=== PATIENT | male | born 1935 | race Caucasian/White ===

== ENCOUNTER 2016-09-22 13:46 | Inpatient (IN) ==
[2016-09-22] MEDS ORDERED: SODIUM CHLORIDE 0.9% 500 ML IV STA (14:10)
[2016-09-22] MEDS ORDERED: ONDANSETRON 4 MG/2 ML VIAL IV STA (14:10)
[2016-09-22] MEDS ORDERED: PANTOPRAZOLE 40 MG VIAL IV STA (14:10)
--- NOTE | 2016-09-22 14:16 | Emergency Department Note ---
Arrival - Arrival Chief Complaint: GI Bleed/Rectal Stated Complaint: GI bleed ED Nursing Triage Note: Vomiting bright red blood x 2 this am - black stools onset last night - pt is awake alert at time of arrival Mode of Arrival: Stretcher Limitations: No Limitations Source: Patient Time Seen by Provider: 09/22/16 14:09 - History of Present Illness HPI Narrative: This 89-year-old white male presents with a history of black tarry bowel movements on 2 occasions last night and what the describes as spitting bright red blood twice this morning. In that regard the patient has had as the states significant problems with sinus trouble recently. The patient himself denies any abdominal pain, change in bowel habits, heartburn, belching, water brash, although he does have a history of gastroesophageal reflux disease with a stricture in the past. At no time has he had any complaints of chest pain or shortness of breath associated with this episode. Currently he is in no acute medical distress. Onset (ago): hour(s) (Patient presents 12 hours post onset of symptoms) Allergies/Adverse Reactions: Allergies Allergy/AdvReac Type Severity Reaction Status Date / Time No Known Allergies Allergy Unverified 09/22/16 13:47 Home Medications: Home Medications Medication Instructions Recorded Confirmed Type Albuterol/Ipratropium Neb [Duoneb] 3 ml RESP TX QID 07/27/14 08/12/15 History amLODIPine [Norvasc] 5 mg PO BID 07/27/14 08/12/15 History Aspirin [Ecotrin] 81 mg PO DAILY 08/12/15 08/12/15 History ALPRAZolam [Xanax] 0.5 mg PO TID PRN #60 tablet 08/16/15 Rx Docusate Sodium Cap [Colace Cap] 100 mg PO BID capsule 08/16/15 Rx Losartan [Cozaar] 50 mg PO DAILY #30 tablet 08/16/15 Rx Pantoprazole Tab [Protonix Tab] 40 mg PO DAILY tablet 08/16/15 Rx Sotalol [Betapace] 80 mg PO BID #60 tablet 08/16/15 Rx Review of System - Review of System 12 point system: reviewed and no additional remarkable complaints except as stated - Review of System Constitutional: Present: as per HPI Head/Ears/Nose/Throat: Present: see HPI Gastrointestinal: Present: as per HPI Medical,Surgical,& Family Hx - Medical History Cardio: History of: Hypertension Psychological: History of: Anxiety Disorders Neurology: History of: Cerebrovascular Accident No history of: Seizures HEENT: History of: Ear Problem, Eye Problem (GLASSES COS) Respiratory: History of: COPD, Respiratory Problems (EMPHYSEMA) Genitourinary: History of: Kidney Stones Gastrointestinal: History of: Bowel Obstruction, GI Problems (DIFFICULT SWALLOWING HX DILATATION) Musculoskeletal: History of: Degenerative Disk Disease - Surgical History HEENT Surgeries: Surgical HX of: Eye Surgery (COS) Abdominal Surgeries: Surgical HX of: Abdominal Surgery (COLON SURGERY DUE TO BLOCKAGE), Cholecystectomy, Colonoscopy, EGD - Family History Family History: Reports;: Family Cancer, Family Heart Disease - Social History Smoking Status: Never smoker Frequency of Alcohol Use: None Type of Drug Use: None Exam Physical Examination: GENERAL: Elderly frail white male in no acute distress. HEENT: Normocephalic. No trauma. Moist mucous membranes. EOMI. PERRLA. ENT: Nose reveals nasal mucosa erythema and edema, throat clear, ears clear NECK: Supple. No adenopathy. CARDIAC: Regular. No murmurs. Heart rate 100 CHEST: Clear to auscultation. No respiratory distress. O2 sat 90 ABDOMEN: Soft. Nontender. Active bowel sounds. EXTREMITIES: No trauma. Normal ROM. No pedal edema. SKIN: No diaphoresis. No rash. NEURO: Alert. Oriented 3. Motor, sensory, vibratory intact. No focal deficits. Vital Signs: Vital Signs Temperature 97.2 F L 09/22/16 13:52 Pulse Rate 108 H 09/22/16 13:52 Respiratory Rate 20 09/22/16 13:52 Blood Pressure 137/77 09/22/16 13:52 O2 Sat by Pulse Oximetry 98 09/22/16 13:48 Course - Reevaluation(s) Reevaluation #1: Advised patient of the need for hospitalization because of occult positive stools as well as bump in troponin. - Consultations Consultation #1: Discussed with Dr. Gilman will admit for further evaluation treatment. Results - Labs CBC & BMP: 09/22/16 13:58 09/22/16 13:58 Labs: I have reviewed the lab and noted the normal hematocrit but the bump in troponins were also noted. - Impressions EKG: Sinus rhythm at 98 with normal DE interval and QRS duration. Diffuse nonspecific ST changes. No acute injury pattern noted. - Diagnostic Findings Procedure: Chest x-ray: image reviewed by me, report reviewed by me (No interval change from previous films) Disposition Clinical Impression: Abnormal cardiac enzyme, Lower GI bleed, Sinusitis Case discussed with: patient, patient's family Disposition: Still a Patient Condition: Stable Time of Disposition: 15:39
[2016-09-22 14:17] LABS: Basophils % 0.4 % (0.0-0.8); Eosinophils # 0.1 10*3/uL (0.0-0.87); Hematocrit 40.7 VOL% (42.0-52.0); Hemoglobin 14.4 GM/DL (14.0-18.0); Immature Granulocytes % 0.9 %; Immature Granulocytes Absolute 0.09 #; Lymphocytes # 2.2 10*3/uL (1.4-4.0); Lymphocytes % 20.9 % (21.2-54.2); Mean Corpuscular HGB Conc 35.4 GM/DL (32-36); Mean Corpuscular Hemoglobin 32 PG (27-34); Mean Corpuscular Volume 89.1 FL (87-102); Mean Platelet Volume 11.8 FL (9.6-12.0); Monocytes # 0.6 10*3/uL (0.11-0.8); Neutrophils # 7.3 10*3/uL (1.4-7.4); Neutrophils % 70.8 % (38.7-73.9); Platelet Count 174 T/CUMM (130-400); Red Blood Count 4.57 MC/CUMM (3.8-5.5); Red Cell Distribution Width 14.2 % (9.3-17.3); White Blood Count 10.3 T/CUMM (4-12)
[2016-09-22 14:23] LABS: Partial Thromboplastin Time 24.8 SECS (0-40)
[2016-09-22] MEDS ORDERED: PANTOPRAZOLE 40 MG VIAL IV ONE (14:24)
[2016-09-22] MEDS ORDERED: ONDANSETRON 4 MG/2 ML VIAL ONE (14:24)
--- NOTE | 2016-09-22 14:35 | XRay Report ---
History short of breath Comparison 08/12/2015 and other prior studies The heart is mildly enlarged. Mediastinal contours unchanged. HC is mildly obscured by positioning There are chronic pleural changes in both lung apices with this stranding and patchy parenchymal opacities in the apices more pronounced in the left grossly unchanged on multiple prior studies. Some minimal areas of nodularity within these regions is grossly similar on the prior study. The lower lung zones are relatively clear. Impression: 1. Mild cardiomegaly 2. Chronic changes grossly similar on prior studies PROCEDURE INTERPRETED AT [facility] DEPARTMENT OF RADIOLOGY Final Report Signed by: Dr. Jamila Joya
[2016-09-22 14:37] LABS: Alanine Aminotransferase 37 U/L (16-61); Albumin 3.2 G/DL (3.4-5.0); Alkaline Phosphatase 60 U/L (45-117); Aspartate Amino Transferase 20 U/L (0-37); Blood Urea Nitrogen 49 MG/DL (7-18); Calcium 8.7 MG/DL (8.5-10.1); Glucose 164 MG/DL (74-106); Potassium 4.2 MMOL/L (3.5-5.1); Sodium 143 MMOL/L (136-145); Total Protein 6.5 G/DL (6.4-8.3)
[2016-09-22 14:47] LABS: Troponin I Only 0.097 NG/ML (0.00-0.045)
--- NOTE | 2016-09-22 15:26 | EKG Report ---
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
[2016-09-22] MEDS ORDERED: ONDANSETRON 4 MG/2 ML VIAL IV PRN (15:41)
[2016-09-22] MEDS: ALBUTEROL/IPRATROPIUM 3 ML NEB RESP TX SCH ×2 (16:47→20:13)
[2016-09-22] MEDS: METOCLOPRAMIDE 10 MG/2 ML VIAL IV SCH (18:36)
[2016-09-22 18:54] LABS: Basophils % 0.3 % (0.0-0.8); Eosinophils % 0.2 % (0.00-10.9); Hematocrit 39.4 VOL% (42.0-52.0); Hemoglobin 13.9 GM/DL (14.0-18.0); Immature Granulocytes % 0.6 %; Immature Granulocytes Absolute 0.07 #; Lymphocytes % 17.2 % (21.2-54.2); Mean Corpuscular HGB Conc 35.3 GM/DL (32-36); Mean Corpuscular Hemoglobin 32 PG (27-34); Mean Corpuscular Volume 89.3 FL (87-102); Mean Platelet Volume 11.7 FL (9.6-12.0); Monocytes # 0.8 10*3/uL (0.11-0.8); Monocytes % 6.4 % (1.7-12.7); Neutrophils # 8.9 10*3/uL (1.4-7.4); Neutrophils % 75.3 % (38.7-73.9); Platelet Count 165 T/CUMM (130-400); Red Blood Count 4.41 MC/CUMM (3.8-5.5); Red Cell Distribution Width 14.2 % (9.3-17.3); White Blood Count 11.8 T/CUMM (4-12)
[2016-09-22 19:18] LABS: CKMB % 7.9 %
[2016-09-22 19:21] LABS: Troponin I Only 0.762 NG/ML (0.00-0.045)
[2016-09-22] MEDS: ALPRAZolam 0.5 MG TABLET PO PRN (20:35)
[2016-09-22] MEDS: SOTALOL 80 MG TABLET PO SCH (20:35)
[2016-09-22] MEDS ORDERED: METOPROLOL TARTRATE 5 MG/5 ML VIAL IV ONE ×3 (20:56→21:30)
--- NOTE | 2016-09-22 21:06 | Event Note ---
Responded to a heart alert called on this gentleman in room 219. On evaluation patient appear to be in mild to moderate distress. He states he gets anxious a lot and complained of chest pain. EKG was was read that showed evidence of atrial fibrillation with RVR no ST changes appreciated. Patient's blood pressure was noted to be 195/100. Sats were stable. Initial troponin level was noted to be elevated. At this time will move patient to a telemetry floor. CV tachycardia. Lungs clear anterior. No wheezing. Abdomen is soft. Lower extremity no evidence of edema. Serial cardiac enzymes. Have notified attending Dr. Gilman. Lopressor 5 mg IV. We will start Cardizem infusion and follow protocol.
[2016-09-22] MEDS ORDERED: DILTIAZEM 100 MG VIAL.ADD IV ONE (21:21)
[2016-09-22] MEDS ORDERED: SODIUM CHLORIDE 0.9% 100 ML IV ONE (21:22)
[2016-09-22] MEDS: DILTIAZEM INJ 100 MG in SODIUM CHLORIDE 0.9% 100 ML IV SCH (21:24)
[2016-09-22] MEDS ORDERED: LORazepam 1 MG TABLET PO ONE (21:31)
--- NOTE | 2016-09-22 21:33 | Event Note ---
Follow-up with patient after his transfer to telemetry he is a little more calm heart rate is now 120s. Still in A. fib rhythm Cardizem infusion is starting. Patient is awake and alert again expressed that he gets anxious a lot. We will give 1 mg Ativan p.o. Start Cardizem infusion. Continue to monitor.
[2016-09-22 22:01] LABS: CKMB % 7.5 %; Calcium 8.5 MG/DL (8.5-10.1); Magnesium 2.1 MG/DL (1.8-2.4); Osmolality,Calculated 306.7 MOS/KG (273-304); Potassium 4.1 MMOL/L (3.5-5.1)
[2016-09-22 22:04] LABS: Troponin I Only 0.998 NG/ML (0.00-0.045)
[2016-09-23 01:02] LABS: CKMB % 9.2 %
[2016-09-23 01:03] LABS: Troponin I Only 1.4 NG/ML (0.00-0.045)
[2016-09-23] MEDS: METOCLOPRAMIDE 10 MG/2 ML VIAL IV SCH ×4 (01:19→17:29)
[2016-09-23] MEDS: ALBUTEROL/IPRATROPIUM 3 ML NEB RESP TX SCH (02:04)
[2016-09-23] MEDS ORDERED: ALBUTEROL/IPRATROPIUM 3 ML NEB RESP TX SCH (07:05)
--- NOTE | 2016-09-23 07:19 | EKG Report ---
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
--- NOTE | 2016-09-23 08:19 | Family Practice History&Phys ---
Assessment and Plan (1) Possible GI bleed Status: Acute Assessment and plan: Based on the history patient was admitted for possible GI bleed. Will obtain serial labs in stools and had GI eval Current Visit: Yes (2) Melanotic stools unknown etiology Status: Acute Assessment and plan: Patient is having melanotic stools by history will eval Current Visit: Yes (3) Atrial fibrillation with RVR Status: Chronic Assessment and plan: History of previous atrial fibrillation. Current Visit: No (4) anxiety disorder Status: Chronic Assessment and plan: Patient has severe anxiety disorder. Current Visit: No (5) cerebrovascular accident Status: Chronic Assessment and plan: History of previous cerebrovascular accident stable at present Current Visit: No (6) chronic obstructive pulmonary disease Status: Chronic Assessment and plan: Patient has severe chronic obstructive pulmonary disease Current Visit: No (7) gastroesophageal reflux with stricture Status: Chronic Assessment and plan: Patient has chronic gas soft reflux with previous stricture Current Visit: No (8) hypertension Status: Chronic Assessment and plan: Hypertension stable to present Current Visit: No History of Present Illness Chief complaint: Hemoptysis and dark stools History of present illness: Mr. Lovelace is a 81 year old male i Mr. Lovelace is a 81-year-old white male known to me who usually is only seen in the hospital environment. He lives with his cousin who apparently reports that he began spitting up blood yesterday. He has had black colored stools for the last several days according to patient and cousin. He also felt very weak. Patient has had a chronic history of gastroesophageal motility problems and reflux. Not aware of any previous GI bleed. Patient was seen in emergency room and had positive Hemoccult stools. He is not noted to be anemic but in view of history admitted for further evaluation therapy. Home Medications Medication Instructions Recorded Confirmed Type Albuterol/Ipratropium Neb [Duoneb] 3 ml RESP TX QID 07/27/14 09/22/16 History Aspirin [Ecotrin] 81 mg PO DAILY 08/12/15 09/22/16 History ALPRAZolam [Xanax] 0.5 mg PO TID PRN #60 tablet 08/16/15 09/22/16 Rx Losartan [Cozaar] 50 mg PO DAILY #30 tablet 08/16/15 09/22/16 Rx Sotalol [Betapace] 80 mg PO BID #60 tablet 08/16/15 09/22/16 Rx Allergies Allergy/AdvReac Type Severity Reaction Status Date / Time No Known Allergies Allergy Unverified 09/22/16 13:47 Medical,Surgical,& Family Hx - Medical History Cardio: History of: Hypertension Psychological: History of: Anxiety Disorders Neurology: History of: Cerebrovascular Accident No history of: Seizures HEENT: History of: Ear Problem, Eye Problem (GLASSES COS) Respiratory: History of: COPD, Respiratory Problems (EMPHYSEMA) Genitourinary: History of: Kidney Stones Gastrointestinal: History of: Bowel Obstruction, GI Problems (DIFFICULT SWALLOWING HX DILATATION) Musculoskeletal: History of: Degenerative Disk Disease - Surgical History HEENT Surgeries: Surgical HX of: Eye Surgery (COS) Abdominal Surgeries: Surgical HX of: Abdominal Surgery (COLON SURGERY DUE TO BLOCKAGE), Cholecystectomy, Colonoscopy, EGD - Family History Family History: Reports;: Family Cancer, Family Heart Disease - Social History Smoking Status: Former smoker Frequency of Alcohol Use: None Type of Drug Use: None Marital Status: 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 Functional capacity: independent ambulation Exam - Constitutional Vitals: Period Temp Pulse Resp BP Sys/Gloria Pulse Ox Last 24 Hr 97.1 F-98.4 F 64-188 18-24 119-168/61-116 92-100 General appearance: mild distress - Head Head exam: Present: normal inspection - Eye Pupils: Present: CHANNING - ENT ENT exam: Present: normal exam - Neck Neck exam: Present: normal inspection - Respiratory Respiratory exam: Present: clear to auscultation bilaterally - Cardiovascular Cardiovascular exam: Present: irregular rhythm - GI/Abdominal GI/Abdominal exam: Present: normal bowel sounds, soft - Extremities Exam Extremities exam: Present: normal inspection - Back Exam Back exam: Present: normal inspection - Neurological Exam Neurological exam: Present: alert, oriented X3 - Psychiatric Psychiatric exam: Present: normal mood, flat affect. Absent: normal affect - Skin Skin exam: Present: normal color Results - Labs CBC & BMP: 09/22/16 18:35 09/22/16 21:01
--- NOTE | 2016-09-23 08:27 | Family Practice Progress Note ---
Family Practice - PN: Subj Interval history: Patient had a an episode of atrial fibrillation with rapid ventricular response on the floor last p.m. A rapid response was called and apparently heart rate in the 160 range. His troponins have been elevated since that time. No previous history of coronary artery disease. He is back in a normal sinus rhythm this a.m. He did actually converted by the time he was transferred from the floor to the telemetry unit. He did not require medications and was much improved. Patient states that he got extremely anxious and has known panic attacks. He did complain of chest pain and shortness of breath during the episode. In view of history and lab changes will have cardiology eval Exam (Progress Note) - Constitutional Vitals: Period Temp Pulse Resp BP Sys/Gloria Pulse Ox Last 24 Hr 97.1 F-98.6 F 64-188 18-24 119-168/61-116 92-100 Results - Labs CBC & BMP: 09/22/16 18:35 09/22/16 21:01 Assessment and Plan (1) Possible GI bleed Status: Acute Assessment and plan: Based on the history patient was admitted for possible GI bleed. Will obtain serial labs in stools and had GI eval Current Visit: Yes (2) Melanotic stools unknown etiology Status: Acute Assessment and plan: Patient is having melanotic stools by history will eval Current Visit: Yes (3) Atrial fibrillation with RVR Status: Chronic Assessment and plan: History of previous atrial fibrillation. Current Visit: No (4) anxiety disorder Status: Chronic Assessment and plan: Patient has severe anxiety disorder. Current Visit: No (5) cerebrovascular accident Status: Chronic Assessment and plan: History of previous cerebrovascular accident stable at present Current Visit: No (6) chronic obstructive pulmonary disease Status: Chronic Assessment and plan: Patient has severe chronic obstructive pulmonary disease Current Visit: No (7) gastroesophageal reflux with stricture Status: Chronic Assessment and plan: Patient has chronic gas soft reflux with previous stricture Current Visit: No (8) hypertension Status: Chronic Assessment and plan: Hypertension stable to present Current Visit: No
--- NOTE | 2016-09-23 08:31 | EKG Report ---
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
[2016-09-23 08:48] LABS: Basophils % 0.4 % (0.0-0.8); Eosinophils # 0.2 10*3/uL (0.0-0.87); Eosinophils % 1.9 % (0.00-10.9); Hematocrit 34.8 VOL% (42.0-52.0); Hemoglobin 12.1 GM/DL (14.0-18.0); Immature Granulocytes % 0.6 %; Immature Granulocytes Absolute 0.05 #; Lymphocytes # 2.5 10*3/uL (1.4-4.0); Lymphocytes % 30.6 % (21.2-54.2); Mean Corpuscular HGB Conc 34.8 GM/DL (32-36); Mean Corpuscular Hemoglobin 31 PG (27-34); Mean Corpuscular Volume 89.2 FL (87-102); Mean Platelet Volume 12.1 FL (9.6-12.0); Monocytes # 0.8 10*3/uL (0.11-0.8); Monocytes % 9.7 % (1.7-12.7); Neutrophils # 4.6 10*3/uL (1.4-7.4); Neutrophils % 56.8 % (38.7-73.9); Platelet Count 145 T/CUMM (130-400); Red Cell Distribution Width 14.6 % (9.3-17.3)
[2016-09-23] MEDS ORDERED: ALBUTEROL/IPRATROPIUM 3 ML NEB RESP TX PRN (08:59)
[2016-09-23 09:11] LABS: CKMB % 8.1 %; Troponin I Only 1.21 NG/ML (0.00-0.045)
[2016-09-23] MEDS: PANTOPRAZOLE 40 MG TABLET PO SCH (10:46)
[2016-09-23] MEDS: amLODIPine 10 MG TABLET PO SCH (10:46)
[2016-09-23] MEDS: ASPIRIN EC 81 MG TABLET PO SCH (10:46)
[2016-09-23] MEDS: LOSARTAN 50 MG TABLET PO SCH (10:46)
[2016-09-23] MEDS: SOTALOL 80 MG TABLET PO SCH ×2 (10:46→19:30)
--- NOTE | 2016-09-23 10:50 | Gastrointestinal Consult Note ---
Assessment and Plan - Time spent with patient Time spent with patient: Greater than 30 minutes (1) Melanotic stools unknown etiology Status: Acute Current Visit: Yes (2) Positive fecal occult blood test Status: Acute Current Visit: Yes (3) Other specified counseling Status: Acute Current Visit: Yes History of Present Illness History of present illness: Mr. Lovelace is a 81 year old male Home Medications Medication Instructions Recorded Confirmed Type Albuterol/Ipratropium Neb [Duoneb] 3 ml RESP TX QID 07/27/14 09/22/16 History Aspirin [Ecotrin] 81 mg PO DAILY 08/12/15 09/22/16 History ALPRAZolam [Xanax] 0.5 mg PO TID PRN #60 tablet 08/16/15 09/22/16 Rx Losartan [Cozaar] 50 mg PO DAILY #30 tablet 08/16/15 09/22/16 Rx Sotalol [Betapace] 80 mg PO BID #60 tablet 08/16/15 09/22/16 Rx Allergies Allergy/AdvReac Type Severity Reaction Status Date / Time No Known Allergies Allergy Unverified 09/22/16 13:47 Medical,Surgical,& Family Hx - Medical History Cardio: History of: Hypertension Psychological: History of: Anxiety Disorders Neurology: History of: Cerebrovascular Accident No history of: Seizures HEENT: History of: Ear Problem, Eye Problem (GLASSES COS) Respiratory: History of: COPD, Respiratory Problems (EMPHYSEMA) Genitourinary: History of: Kidney Stones Gastrointestinal: History of: Bowel Obstruction, GI Problems (DIFFICULT SWALLOWING HX DILATATION) Musculoskeletal: History of: Degenerative Disk Disease - Surgical History HEENT Surgeries: Surgical HX of: Eye Surgery (COS) Abdominal Surgeries: Surgical HX of: Abdominal Surgery (COLON SURGERY DUE TO BLOCKAGE), Cholecystectomy, Colonoscopy, EGD - Family History Family History: Reports;: Family Cancer, Family Heart Disease - Social History Smoking Status: Former smoker Frequency of Alcohol Use: None Type of Drug Use: None Exam - Constitutional Vitals: Period Temp Pulse Resp BP Sys/Gloria Pulse Ox Last 24 Hr 97.1 F-98.6 F 60-188 17-24 119-168/61-116 92-100 Results - Labs CBC & BMP: 09/23/16 08:27 09/22/16 21:01 Note Addendum: PLEASE NOTE -- automatic citation of patient information is unavoidable in this electronic note. I have made a reasonable effort to review the information cited , but it is not a part of my evaluation, impression, or recommendation unless specifically discussed in the dictated text that follows. As well, voice recognition software was used in the creation of this clinical note. Reasonable effort was made to identify and correct gross errors. Despite proofreading, errors in hospice consultant may be present, including nonsense verbiage at times. If you encounter such an error, please contact me at for discussion and correction. -- Eb Chief complaint: melanic stool History of present illness: This is a new patient, a 81-year-old male seen by consultation for evaluation of suspected gastrointestinal bleeding. The patient is admitted to the telemetry floor under the care of Dr. Robin Gilman with a primary diagnosis of same. The patient was admitted through the emergency department last evening with primary complaint of spitting up blood and dark stools for several days. Evaluation at that time revealed hemodynamic stability , normal blood counts, positive fecal occult blood test, but no clinical complaints. He was admitted to the medicine for for further evaluation and, during the evening, transitioned from normal sinus rhythm to symptomatic atrial fibrillation requiring pharmacologic rate control and transfer to the telemetry floor. Since his admission he has had at least one additional dark black stool. No vomiting has been noted since his admission. There is reference in his record to prior gastroesophageal reflux disease with esophageal stricture requiring dilation. There is no known history of prior gastrointestinal bleeding per se. The patient last had endoscopic evaluation some years ago but cannot remember any particulars. He does use occasionally NSAID for hip pain. He currently reports feeling about the same as usual. Patient denies fever, chills, night sweats, rigors, headache, dizziness, neck pain, visual changes, redness of the eyes, difficulty chewing, chest pain, shortness of breath, abdominal pain, weight loss, regurgitation, hematemesis, proctalgia, constipation, dysuria, skin changes, temperature regulation issues, flushing, easy bleeding/bruising, mental status change, numbness/weakness in the extremities, yellowing of the eyes/skin, cutaneous eruptions, allergies to food or drug, family history of gastrointestinal cancer and colon polyps, and other complaints in general. Review of systems: 12 point review of systems was negative except as documented above. Outpatient medications: sotalol, Cozaar, aspirin, Duoneb, Xanax Inpatient medications: Duoneb, Xanax, Norvasc, aspirin, diltiazem, [place], Cozaar , Reglan, Zofran, Protonix, sotalol Past Medical History: hypertension, anxiety disorder, cerebrovascular accident, chronic obstructive pulmonary disease, kidney stones, bowel obstruction, gastroesophageal reflux disease, esophageal stricture, degenerative disc disease Social history: negative tobacco. Negative alcohol Family history: no gastrointestinal cancers Physical examination: Vital Signs: Current vital signs reviewed and documented above. General Appearance: lying in bed. Comfortable. No apparent distress. Head: Normocephalic. Neck: Palpation of the neck revealed no abnormalities. Eyes: No scleral icterus. No scleral injection. No conjunctival pallor. Oral Cavity: Odor of breath was normal. No drooling was observed. Lips showed no abnormalities. Floor of the mouth showed no abnormalities. Pharynx: Oropharynx was normal. Lungs: Respiration rhythm and depth was normal. Cardiovascular: irregular Abdomen: abdomen was not distended. Abdominal palpation revealed no tenderness and no hepatosplenomegaly. Ascites was not discovered. Abdominal auscultation revealed positive bowel sounds. Musculoskeletal System: Musculoskeletal system was grossly normal. Neurological: level of consciousness was normal. Speech was normal. Skin: General appearance was normal. Color and pigmentation were normal. No skin lesions. Laboratory: white blood count 8.0, hemoglobin 12.1, hematocrit 34.8, platelets 145, INR 1.0, PT 11.0, ALT 37, AST 20, alkaline phosphatase 60, total bilirubin 0.9, albumin 3.2, total protein 6.5 Radiology: reviewed Impressions: 1. Melena -- the differential diagnosis includes peptic ulcer, gastritis/ esophagitis generally, arteriovenous malformation, Penny Soto tear, gastrointestinal malignancy, left-sided colonic bleeding, and others. I recommend continued volume management with crystalloid resuscitation as indicated. I recommend continued monitoring of blood counts with consideration of transfusion as indicated. I recommend intravenous proton pump inhibitor. The patient will need upper endoscopy with timing based on clinical progress, likely Sunday. If no finding, it will also need colonoscopy. 2. Positive fecal occult blood test -- this is not surprising in the setting of melena. In strict terms, this is a positive screening for colorectal cancer and it would be reasonable to pursue colonoscopy during convalescence, sooner as clinically indicated. 3. Other specified counseling -- The patient was seen for greater than 30 minutes. The patient was counseled for greater than 50% of this time regarding differential diagnosis, likely diagnosis, diagnostic and therapeutic alternatives, risks/benefits/alternatives of medications and procedures, and plan of care generally. The patient expressed understanding and wishes to proceed. Recommendations: -- aggressive crystalloid resuscitation -- serial hemoglobin and hematocrit monitoring -- transfusion as indicated -- intravenous Protonix -- upper endoscopy with timing dependent on clinical progress, likely Sunday -- colonoscopy with timing dependent on clinical progress -- patient may need video capsule endoscopy if upper and lower endoscopy is nondiagnostic -- thank you for consultation. We will continue to follow with you.
--- NOTE | 2016-09-23 10:52 | Cardiology Consult Note ---
<Ana Weber E - Last Filed: 09/23/16 10:36> Assessment and Plan - Time spent with patient Time spent with patient: Greater than 30 minutes (1) Atrial fibrillation with RVR Status: Chronic Assessment and plan: SEE PLAN OF CARE LISTED BELOW Current Visit: No (2) chronic obstructive pulmonary disease Status: Chronic Assessment and plan: SEE PLAN OF CARE LISTED BELOW Current Visit: No (3) cerebrovascular accident Status: Chronic Assessment and plan: SEE PLAN OF CARE LISTED BELOW Current Visit: No (4) hypertension Status: Chronic Assessment and plan: SEE PLAN OF CARE LISTED BELOW Current Visit: No (5) Dyspnea Status: Chronic Assessment and plan: SEE PLAN OF CARE LISTED BELOW Current Visit: No (6) anxiety disorder Status: Chronic Assessment and plan: SEE PLAN OF CARE LISTED BELOW Current Visit: No (7) GI bleed Status: Acute Assessment and plan: SEE PLAN OF CARE LISTED BELOW Current Visit: Yes History of Present Illness - Data of Consult Patient: known to practice within the last 3 years Consult date: 09/23/16 Requesting Physician: Robin Gilman Primary care physician: Robin Gilman - Consult Narrative Reason for consult: atrial fib with rvr History of present illness: 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 KEANE Mr. Lovelace, 81WM, previously seen by Dr. Keane. He has not followed up in clinic. Risk factors significant for: advanced age, hypertension, sedentary lifestyle. History of known paroxysmal atrial fibrillation, CVA, emphysema, claustrophobia. Patient previously took Eliquis but developed hematuria. Patient presented to the emergency department last evening after vomiting blood twice, passing black tarry stools. During the night, patient developed atrial fibrillation with rapid ventricular response. Heart rate around 160 bpm. He was transferred to telemetry but converted back to normal sinus rhythm without medication. He remains in normal sinus rhythm since that time. Patient reports he has a history of "panic attacks". He is unaware of previously having been diagnosed with atrial fibrillation but takes Sotalol twice daily. Patient's troponins have been elevated since that time (peaked at 1.4). He reports he experienced chest tightness and shortness of breath with the atrial fibrillation. He is normally fairly active, per his . He can perform these activities without chest pain, heaviness or tightness. He has emphysema and is chronically short of breath with exertion. He feels as if this has not worsened over the past year. At this time, will continue to follow his heart rhythm and continue Sotalol. Obviously, he is not a candidate for formal anticoagulation due to heme positive stools and recent vomiting of bright red blood. Also, Eliquis has caused hematuria in the past. He takes aspirin 81 mg orally daily for stroke prevention. LILO VASC SCORE 5. Troponin elevation may be related to RVR and we will continue to follow closely. He may need stress test. He has not had a heart catheterization but has severe claustrophobia and is unsure if he could undergo such procedure. Until GI evaluation is complete we will continue with medical management. I will further discuss with Dr. Hyde and await additional recommendations. ASSESSMENT/PLAN: 1. ATRIAL FIB WITH RVR -currently in normal sinus rhythm. Continue sotalol. Not a candidate for formal anticoagulation due to history of GI bleed, hematuria on Eliquis. He has taken aspirin 81 mg daily for stroke prevention. LILO VASC SCORE 5. 2. GI BLEED - Heme + stool, and reported vomiting of blood. GI evaluation in progress. 3. HYPERTENSION - well-controlled. 4. CLAUSTROPHOBIA - continue current plan of care 5. ELEVATED TROPONIN - continue to follow. May be related to the rapid ventricular response. Again, will continue to follow his cardiac biomarkers. Eventually, patient may need stress testing or heart catheterization. CC: Robin Gilman, DO - Home Medications and Allergies Home Medications: Home Medications Medication Instructions Recorded Confirmed Type Albuterol/Ipratropium Neb [Duoneb] 3 ml RESP TX QID 07/27/14 09/22/16 History Aspirin [Ecotrin] 81 mg PO DAILY 08/12/15 09/22/16 History ALPRAZolam [Xanax] 0.5 mg PO TID PRN #60 tablet 08/16/15 09/22/16 Rx Losartan [Cozaar] 50 mg PO DAILY #30 tablet 08/16/15 09/22/16 Rx Sotalol [Betapace] 80 mg PO BID #60 tablet 08/16/15 09/22/16 Rx Allergies/Adverse Reactions: Allergies Allergy/AdvReac Type Severity Reaction Status Date / Time No Known Allergies Allergy Unverified 09/22/16 13:47 Review of systems: REVIEW OF SYSTEMS: - Constitutional Constitutional: Present: Fatigue. Absent: syncope, anorexia, night sweats - EENT Eyes: Absent: blurry vision, diplopia Ears: Absent: decreased hearing, ear pain, ear discharge - Cardiovascular Cardiovascular: Present: chest pain with atrial fibrillation with rapid ventricular response. Chronic dyspnea on exertion unchanged over the last year. Denies, edema. Denies palpitations. Absent: chest pain with deep breath , claudication - Respiratory Respiratory: Present: HINOJOSA, cough. Absent: wheezing, hemoptysis, change in phlegm color - Gastrointestinal Gastrointestinal: Denies: constipation. Absent: abdominal pain. Present: hematemesis, melena. - Genitourinary Genitourinary: Absent: difficulty urinating, dysuria, urinary hesitancy, flank pain - Musculoskeletal Musculoskeletal: Present: back pain Absent: joint swelling, muscle cramps, muscle weakness - Neurological Neurological: Present: normal gait without frequent falls. Absent: dizziness, hemiparesis - Psychiatric Psychiatric: Anxiety present. Absent: anxiety, difficulty concentrating - Endocrine Endocrine: Present: fatigue. Absent: cold intolerance, heat intolerance, polyuria, polyphagia, polydipsia - Hematologic/Lymphatic Hematologic/Lymphatic: Present: easy bruising. Absent: easy bleeding -Integumentary Integumentary: Absent: lesions, rashes, skin breakdown Medical,Surgical,& Family Hx - Medical History Cardio: History of: Hypertension No history of: CAD, MA, Cardiovascular Problems Psychological: History of: Anxiety Disorders Neurology: History of: Cerebrovascular Accident No history of: Seizures HEENT: History of: Ear Problem, Eye Problem (GLASSES COS) Respiratory: History of: COPD, Respiratory Problems (EMPHYSEMA) Genitourinary: History of: Kidney Stones Gastrointestinal: History of: Bowel Obstruction, GI Problems (DIFFICULT SWALLOWING HX DILATATION) Musculoskeletal: History of: Degenerative Disk Disease - Surgical History HEENT Surgeries: Surgical HX of: Eye Surgery (COS) Abdominal Surgeries: Surgical HX of: Abdominal Surgery (COLON SURGERY DUE TO BLOCKAGE), Cholecystectomy, Colonoscopy, EGD - Family History Family History: Reports;: Family Cancer, Family Heart Disease - Social History Smoking Status: Former smoker Have you smoked in the last 12 months: No Frequency of Alcohol Use: None Type of Drug Use: None Physical Examination Vital Signs Temp Pulse Resp BP Pulse Ox 97.2 F L 107 H 20 137/77 98 09/22/16 13:48 09/22/16 13:48 09/22/16 13:48 09/22/16 13:48 09/22/16 13:48 General: [Pale. ] [Pleasant and cooperative. ] [Appears comfortable.] HEENT: [Normocephalic. Atraumatic mucous membranes moist. No jaundice noted. Conjunctiva moist and clear, sclerae anicteric] Neck: No JVD/HJR, no thyromegaly or lymphadenopathy noted. No carotid bruit appreciated Cardiac: [Regular rate and rhythm.] [No obvious murmur, rub or gallop.] Lungs: [Clear to auscultation without accessory muscle use to assist the respiratory pattern.] Using oxygen in use via nasal cannula Abdomen: Soft, bowel sounds normoactive. Nontender and nondistended. No abdominal bruit or thrill noted. No masses noted. Musculoskeletal: No fluid collection. Decreased range of motion is noted. Extremities: No clubbing, cyanosis noted. [ No edema noted.] Upper extremity pulses 2+. Lower extremity pulses 2+. Capillary refill less than 3 seconds. Skin: No unusual lesions or rashes. No skin breakdown appreciated. Neuro: Awake, alert and oriented 3. Moves all extremities well without hemiparesis or paralysis. No essential tremor is appreciated. Result/EKG - Labs CBC & BMP: 09/23/16 08:27 09/22/16 21:01 Lab Results: I have reviewed the past 24 hour labs Labs: Laboratory Results - last 24 hr 09/22/16 09/22/16 09/22/16 13:58 13:58 13:58 WBC 10.3 RBC 4.57 Hgb 14.4 Hct 40.7 L MCV 89.1 MCH 32 MCHC 35.4 RDW 14.2 Plt Count 174 MPV 11.8 Neut % (Auto) 70.8 Lymph % (Auto) 20.9 L [place] % (Auto) 6.0 Eos % (Auto) 1.0 Baso % (Auto) 0.4 Neut # (Auto) 7.3 Lymph # (Auto) 2.2 [place] # (Auto) 0.6 Eos # (Auto) 0.1 Baso # (Auto) 0.0 Immature Gran % 0.9 Nucleated RBC % 0.0 Immature Gran # 0.09 Nucleated RBCs # 0.00 INR 1.0 PT Patient/Control Mix 11.0 Circ Anticoag PTT 24.8 Sodium 143 Potassium 4.2 Chloride 106 Carbon Dioxide 27 Anion Gap 14.2 BUN 49 H Creatinine 1.60 H GFR Calculation 46 BUN/Creatinine Ratio 30.00 H Glucose 164 H Calculated Osmolality 301.0 Calcium 8.7 Magnesium Total Bilirubin 0.90 AST 20 ALT 37 Alkaline Phosphatase 60 Total Creatine Kinase 47 CK-MB (CK-2) 2.3 CK and CKMB Interp Troponin I 0.097 H Total Protein 6.5 Albumin 3.2 L Globulin 3.3 Albumin/Globulin Ratio 0.9 L Blood Type Antibody Screen 09/22/16 09/22/16 09/22/16 13:58 18:35 18:35 WBC 11.8 RBC 4.41 Hgb 13.9 L Hct 39.4 L MCV 89.3 MCH 32 MCHC 35.3 RDW 14.2 Plt Count 165 MPV 11.7 Neut % (Auto) 75.3 H Lymph % (Auto) 17.2 L [place] % (Auto) 6.4 Eos % (Auto) 0.2 Baso % (Auto) 0.3 Neut # (Auto) 8.9 H Lymph # (Auto) 2.0 [place] # (Auto) 0.8 Eos # (Auto) 0.0 Baso # (Auto) 0.0 Immature Gran % 0.6 Nucleated RBC % 0.0 Immature Gran # 0.07 Nucleated RBCs # 0.00 INR PT Patient/Control Mix Circ Anticoag PTT Sodium Potassium Chloride Carbon Dioxide Anion Gap BUN Creatinine GFR Calculation BUN/Creatinine Ratio Glucose Calculated Osmolality Calcium Magnesium Total Bilirubin AST ALT Alkaline Phosphatase Total Creatine Kinase 73 D CK-MB (CK-2) 5.8 H CK and CKMB Interp 7.9 Troponin I 0.762 H D Total Protein Albumin Globulin Albumin/Globulin Ratio Blood Type A POSITIVE Antibody Screen Negative 09/22/16 09/22/16 09/23/16 20:41 21:01 00:19 WBC RBC Hgb Hct MCV MCH MCHC RDW Plt Count MPV Neut % (Auto) Lymph % (Auto) [place] % (Auto) Eos % (Auto) Baso % (Auto) Neut # (Auto) Lymph # (Auto) [place] # (Auto) Eos # (Auto) Baso # (Auto) Immature Gran % Nucleated RBC % Immature Gran # Nucleated RBCs # INR PT Patient/Control Mix Circ Anticoag PTT Sodium 145 Potassium 4.1 Chloride 111 H Carbon Dioxide 23 Anion Gap 15.1 H BUN 56 H Creatinine 1.50 H GFR Calculation 49 BUN/Creatinine Ratio 37.00 H Glucose 151 H Calculated Osmolality 306.7 H Calcium 8.5 Magnesium 2.1 Total Bilirubin AST ALT Alkaline Phosphatase Total Creatine Kinase 95 D 78 CK-MB (CK-2) 7.1 H 7.2 H CK and CKMB Interp 7.5 9.2 Troponin I 1.040 H D 0.998 H 1.400 H D Total Protein Albumin Globulin Albumin/Globulin Ratio Blood Type Antibody Screen 09/23/16 09/23/16 08:27 08:27 WBC 8.0 D RBC 3.90 Hgb 12.1 L Hct 34.8 L MCV 89.2 MCH 31 MCHC 34.8 RDW 14.6 Plt Count 145 MPV 12.1 H Neut % (Auto) 56.8 Lymph % (Auto) 30.6 [place] % (Auto) 9.7 Eos % (Auto) 1.9 Baso % (Auto) 0.4 Neut # (Auto) 4.6 Lymph # (Auto) 2.5 [place] # (Auto) 0.8 Eos # (Auto) 0.2 Baso # (Auto) 0.0 Immature Gran % 0.6 Nucleated RBC % 0.0 Immature Gran # 0.05 Nucleated RBCs # 0.00 INR PT Patient/Control Mix Circ Anticoag PTT Sodium Potassium Chloride Carbon Dioxide Anion Gap BUN Creatinine GFR Calculation BUN/Creatinine Ratio Glucose Calculated Osmolality Calcium Magnesium Total Bilirubin AST ALT Alkaline Phosphatase Total Creatine Kinase 70 CK-MB (CK-2) 5.7 H CK and CKMB Interp 8.1 Troponin I 1.210 H Total Protein Albumin Globulin Albumin/Globulin Ratio Blood Type Antibody Screen - Diagnostic Findings Procedure: Chest x-ray: report reviewed by me - EKG EKG results: interpreted by nj EKG shows: sinus rhythm, atrial fibrillation <Jose Hyde - Last Filed: 09/23/16 12:23> History of Present Illness - Consult Narrative History of present illness: Mr. Lovelace is a 81 year old male CC: Robin Gilman, DO Physical Examination Vital Signs Temp Pulse Resp BP Pulse Ox 97.2 F L 107 H 20 137/77 98 09/22/16 13:48 09/22/16 13:48 09/22/16 13:48 09/22/16 13:48 09/22/16 13:48 Result/EKG - Labs CBC & BMP: 09/23/16 08:27 09/22/16 21:01 Labs: Laboratory Results - last 24 hr 09/22/16 09/22/16 09/22/16 13:58 13:58 13:58 WBC 10.3 RBC 4.57 Hgb 14.4 Hct 40.7 L MCV 89.1 MCH 32 MCHC 35.4 RDW 14.2 Plt Count 174 MPV 11.8 Neut % (Auto) 70.8 Lymph % (Auto) 20.9 L [place] % (Auto) 6.0 Eos % (Auto) 1.0 Baso % (Auto) 0.4 Neut # (Auto) 7.3 Lymph # (Auto) 2.2 [place] # (Auto) 0.6 Eos # (Auto) 0.1 Baso # (Auto) 0.0 Immature Gran % 0.9 Nucleated RBC % 0.0 Immature Gran # 0.09 Nucleated RBCs # 0.00 INR 1.0 PT Patient/Control Mix 11.0 Circ Anticoag PTT 24.8 Sodium 143 Potassium 4.2 Chloride 106 Carbon Dioxide 27 Anion Gap 14.2 BUN 49 H Creatinine 1.60 H GFR Calculation 46 BUN/Creatinine Ratio 30.00 H Glucose 164 H Calculated Osmolality 301.0 Calcium 8.7 Magnesium Total Bilirubin 0.90 AST 20 ALT 37 Alkaline Phosphatase 60 Total Creatine Kinase 47 CK-MB (CK-2) 2.3 CK and CKMB Interp Troponin I 0.097 H Total Protein 6.5 Albumin 3.2 L Globulin 3.3 Albumin/Globulin Ratio 0.9 L Blood Type Antibody Screen 09/22/16 09/22/16 09/22/16 13:58 18:35 18:35 WBC 11.8 RBC 4.41 Hgb 13.9 L Hct 39.4 L MCV 89.3 MCH 32 MCHC 35.3 RDW 14.2 Plt Count 165 MPV 11.7 Neut % (Auto) 75.3 H Lymph % (Auto) 17.2 L [place] % (Auto) 6.4 Eos % (Auto) 0.2 Baso % (Auto) 0.3 Neut # (Auto) 8.9 H Lymph # (Auto) 2.0 [place] # (Auto) 0.8 Eos # (Auto) 0.0 Baso # (Auto) 0.0 Immature Gran % 0.6 Nucleated RBC % 0.0 Immature Gran # 0.07 Nucleated RBCs # 0.00 INR PT Patient/Control Mix Circ Anticoag PTT Sodium Potassium Chloride Carbon Dioxide Anion Gap BUN Creatinine GFR Calculation BUN/Creatinine Ratio Glucose Calculated Osmolality Calcium Magnesium Total Bilirubin AST ALT Alkaline Phosphatase Total Creatine Kinase 73 D CK-MB (CK-2) 5.8 H CK and CKMB Interp 7.9 Troponin I 0.762 H D Total Protein Albumin Globulin Albumin/Globulin Ratio Blood Type A POSITIVE Antibody Screen Negative 09/22/16 09/22/16 09/23/16 20:41 21:01 00:19 WBC RBC Hgb Hct MCV MCH MCHC RDW Plt Count MPV Neut % (Auto) Lymph % (Auto) [place] % (Auto) Eos % (Auto) Baso % (Auto) Neut # (Auto) Lymph # (Auto) [place] # (Auto) Eos # (Auto) Baso # (Auto) Immature Gran % Nucleated RBC % Immature Gran # Nucleated RBCs # INR PT Patient/Control Mix Circ Anticoag PTT Sodium 145 Potassium 4.1 Chloride 111 H Carbon Dioxide 23 Anion Gap 15.1 H BUN 56 H Creatinine 1.50 H GFR Calculation 49 BUN/Creatinine Ratio 37.00 H Glucose 151 H Calculated Osmolality 306.7 H Calcium 8.5 Magnesium 2.1 Total Bilirubin AST ALT Alkaline Phosphatase Total Creatine Kinase 95 D 78 CK-MB (CK-2) 7.1 H 7.2 H CK and CKMB Interp 7.5 9.2 Troponin I 1.040 H D 0.998 H 1.400 H D Total Protein Albumin Globulin Albumin/Globulin Ratio Blood Type Antibody Screen 09/23/16 09/23/16 09/23/16 08:27 08:27 10:59 WBC 8.0 D RBC 3.90 Hgb 12.1 L Hct 34.8 L MCV 89.2 MCH 31 MCHC 34.8 RDW 14.6 Plt Count 145 MPV 12.1 H Neut % (Auto) 56.8 Lymph % (Auto) 30.6 [place] % (Auto) 9.7 Eos % (Auto) 1.9 Baso % (Auto) 0.4 Neut # (Auto) 4.6 Lymph # (Auto) 2.5 [place] # (Auto) 0.8 Eos # (Auto) 0.2 Baso # (Auto) 0.0 Immature Gran % 0.6 Nucleated RBC % 0.0 Immature Gran # 0.05 Nucleated RBCs # 0.00 INR PT Patient/Control Mix Circ Anticoag PTT Sodium Potassium Chloride Carbon Dioxide Anion Gap BUN Creatinine GFR Calculation BUN/Creatinine Ratio Glucose Calculated Osmolality Calcium Magnesium Total Bilirubin AST ALT Alkaline Phosphatase Total Creatine Kinase 70 77 CK-MB (CK-2) 5.7 H 5.2 H CK and CKMB Interp 8.1 6.8 Troponin I 1.210 H 0.969 H Total Protein Albumin Globulin Albumin/Globulin Ratio Blood Type Antibody Screen
--- NOTE | 2016-09-23 11:13 | EKG Report ---
Stationary ECG Study [facility] Test Date: 09/23/2016 11:14:18 AM Pat Name: JOAQUIM LINDSEY Department: Room: 269 Gender: M Pole Framer: : 1935 Requested by: Robin Ramirez Order Number: [id number] Reading MD: KATELYNN COLLIER Intervals [place] Rate: 64 P: 47 NV: 176 QRS: -28 QRSD: 91 T: 76 QT: 431 QTc: 441 Interpretive Statements SINUS RHYTHM BORDERLINE LEFT AXIS DEVIATION Electronically Signed On 09-25-16 08:13:07 CDT by KATELYNN COLLIER [email or web address]
[2016-09-23 11:38] LABS: CKMB % 6.8 %; Troponin I Only 0.969 NG/ML (0.00-0.045)
--- NOTE | 2016-09-23 14:13 | EKG Report ---
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
[2016-09-23 15:13] LABS: Troponin I Only 0.829 NG/ML (0.00-0.045)
[2016-09-23] MEDS: ALPRAZolam 0.5 MG TABLET PO PRN (20:26)
[2016-09-23] MEDS: DILTIAZEM INJ 100 MG in SODIUM CHLORIDE 0.9% 100 ML IV SCH (23:43)
[2016-09-24] MEDS: METOCLOPRAMIDE 10 MG/2 ML VIAL IV SCH ×4 (00:34→16:59)
[2016-09-24 05:31] LABS: Basophils % 0.3 % (0.0-0.8); Eosinophils # 0.4 10*3/uL (0.0-0.87); Eosinophils % 3.4 % (0.00-10.9); Hematocrit 32.9 VOL% (42.0-52.0); Hemoglobin 11.5 GM/DL (14.0-18.0); Immature Granulocytes % 0.6 %; Immature Granulocytes Absolute 0.06 #; Lymphocytes # 2.4 10*3/uL (1.4-4.0); Lymphocytes % 23.1 % (21.2-54.2); Mean Corpuscular Hemoglobin 31 PG (27-34); Mean Corpuscular Volume 89.4 FL (87-102); Mean Platelet Volume 12.7 FL (9.6-12.0); Monocytes # 1.1 10*3/uL (0.11-0.8); Monocytes % 10.3 % (1.7-12.7); Neutrophils # 6.4 10*3/uL (1.4-7.4); Neutrophils % 62.3 % (38.7-73.9); Platelet Count 135 T/CUMM (130-400); Red Blood Count 3.68 MC/CUMM (3.8-5.5); Red Cell Distribution Width 14.6 % (9.3-17.3); White Blood Count 10.2 T/CUMM (4-12)
[2016-09-24 05:56] LABS: Calcium 8.6 MG/DL (8.5-10.1); Magnesium 2.3 MG/DL (1.8-2.4); Osmolality,Calculated 301.8 MOS/KG (273-304)
[2016-09-24 06:07] LABS: Bilirubin,Total 0.7 MG/DL (0.2-1.0); Calcium 8.6 MG/DL (8.5-10.1); Magnesium 2.3 MG/DL (1.8-2.4); Osmolality,Calculated 301.8 MOS/KG (273-304); Potassium 4.1 MMOL/L (3.5-5.1); Thyroid Stimulating Hormone 6.6 uIU/ml (0.358-3.74); Total Protein 5.9 G/DL (6.4-8.3)
--- NOTE | 2016-09-24 07:33 | EKG Report ---
Stationary ECG Study [facility] Test Date: 09/24/2016 7:33:04 AM Pat Name: JOAQUIM LINDSEY Department: Room: 269 Gender: M Mold Hoister: : 1935 Requested by: Ana Doan Order Number: [id number] Reading MD: KATELYNN COLLIER Intervals [place] Rate: 70 P: 61 VA: 176 QRS: 24 QRSD: 94 T: 89 QT: 416 QTc: 437 Interpretive Statements SINUS RHYTHM Electronically Signed On 09-25-16 08:55:28 CDT by KATELYNN COLLIER [email or web address]
[2016-09-24] MEDS: SOTALOL 80 MG TABLET PO SCH ×2 (08:47→20:59)
[2016-09-24] MEDS: LOSARTAN 50 MG TABLET PO SCH (08:47)
[2016-09-24] MEDS: ASPIRIN EC 81 MG TABLET PO SCH (08:47)
[2016-09-24] MEDS: amLODIPine 10 MG TABLET PO SCH (08:48)
[2016-09-24] MEDS: PANTOPRAZOLE 40 MG TABLET PO SCH (08:48)
--- NOTE | 2016-09-24 09:53 | Cardiology Progress Note ---
Assessment and Plan (1) Atrial fibrillation with RVR Status: Chronic Current Visit: No (2) anxiety disorder Status: Chronic Current Visit: No Cardiology - PN: Subj Interval history: The patient's hematocrit has been stable. He has not noted any further bleeding. His rhythm has been stable. No further atrial fibrillation is been noted. He is not a candidate at this point for anticoagulation. His troponins have been elevated and I suspect that that is related to A. fib with RVR certainly he needs to have screening once we have this other issue addressed. Exam (Progress Note) - Constitutional Vitals: Period Temp Pulse Resp BP Sys/Gloria Pulse Ox Last 24 Hr 96.4 F-98.2 F 60-75 16-22 118-156/63-80 92-97 Exam: General:no acute distress. alert and oriented, mood and affect are normal HEENT: no new lesions, sclerae are clear, mouth and pharynx benign Neck: supple, trachea midline, no JVD noted Lungs: no rales ronchi or wheeze is noted. pt comfortable without accesory muscle use to assist with breathing CV: RRR no murmur rub or gallop is noted. Abd: soft and nontender, BSNA, no masses. Ext: no cyanosis, clubbing or edema Neuro: grossly intact without focal neurologic deficit. Result/EKG - Labs CBC & BMP: 09/24/16 04:29 09/24/16 04:29 Labs: Laboratory Results - last 24 hr 09/23/16 09/23/16 09/24/16 10:59 14:06 04:29 WBC 10.2 RBC 3.68 L Hgb 11.5 L Hct 32.9 L MCV 89.4 MCH 31 MCHC 35.0 RDW 14.6 Plt Count 135 MPV 12.7 H Neut % (Auto) 62.3 Lymph % (Auto) 23.1 [place] % (Auto) 10.3 Eos % (Auto) 3.4 Baso % (Auto) 0.3 Neut # (Auto) 6.4 Lymph # (Auto) 2.4 [place] # (Auto) 1.1 H Eos # (Auto) 0.4 Baso # (Auto) 0.0 Immature Gran % 0.6 Nucleated RBC % 0.0 Immature Gran # 0.06 Nucleated RBCs # 0.00 Sodium Potassium Chloride Carbon Dioxide Anion Gap BUN Creatinine GFR Calculation BUN/Creatinine Ratio Glucose Calculated Osmolality Calcium Magnesium Total Bilirubin AST ALT Alkaline Phosphatase Total Creatine Kinase 77 63 CK-MB (CK-2) 5.2 H 4.6 H CK and CKMB Interp 6.8 Troponin I 0.969 H 0.829 H Total Protein Albumin Globulin Albumin/Globulin Ratio TSH 3rd Generation 09/24/16 09/24/16 04:29 04:29 WBC RBC Hgb Hct MCV MCH MCHC RDW Plt Count MPV Neut % (Auto) Lymph % (Auto) [place] % (Auto) Eos % (Auto) Baso % (Auto) Neut # (Auto) Lymph # (Auto) [place] # (Auto) Eos # (Auto) Baso # (Auto) Immature Gran % Nucleated RBC % Immature Gran # Nucleated RBCs # Sodium 144 144 Potassium 4.1 4.0 Chloride 110 H 109 H Carbon Dioxide 26 26 Anion Gap 12.1 13.0 BUN 57 H 58 H Creatinine 1.30 1.30 GFR Calculation 58 58 BUN/Creatinine Ratio 43.00 H 44.00 H Glucose 98 98 Calculated Osmolality 301.8 301.8 Calcium 8.6 8.6 Magnesium 2.3 2.3 Total Bilirubin 0.70 AST 20 ALT 27 Alkaline Phosphatase 50 Total Creatine Kinase CK-MB (CK-2) CK and CKMB Interp Troponin I Total Protein 5.9 L Albumin 3.0 L Globulin 2.9 Albumin/Globulin Ratio 1.0 L TSH 3rd Generation 6.600 H
--- NOTE | 2016-09-24 10:07 | Gastrointestinal Progress Note ---
Assessment and Plan (1) Melanotic stools unknown etiology Status: Acute Current Visit: Yes (2) Positive fecal occult blood test Status: Acute Current Visit: Yes (3) Other specified counseling Status: Acute Current Visit: Yes Gastroenterology - PN: Subj Interval history: PLEASE NOTE -- automatic citation of patient information is unavoidable in this electronic note. I have made a reasonable effort to review the information cited , but it is not a part of my evaluation, impression, or recommendation unless specifically discussed in the dictated text that follows. As well, voice recognition software was used in the creation of this clinical note. Reasonable effort was made to identify and correct gross errors. Despite proofreading, errors in baffle installer may be present, including nonsense verbiage at times. If you encounter such an error, please contact me at for discussion and correction. -- Eb Chief complaint: melanic stool History of present illness: the patient is an 81-year-old male seen for follow- up of suspected upper gastrointestinal bleeding. Blood counts trended down minimally overnight. No overt bleeding is noted. No other acute events are noted. Cardiac rhythm has been stable. Review of systems: 12 point review of systems was negative except as documented above. Inpatient medications: Duoneb, Xanax, Norvasc, aspirin, diltiazem, [place], Cozaar , Reglan, Zofran, Protonix, sotalol Physical examination: Vital Signs: Current vital signs reviewed and documented above. General Appearance: lying in bed. Comfortable. No apparent distress. Head: Normocephalic. Neck: Palpation of the neck revealed no abnormalities. Eyes: No scleral icterus. No scleral injection. No conjunctival pallor. Oral Cavity: Odor of breath was normal. No drooling was observed. Lips showed no abnormalities. Floor of the mouth showed no abnormalities. Pharynx: Oropharynx was normal. Lungs: Respiration rhythm and depth was normal. Cardiovascular: irregular Abdomen: abdomen was not distended. Abdominal palpation revealed no tenderness and no hepatosplenomegaly. Ascites was not discovered. Abdominal auscultation revealed positive bowel sounds. Musculoskeletal System: Musculoskeletal system was grossly normal. Neurological: level of consciousness was normal. Speech was normal. Skin: General appearance was normal. Color and pigmentation were normal. No skin lesions. Laboratory: white blood count 10.2, hemoglobin 11.5, hematocrit 32.9, platelets 135 Radiology: reviewed Impressions: 1. Melena -- the differential diagnosis is unchanged. Cardiac rhythm is stabilized. I recommend continued volume management with crystalloid resuscitation as indicated. I recommend continued monitoring of blood counts with consideration of transfusion as indicated. I recommend intravenous proton pump inhibitor. We will schedule upper endoscopy for tomorrow. If no finding, patient will also need colonoscopy. 2. Positive fecal occult blood test -- this is not surprising in the setting of melena. In strict terms, this is a positive screening for colorectal cancer and it would be reasonable to pursue colonoscopy during convalescence, sooner as clinically indicated. 3. Other specified counseling -- The patient was seen for greater than 30 minutes. The patient was counseled for greater than 50% of this time regarding differential diagnosis, likely diagnosis, diagnostic and therapeutic alternatives, risks/benefits/alternatives of medications and procedures, and plan of care generally. The patient expressed understanding and wishes to proceed. Recommendations: -- aggressive crystalloid resuscitation -- serial hemoglobin and hematocrit monitoring -- transfusion as indicated -- intravenous Protonix -- upper endoscopy Sunday -- colonoscopy with timing dependent on clinical progress -- patient may need video capsule endoscopy if upper and lower endoscopy are nondiagnostic -- thank you for consultation. Dr. Carney will assume G.I. care for this patient tomorrow. Exam (Progress Note) - Constitutional Vitals: Period Temp Pulse Resp BP Sys/Gloria Pulse Ox Last 24 Hr 96.4 F-98.2 F 60-75 16-22 118-156/63-80 92-97 Results - Labs CBC & BMP: 09/24/16 04:29 09/24/16 04:29
[2016-09-24] MEDS: ALPRAZolam 0.5 MG TABLET PO PRN ×2 (12:41→20:59)
--- NOTE | 2016-09-24 14:56 | Family Practice Progress Note ---
Family Practice - PN: Subj Interval history: Patient relaxed seems to be stable at present. Hemoglobin and hematocrit have decreased since admission. Patient states his stool this a.m. was not melanotic. He is scheduled for an EGD in a.m. He is in normal sinus rhythm at the time of evaluation. His TSH is elevated at 6.6. We will repeat a.m. as well as obtain a free T4. We will continue present evaluation and weight results of EGD Exam (Progress Note) - Constitutional Vitals: Period Temp Pulse Resp BP Sys/Gloria Pulse Ox Last 24 Hr 96.4 F-98.2 F 60-75 16-22 118-156/63-80 92-97 Results - Labs CBC & BMP: 09/24/16 04:29 09/24/16 04:29 Assessment and Plan (1) Possible GI bleed Status: Deleted Assessment and plan: Based on the history patient was admitted for possible GI bleed. Will obtain serial labs in stools and had GI eval Current Visit: Yes (2) Melanotic stools unknown etiology Status: Acute Assessment and plan: Patient is having melanotic stools by history will eval Current Visit: Yes (3) Atrial fibrillation with RVR Status: Chronic Assessment and plan: History of previous atrial fibrillation. Current Visit: No (4) anxiety disorder Status: Chronic Assessment and plan: Patient has severe anxiety disorder. Current Visit: No (5) cerebrovascular accident Status: Chronic Assessment and plan: History of previous cerebrovascular accident stable at present Current Visit: No (6) chronic obstructive pulmonary disease Status: Chronic Assessment and plan: Patient has severe chronic obstructive pulmonary disease Current Visit: No (7) gastroesophageal reflux with stricture Status: Chronic Assessment and plan: Patient has chronic gas soft reflux with previous stricture Current Visit: No (8) hypertension Status: Chronic Assessment and plan: Hypertension stable to present Current Visit: No
[2016-09-24] MEDS: DILTIAZEM INJ 100 MG in SODIUM CHLORIDE 0.9% 100 ML IV SCH (20:59)
[2016-09-25] MEDS: METOCLOPRAMIDE 10 MG/2 ML VIAL IV SCH ×4 (00:20→17:44)
[2016-09-25 05:01] LABS: Basophils % 0.4 % (0.0-0.8); Eosinophils # 0.3 10*3/uL (0.0-0.87); Eosinophils % 3.1 % (0.00-10.9); Hematocrit 34.4 VOL% (42.0-52.0); Hemoglobin 11.8 GM/DL (14.0-18.0); Immature Granulocytes % 0.2 %; Immature Granulocytes Absolute 0.02 #; Lymphocytes % 23.8 % (21.2-54.2); Mean Corpuscular HGB Conc 34.3 GM/DL (32-36); Mean Corpuscular Hemoglobin 31 PG (27-34); Mean Platelet Volume 12.7 FL (9.6-12.0); Monocytes % 11.4 % (1.7-12.7); Neutrophils # 5.2 10*3/uL (1.4-7.4); Neutrophils % 61.1 % (38.7-73.9); Platelet Count 126 T/CUMM (130-400); Red Blood Count 3.78 MC/CUMM (3.8-5.5); Red Cell Distribution Width 14.5 % (9.3-17.3); White Blood Count 8.5 T/CUMM (4-12)
[2016-09-25 05:32] LABS: Calcium 8.6 MG/DL (8.5-10.1); Magnesium 2.5 MG/DL (1.8-2.4); Osmolality,Calculated 298.7 MOS/KG (273-304)
[2016-09-25 05:49] LABS: Free T4 (Free Thyroxine) 1.1 NG/DL (0.76-1.46); Thyroid Stimulating Hormone 3.66 uIU/ml (0.358-3.74)
[2016-09-25] MEDS: SOTALOL 80 MG TABLET PO SCH ×2 (09:00→21:06)
--- NOTE | 2016-09-25 09:40 | Cardiology Progress Note ---
<Zohra Martini - Last Filed: 09/25/16 09:18> Assessment and Plan (1) Atrial fibrillation with RVR Status: Chronic Assessment and plan: SEE PLAN OF CARE LISTED BELOW. Current Visit: No (2) GI bleed Status: Acute Assessment and plan: SEE PLAN OF CARE LISTED BELOW. Current Visit: Yes (3) Positive fecal occult blood test Status: Acute Assessment and plan: SEE PLAN OF CARE LISTED BELOW. Current Visit: Yes (4) anxiety disorder Status: Chronic Assessment and plan: SEE PLAN OF CARE LISTED BELOW. Current Visit: No (5) cerebrovascular accident Status: Chronic Assessment and plan: SEE PLAN OF CARE LISTED BELOW. Current Visit: No (6) chronic obstructive pulmonary disease Status: Chronic Assessment and plan: SEE PLAN OF CARE LISTED BELOW. Current Visit: No (7) hypertension Status: Chronic Assessment and plan: SEE PLAN OF CARE LISTED BELOW. Current Visit: No Cardiology - PN: Subj Interval history: POULTRY PACKER: DR. KEANE SUMMARY: Mr. Lovelace, 81WM, previously seen by Dr. Keane. He has not followed up in clinic. Risk factors significant for: advanced age, hypertension, sedentary lifestyle. History of known paroxysmal atrial fibrillation, CVA, emphysema, claustrophobia. Patient previously took Eliquis but developed hematuria. Patient presented to the emergency department after vomiting blood twice, passing black tarry stools. Over the weekend, patient developed atrial fibrillation with rapid ventricular response. Heart rate around 160 bpm. He was transferred to telemetry but converted back to normal sinus rhythm without medication. He has remained in normal sinus rhythm since that time. Patient reports he has a history of "panic attacks". He is unaware of previously having been diagnosed with atrial fibrillation but takes Sotalol twice daily. Patient's troponins have been elevated since that time (peaked at 1.4). He reports he experienced chest tightness and shortness of breath with the atrial fibrillation. He is normally fairly active, per his . He can perform these activities without chest pain, heaviness or tightness. He has emphysema and is chronically short of breath with exertion. He feels as if this has not worsened over the past year. Patient did have heme positive stool this admission and is for EGD this morning. Patient will need further cardiac screening once his GI evaluation is completed. September UPDATE: Patient was seen and examined on the telemetry unit. He is currently lying in bed in no acute distress. He has done well overnight and is without complaints this morning. He denies chest pain, heaviness and tightness. The patient's hematocrit has been stable. He reports having a black tarry stool yesterday evening. He is for EGD today, currently n.p.o. His rhythm has been stable. No further atrial fibrillation is been noted. He is not a candidate at this point for anticoagulation. Will further discuss with Dr. Ewing, further plan and addendum to follow. ASSESSMENT/PLAN: 1. ATRIAL FIB WITH RVR - Currently in normal sinus rhythm. At this time, will continue to follow his heart rhythm and continue Sotalol. Obviously, he is not a candidate for formal anticoagulation due to heme positive stools and recent vomiting of bright red blood. Also, Eliquis has caused hematuria in the past. He takes aspirin 81 mg orally daily for stroke prevention. LILO VASC SCORE 5. 2. GI BLEED - Heme + stool, and reported vomiting of blood. H&H is stable at 11.8 and 34.4. GI evaluation in progress. Plan for EGD today. NPO. 3. HYPERTENSION - Well-controlled. Continue current plan of care. 4. CLAUSTROPHOBIA - Clinically stalbe. Continue current plan of care 5. ELEVATED TROPONIN - His troponins have been elevated (Peaked at 1.4) and I suspect that that is related to A. fib with RVR. Until GI evaluation is complete we will continue with current plan of care. Certainly he needs to have screening once his GI evaluation is completed. 6. COPD - Stable at present. Continue current plan of care. Further plan and addendum to follow per Dr. Ewing. Exam (Progress Note) - Constitutional Vitals: Period Temp Pulse Resp BP Sys/Gloria Pulse Ox Last 24 Hr 97 F-98.4 F 60-66 18-20 104-165/54-73 94-97 Exam: General: no acute distress. alert and oriented, mood and affect are normal HEENT: Normocephalic. Atraumatic mucous membranes moist. No jaundice noted. Conjunctiva moist and clear, sclerae anicteric Neck: No JVD/HJR, no thyromegaly or lymphadenopathy noted. No carotid bruit appreciated Cardiac: Regular rate and rhythm. [No obvious murmur, rub or gallop. Lungs: Clear to auscultation without accessory muscle use to assist the respiratory pattern. Using oxygen in use via nasal cannula Abdomen: Soft, bowel sounds normoactive. Nontender and nondistended. No abdominal bruit or thrill noted. No masses noted. Extremities: No clubbing, cyanosis noted. No edema noted. Upper extremity pulses 2+. Lower extremity pulses 2+. Capillary refill less than 3 seconds. Skin: No unusual lesions or rashes. No skin breakdown appreciated. Neuro: Awake, alert and oriented 3. Moves all extremities well without hemiparesis or paralysis. No essential tremor is appreciated. Result/EKG - Labs CBC & BMP: 09/25/16 04:22 09/25/16 04:22 Lab Results: I have reviewed the past 24 hour labs Labs: Laboratory Results - last 24 hr 09/25/16 09/25/16 09/25/16 04:22 04:22 04:22 WBC 8.5 RBC 3.78 L Hgb 11.8 L Hct 34.4 L MCV 91.0 MCH 31 MCHC 34.3 RDW 14.5 Plt Count 126 L MPV 12.7 H Neut % (Auto) 61.1 Lymph % (Auto) 23.8 Stevens % (Auto) 11.4 Eos % (Auto) 3.1 Baso % (Auto) 0.4 Neut # (Auto) 5.2 Lymph # (Auto) 2.0 Stevens # (Auto) 1.0 H Eos # (Auto) 0.3 Baso # (Auto) 0.0 Immature Gran % 0.2 Nucleated RBC % 0.0 Immature Gran # 0.02 Nucleated RBCs # 0.00 Sodium 145 Potassium 4.0 Chloride 108 H Carbon Dioxide 28 Anion Gap 13.0 BUN 44 H D Creatinine 1.30 GFR Calculation 58 BUN/Creatinine Ratio 33.00 H Glucose 91 Calculated Osmolality 298.7 Calcium 8.6 Magnesium 2.5 H Free T4 1.10 TSH 3rd Generation 3.660 <Maury Ewing - Last Filed: 09/25/16 18:28> Exam (Progress Note) - Constitutional Vitals: Period Temp Pulse Resp BP Sys/Gloria Pulse Ox Last 24 Hr 97.4 F-98.4 F 57-73 14-23 79-172/51-76 93-97 Result/EKG - Labs CBC & BMP: 09/25/16 04:22 09/25/16 04:22 Labs: Laboratory Results - last 24 hr 09/25/16 09/25/16 09/25/16 04:22 04:22 04:22 WBC 8.5 RBC 3.78 L Hgb 11.8 L Hct 34.4 L MCV 91.0 MCH 31 MCHC 34.3 RDW 14.5 Plt Count 126 L MPV 12.7 H Neut % (Auto) 61.1 Lymph % (Auto) 23.8 Stevens % (Auto) 11.4 Eos % (Auto) 3.1 Baso % (Auto) 0.4 Neut # (Auto) 5.2 Lymph # (Auto) 2.0 Stevens # (Auto) 1.0 H Eos # (Auto) 0.3 Baso # (Auto) 0.0 Immature Gran % 0.2 Nucleated RBC % 0.0 Immature Gran # 0.02 Nucleated RBCs # 0.00 Sodium 145 Potassium 4.0 Chloride 108 H Carbon Dioxide 28 Anion Gap 13.0 BUN 44 H D Creatinine 1.30 GFR Calculation 58 BUN/Creatinine Ratio 33.00 H Glucose 91 Calculated Osmolality 298.7 Calcium 8.6 Magnesium 2.5 H Free T4 1.10 TSH 3rd Generation 3.660
[2016-09-25] MEDS ORDERED: PROPOFOL 200 MG/20 ML VIAL IV ONE (13:10)
[2016-09-25] MEDS ORDERED: LIDOCAINE 100 MG/5 ML SYRINGE ONE (13:10)
--- NOTE | 2016-09-25 13:14 | History and Physical Update ---
History and Physical Update - Physical Exam Mental Status: alert and oriented Heart: regular rate and rhythm Lung: clear to auscultation Abdomen: within normal limits Vitals: within normal limits History and Physical Changes: 81-year-old male was admitted with GI bleeding with melena.
--- NOTE | 2016-09-25 13:28 | Operative Note ---
Date of procedure: 09/25/16 Pre-op diagnosis: GI bleed with melena Procedure: Procedure: Esophagogastroduodenoscopy with biopsies gastric antral ulcers and distal esophageal ulcer Brief clinical abstract: 81-year-old male was admitted with upper GI bleeding with melena. Indication for procedure: GI bleed with melena Endoscopic findings:[After informed consent was obtained, the patient was placed in the left lateral decubitus position. The gastroscope was inserted in the upper esophagus under direct vision with no resistance encountered. Esophageal mucosa appeared normal down to just above the squamocolumnar junction. There was an approximately 1.5 cm diameter ulcer at that level with no visible vessel or adherent clot. I obtained a couple biopsies from this and it was noted to have soft consistency. A moderate sized hiatal hernia was present just distal to this. The endoscope was advanced in the stomach which was carefully examined including retroflexed view of the cardia and fundus. 4 or 5 small 5 mm white based ulcers were noted in the gastric antrum with no visible vessel seen. No mass-effect was associated with these. No blood was seen in the stomach. Multiple biopsies were obtained from the margin and base of these ulcers for pathologic examination and placed in a separate specimen bottle from the esophageal ulcer. The pyloric channel, duodenal bulb, second and third portion of the duodenum appeared normal. The endoscope was withdrawn and patient appeared to tolerate the procedure well. Impression: #1 distal esophageal ulcer-location suggests probable reflux etiology #2 moderate sized hiatal hernia #3 gastric antral ulcers-appearance suggests low risk of any active GI bleeding. Query whether these may be related to nonsteroidal medication use. H. pylori infection would be possibility also. Recommendations: Twice daily PPI therapy for now. Advance diet. Could probably discharge in the next 24 hours if remains stable. Discontinue nonsteroidal medication use if taking. Anesthesia: MAC Surgeon / Physician: Nilay Carney Estimated blood loss: minimal Specimens: other (Ulcers in gastric antrum and distal esophagus) Condition: stable Disposition: post procedure unit Results - Labs CBC & BMP: 09/25/16 04:22 09/25/16 04:22 Discharge Plan - Discharge Medications No Action Albuterol/Ipratropium Neb [Duoneb] 3 ml RESP TX QID Aspirin [Ecotrin] 81 mg PO DAILY ALPRAZolam [Xanax] 0.5 mg PO TID PRN #60 tablet PRN Reason: Anxiety Losartan [Cozaar] 50 mg PO DAILY #30 tablet Sotalol [Betapace] 80 mg PO BID #60 tablet - Follow Up or Referral - Forms/Instructions
--- NOTE | 2016-09-25 13:34 | Anesthesia Post-Op ---
Anesthesia Post OP - Post Ansesthetic Evaluation Patient seen in post op: Yes Resp: within normal limits CV: within normal limits Mental: within normal limits Temp: within normal limits Snca-Bj-Eypsraxaa: within normal limits Nausea and Vomiting: within normal limits Pain: within normal limits
[2016-09-25] MEDS: PANTOPRAZOLE 40 MG TABLET PO SCH ×2 (15:00→21:06)
[2016-09-25] MEDS: amLODIPine 10 MG TABLET PO SCH (17:44)
[2016-09-25] MEDS: ASPIRIN EC 81 MG TABLET PO SCH (17:44)
[2016-09-25] MEDS: LOSARTAN 50 MG TABLET PO SCH (17:44)
[2016-09-25] MEDS: ALPRAZolam 0.5 MG TABLET PO PRN (21:09)
[2016-09-25] MEDS: DILTIAZEM INJ 100 MG in SODIUM CHLORIDE 0.9% 100 ML IV SCH (23:42)
[2016-09-26] MEDS: METOCLOPRAMIDE 10 MG/2 ML VIAL IV SCH ×3 (01:52→12:33)
[2016-09-26 05:31] LABS: Basophils % 0.4 % (0.0-0.8); Eosinophils # 0.3 10*3/uL (0.0-0.87); Eosinophils % 3.1 % (0.00-10.9); Hematocrit 33.8 VOL% (42.0-52.0); Hemoglobin 11.8 GM/DL (14.0-18.0); Immature Granulocytes % 0.7 %; Immature Granulocytes Absolute 0.07 #; Lymphocytes # 2.1 10*3/uL (1.4-4.0); Lymphocytes % 21.9 % (21.2-54.2); Mean Corpuscular HGB Conc 34.9 GM/DL (32-36); Mean Corpuscular Hemoglobin 31 PG (27-34); Mean Corpuscular Volume 89.7 FL (87-102); Mean Platelet Volume 13.3 FL (9.6-12.0); Monocytes # 1.2 10*3/uL (0.11-0.8); Monocytes % 12.1 % (1.7-12.7); Neutrophils # 5.9 10*3/uL (1.4-7.4); Neutrophils % 61.8 % (38.7-73.9); Platelet Count 157 T/CUMM (130-400); Red Blood Count 3.77 MC/CUMM (3.8-5.5); Red Cell Distribution Width 14.3 % (9.3-17.3); White Blood Count 9.5 T/CUMM (4-12)
[2016-09-26 05:56] LABS: Calcium 8.5 MG/DL (8.5-10.1); Magnesium 2.6 MG/DL (1.8-2.4); Osmolality,Calculated 290.1 MOS/KG (273-304); Potassium 3.9 MMOL/L (3.5-5.1)
--- NOTE | 2016-09-26 09:57 | Gastrointestinal Progress Note ---
Assessment and Plan (1) GI bleed Status: Acute Assessment and plan: 09/26-EGD findings noted. Tolerating diet without abdominal pain or overt bleeding. Hemoglobin stable. Patient to continue twice daily PPI at discharge. Follow-up if any problems arise and avoid NSAID use of any kind. Plan an addendum to followed by Dr. Carney. Current Visit: Yes Gastroenterology - PN: Subj Interval history: CC: GI bleed Patient is seen awake alert with at bedside. States he was awake all night long and did not rest at all. He denies any abdominal pain, nausea vomiting. States this is typical nocturnal behavior for him at home. EGD on yesterday noted with findings of distal esophageal ulcer, moderate-sized hiatal hernia, and gastric antral ulcers with biopsies pending. Hemoglobin stable 11.8. Abdomen soft, nontender. Patient is noted for discharge later this afternoon. ROS: Denies shortness of breath or chest pain. Exam (Progress Note) - Constitutional Vitals: Period Temp Pulse Resp BP Sys/Gloria Pulse Ox Last 24 Hr 97.4 F-98.4 F 57-79 14-23 79-172/51-99 80-97 General appearance: normal weight, no acute distress - Head Head exam: Present: normal inspection, normocephalic - Eye Eye exam: Present: other (Lids and conjunctive are unremarkable). Absent: scleral icterus - ENT ENT exam: Present: normal exam, normal oropharynx - Neck Neck exam: Present: normal inspection - Respiratory Respiratory exam: Present: clear to auscultation bilaterally. Absent: rales, rhonchi, wheezes - Cardiovascular Cardiovascular exam: Present: regular rate and rhythm. Absent: diastolic murmur , JVD, systolic murmur - GI/Abdominal GI/Abdominal exam: Present: normal bowel sounds, soft. Absent: ascites, distended, mass, organomegaly, tenderness - Extremities Exam Extremities exam: Present: normal inspection, full ROM - Back Exam Back exam: Present: normal inspection - Neurological Exam Neurological exam: Present: alert, oriented X3 - Psychiatric Psychiatric exam: Present: normal affect, normal mood - Skin Skin exam: Present: normal color, warm, dry Results - Labs CBC & BMP: 09/26/16 03:34 09/26/16 03:34 Lab Results: I have reviewed the past 24 hour labs
[2016-09-26] MEDS: PANTOPRAZOLE 40 MG TABLET PO SCH (10:22)
[2016-09-26] MEDS: SOTALOL 80 MG TABLET PO SCH (10:22)
[2016-09-26] MEDS: ASPIRIN EC 81 MG TABLET PO SCH (10:22)
[2016-09-26] MEDS: amLODIPine 10 MG TABLET PO SCH (10:22)
[2016-09-26] MEDS: LOSARTAN 50 MG TABLET PO SCH (10:22)
--- NOTE | 2016-09-26 10:53 | Cardiology Progress Note ---
<Zohra Martini - Last Filed: 09/26/16 10:51> Assessment and Plan (1) Atrial fibrillation with RVR Status: Chronic Assessment and plan: SEE PLAN OF CARE LISTED BELOW. (2) GI bleed Status: Acute Assessment and plan: SEE PLAN OF CARE LISTED BELOW. (3) Positive fecal occult blood test Status: Acute Assessment and plan: SEE PLAN OF CARE LISTED BELOW. (4) anxiety disorder Status: Chronic Assessment and plan: SEE PLAN OF CARE LISTED BELOW. (5) cerebrovascular accident Status: Chronic Assessment and plan: SEE PLAN OF CARE LISTED BELOW. (6) chronic obstructive pulmonary disease Status: Chronic Assessment and plan: SEE PLAN OF CARE LISTED BELOW. (7) hypertension Status: Chronic Assessment and plan: SEE PLAN OF CARE LISTED BELOW. 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 Lovelace, 81WM, previously seen by Dr. Keane. He has not followed up in clinic. Risk factors significant for: advanced age, hypertension, sedentary lifestyle. History of known paroxysmal atrial fibrillation, CVA, emphysema, claustrophobia. Patient previously took Eliquis but developed hematuria. Patient presented to the emergency department after vomiting blood twice, passing black tarry stools. Over the weekend, patient developed atrial fibrillation with rapid ventricular response. Heart rate around 160 bpm. He was transferred to telemetry but converted back to normal sinus rhythm without medication. He has remained in normal sinus rhythm since that time. Patient reports he has a history of "panic attacks". He is unaware of previously having been diagnosed with atrial fibrillation but takes Sotalol twice daily. Patient's troponins have been elevated since that time (peaked at 1.4). He reports he experienced chest tightness and shortness of breath with the atrial fibrillation. He is normally fairly active, per his . He can perform these activities without chest pain, heaviness or tightness. He has emphysema and is chronically short of breath with exertion. He feels as if this has not worsened over the past year. Patient did have heme positive stool this admission and is for EGD this morning. Patient will need further cardiac screening once his GI evaluation is completed. September UPDATE: Patient was seen and examined on the telemetry unit. He appears to be doing well this morning and reports that he is going to be discharged later this afternoon per Dr. Gilman. He is without cardiac complaints this morning. He has remained in normal sinus rhythm. He denies heart racing/palpitations as well as chest pain, heaviness and tightness. He underwent EGD yesterday which revealed distal esophageal ulcer, moderate size hiatal hernia and gastric antral ulcers which were low risk for active bleeding. The patient's hematocrit has been stable. Denies having any tarry stools overnight. LILO VASC SCORE 5. High risk for cardioembolic event in the future, but cannot tolerate anticoagulation with previous hematuria documented on Eliquis, now with upper GI bleed (esophageal/gastric ulcer). At this point, we will continue aspirin daily. PPI twice daily. Patient will certainly need further cardiac screening in the future. Given the fact that he has severe claustrophobia, cardiac stress testing will most likely be the best option. I will give patient an appointment with Dr. Keane approximately 2 weeks after discharge. At that time, they can discuss the need for further cardiac workup. Will further discuss with Dr. Ewing, further plan and addendum to follow. ASSESSMENT/PLAN: 1. ATRIAL FIB WITH RVR - Remains in normal sinus rhythm. At this time, will continue to follow his heart rhythm and continue Sotalol. LILO VASC SCORE 5. High risk for cardioembolic event in the future, but cannot tolerate anticoagulation with previous hematuria documented on Eliquis, now with upper GI bleed (esophageal/gastric ulcer). At this point, we will continue aspirin daily. PPI twice daily. 2. GI BLEED - Patient underwent EGD yesterday which revealed distal esophageal ulcer, moderate sized hiatal hernia and gastric antral ulcers. GI recommends PPI twice daily. 3. HYPERTENSION - Continue current plan of care. 4. CLAUSTROPHOBIA - Clinically stable. Continue current plan of care. 5. ELEVATED TROPONIN - His troponins have been elevated (Peaked at 1.4) and I suspect that that is related to A. fib with RVR. Denies chest pain, heaviness and tightness. Patient has underwent GI evaluation which revealed distal esophageal ulcer, moderate-sized hiatal hernia and gastric antral ulcers which were low risk for active bleeding. Patient reports that he is being discharged later this afternoon per Dr. Gilman. He reports that he has had normal stress test in the past. However, he is unaware of when these took place. Patient will certainly need further cardiac screening in the future. Given the fact that he has severe claustrophobia, cardiac stress testing will most likely be the best option. I will give patient an appointment with Dr. Keane approximately 2 weeks after discharge. At that time, they can discuss the need for further cardiac workup. 6. COPD - Stable at present. Continue current plan of care. Further plan and addendum to follow per Dr. Ewing. Exam (Progress Note) - Constitutional Vitals: Period Temp Pulse Resp BP Sys/Gloria Pulse Ox Last 24 Hr 97.4 F-98.4 F 57-79 14-23 79-172/51-99 80-97 Exam: General: no acute distress. alert and oriented, mood and affect are normal HEENT: Normocephalic. Atraumatic mucous membranes moist. No jaundice noted. Conjunctiva moist and clear, sclerae anicteric Neck: No JVD/HJR, no thyromegaly or lymphadenopathy noted. No carotid bruit appreciated Cardiac: Regular rate and rhythm. No obvious murmur, rub or gallop. Lungs: Clear to auscultation without accessory muscle use to assist the respiratory pattern. Using oxygen in use via nasal cannula Abdomen: Soft, bowel sounds normoactive. Nontender and nondistended. No abdominal bruit or thrill noted. No masses noted. Extremities: No clubbing, cyanosis noted. No edema noted. Upper extremity pulses 2+. Lower extremity pulses 2+. Capillary refill less than 3 seconds. Skin: No unusual lesions or rashes. No skin breakdown appreciated. Neuro: Awake, alert and oriented 3. Moves all extremities well without hemiparesis or paralysis. No essential tremor is appreciated. Result/EKG - Labs CBC & BMP: 09/26/16 03:34 09/26/16 03:34 Lab Results: I have reviewed the past 24 hour labs Labs: Laboratory Results - last 24 hr 09/26/16 09/26/16 03:34 03:34 WBC 9.5 RBC 3.77 L Hgb 11.8 L Hct 33.8 L MCV 89.7 MCH 31 MCHC 34.9 RDW 14.3 Plt Count 157 D MPV 13.3 H Neut % (Auto) 61.8 Lymph % (Auto) 21.9 Coryell % (Auto) 12.1 Eos % (Auto) 3.1 Baso % (Auto) 0.4 Neut # (Auto) 5.9 Lymph # (Auto) 2.1 Coryell # (Auto) 1.2 H Eos # (Auto) 0.3 Baso # (Auto) 0.0 Immature Gran % 0.7 Nucleated RBC % 0.0 Immature Gran # 0.07 Nucleated RBCs # 0.00 Sodium 142 Potassium 3.9 Chloride 105 Carbon Dioxide 28 Anion Gap 12.9 BUN 36 H Creatinine 1.10 GFR Calculation 71 BUN/Creatinine Ratio 32.00 H Glucose 107 H Calculated Osmolality 290.1 Calcium 8.5 Magnesium 2.6 H Specialty Discharge - Follow Up or Referrals Follow up with: Robin Gilman DO [Physician] - (Patient is to keep routine scheduled appointment) Maycol Keane MD [Physician] - 10/16/16 1:00 pm (She will need a follow-up with Dr. Keane in 2 weeks with CBC, BMP, magnesium and EKG.) <Maury Ewing - Last Filed: 09/26/16 16:21> Exam (Progress Note) - Constitutional Vitals: Period Temp Pulse Resp BP Sys/Gloria Pulse Ox Last 24 Hr 97.6 F-98.4 F 64-79 18-18 125-166/58-99 80-96 Result/EKG - Labs CBC & BMP: 09/26/16 03:34 09/26/16 03:34 Labs: Laboratory Results - last 24 hr 09/26/16 09/26/16 03:34 03:34 WBC 9.5 RBC 3.77 L Hgb 11.8 L Hct 33.8 L MCV 89.7 MCH 31 MCHC 34.9 RDW 14.3 Plt Count 157 D MPV 13.3 H Neut % (Auto) 61.8 Lymph % (Auto) 21.9 Coryell % (Auto) 12.1 Eos % (Auto) 3.1 Baso % (Auto) 0.4 Neut # (Auto) 5.9 Lymph # (Auto) 2.1 Coryell # (Auto) 1.2 H Eos # (Auto) 0.3 Baso # (Auto) 0.0 Immature Gran % 0.7 Nucleated RBC % 0.0 Immature Gran # 0.07 Nucleated RBCs # 0.00 Sodium 142 Potassium 3.9 Chloride 105 Carbon Dioxide 28 Anion Gap 12.9 BUN 36 H Creatinine 1.10 GFR Calculation 71 BUN/Creatinine Ratio 32.00 H Glucose 107 H Calculated Osmolality 290.1 Calcium 8.5 Magnesium 2.6 H
--- NOTE | 2016-09-26 11:25 | Pathology Report from [facility] ---
[facility] ACCESSION # : [id number] PATIENT NAME : Joaquim Lovelace ORDERING DR : LIZ RITTER MD CLINICAL HX: GI Bleed POST-OP DX: #1 Gastric ulcer #2 Esophageal ulcer SPECIMEN INFO: #1 Gastric #2 Esophageal GROSS DESCRIPTION: #1 Received in formalin labeled with the patients name JOAQUIM LOVELACE and #1 consists of two pink-edwards mucosal tissue fragments measuring 0.6 x 0.3 cm. Submitted in cassette #1.#2 Received in formalin labeled with the patients name JOAQUIM LOVELACE and #2 consists of two red-edwards mucosal tissue fragments together measuring 0.4 x 0.2 cm. Submitted in cassette #2. DIAGNOSIS FOR JOAQUIM LOVELACE: #1 GASTRIC BIOPSY: Chronic antral gastritis. H. pylori not seen on special stain.#2 ESOPHAGEAL BIOPSY: Reactive esophageal squamous mucosa and granulation tissue c/w ulcer. Gastric cardia-type mucosa with chronic superficial gastritis. Specialized columnar epithelium of Barretts mucosa not present. COLLECTED DATE: 09/25/2016 [facility] REPORT DATE: 09/26/2016 ELECTRONICALLY SIGNED BY: Yo Marie M.D. 09/26/2016 - 10:13:30 [facility] CENTERAshley
[2016-09-26 12:03] VITALS: BP 133/66
--- NOTE | 2016-09-26 13:35 | Discharge Summary ---
Hospital Course - Hospital Course Hospital Course: Mr. Lovelace is a 81-year-old white male known to me who usually is only seen in the hospital environment. He lives with his cousin who apparently reports that he began spitting up blood yesterday. He has had black colored stools for the last several days according to patient and cousin. He also felt very weak. Patient has had a chronic history of gastroesophageal motility problems and reflux. Not aware of any previous GI bleed. Patient was seen in emergency room and had positive Hemoccult stools. He is not noted to be anemic but in view of history admitted for further evaluation therapy HOSPITAL COURSE -the patient was admitted hospital lab and x-ray studies were obtained. Patient had an episode of atrial fibrillation with rapid ventricular response. In view of this she was transferred to telemetry unit. He was seen in consultation by cardiology. His cardiac isoenzymes were elevated and this was felt to be secondary to his atrial fibrillation and rapid ventricular response. His enzymes slowly returned to normal range. He was seen in consultation for Dr. CARNEY an EGD was performed.. The patient's hemoglobin and hematocrit remained relatively stable. He initially had a positive Hemoccult stools but they've subsequently become negative. EGD revealed patient have both esophageal and gastric ulcers. Patient showed no signs of active bleeding. There was consideration of doing further studies including a colonoscope the patient does not want to do that at present. He is stable at time of discharge and does not want to do any further studies unless further problems occur. We'll discharge patient to home care have him call or return to emergency room if condition worsens or problems develop. Will have him keep his scheduled follow-up appointments in my clinic. Diagnosis - Discharge Diagnosis (1) GI bleed secondary to gastric ulcer Status: Acute (2) Atrial fibrillation with RVR Status: Chronic (3) anxiety disorder Status: Chronic (4) chronic obstructive pulmonary disease Status: Chronic (5) cerebrovascular accident Status: Chronic (6) gastroesophageal reflux with stricture Status: Chronic (7) hypertension Status: Chronic Specialty Discharge - Follow Up or Referrals Follow up with: Maycol Keane MD [Physician] - 2 Weeks (She will need a follow-up with Dr. Keane in 2 weeks with CBC, BMP, magnesium and EKG.) Discharge Plan - Discharge Data Disposition: Disch To Home/Self Care Condition at Discharge: Stable Discharge Diet: advance to your usual diet Activity: resume usual activities as tolerated Weight Bearing at Discharge: weight bear as tolerated Contact your physician if you experience:: fever over 101, Shortness of breath - Discharge Medications New Pantoprazole Tab [Protonix Tab] 40 mg PO BID #30 tablet Continue Albuterol/Ipratropium Neb [Duoneb] 3 ml RESP TX QID Aspirin [Ecotrin] 81 mg PO DAILY ALPRAZolam [Xanax] 0.5 mg PO TID PRN #60 tablet PRN Reason: Anxiety Losartan [Cozaar] 50 mg PO DAILY #30 tablet Sotalol [Betapace] 80 mg PO BID #60 tablet - Follow Up or Referral Follow Up: Maycol Keane MD [Physician] - 2 Weeks (She will need a follow-up with Dr. Keane in 2 weeks with CBC, BMP, magnesium and EKG.) Robin Gilman DO [Physician] - (Patient is to keep routine scheduled appointment) - Forms/Instructions Exam - Constitutional Vitals: Period Temp Pulse Resp BP Sys/Gloria Pulse Ox Last 24 Hr 97.6 F-98.4 F 57-79 14-20 101-166/57-99 80-96 General appearance: no acute distress - Head Head exam: Present: normal inspection - ENT ENT exam: Present: normal exam - Neck Neck exam: Present: normal inspection - Respiratory Respiratory exam: Present: clear to auscultation bilaterally - Cardiovascular Cardiovascular exam: Present: irregular rhythm - GI/Abdominal GI/Abdominal exam: Present: normal bowel sounds, soft - Extremities Exam Extremities exam: Present: normal inspection - Back Exam Back exam: Present: normal inspection - Neurological Exam Neurological exam: Present: alert - Psychiatric Psychiatric exam: Present: normal affect - Skin Skin exam: Present: normal color Discharge Results Procedures and tests throughout hospitalization: Pending Orders 09/23/16 09:17 Occult Blood, Stool Routine 09/27/16 04:00 BMP w/ Mg [Basic Metabolic Panel w/Mg] IN AM CBC [Comp Blood Count Auto Diff] IN AM 09/28/16 04:00 BMP w/ Mg [Basic Metabolic Panel w/Mg] IN AM CBC [Comp Blood Count Auto Diff] IN AM 09/29/16 04:00 BMP w/ Mg [Basic Metabolic Panel w/Mg] IN AM CBC [Comp Blood Count Auto Diff] IN AM Labs on day of discharge: Labs from last 24 hours 09/26/16 09/26/16 03:34 03:34 WBC 9.5 RBC 3.77 L Hgb 11.8 L Hct 33.8 L MCV 89.7 MCH 31 MCHC 34.9 RDW 14.3 Plt Count 157 D MPV 13.3 H Neut % (Auto) 61.8 Lymph % (Auto) 21.9 Henry % (Auto) 12.1 Eos % (Auto) 3.1 Baso % (Auto) 0.4 Neut # (Auto) 5.9 Lymph # (Auto) 2.1 Henry # (Auto) 1.2 H Eos # (Auto) 0.3 Baso # (Auto) 0.0 Immature Gran % 0.7 Nucleated RBC % 0.0 Immature Gran # 0.07 Nucleated RBCs # 0.00 Sodium 142 Potassium 3.9 Chloride 105 Carbon Dioxide 28 Anion Gap 12.9 BUN 36 H Creatinine 1.10 GFR Calculation 71 BUN/Creatinine Ratio 32.00 H Glucose 107 H Calculated Osmolality 290.1 Calcium 8.5 Magnesium 2.6 H DS: Provider Date of admission: 09/22/16 15:39 Primary care physician: . 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
== END 2016-09-26 15:43 | disposition home or self-care (01) | DRG 378 ==
LOC: EDBD → EDUNIT# → N.ED 13:46 → N.EDINP 15:39 → N.2E 17:59 → N.TELES 21:52
PROVIDERS: ADMIT Family Medicine; ATTEND Family Medicine

== ENCOUNTER 2016-11-11 08:26 | Inpatient (IN) ==
--- NOTE | 2016-11-11 08:59 | Emergency Department Note ---
Joseph Reyez Manpreet, am scribing for, and in the presence of, Raquel Dyer DO 08: 56. IGomez Debra, DO, personally performed the services described in this documentation, ascribed by Prosper Ruiz in my presence, and it is both accurate and complete [id number] . Arrival - Arrival Chief Complaint: Upper Respiratory Stated Complaint: vomiting blood ED Nursing Triage Note: C/O couhging up blood that started last night, states he was here last week for the same complaint, denies having abdomen pain, denies having abd.cramping,denies having increase temp., + coughing , poor historian, states he is also having bad reflux Mode of Arrival: Wheelchair Limitations: No Limitations Source: Patient, Family () Time Seen by Provider: 11/11/16 08:37 - History of Present Illness HPI Narrative: Pt is a 81 y/o male, with PMHx of HTN, CVA, and COPD, who presents to the ED with CC of hematemesis with bright red colored blood that started last night. Pt was here for the same complaint last week and also c/o coughing. Pt denies Abd pain, nausea, fever, or chills. Pt is not on home O2 but uses a nebulizer. No other pains/complaints reported to ED. Onset (ago): hour(s) Consistency: constant Severity: moderate Severity scale (1-10): 3 Allergies/Adverse Reactions: Allergies Allergy/AdvReac Type Severity Reaction Status Date / Time No Known Allergies Allergy Verified 11/11/16 08:33 Home Medications: Home Medications Medication Instructions Recorded Confirmed Type Albuterol/Ipratropium Neb [Duoneb] 3 ml RESP TX QID 07/27/14 11/11/16 History Aspirin [Ecotrin] 81 mg PO DAILY 08/12/15 11/11/16 History ALPRAZolam [Xanax] 0.5 mg PO TID PRN #60 tablet 08/16/15 11/11/16 Rx Losartan [Cozaar] 50 mg PO DAILY #30 tablet 08/16/15 11/11/16 Rx Sotalol [Betapace] 80 mg PO BID #60 tablet 08/16/15 11/11/16 Rx Pantoprazole Tab [Protonix Tab] 40 mg PO BID #30 tablet 09/26/16 11/11/16 Rx Review of System - Review of System 12 point system: reviewed and no additional remarkable complaints except as stated - Review of System Constitutional: Absent: chills, diaphoresis, fever, weakness Head/Ears/Nose/Throat: Absent: sore throat Respiratory: Absent: cough, respiratory distress Cardiovascular: Absent: chest pain, dyspnea on exertion Gastrointestinal: Present: vomiting, hematemesis. Absent: abdominal pain, nausea Genitourinary male: Absent: dysuria Musculoskeletal: Absent: back pain Neurological: Absent: headache, weakness Medical,Surgical,& Family Hx - Medical History Cardio: History of: Hypertension No history of: CAD, NV, Cardiovascular Problems Psychological: History of: Anxiety Disorders Neurology: History of: Cerebrovascular Accident No history of: Seizures HEENT: History of: Ear Problem, Eye Problem (GLASSES COS) Respiratory: History of: COPD, Respiratory Problems (EMPHYSEMA) Genitourinary: History of: Kidney Stones Gastrointestinal: History of: Bowel Obstruction, GI Problems (DIFFICULT SWALLOWING HX DILATATION) Musculoskeletal: History of: Degenerative Disk Disease - Surgical History HEENT Surgeries: Surgical HX of: Eye Surgery (COS) Abdominal Surgeries: Surgical HX of: Abdominal Surgery (COLON SURGERY DUE TO BLOCKAGE), Cholecystectomy, Colonoscopy, EGD - Family History Family History: Reports;: Family Cancer, Family Heart Disease - Social History Smoking Status: Never smoker Frequency of Alcohol Use: None Type of Drug Use: None Exam Vital Signs: Vital Signs Temperature 98.2 F 11/11/16 08:49 Pulse Rate 101 H 11/11/16 11:00 Respiratory Rate 22 11/11/16 09:45 Blood Pressure 124/59 11/11/16 11:00 O2 Sat by Pulse Oximetry 99 11/11/16 11:00 - General General appearance: alert, in no apparent distress, other (Poor hygiene) - Head Head exam: Present: atraumatic, normocephalic, normal inspection - Eye Eye exam: Present: PERRL, EOMI - ENT ENT exam: Present: normal exam, normal oropharynx, mucous membranes moist, TM's normal bilaterally - Neck Neck exam: Present: normal inspection, full ROM, trachea midline. Absent: tenderness - Chest Chest inspection: Present: normal inspection, symmetric chest wall rise. Absent : tenderness - Respiratory Respiratory exam: Present: normal lung sounds bilaterally, accessory muscle use (Mild accessory muscle use due secondary to emphysema but is baseline), rhonchi (Bilat rhonchi) - Cardiovascular Cardiovascular exam: Present: regular rate, normal rhythm, normal heart sounds. Absent: murmur, rubs, gallop - Abdominal Exam Abdominal exam: Present: soft, distention (Mildly), normal bowel sounds. Absent : tenderness - Extremities Exam Extremities exam: Present: normal inspection, full ROM. Absent: tenderness, pedal edema - Back Exam Back exam: Present: normal inspection, full ROM. Absent: tenderness - Neurological Exam Neurological exam: Present: alert, oriented X3, CN II-XII intact, reflexes normal - Psychiatric Psychiatric exam: Present: normal affect, normal mood - Skin Skin exam: Present: warm, dry, intact, normal color. Absent: pallor Course Course Narrative: spoke with Dr Levine who will see pt in hospital and agrees to admission Results - Labs CBC & BMP: 11/11/16 09:07 11/11/16 09:07 Lab Results: I have reviewed the patients labs Labs: Laboratory Tests 11/11/16 11/11/16 09:07 09:07 WBC 12.5 H RBC 3.88 Hgb 11.0 L Hct 33.1 L MCV 85.3 L Neut % (Auto) 77.0 H Lymph % (Auto) 13.0 L Neut # (Auto) 9.6 H Jay # (Auto) 1.0 H INR 1.1 PT Patient/Control Mix 11.4 Circ Anticoag PTT 25.6 Laboratory Tests 11/11/16 09:07 INR 1.1 PT Patient/Control Mix 11.4 Circ Anticoag PTT 25.6 Laboratory Tests 11/11/16 11/11/16 09:07 09:07 Sodium 141 Potassium 4.1 Chloride 106 Carbon Dioxide 29 Anion Gap 10.1 BUN 33 H Creatinine 1.70 H Glucose 140 H Lactic Acid 2.2 H Calcium 8.4 L Albumin 3.1 L Globulin 3.9 H Albumin/Globulin Ratio 0.7 L Laboratory Tests 11/11/16 09:07 Blood Type A POSITIVE Antibody Screen Negative - Diagnostic Findings Procedure: Chest x-ray: report reviewed by me (1. Nodular density left upper chest is somewhat more defined and nodular in appearance compared to chest x- ray performed 08/12/2015. CT chest is recommended for further characterization is interval development of small neoplasm is not excluded. 2. Otherwise, biapical areas of parenchymal scarring suggests little change from comparison studies.), CT - chest: report reviewed by me, pending (CT Chest w/ Con: 1. The overall appearance of the mid and upper lung parenchyma has changed little since comparison. No discrete pulmonary nodules are present. The nodular density demonstrated on recent chest x-ray likely reflects an area of scarring en face. No specific abnormality of the lung parenchyma is present to suggest acute pathology. 2. Moderate left ventricular hypertorphy is suggested.) Disposition Clinical Impression: Upper respiratory infection, GI bleed secondary to gastric ulcer Case discussed with: patient, patient's family Disposition: Still a Patient Condition: Stable Time of Disposition: 11:36
[2016-11-11 09:23] LABS: Basophils % 0.3 % (0.0-0.8); Eosinophils # 0.2 10*3/uL (0.0-0.87); Eosinophils % 1.4 % (0.00-10.9); Hematocrit 33.1 VOL% (42.0-52.0); Immature Granulocytes % 0.6 %; Immature Granulocytes Absolute 0.07 #; Lymphocytes # 1.6 10*3/uL (1.4-4.0); Mean Corpuscular HGB Conc 33.2 GM/DL (32-36); Mean Corpuscular Hemoglobin 28 PG (27-34); Mean Corpuscular Volume 85.3 FL (87-102); Mean Platelet Volume 11.8 FL (9.6-12.0); Monocytes % 7.7 % (1.7-12.7); Neutrophils # 9.6 10*3/uL (1.4-7.4); Platelet Count 240 T/CUMM (130-400); Red Blood Count 3.88 MC/CUMM (3.8-5.5); White Blood Count 12.5 T/CUMM (4-12)
[2016-11-11 09:34] LABS: INR 1.1; PT Patient Result 11.4 SECS; Partial Thromboplastin Time 25.6 SECS (0-40)
[2016-11-11 09:46] LABS: Alanine Aminotransferase 25 U/L (16-61); Albumin 3.1 G/DL (3.4-5.0); Alkaline Phosphatase 64 U/L (45-117); Aspartate Amino Transferase 18 U/L (0-37); Bilirubin,Total < 0.39 MG/DL (0.2-1.0); Blood Urea Nitrogen 33 MG/DL (7-18); Calcium 8.4 MG/DL (8.5-10.1); Glucose 140 MG/DL (74-106); Magnesium 2.1 MG/DL (1.8-2.4); Osmolality,Calculated 289.3 MOS/KG (273-304); Potassium 4.1 MMOL/L (3.5-5.1); Sodium 141 MMOL/L (136-145)
--- NOTE | 2016-11-11 09:53 | XRay Report ---
XR chest 1V portable Indication: Coughing up blood. Comparison: Chest x-ray 09/22/2016. Chest x-ray 08/12/2015. Chest CT 08/13/2015. Technique: Portable AP chest was performed. Findings: Bilaterally, there are areas of apical scarring suggested more prevalent on the left. Additionally on the left, there is a nodular density measuring approximately 10 to 11 mm. The overall appearance of the upper chest suggests little change from comparison. Hilar structures are symmetric and otherwise unremarkable. Heart size is normal. Lower lungs are clear. Bones and soft tissues are unremarkable. Impression: 1. Nodular density left upper chest is somewhat more defined and nodular in appearance compared to chest x-ray performed 08/12/2015. CT chest is recommended for further characterization is interval development of small neoplasm is not excluded. 2. Otherwise, biapical areas of parenchymal scarring suggests little change from comparison studies. 11/11/2016 9:46 AM PROCEDURE INTERPRETED AT [facility] DEPARTMENT OF RADIOLOGY Final Report Signed by: Dr. Mauri Kemp
[2016-11-11] MEDS ORDERED: LEVOFLOXACIN INJ 500 MG in PREMIX 1 EACH IV STA (10:20)
[2016-11-11] MEDS ORDERED: LEVOFLOXACIN INJ 100 ML IV ONE (10:43)
--- NOTE | 2016-11-11 11:06 | CT Report ---
CT chest w con Indication: Abnormal chest x-ray. Comparison: Chest CT 08/13/2015. Technique: CT of the chest was performed following the administration of intravenous contrast. The CT examination was performed using one or more of the following dose reduction techniques: Automatic exposure control, adjustment of the mA and kV according to patient size, or iterative reconstruction techniques. Findings: Areas of linear to curvilinear scarring involving the lung apices again are demonstrated bilaterally. Overall configuration and appearance suggests little interval change. No discrete pulmonary nodules have developed since the comparison study. Some of the subsegmental bronchi in the region of scarring demonstrated evidence of bronchiectasis. Mid and lower lungs are clear. No intrabronchial lesions are demonstrated. No pleural effusion is present. Pulmonary artery demonstrates no filling defects to suggest pulmonary artery embolus. Aorta demonstrates normal 3 vessel arch anatomy is otherwise unremarkable. Heart size is normal. Left ventricular hypertrophy is demonstrated. Trace pericardial fluid is present. The esophagus is dilated throughout the chest with air-fluid level. Differential considerations include achalasia, scleroderma, and presbyesophagus. Additionally, within the mid thoracic esophagus, there are mixed areas of attenuation along the esophageal wall that may exclusion of wall thickening difficult. Small paraesophageal lymph node to the right of midline image #90 has changed little in size or appearance since the comparison study. Soft tissues and musculature of the lower neck and chest wall demonstrate no acute findings. Bony structures demonstrate no evidence of acute pathology. Kyphosis of the upper thoracic spine appears stable. Gallbladder surgically absent. Hypoattenuating structure within the tail of the pancreas image #113 measures 2 cm in greatest dimension and has minimally increased in size since comparison study. No acute findings are suggested within the upper abdomen Impression: 1. The overall appearance of the mid and upper lung parenchyma has changed little since comparison. No discrete pulmonary nodules are present. The nodular density demonstrated on recent chest x-ray likely reflects an area of scarring en face. No specific abnormality of the lung parenchyma is present to suggest acute pathology. 2. Moderate left ventricular hypertrophy is suggested. 3. Diffuse dilation of the esophagus is present. Differential considerations include scleroderma, achalasia, and presbyesophagus. Wall thickening along the right lateral wall of the mid esophagus cannot be excluded. Endoluminal or submucosal mass cannot be excluded. 4. Interval increase in size of pancreatic tail lesion that may reflect side duct dilatation, hypoattenuating mass, or pancreatic pseudocyst. 5. Trace pericardial effusion. Pericarditis is not excluded. 11/11/2016 10:54 AM PROCEDURE INTERPRETED AT [facility] DEPARTMENT OF RADIOLOGY Final Report Signed by: Dr. Mauri Kemp
[2016-11-11] MEDS ORDERED: ONDANSETRON 4 MG/2 ML VIAL IV PRN (11:36)
[2016-11-11] MEDS ORDERED: ALPRAZolam 0.5 MG TABLET PO ONE (11:40)
[2016-11-11] MEDS ORDERED: SODIUM CHLORIDE 0.9% 1,000 ML IV STA (11:40)
[2016-11-11] MEDS ORDERED: ALPRAZolam 0.5 MG TABLET ONE (11:41)
[2016-11-11] MEDS ORDERED: PANTOPRAZOLE 40 MG VIAL IV STA (11:42)
[2016-11-11] MEDS ORDERED: PANTOPRAZOLE 40 MG VIAL IV ONE (11:52)
--- NOTE | 2016-11-11 12:57 | XRay Report ---
XR abdomen complete w decub Indication: Abdominal pain. Comparison: Supine AP abdomen 07/21/2014. Technique: Supine AP abdomen as well as left lateral decubitus image of the abdomen was submitted. Findings: Lung bases are clear. No free intraperitoneal air is suggested. No organomegaly suggested. The bowel gas pattern demonstrates no evidence of acute pathology. There is a moderate amount of contrast remaining within the left renal collecting system with somewhat persistent left nephrogram present. Urinary bladder is decompressed and demonstrates presence of intravenous contrast.. Bones and soft tissues demonstrate no evidence of acute pathology. Impression: 1. No specific abnormality of the bowel gas pattern is demonstrated. 2. Asymmetric renal nephrograms are demonstrated. Interval removal of left-sided ureteral stent has occurred. Left side partial obstruction is not entirely excluded given the asymmetry of the nephrogram. 11/11/2016 12:51 PM PROCEDURE INTERPRETED AT [facility] DEPARTMENT OF RADIOLOGY Final Report Signed by: Dr. Mauri Kemp
[2016-11-11 14:06] LABS: Hematocrit 27.9 VOL% (42.0-52.0); Hemoglobin 9.3 GM/DL (14.0-18.0)
[2016-11-11] MEDS: SODIUM CHLORIDE 0.9% 1,000 ML IV SCH ×2 (17:00→20:54)
[2016-11-11 20:22] LABS: Hematocrit 27.9 VOL% (42.0-52.0)
--- NOTE | 2016-11-11 20:31 | Family Practice History&Phys ---
Assessment and Plan (1) Panic attacks Status: Acute Assessment and plan: 11/11/2016: Will restart his Xanax and also add IV Ativan as needed Current Visit: Yes (2) GI bleed Status: Acute Assessment and plan: 11/11/2016: Patient's had one other bloody bowel movements since arriving in the unit. GI has been consulted. Current Visit: No History of Present Illness Chief complaint: Rectal bleeding History of present illness: Mr. Lovelace is a 81 year old male Patient is 81-year-old white male presents emergency room complaining of rectal bleeding that started earlier this date. Patient denies any abdominal pain associated with this. Patient did have some shortness of breath but this is a chronic problem for him. He did not have any chest pain associated with this and states he is having some dyspepsia. He has recent history of GI bleed secondary to gastric and duodenal ulcer disease. Patient very anxious in the emergency room and has frequent panic attacks. Patient denies any neck shoulder arm discomfort associated with this. Patient was admitted to intensive care because of his GI bleed Home Medications Medication Instructions Recorded Confirmed Type Albuterol/Ipratropium Neb [Duoneb] 3 ml RESP TX QID 07/27/14 11/11/16 History Aspirin [Ecotrin] 81 mg PO DAILY 08/12/15 11/11/16 History ALPRAZolam [Xanax] 0.5 mg PO TID PRN #60 tablet 08/16/15 11/11/16 Rx Losartan [Cozaar] 50 mg PO DAILY #30 tablet 08/16/15 11/11/16 Rx Sotalol [Betapace] 80 mg PO BID #60 tablet 08/16/15 11/11/16 Rx Pantoprazole Tab [Protonix Tab] 40 mg PO BID #30 tablet 09/26/16 11/11/16 Rx Allergies Allergy/AdvReac Type Severity Reaction Status Date / Time No Known Allergies Allergy Verified 11/11/16 08:33 - Constitutional Constitutional: Present: fatigue, weakness. Absent: chills, fever(s) - EENT Eyes: Absent: blurry vision, loss of vision Ears: Absent: decreased hearing, ear pain Nose, mouth and throat: Absent: dysphagia, nasal congestion, sinus pressure, sore throat - Cardiovascular Cardiovascular: Absent: chest pain at rest, chest pain with activity, orthopnea , palpitations, PND - Respiratory Respiratory: Absent: cough, dyspnea, wheezing - Gastrointestinal Gastrointestinal: Present: abdominal pain. Absent: hematochezia, nausea, vomiting - Genitourinary Genitourinary: Absent: dysuria, nocturia, urinary frequency - Musculoskeletal Musculoskeletal: Absent: arthralgias, back pain - Neurological Neurological: Absent: confusion, focal weakness, numbness, paresthesias - Psychiatric Psychiatric: Present: anxiety. Absent: depression - Endocrine Endocrine: Present: fatigue. Absent: polydipsia, polyphagia - Hematologic/Lymphatic Hematologic/Lymphatic: Absent: easy bleeding, easy bruising Medical,Surgical,& Family Hx - Medical History Cardio: History of: Hypertension No history of: CAD, [place], Cardiovascular Problems Psychological: History of: Anxiety Disorders Neurology: History of: Cerebrovascular Accident No history of: Seizures HEENT: History of: Ear Problem, Eye Problem (GLASSES COS) Respiratory: History of: COPD, Respiratory Problems (EMPHYSEMA) Genitourinary: History of: Kidney Stones Gastrointestinal: History of: Bowel Obstruction, GI Problems (DIFFICULT SWALLOWING HX DILATATION) Musculoskeletal: History of: Degenerative Disk Disease - Surgical History Neurologic Surgeries: Patient denies: Neurologic Surgery HEENT Surgeries: Surgical HX of: Eye Surgery (COS) Abdominal Surgeries: Surgical HX of: Abdominal Surgery (COLON SURGERY DUE TO BLOCKAGE), Cholecystectomy, Colonoscopy, EGD - Family History Family History: Reports;: Family Cancer (father kidney cancer), Family Heart Disease - Social History Smoking Status: Former smoker Frequency of Alcohol Use: None Type of Drug Use: None Exam - Constitutional Vitals: Period Temp Pulse Resp BP Sys/Gloria Pulse Ox Last 24 Hr 97.0 F-98.6 F 85-121 14-28 85-151/54-79 78-99 Exam: General: Objective patient is a well-developed anxious white male in no acute distress. He is quite anxious and asking for parenteral anxiolytic. HEENT: Pupils equal and reactive to light. Patent nares and airway Neck: No meningismus, adenopathy, thyromegaly. There are no auscultated carotid bruits. Cardiovascular: Regular rhythm. No murmurs or gallops Chest: Patient's noted to have scattered expiratory wheeze. Abdomen: Soft nontender to palpation No masses, rebound, guarding or tenderness. Neuro: Cranial nerves intact and DTRs and strength symmetric in all extremities. Dermatologic: No evidence of abnormal lesions or masses. Musculoskeletal: There is no joint swelling or tenderness or deformity. Extremities: There is no calf swelling or tenderness Results - Labs CBC & BMP: 11/11/16 20:08 11/11/16 09:07 Lab Results: I have reviewed the past 24 hour labs
[2016-11-11] MEDS: LORazepam 2 MG/1 ML VIAL IV PRN (20:35)
[2016-11-11] MEDS ORDERED: SODIUM CHLORIDE 0.9% 250 ML IV PRN (20:37)
[2016-11-11] MEDS: SOTALOL 80 MG TABLET PO SCH (22:28)
[2016-11-11] MEDS: ALBUTEROL/IPRATROPIUM 3 ML NEB RESP TX SCH (23:43)
[2016-11-12] MEDS: SODIUM CHLORIDE 0.9% 1,000 ML IV SCH ×4 (01:21→20:38)
[2016-11-12] MEDS: LORazepam 2 MG/1 ML VIAL IV PRN ×6 (04:04→22:37)
[2016-11-12 04:34] LABS: Hematocrit 27.7 VOL% (42.0-52.0)
--- NOTE | 2016-11-12 06:50 | Family Practice Progress Note ---
Family Practice - PN: Subj Interval history: Patient had a decent night according to the nursing staff and was able to rest with the addition of IV Ativan. He still having episodes of panic attacks. Patient had one more bloody bowel movement that was both dark and some bright blood since last night. Hematocrit has remained stable at 27%. Patient states she still having some upper abdominal pain. He was only on 40 of Protonix daily and I have started him on an infusion as well as another bolus of Protonix this morning. GIs to see him sometime today Exam (Progress Note) - Constitutional Vitals: Period Temp Pulse Resp BP Sys/Gloria Pulse Ox Last 24 Hr 97.0 F-98.6 F 67-121 13-32 85-198/54-89 78-100 Exam: Objectively well-developed white male no acute distress. He was sleeping when in the room but aroused was able to answer simple questions. He states is still having some upper abdominal pain Cardiovascular: Heart rates regular without murmurs Respiratory: Lungs clear to auscultation bilaterally. Abdomen: Patient was noted to have diffuse upper abdominal tenderness directly but no rebound guarding were noted. Extremities: There is no calf swelling or tenderness. Results - Labs CBC & BMP: 11/12/16 04:05 11/11/16 09:07 Lab Results: I have reviewed the past 24 hour labs Assessment and Plan (1) Panic attacks Status: Acute Assessment and plan: 11/11/2016: Will restart his Xanax and also add IV Ativan as needed 11/12/2016: Patient much improved with addition of above medications. Current Visit: Yes (2) GI bleed Status: Acute Assessment and plan: 11/11/2016: Patient's had one other bloody bowel movements since arriving in the unit. GI has been consulted. 11/12/2016: Patient had one other bloody bowel movement, it was dark according to the nursing staff. His hematocrit remained stable. Current Visit: No
--- NOTE | 2016-11-12 07:34 | EKG Report ---
Stationary ECG Study [facility] ER Test Date: 11/11/2016 11:44:56 AM Pat Name: JOAQUIM LINDSEY Department: Room: 109 Gender: M Clerk Operator: : 1935 Requested by: Raquel Dyer Order Number: [id number] Reading MD: ALDO ARAUJO Intervals [place] Rate: 121 P: 64 TN: 159 QRS: -32 QRSD: 87 T: 70 QT: 328 QTc: 400 Interpretive Statements SINUS TACHYCARDIA LEFT AXIS DEVIATION Electronically Signed On 11-12-16 16:03:33 CDT by ALDO ARAUJO [email or web address]
[2016-11-12 07:45] LABS: Hematocrit 23.7 VOL% (42.0-52.0); Hemoglobin 7.8 GM/DL (14.0-18.0)
[2016-11-12] MEDS: ALBUTEROL/IPRATROPIUM 3 ML NEB RESP TX SCH ×4 (07:57→20:13)
[2016-11-12] MEDS ORDERED: PANTOPRAZOLE INJ 80 MG in SODIUM CHLORIDE 0.9% 100 ML IV ONE (08:00)
[2016-11-12] MEDS: PANTOPRAZOLE INJ 200 MG in SODIUM CHLORIDE 0.9% 250 ML IV SCH (08:50)
[2016-11-12] MEDS: SOTALOL 80 MG TABLET PO SCH ×2 (08:50→20:38)
[2016-11-12] MEDS: LOSARTAN 50 MG TABLET PO SCH (08:50)
[2016-11-12] MEDS: ALPRAZolam 0.5 MG TABLET PO PRN ×2 (08:50→20:37)
[2016-11-12] MEDS ORDERED: PANTOPRAZOLE 40 MG VIAL IV SCH (09:00)
--- NOTE | 2016-11-12 09:04 | EKG Report ---
Stationary ECG Study [facility] Test Date: 11/12/2016 9:02:33 AM Pat Name: JOAQUIM LINDSEY Department: Room: 109 Gender: M Supervisor Contact Lens: OLINDA : 1935 Requested by: Raquel Dyer Order Number: [id number] Reading MD: ALDO ARAUJO Intervals [place] Rate: 163 P: 999 TN: 0 QRS: -35 QRSD: 93 T: 89 QT: 294 QTc: 384 Interpretive Statements ATRIAL FIBRILLATION WITH RAPID VENTRICULAR RESPONSE WITH ABERRANT CONDUCTION OR VENTRICULAR PREMATURE COMPLEXES LEFT AXIS DEVIATION Electronically Signed On 11-12-16 17:07:46 CDT by ALDO ARAUJO [email or web address]
--- NOTE | 2016-11-12 09:36 | Gastrointestinal Consult Note ---
Assessment and Plan (1) Acute posthemorrhagic anemia Status: Acute Assessment and plan: This patient's hematocrit is dropped from its previous baseline upon discharge of 33% down to 23%, with this patient's confusion now somnolence post Ativan is difficult to tell how many days he has been having the black stools and there is a states that these are actually a deep maroon. Multiple small gastric ulcers (4 of these by report 5 mm) in addition to the erosive esophagitis. What this would certainly bleed is unclear whether it is a Penny-Soto tear or some other lesion on top of the bleeding whether this is a completely different source say small bowel or proximal colon. Should be able to tell this by checking a tagged red blood cell scan if the bleeding is active. Will re-scope the patient tomorrow with Dr. Carney as he is the patient's primary doctor and will be back tomorrow. Clear liquids up until midnight tonight should help to clear some the blood. Risks of upper endoscopy include but are not limited to the following: Bleeding, infection, perforation, cardiac and pulmonary compromise. Current Visit: Yes (2) Gastrointestinal hemorrhage with melena Status: Acute Assessment and plan: As noted above. We will be checking the patient's tagged red blood cell scan to see if the bleeding is actually coming from the stomach or some place lower. Clear liquid diet today should help clear out stomach blood present. Current Visit: Yes (3) History of gastric ulcer Status: Acute Assessment and plan: These were seen approximately 6 weeks ago when the patient was last scope by Dr. Carney. There were 4 small 5 mm erosions/ulcerations. I would have thought that this would be significantly healed at this point so I am surprised to see the patient is having more symptoms, even on Protonix twice daily in the interim. Current Visit: Yes (4) Erosive esophagitis Status: Acute Assessment and plan: Previously biopsied. This may be a source for some of the patient's current blood loss. Further recommendations post upper endoscopy again tomorrow with Dr. Carney. Current Visit: Yes History of Present Illness Chief complaint: Melena/maroon stool, HCT 33%--> 23.7%, gastric ulcer history History of present illness: Mr. Lovelace is a 81 year old male who is a patient of Dr. Carney's there was last seen on 09/23/16 who originally arrived with a hematocrit of 33.1 rapidly down to 27.9 and then down to 23.7% this morning. Patient's stool is black mixed with some red/maroon and the exact source is unclear, however had been seen last admission for similar symptoms of black stools and hematemesis after taking NSAIDs for hip pain with similar symptoms and ended up getting a upper endoscopy on 09/25/16 which demonstrated a distal esophageal ulceration with a moderate-sized hiatal hernia and gastric antral ulcers which were thought to be at low risk for rebleeding. Biopsies were obtained to look for Helicobacter pylori at that time and these were felt to be negative. Esophageal biopsy showed the reactive squamous cell mucosa and ulceration out cancer or Burgess' s. The patient's hematocrit on discharge was 33.8 similar to the 33.1 that he presented with this admission. The patient is extremely agitated and confused, but seems to deny any sort of abdominal pain or hematemesis at this time. He remains on Ecotrin aspirin at home but does not take other anticoagulants. He does use Betapace to control his arrhythmias and is on Protonix twice daily already. Because the ongoing Protonix twice daily I am suspicious of this being repeat GI source and have asked for a tagged red blood cell scan to examine for colonic sources. Patient's systolic blood pressure was in the 170s- 150s prior to getting Ativan for his extreme agitation. This is now down the 90s. The patient's heart rate had increased up to the 180s with his paroxysmal atrial fibrillation and he is getting blood to help with hopefully improved oxygenation to the point where he can be successfully treated with his Betapace and beta-blockers versus Cardizem. Would suggest consulting cardiology at this point as well. The patient is hungry and would like some clear liquids Home Medications Medication Instructions Recorded Confirmed Type Albuterol/Ipratropium Neb [Duoneb] 3 ml RESP TX QID 07/27/14 11/11/16 History Aspirin [Ecotrin] 81 mg PO DAILY 08/12/15 11/11/16 History ALPRAZolam [Xanax] 0.5 mg PO TID PRN #60 tablet 08/16/15 11/11/16 Rx Losartan [Cozaar] 50 mg PO DAILY #30 tablet 08/16/15 11/11/16 Rx Sotalol [Betapace] 80 mg PO BID #60 tablet 08/16/15 11/11/16 Rx Pantoprazole Tab [Protonix Tab] 40 mg PO BID #30 tablet 09/26/16 11/11/16 Rx Allergies Allergy/AdvReac Type Severity Reaction Status Date / Time No Known Allergies Allergy Verified 11/11/16 08:33 Medical,Surgical,& Family Hx - Medical History Cardio: History of: Hypertension No history of: CAD, [place], Cardiovascular Problems Psychological: History of: Anxiety Disorders Neurology: History of: Cerebrovascular Accident No history of: Seizures HEENT: History of: Ear Problem, Eye Problem (GLASSES COS) Respiratory: History of: COPD, Respiratory Problems (EMPHYSEMA) Genitourinary: History of: Kidney Stones Gastrointestinal: History of: Bowel Obstruction, GI Problems (DIFFICULT SWALLOWING HX DILATATION) Musculoskeletal: History of: Degenerative Disk Disease - Surgical History Neurologic Surgeries: Patient denies: Neurologic Surgery HEENT Surgeries: Surgical HX of: Eye Surgery (COS) Abdominal Surgeries: Surgical HX of: Abdominal Surgery (COLON SURGERY DUE TO BLOCKAGE), Cholecystectomy, Colonoscopy, EGD - Family History Family History: Reports;: Family Cancer (father kidney cancer), Family Heart Disease - Social History Smoking Status: Former smoker Frequency of Alcohol Use: None Type of Drug Use: None Review of systems: Constitutional: Denies fever, chills, nausea, and vomiting Eyes: Denies dry eyes, and scleral icterus HENT: Denies headaches Cardiovascular: Denies acute chest pain and claudication Respiratory: Denies shortness of breath, wheezing, and difficulty breathing, denies cough Gastrointestinal: As noted in the HPI Genitourinary: Denies dysuria and hematuria Neurologic: Denies vision loss, and loss of sensation Musculoskeletal: Admits to joint swelling, joint stiffness, and muscular weakness Psychiatric: Denies depression and carlton symptoms but does suffer with extreme anxiety. Heme-Lymph: He does have some easy bruising, but no lymph node enlargement or tenderness, night sweats, excessive bleeding Allergies-immunologic: Denies pruritus and rhinorrhea Exam - Constitutional Vitals: Period Temp Pulse Resp BP Sys/Gloria Pulse Ox Last 24 Hr 97.0 F-98.6 F 67-152 13-32 85-198/54-107 78-100 General appearance: mild distress - Eye Eye exam: Present: EOMI Pupils: Present: CHANNING - Respiratory Respiratory exam: Present: clear to auscultation bilaterally. Absent: rhonchi, stridor, wheezes - Cardiovascular Cardiovascular exam: Present: regular rate and rhythm - GI/Abdominal GI/Abdominal exam: Present: normal bowel sounds, soft. Absent: distended, guarding, tenderness, rebound - Neurological Exam Neurological exam: Present: alert, oriented X3, CN II-XII intact. Absent: motor sensory deficit - Psychiatric Psychiatric exam: Present: normal affect, normal mood - Skin Skin exam: Present: warm Results - Labs CBC & BMP: 11/12/16 07:39 11/11/16 09:07
[2016-11-12] MEDS ORDERED: FUROSEMIDE 20 MG/2 ML VIAL IV ONE ×2 (11:07→15:33)
--- NOTE | 2016-11-12 11:25 | Nuclear Medicine Report ---
NM GI bleeding Indication: Active GI bleeding. Comparison: None. Technique: Following intravenous administration of 20 mCi of technetium 99m labeled red blood cells utilizing 3 mL PYP, planar images in the anterior projection were captured and stored at 2 second intervals for 2 minutes, followed by one minute intervals for the remainder of one hour. Findings: There is no evidence of active GI hemorrhage on the provided images. Impression: 1. No scintigraphic activity to suggest active GI hemorrhage. 11/12/2016 11:21 AM PROCEDURE INTERPRETED AT [facility] DEPARTMENT OF RADIOLOGY Final Report Signed by: Dr. Mauri Kemp
[2016-11-12 14:10] LABS: Hematocrit 31.2 VOL% (42.0-52.0)
[2016-11-12 14:21] LABS: Hemoglobin 10.4 GM/DL (14.0-18.0)
[2016-11-12] MEDS ORDERED: HALOPERIDOL 5 MG/ML AMP IM PRN (23:50)
[2016-11-13 00:41] LABS: Hematocrit 31.2 VOL% (42.0-52.0); Hemoglobin 10.3 GM/DL (14.0-18.0)
[2016-11-13] MEDS: SODIUM CHLORIDE 0.9% 1,000 ML IV SCH ×3 (01:30→15:54)
[2016-11-13] MEDS: LORazepam 2 MG/1 ML VIAL IV PRN ×2 (02:14→05:58)
[2016-11-13 06:35] LABS: Basophils % 0.4 % (0.0-0.8); Eosinophils # 0.3 10*3/uL (0.0-0.87); Eosinophils % 2.7 % (0.00-10.9); Hematocrit 29.1 VOL% (42.0-52.0); Hemoglobin 9.7 GM/DL (14.0-18.0); Immature Granulocytes % 0.4 %; Immature Granulocytes Absolute 0.05 #; Lymphocytes % 17.9 % (21.2-54.2); Mean Corpuscular HGB Conc 33.3 GM/DL (32-36); Mean Corpuscular Hemoglobin 29 PG (27-34); Mean Corpuscular Volume 87.1 FL (87-102); Mean Platelet Volume 12.7 FL (9.6-12.0); Monocytes # 1.2 10*3/uL (0.11-0.8); Monocytes % 10.8 % (1.7-12.7); Neutrophils # 7.6 10*3/uL (1.4-7.4); Neutrophils % 67.8 % (38.7-73.9); Platelet Count 166 T/CUMM (130-400); Red Blood Count 3.34 MC/CUMM (3.8-5.5); Red Cell Distribution Width 14.4 % (9.3-17.3); White Blood Count 11.3 T/CUMM (4-12)
[2016-11-13] MEDS: ALBUTEROL/IPRATROPIUM 3 ML NEB RESP TX SCH ×4 (06:53→19:29)
--- NOTE | 2016-11-13 07:00 | EKG Report ---
Stationary ECG Study [facility] Test Date: 11/13/2016 6:58:34 AM Pat Name: JOAQUIM LINDSEY Department: Room: 109 Gender: M Car Changer: RUDOLPH : 1935 Requested by: Raquel Dyer Order Number: [id number] Reading MD: VERNON DE LEON Intervals [place] Rate: 66 P: 66 [place]: 177 QRS: -11 QRSD: 90 T: 64 QT: 473 QTc: 486 Interpretive Statements SINUS RHYTHM PROLONGED QT INTERVAL Electronically Signed On 11-13-16 11:03:31 CDT by VERNON DE LEON [id number]
[2016-11-13 07:14] LABS: Bilirubin,Total 1.3 MG/DL (0.2-1.0); Magnesium 2.2 MG/DL (1.8-2.4); Osmolality,Calculated 300.4 MOS/KG (273-304); Potassium 3.5 MMOL/L (3.5-5.1); Total Protein 5.9 G/DL (6.4-8.3)
[2016-11-13] MEDS ORDERED: PROPOFOL 200 MG/20 ML VIAL IV ONE (09:00)
[2016-11-13] MEDS ORDERED: LIDOCAINE 2% 5 ML VIAL ONE (09:00)
[2016-11-13] MEDS: PANTOPRAZOLE INJ 200 MG in SODIUM CHLORIDE 0.9% 250 ML IV SCH (11:26)
--- NOTE | 2016-11-13 12:03 | History and Physical Update ---
History and Physical Update - Physical Exam Mental Status: alert and oriented Heart: regular rate and rhythm Lung: clear to auscultation Abdomen: within normal limits Vitals: within normal limits History and Physical Changes: 81-year-old male is admitted with GI bleeding with dark stools and elevated BUN/ creatinine ratio. He has required transfusion
--- NOTE | 2016-11-13 12:13 | Operative Note ---
Date of procedure: 11/13/16 Pre-op diagnosis: GI bleed Procedure: Procedure: Esophagogastroduodenoscopy Brief clinical abstract: Patient is an 81-year-old male admitted with GI bleeding with dark stools. He has required transfusion. Patient has previous history of gastric ulcers earlier this year. Indication for procedure: GI bleed Endoscopic findings:[After informed consent was obtained, the patient was placed in the left lateral decubitus position. The gastroscope was inserted in the upper esophagus under direct vision with no resistance encountered. Esophageal mucosa appeared normal down to the squamocolumnar junction sharply demarcated above a small 2 cm long hiatal hernia. No erosions or ulcerations were seen. The endoscope was advanced in the stomach which was carefully examined including retroflexed view of the cardia and fundus with no abnormality seen. The pyloric channel, digital, second and third portion of the duodenum appeared normal. Ampulla was visualized with normal appearance. The endoscope was removed and patient appeared to tolerate the procedure well. Impression: Small hiatal hernia-otherwise normal EGD Recommendations: Would observe for now. Note that patient has had previous subtotal colectomy. Consider small bowel PillCam if continued bleeding. Anesthesia: MAC Surgeon / Physician: Nilay Carney Estimated blood loss: none Specimens: none sent Condition: stable Disposition: post procedure unit Results - Labs CBC & BMP: 11/13/16 05:54 11/13/16 05:54 Discharge Plan - Discharge Medications No Action Albuterol/Ipratropium Neb [Duoneb] 3 ml RESP TX QID Aspirin [Ecotrin] 81 mg PO DAILY ALPRAZolam [Xanax] 0.5 mg PO TID PRN #60 tablet PRN Reason: Anxiety Losartan [Cozaar] 50 mg PO DAILY #30 tablet Sotalol [Betapace] 80 mg PO BID #60 tablet Pantoprazole Tab [Protonix Tab] 40 mg PO BID #30 tablet - Follow Up or Referral - Forms/Instructions
--- NOTE | 2016-11-13 12:20 | Anesthesia Post-Op ---
Anesthesia Post OP - Post Ansesthetic Evaluation Patient seen in post op: Yes Resp: within normal limits CV: within normal limits Mental: within normal limits Temp: within normal limits [id number]: within normal limits Nausea and Vomiting: within normal limits Pain: within normal limits
--- NOTE | 2016-11-13 17:49 | Family Practice Progress Note ---
Family Practice - PN: Subj Interval history: Patient was admitted with rectal bleeding . Subsequently required 2 units of packed RBCs. His bleeding has stabilized since she has been in the intensive care unit. Patient had an EGD this a.m. which was unremarkable. Patient is had no further bleeding since admission to the hospital. He has been very lethargic today after receiving meds during the night for agitation as well as sedation this a.m. for the EGD. He will awake and answers questions appropriately. Moving all extremities with no localizing features. His labs are stable and vitals are stable with present. We will try to hold any further sedatives and if patient alert and functioning well in a.m. consider discharge. She had similar episodes in the past. Had recent admission with gastric and esophageal ulcers. These have apparently healed on EGD. We will continue to monitor in intensive care overnight. Exam (Progress Note) - Constitutional Vitals: Period Temp Pulse Resp BP Sys/Gloria Pulse Ox Last 24 Hr 96.9 F-98.7 F 17-75 14-29 99-161/38-075 91-100 Results - Labs CBC & BMP: 11/13/16 05:54 11/13/16 05:54
[2016-11-13] MEDS: LOSARTAN 50 MG TABLET PO SCH (18:30)
[2016-11-13] MEDS: SOTALOL 80 MG TABLET PO SCH ×2 (18:30→20:31)
[2016-11-13] MEDS: ALPRAZolam 0.5 MG TABLET PO PRN (20:31)
[2016-11-14 03:49] LABS: Basophils % 0.4 % (0.0-0.8); Eosinophils # 0.2 10*3/uL (0.0-0.87); Eosinophils % 3.1 % (0.00-10.9); Hematocrit 28.6 VOL% (42.0-52.0); Hemoglobin 9.2 GM/DL (14.0-18.0); Immature Granulocytes % 0.4 %; Immature Granulocytes Absolute 0.03 #; Lymphocytes # 1.7 10*3/uL (1.4-4.0); Lymphocytes % 21.2 % (21.2-54.2); Mean Corpuscular HGB Conc 32.2 GM/DL (32-36); Mean Corpuscular Hemoglobin 29 PG (27-34); Mean Corpuscular Volume 88.8 FL (87-102); Mean Platelet Volume 12.8 FL (9.6-12.0); Monocytes # 0.8 10*3/uL (0.11-0.8); Monocytes % 10.6 % (1.7-12.7); Neutrophils % 64.3 % (38.7-73.9); Platelet Count 162 T/CUMM (130-400); Red Blood Count 3.22 MC/CUMM (3.8-5.5); Red Cell Distribution Width 14.4 % (9.3-17.3); White Blood Count 7.8 T/CUMM (4-12)
[2016-11-14 04:32] LABS: Albumin 2.6 G/DL (3.4-5.0); Calcium 7.3 MG/DL (8.5-10.1); Osmolality,Calculated 302.1 MOS/KG (273-304); Thyroid Stimulating Hormone 3.33 uIU/ml (0.358-3.74); Total Protein 5.6 G/DL (6.4-8.3)
[2016-11-14] MEDS: ALBUTEROL/IPRATROPIUM 3 ML NEB RESP TX SCH ×4 (05:50→21:16)
[2016-11-14] MEDS: SODIUM CHLORIDE 0.9% 1,000 ML IV SCH ×4 (06:11→18:36)
[2016-11-14] MEDS: LORazepam 2 MG/1 ML VIAL IV PRN ×2 (06:11→20:40)
--- NOTE | 2016-11-14 07:14 | EKG Report ---
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
--- NOTE | 2016-11-14 07:34 | Family Practice Progress Note ---
Family Practice - PN: Subj Interval history: Patient was admitted with rectal bleeding . Subsequently required 2 units of packed RBCs. His bleeding has stabilized since she has been in the intensive care unit. Patient had an EGD this a.m. which was unremarkable. Patient is had no further bleeding since admission to the hospital. He has been very lethargic today after receiving meds during the night for agitation as well as sedation this a.m. for the EGD. He will awake and answers questions appropriately. Moving all extremities with no localizing features. His labs are stable and vitals are stable with present. We will try to hold any further sedatives and if patient alert and functioning well in a.m. consider discharge. She had similar episodes in the past. Had recent admission with gastric and esophageal ulcers. These have apparently healed on EGD. We will continue to monitor in intensive care overnight. 11/14/16 -patient is much more alert this a.m. Still slightly confused but oriented. No new problems noted by staff. Vitals are stable. No hematochezia or melena noted. His a.m. labs are stable. Patient does not have any remembrance of last p.m. when he was extremely confused and lethargic. Reviewed chart in detail. Heart regular rate and rhythm, lungs are clear to auscultation, abdomen is soft and nontender. Will transfer to monitored bed and continue present evaluation. Will have patient ambulate and sit in chair as much as possible. Need to make sure patient can ambulate and care for himself at home. If patient has stable today will probably discharge a.m. Exam (Progress Note) - Constitutional Vitals: Period Temp Pulse Resp BP Sys/Gloria Pulse Ox Last 24 Hr 96.9 F-98.9 F 65-79 14-98 110-181/45-075 92-100 Results - Labs CBC & BMP: 11/14/16 03:05 11/14/16 03:05
[2016-11-14] MEDS: LOSARTAN 50 MG TABLET PO SCH (08:40)
[2016-11-14] MEDS: SOTALOL 80 MG TABLET PO SCH ×2 (08:41→20:40)
--- NOTE | 2016-11-14 10:00 | Gastrointestinal Progress Note ---
Assessment and Plan (1) GI bleed Status: Acute Assessment and plan: 11/14-no reports of overt bleeding at this time. H&H holding at 01/11. Tolerating small amounts of diet. Continue to monitor present time. Plan an addendum to follow Dr. Carney. Current Visit: No Gastroenterology - PN: Subj Interval history: CC: GI bleed Patient is seen, awake and alert. He is somewhat anxious this morning. He is noted to have had an incontinent episode and states he is currently embarrassed due to this. EGD findings on yesterday noted. H&H is holding at 01/11. Abdomen soft, nontender. He is tolerating small amounts of clear liquid diet at present time. He is noted to have had an episode of agitation and confusion on yesterday but he is unable to recall the events of that. He is much more oriented today. He is noted for possible discharge home tomorrow. ROS: Denies shortness of breath or chest pain Exam (Progress Note) - Constitutional Vitals: Period Temp Pulse Resp BP Sys/Gloria Pulse Ox Last 24 Hr 96.9 F-98.9 F 65-79 14-98 110-181/46-075 92-100 General appearance: normal weight, no acute distress - Head Head exam: Present: normal inspection, normocephalic - Eye Eye exam: Present: other (Lids and conjunctivae are unremarkable). Absent: scleral icterus - ENT ENT exam: Present: normal exam, normal oropharynx - Neck Neck exam: Present: normal inspection - Respiratory Respiratory exam: Present: clear to auscultation bilaterally. Absent: rales, rhonchi, wheezes - Cardiovascular Cardiovascular exam: Present: regular rate and rhythm. Absent: diastolic murmur , JVD, systolic murmur - GI/Abdominal GI/Abdominal exam: Present: normal bowel sounds, soft. Absent: ascites, distended, mass, organomegaly, tenderness - Extremities Exam Extremities exam: Present: normal inspection, full ROM - Back Exam Back exam: Present: normal inspection - Neurological Exam Neurological exam: Present: alert, oriented X3 - Psychiatric Psychiatric exam: Present: normal affect, normal mood - Skin Skin exam: Present: normal color, warm, dry Results - Labs CBC & BMP: 11/14/16 03:05 11/14/16 03:05 Lab Results: I have reviewed the past 24 hour labs
[2016-11-14] MEDS: PANTOPRAZOLE INJ 200 MG in SODIUM CHLORIDE 0.9% 250 ML IV SCH (17:11)
[2016-11-14] MEDS: HALOPERIDOL 5 MG/ML AMP IV PRN (21:27)
[2016-11-14 21:39] LABS: Allen Test Positive
[2016-11-14] MEDS ORDERED: FUROSEMIDE 40 MG/4 ML VIAL ONE (21:40)
[2016-11-14 21:42] LABS: ABG Base Excess -1.8 MMOL/L (-2.5-2.5); ABG HCO3 22.9 MMOL/L (20-26); ABG PCO2 41.9 MM HG (35-48); ABG PH 7.357 (7.35-7.45); ABG TCO2 21.5 MMOL/L (23-27)
[2016-11-14] MEDS ORDERED: FUROSEMIDE 40 MG/4 ML VIAL IV ONE (21:43)
--- NOTE | 2016-11-14 22:02 | Event Note ---
got a call at 21:35 for pt breathing hard, getting tachypneic, using accessory muscles, since 30 mins or so, Vitals: temp 98.2, HR 90-98 BP 191/89 , went up to 224/122 at 22.40 pulse ox 97,98 pt seen and examined, is in distress, tachypneic ,is breathing through mouth, on NRB mask, CVS, Tachycardic Resp : crackles BL , and transmitted breath sounds, GI: soft, NT, mildly distended, BS +, Extremities: no edema, no abelardo's sign ? stat chest xary, ABG, EKg, d-dimers, BNP , troponin ordered, reviewed his past labs , chart,H/H stable, 9.2.6 pulmonology was consulted, reviewed chest xray , lasix 40 mg IV added , he also reviewed ABG, IVF discontinued.will add nipride drip ,if needed with titrate to affect, will get CT PE protocol, will consult cardiology pt is in ICU ,secondary to rectal bleedirng secondary to Gastric ulcers, EGD done on 11/13/16', was tolerating liquid diet this afternoon,had 3 BM today , no blood in stool noted today, GI is , Family was informed about the current change in the pt status,
[2016-11-14] MEDS ORDERED: FUROSEMIDE 20 MG/2 ML VIAL IV ONE (22:06)
[2016-11-14] MEDS ORDERED: NITROPRUSSIDE 50 MG/2 ML VIAL IV PRN (22:35)
[2016-11-14 22:50] LABS: ABG Base Excess -3.1 MMOL/L (-2.5-2.5); ABG HCO3 21.8 MMOL/L (20-26); ABG Oxygen Saturation 99.6 % (95-100); ABG PCO2 47.8 MM HG (35-48); ABG TCO2 21.5 MMOL/L (23-27); Allen Test Positive
[2016-11-14 23:07] LABS: Basophils % 0.2 % (0.0-0.8); Eosinophils # 0.3 10*3/uL (0.0-0.87); Eosinophils % 1.9 % (0.00-10.9); Hematocrit 31.5 VOL% (42.0-52.0); Hemoglobin 10.4 GM/DL (14.0-18.0); Immature Granulocytes % 1.5 %; Immature Granulocytes Absolute 0.24 #; Lymphocytes # 2.1 10*3/uL (1.4-4.0); Lymphocytes % 12.5 % (21.2-54.2); Mean Corpuscular Hemoglobin 29 PG (27-34); Mean Platelet Volume 13.1 FL (9.6-12.0); Monocytes # 1.7 10*3/uL (0.11-0.8); Monocytes % 10.3 % (1.7-12.7); NRBC # 0.02 10*3/uL; Neutrophils # 12.2 10*3/uL (1.4-7.4); Neutrophils % 73.6 % (38.7-73.9); Platelet Count 239 T/CUMM (130-400); Red Blood Count 3.58 MC/CUMM (3.8-5.5); Red Cell Distribution Width 14.4 % (9.3-17.3); White Blood Count 16.5 T/CUMM (4-12)
[2016-11-14 23:17] LABS: Albumin 3.2 G/DL (3.4-5.0); Bilirubin,Total 0.5 MG/DL (0.2-1.0); Osmolality,Calculated 293.8 MOS/KG (273-304); Potassium 3.9 MMOL/L (3.5-5.1); Total Protein 6.7 G/DL (6.4-8.3)
[2016-11-15] MEDS ORDERED: FUROSEMIDE 100 MG/10 ML VIAL IV ONE (00:04)
[2016-11-15] MEDS: NITROPRUSSIDE 100 MG in DEXTROSE 5% 246 ML IV SCH (00:05)
[2016-11-15] MEDS: DESITIN 4OZ/NYSTATIN 15 GRAM MIXTURE PASTE TOP SCH ×3 (02:43→21:37)
[2016-11-15 04:12] LABS: Basophils % 0.2 % (0.0-0.8); Eosinophils # 0.1 10*3/uL (0.0-0.87); Eosinophils % 0.4 % (0.00-10.9); Hematocrit 30.3 VOL% (42.0-52.0); Hemoglobin 10.1 GM/DL (14.0-18.0); Immature Granulocytes % 0.8 %; Immature Granulocytes Absolute 0.12 #; Lymphocytes # 1.4 10*3/uL (1.4-4.0); Lymphocytes % 8.9 % (21.2-54.2); Mean Corpuscular HGB Conc 33.3 GM/DL (32-36); Mean Corpuscular Hemoglobin 29 PG (27-34); Mean Corpuscular Volume 86.8 FL (87-102); Mean Platelet Volume 13.1 FL (9.6-12.0); Monocytes # 1.6 10*3/uL (0.11-0.8); Monocytes % 10.4 % (1.7-12.7); Neutrophils # 12.5 10*3/uL (1.4-7.4); Neutrophils % 79.3 % (38.7-73.9); Platelet Count 227 T/CUMM (130-400); Red Blood Count 3.49 MC/CUMM (3.8-5.5); Red Cell Distribution Width 14.4 % (9.3-17.3); White Blood Count 15.7 T/CUMM (4-12)
[2016-11-15 04:48] LABS: Albumin 3.3 G/DL (3.4-5.0); Bilirubin,Total 1.4 MG/DL (0.2-1.0); Calcium 8.1 MG/DL (8.5-10.1); Osmolality,Calculated 298.4 MOS/KG (273-304); Potassium 3.7 MMOL/L (3.5-5.1); Total Protein 6.9 G/DL (6.4-8.3)
--- NOTE | 2016-11-15 06:22 | EKG Report ---
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
--- NOTE | 2016-11-15 06:49 | Pulmonology Consult Note ---
Assessment and Plan (1) Atrial fibrillation with RVR Status: Chronic Assessment and plan: Managed by cardiology. Patient is not on anticoagulants on admission. Current Visit: No (2) Panic attacks Status: Acute Assessment and plan: Patient gets quite anxious. He has declined colonoscope earlier. Current Visit: Yes (3) Gastrointestinal hemorrhage with melena Status: Acute Assessment and plan: Had negative EGD. Will set up for small bowel follow-through. Colonoscope. Current Visit: Yes (4) Pulmonary embolism Status: Acute Assessment and plan: Patient was acutely worsened overnight and found to have pulmonary emboli on CT. I think there is an element of congestive heart failure as well. Anticoagulation is contraindicated. He will need IVC filter most likely. Prognosis guarded. Will get venous Dopplers prior to deciding on the filter. Current Visit: Yes History of Present Illness Chief complaint: Shortness of breath History of present illness: Mr. Lovelace is a 81 year old male who came in with melena. He had a negative EGD although he has a previous history of gastric ulcer. Last night he became very short of breath and had what looked like some pulmonary edema on his x-ray with upper lobe infiltrates primarily. He had been on some IV fluids. His BNP was 413. We diuresed him. A CT PE protocol was done showing pulmonary emboli on the right upper lobe and right lower lobe. There are no central and emboli. Venous Dopplers have not been done. Patient is adequately oxygenated on a nonrebreathing mask at present. Cardiology was consulted overnight and did not feel he could tolerate TPA due to his GI bleed and I agree. In fact full anticoagulation is contraindicated now with persistent black stools. We need to check venous Dopplers and then decide if an IVC umbrella would be indicated. If he has any clots in his legs I would proceed with that. Home Medications Medication Instructions Recorded Confirmed Type Albuterol/Ipratropium Neb [Duoneb] 3 ml RESP TX QID 07/27/14 11/11/16 History Aspirin [Ecotrin] 81 mg PO DAILY 08/12/15 11/11/16 History ALPRAZolam [Xanax] 0.5 mg PO TID PRN #60 tablet 08/16/15 11/11/16 Rx Losartan [Cozaar] 50 mg PO DAILY #30 tablet 08/16/15 11/11/16 Rx Sotalol [Betapace] 80 mg PO BID #60 tablet 08/16/15 11/11/16 Rx Pantoprazole Tab [Protonix Tab] 40 mg PO BID #30 tablet 09/26/16 11/11/16 Rx Allergies Allergy/AdvReac Type Severity Reaction Status Date / Time No Known Allergies Allergy Verified 11/11/16 08:33 12 point system: reviewed and no additional remarkable complaints except as stated - Cardiovascular Cardiovascular: Present: dyspnea - Respiratory Respiratory: Present: dyspnea - Gastrointestinal Gastrointestinal: Present: abdominal pain, melena - Psychiatric Psychiatric: Present: anxiety Exam (Pulmonay) H&P - Constitutional Vitals: Period Temp Pulse Resp BP Sys/Gloria Pulse Ox Last 24 Hr 96.6 F-98.2 F 68-98 13-46 99-228/46-126 90-99 Exam: Patient is very anxious. Respiratory rate in the high 20s. Vital signs otherwise normal. Pupils react to light. Throat is clear. Neck supple no bruits. Chest shows some rales bilaterally and a few wheezes. Heart rate is around 90 no murmurs. Abdomen soft nontender no masses. Extremities no clubbing cyanosis or edema. Calves nontender. Medical,Surgical,& Family Hx - Medical History Cardio: History of: Hypertension No history of: CAD, NV, Cardiovascular Problems Psychological: History of: Anxiety Disorders Neurology: History of: Cerebrovascular Accident No history of: Seizures HEENT: History of: Ear Problem, Eye Problem (GLASSES COS) Respiratory: History of: COPD, Respiratory Problems (EMPHYSEMA) Genitourinary: History of: Kidney Stones Gastrointestinal: History of: Bowel Obstruction, GI Problems (DIFFICULT SWALLOWING HX DILATATION) Musculoskeletal: History of: Degenerative Disk Disease - Surgical History Neurologic Surgeries: Patient denies: Neurologic Surgery HEENT Surgeries: Surgical HX of: Eye Surgery (COS) Abdominal Surgeries: Surgical HX of: Abdominal Surgery (COLON SURGERY DUE TO BLOCKAGE), Cholecystectomy, Colonoscopy, EGD - Family History Family History: Reports;: Family Cancer (father kidney cancer), Family Heart Disease - Social History Smoking Status: Former smoker Frequency of Alcohol Use: None Type of Drug Use: None Results - Labs CBC & BMP: 11/15/16 02:58 11/15/16 02:58 Lab Results: I have reviewed the past 24 hour labs - Diagnostic Findings Procedure: Chest x-ray: image reviewed by me (Bilateral upper lobe infiltrates that were really not clear on admission.), CT - chest: image reviewed by me ( Small emboli in the right upper lobe and right lower lobe.)
[2016-11-15] MEDS ORDERED: FUROSEMIDE 40 MG/4 ML VIAL IV ONE (06:54)
--- NOTE | 2016-11-15 06:58 | CT Report ---
CT chest PE study Indication: SOB Comparison: Chest CT dated November 11, 2016 Technique: Multiple axial tomographic images of the chest were obtained after the administration of 80 cc Omnipaque 350 intravenous contrast. PE protocol followed. Coronal and sagittal maximum intensity projection images provided. Findings: Study somewhat limited secondary to motion. Segmental right upper lobe and right lower lobe pulmonary artery filling defects demonstrated consistent with emboli. Scattered pulmonary scarlike opacities again demonstrated which are upper lobe predominant. There has been interval increase in patchy groundglass opacification within the bilateral upper lobes which may reflect sequela of infection/inflammation or infarct. Borderline heart size. Trace bilateral pleural effusions. Prior cholecystectomy. Visualized osseous and surrounding soft tissue structures appear grossly unchanged. There is diffuse thickening of the wall of the esophagus with some dilatation of the upper thoracic esophagus. There is a mildly prominent periesophageal lymph node demonstrated on the right at the lower thoracic level. Surgical clips demonstrated at the GE junction. IMPRESSION: Study somewhat limited secondary to motion. Segmental right upper lobe and right lower lobe pulmonary artery filling defects demonstrated consistent with emboli. Scattered pulmonary scarlike opacities again demonstrated which are upper lobe predominant. There has been interval increase in patchy groundglass opacification within the bilateral upper lobes which may reflect sequela of infection/inflammation or infarct. Borderline heart size. Trace bilateral pleural effusions. Prior cholecystectomy.There is diffuse thickening of the wall of the esophagus with some dilatation of the upper thoracic esophagus. There is a mildly prominent periesophageal lymph node demonstrated on the right at the lower thoracic level. Consider endoscopy for further evaluation as malignancy is not excluded. Preliminary report was issued by [facility]. Findings discussed with Dr. Mitul Guzman at 12:55 AM on November 15, 2016. The CT exam was performed using one or more of the following dose reduction techniques: Automated exposure control, adjustment of the mA and/or kV according to patient size, or use of iterative reconstruction technique. PROCEDURE INTERPRETED AT [facility] DEPARTMENT OF RADIOLOGY Final Report Signed by: Dr Gee Grier
--- NOTE | 2016-11-15 07:02 | XRay Report ---
XR chest 1V portable Indication: SOB Comparison: Chest x-ray dated November 11, 2016 Technique: Single frontal view of the chest. Findings: Continued cardiomegaly. Interval increased patchy opacification within the bilateral upper lobe suspicious for infectious/inflammatory process. Suspect small bilateral pleural fluid. Visualized osseous and surrounding soft tissue structures appear grossly unchanged. IMPRESSION: As above. PROCEDURE INTERPRETED AT [facility] DEPARTMENT OF RADIOLOGY Final Report Signed by: Dr Gee Grier
[2016-11-15] MEDS: ALBUTEROL/IPRATROPIUM 3 ML NEB RESP TX SCH ×4 (07:38→19:40)
--- NOTE | 2016-11-15 08:05 | Ultrasound Report ---
US venous doppler LE BI Indication: PTED, deciding on IVC filter, GI bleed. Comparison: No relevant comparison.. Technique: Grayscale, spectral, and color Doppler interrogation of the bilateral lower extremity veins was performed. Augmentation and compression was performed. Findings: Grayscale, color Doppler, and pulsed Doppler evaluation of the veins of the bilateral lower extremity demonstrates no evidence of deep venous thrombosis. IMPRESSION: No evidence of deep venous thrombosis in either lower extremity. PROCEDURE INTERPRETED AT [facility] DEPARTMENT OF RADIOLOGY Final Report Signed by: Dr Gee Grier
--- NOTE | 2016-11-15 08:22 | Family Practice Progress Note ---
Family Practice - PN: Subj Interval history: Patient was admitted with rectal bleeding . Subsequently required 2 units of packed RBCs. His bleeding has stabilized since she has been in the intensive care unit. Patient had an EGD this a.m. which was unremarkable. Patient is had no further bleeding since admission to the hospital. He has been very lethargic today after receiving meds during the night for agitation as well as sedation this a.m. for the EGD. He will awake and answers questions appropriately. Moving all extremities with no localizing features. His labs are stable and vitals are stable with present. We will try to hold any further sedatives and if patient alert and functioning well in a.m. consider discharge. She had similar episodes in the past. Had recent admission with gastric and esophageal ulcers. These have apparently healed on EGD. We will continue to monitor in intensive care overnight. 11/14/16 -patient is much more alert this a.m. Still slightly confused but oriented. No new problems noted by staff. Vitals are stable. No hematochezia or melena noted. His a.m. labs are stable. Patient does not have any remembrance of last p.m. when he was extremely confused and lethargic. Reviewed chart in detail. Heart regular rate and rhythm, lungs are clear to auscultation, abdomen is soft and nontender. Will transfer to monitored bed and continue present evaluation. Will have patient ambulate and sit in chair as much as possible. Need to make sure patient can ambulate and care for himself at home. If patient has stable today will probably discharge a.m. 11/15/16 -patient was held in the intensive care due to significant agitation and confusion. Last p.m. he became extremely dyspneic and evaluation revealed component of congestive heart failure as well as pulmonary embolus in the right upper lobe and right lower lobe. Due to his history of GI bleed we are unable to anticoagulate at present. Patient presently requiring 100% rebreather. Being followed by Dr. Espinosa. He is to have a venous Doppler this a.m. and consideration for IVC filter placement. He is presently minimally responsive. Patient has multiple medical problems which are all complicating factors. I discussed in detail with patient's cousin. She is his only living relative. I advised that in view of his medical history with multiple medical problems and present medical state that I would not recommend patient being intubated in the event of respiratory failure. Cousin states that she would like to have him placed on a respirator in the event of respiratory failure. We will continue present treatment plan but overall prognosis is very poor. Exam (Progress Note) - Constitutional Vitals: Period Temp Pulse Resp BP Sys/Gloria Pulse Ox Last 24 Hr 96.6 F-98.2 F 68-98 13-46 99-228/50-126 90-100 Results - Labs CBC & BMP: 11/15/16 02:58 11/15/16 02:58
[2016-11-15] MEDS: SOTALOL 80 MG TABLET PO SCH ×2 (08:24→21:38)
[2016-11-15] MEDS: LOSARTAN 50 MG TABLET PO SCH (08:24)
--- NOTE | 2016-11-15 08:30 | Physician Query Form ---
CLICK EDIT DOCUMENT TO SELECT QUERY ANSWER --> OK --> SIGN Francia Kemp RN, CCDS Certified Clinical Food Tester W) [phone] (f) [phone] [email or web address] PROVIDERS: Make your selection(s) from the choices in EACH section by typing an "x" and enter comments in the comment section. Please use your independent medical judgment in providing your response. This request does not imply that any particular answer is desired or expected. CLINICAL INDICATORS: (Providers should not edit this section) The medical record indicates that the patient was admitted with GI bleeding, on the 1st "pt breathing hard", "getting tachypenic", "using accessory muscles", respirations in the 30-40's and on the 2nd: " Patient is adequately oxygenated on a nonrebreathing mask at present". If possible, please further clarify the type and acuity of respiratory diagnosis : ACUITY: ( x) Acute ( ) Chronic ( ) Acute on Chronic TYPE: (x) Respiratory failure with hypoxia ( ) Respiratory failure with hypercapnia ( ) Respiratory Arrest ( ) Postprocedural/postoperative respiratory failure ( ) Respiratory Insufficiency ( ) ARDS (Adult/Acute Respiratory Distress Syndrome) ( ) Other, please specify: ( ) Clinically unable to determine Recognized criteria for respiratory failure PH <7.35 or >7.45 PO2 <60 PCO2 >50 RR >24 O2 Sat <90% on RA or <95% on O2 Use of accessory muscles Unable to speak in full sentences Intubation is not required COMMENTS: PLEASE ALSO DOCUMENT RESPONSE IN PROGRESS NOTES AND/OR DISCHARGE SUMMARY Use of terms such as suspected, likely, or probable (associated with a specific diagnosis that is being evaluated, monitored, or treated as if it exists) are acceptable and can be restated in the discharge summary if not ruled out. MTDD
--- NOTE | 2016-11-15 08:55 | Cardiology Consult Note ---
<Olga Salas E - Last Filed: 11/15/16 09:01> Assessment and Plan - Time spent with patient Time spent with patient: Greater than 30 minutes (due to assessment, plan, and documentation) (1) Pulmonary embolism Status: Acute Assessment and plan: See plan of care listed below. Current Visit: Yes (2) History of GI bleed Status: Acute Assessment and plan: See plan of care listed below. Current Visit: Yes (3) Paroxysmal atrial fibrillation Status: Chronic Assessment and plan: See plan of care listed below. Current Visit: Yes (4) hypertension Status: Chronic Assessment and plan: See plan of care listed below. Current Visit: No (5) Panic attacks Status: Chronic Assessment and plan: See plan of care listed below. Current Visit: Yes History of Present Illness - Data of Consult Patient: known to practice within the last 3 years Consult date: 11/15/16 Requesting Physician: Mitul Guzman Primary care physician: Robin Gilman - Consult Narrative Reason for consult: bilateral PE, CHF History of present illness: Regulator Assembler: Dr. Keane PCP: Dr. Gilman Mr. Lovelace is a 81 year old male previously seen by Dr. Keane. He has not followed up in clinic. Risk factors are significant for: advanced age, hypertension, sedentary lifestyle. History of known paroxysmal atrial fibrillation, CVA, emphysema, claustrophobia. Patient previously took Eliquis but developed hematuria. He has also had a recent GI bleed in September 2016. Eliquis has caused hematuria in the past. He takes aspirin 81 mg orally daily for stroke prevention. LILO VASC SCORE 5. Patient reports he has a history of "panic attacks". Mr. Lovelace was admitted to the hospital with recal bleeding and required transfusion of 2units PRBCS. His H&H is now stable. He has undergone EGD which was unremarkable. He has been kept in the ICU due to agitation and confusion and has required bilateral wrist restraints and at times, 4-point restraints. Yesterday evening, he became extremely dyspneic. He went for CT chest which revealed a component of CHF as well as PE in the right upper lobe and right lower lobe. Given his history of GI bleed, he is not a candidate for full anticoagulation. Venous dopplers this morning are negative for DVT. He is currently on 100% nonrebreather and is fairly tachypneic. He is able to follow commands and tells me his "heart doctor is Dr. Keane." Given his history and recent events, we were consulted to see him. He denies being in any pain or discomfort at the present time. IVC filter may be the appropriate intervention for him. BNP was noted to be 413 after receiving IV fluids. These were stopped and he was diureses with Lasix. CT chest suggested trace bilateral pleural effusions. He has no lower extremity edema. Echocardiogram is pending. Will further discuss recent events with Dr. Emmanuel and await her recommendations. ASSESSMENT/PLAN: 1. PULMONARY EMBOLUS - Venous dopplers negative. Interventional radiology has been consulted for PICC line placement as well as IVC filter placement. We will continue to follow along. 2. HISTORY OF GI BLEED - Has received a total of 2 units PRBCs. H&H currently 10.1 and 30.3. Not a candidate for anticoagulation. Will continue to monitor. 3. PAROXYSMAL ATRIAL FIBRILLATION - He is currently in normal sinus rhythm. He is on Sotalol. QTC is acceptable per EKG, will monitor. He is not a good candidate for formal anticoagulation due to recent history of GI bleed. 4. HYPERTENSION - Currently on Nipride infusion. He is on Cozaar 50mg po daily at home for blood pressure, we will increase this dose. Creatinine currently 1.3 with potassium 3.7. Will monitor BMP. 5. PANIC ATTACKS - Currently on Xanax 0.5mg PO TID PRN. CC: Robin Gilman, DO - Home Medications and Allergies Home Medications: Home Medications Medication Instructions Recorded Confirmed Type Albuterol/Ipratropium Neb [Duoneb] 3 ml RESP TX QID 07/27/14 11/11/16 History Aspirin [Ecotrin] 81 mg PO DAILY 08/12/15 11/11/16 History ALPRAZolam [Xanax] 0.5 mg PO TID PRN #60 tablet 08/16/15 11/11/16 Rx Losartan [Cozaar] 50 mg PO DAILY #30 tablet 08/16/15 11/11/16 Rx Sotalol [Betapace] 80 mg PO BID #60 tablet 08/16/15 11/11/16 Rx Pantoprazole Tab [Protonix Tab] 40 mg PO BID #30 tablet 06/13/17 07/29/17 Rx Allergies/Adverse Reactions: Allergies Allergy/AdvReac Type Severity Reaction Status Date / Time No Known Allergies Allergy Verified 11/11/16 08:33 ROS unobtainable: due to mental status (confusion/agitation) Medical,Surgical,& Family Hx - Medical History Cardio: History of: Hypertension No history of: CAD, [place], Cardiovascular Problems Psychological: History of: Anxiety Disorders Neurology: History of: Cerebrovascular Accident No history of: Seizures HEENT: History of: Ear Problem, Eye Problem (GLASSES COS) Respiratory: History of: COPD, Respiratory Problems (EMPHYSEMA) Genitourinary: History of: Kidney Stones Gastrointestinal: History of: Bowel Obstruction, GI Problems (DIFFICULT SWALLOWING HX DILATATION) Musculoskeletal: History of: Degenerative Disk Disease - Surgical History Neurologic Surgeries: Patient denies: Neurologic Surgery HEENT Surgeries: Surgical HX of: Eye Surgery (COS) Abdominal Surgeries: Surgical HX of: Abdominal Surgery (COLON SURGERY DUE TO BLOCKAGE), Cholecystectomy, Colonoscopy, EGD - Family History Family History: Reports;: Family Cancer (father kidney cancer), Family Heart Disease - Social History Smoking Status: Former smoker Frequency of Alcohol Use: None Type of Drug Use: None Physical Examination Vital Signs Temp Pulse Resp BP Pulse Ox 98.2 F 111 H 20 129/74 97 11/11/16 08:29 11/11/16 08:29 11/11/16 08:29 11/11/16 08:29 11/11/16 08:29 Exam: General appearance: 100% nonrebreather in place. tachypneic. - Head Head exam: Present: normal inspection, normocephalic, atraumatic. Absent: hematoma, laceration - Eye Eye exam: Present: EOMI. Absent: conjunctival injection, nystagmus, periorbital swelling, scleral icterus, laceration to eyelids Pupils: Present: PERRL. Absent: constricted, dilated, fixed, irregular, unequal - ENT ENT exam: Present: normal exam, normal external ear exam - Neck Neck exam: Present: normal inspection. Absent: lymphadenopathy, meningismus, tenderness, thyromegaly - Respiratory Respiratory exam: Present: bilateral wheezes anteriorly with mild tachypnea present. Absent: accessory muscle use, chest wall tenderness, rhonchi. - Cardiovascular Cardiovascular exam: Present: regular rate and rhythm. Absent: gallop, JVD, rubs, murmur - GI/Abdominal GI/Abdominal exam: Present: normal bowel sounds, soft. Absent: distended, firm , guarding, hernia, mass, tenderness, rebound. - Extremities Exam Extremities exam: Present: normal inspection, normal capillary refill. Upper extremity pulses 2+. Lower extremity pulses 2+. Bilateral wrist restraints in place. Absent: calf tenderness, edema -Musculoskeletal Exam Musculoskeletal: Present: No Fluid Collection, No Pain, Normal Range of Motion - Neurological Exam Neurological exam: Present: alert, oriented to person, will follow commands but is easily agitated. grossly intact without resting or essential tremor - Psychiatric Psychiatric exam: Present: normal affect, normal mood - Skin Skin exam: Present: normal color, warm, dry, intact. Absent: cyanosis, diaphoretic, rash, urticaria Result/EKG - Labs CBC & BMP: 11/15/16 02:58 11/15/16 02:58 Lab Results: I have reviewed the past 24 hour labs Labs: Laboratory Results - last 24 hr 11/14/16 11/14/16 11/14/16 21:30 21:59 21:59 WBC 16.5 H D RBC 3.58 L Hgb 10.4 L Hct 31.5 L MCV 88.0 MCH 29 MCHC 33.0 RDW 14.4 Plt Count 239 D MPV 13.1 H Neut % (Auto) 73.6 Lymph % (Auto) 12.5 L [place] % (Auto) 10.3 Eos % (Auto) 1.9 Baso % (Auto) 0.2 Neut # (Auto) 12.2 H Lymph # (Auto) 2.1 [place] # (Auto) 1.7 H Eos # (Auto) 0.3 Baso # (Auto) 0.0 Immature Gran % 1.5 Nucleated RBC % 0.1 Immature Gran # 0.24 Nucleated RBCs # 0.02 Immature Plt Fraction 0.0 D-Dimer, Quantitative ABG pH 7.357 ABG pCO2 41.9 ABG pO2 236.0 H ABG HCO3 22.9 ABG Total CO2 21.5 L ABG O2 Saturation 100.0 ABG Base Excess -1.8 FiO2 100.00 Sodium 144 Potassium 3.9 Chloride 114 H Carbon Dioxide 22 Anion Gap 11.9 BUN 28 H Creatinine 1.20 GFR Calculation 64 BUN/Creatinine Ratio 23.00 H Glucose 129 H POC Glucose Calculated Osmolality 293.8 Calcium 8.0 L Total Bilirubin 0.50 AST 26 ALT 22 Alkaline Phosphatase 62 Total Creatine Kinase CK-MB (CK-2) Troponin I B-Natriuretic Peptide Total Protein 6.7 Albumin 3.2 L Globulin 3.5 Albumin/Globulin Ratio 0.9 L 11/14/16 11/14/16 11/14/16 22:08 22:08 22:08 WBC RBC Hgb Hct MCV MCH MCHC RDW Plt Count MPV Neut % (Auto) Lymph % (Auto) [place] % (Auto) Eos % (Auto) Baso % (Auto) Neut # (Auto) Lymph # (Auto) [place] # (Auto) Eos # (Auto) Baso # (Auto) Immature Gran % Nucleated RBC % Immature Gran # Nucleated RBCs # Immature Plt Fraction D-Dimer, Quantitative 1.8 ABG pH ABG pCO2 ABG pO2 ABG HCO3 ABG Total CO2 ABG O2 Saturation ABG Base Excess FiO2 Sodium Potassium Chloride Carbon Dioxide Anion Gap BUN Creatinine GFR Calculation BUN/Creatinine Ratio Glucose POC Glucose Calculated Osmolality Calcium Total Bilirubin AST ALT Alkaline Phosphatase Total Creatine Kinase 346 H CK-MB (CK-2) 2.7 Troponin I 0.180 H B-Natriuretic Peptide 415 H Total Protein Albumin Globulin Albumin/Globulin Ratio 11/14/16 11/15/16 11/15/16 22:35 01:40 02:58 WBC 15.7 H RBC 3.49 L Hgb 10.1 L Hct 30.3 L MCV 86.8 L MCH 29 MCHC 33.3 RDW 14.4 Plt Count 227 MPV 13.1 H Neut % (Auto) 79.3 H Lymph % (Auto) 8.9 L [place] % (Auto) 10.4 Eos % (Auto) 0.4 Baso % (Auto) 0.2 Neut # (Auto) 12.5 H Lymph # (Auto) 1.4 [place] # (Auto) 1.6 H Eos # (Auto) 0.1 Baso # (Auto) 0.0 Immature Gran % 0.8 Nucleated RBC % 0.0 Immature Gran # 0.12 Nucleated RBCs # 0.00 Immature Plt Fraction 0.0 D-Dimer, Quantitative ABG pH 7.300 L ABG pCO2 47.8 ABG pO2 217.0 H ABG HCO3 21.8 ABG Total CO2 21.5 L ABG O2 Saturation 99.6 ABG Base Excess -3.1 L FiO2 100.00 Sodium Potassium Chloride Carbon Dioxide Anion Gap BUN Creatinine GFR Calculation BUN/Creatinine Ratio Glucose POC Glucose 136 H Calculated Osmolality Calcium Total Bilirubin AST ALT Alkaline Phosphatase Total Creatine Kinase CK-MB (CK-2) Troponin I B-Natriuretic Peptide Total Protein Albumin Globulin Albumin/Globulin Ratio 11/15/16 02:58 WBC RBC Hgb Hct MCV MCH MCHC RDW Plt Count MPV Neut % (Auto) Lymph % (Auto) [place] % (Auto) Eos % (Auto) Baso % (Auto) Neut # (Auto) Lymph # (Auto) [place] # (Auto) Eos # (Auto) Baso # (Auto) Immature Gran % Nucleated RBC % Immature Gran # Nucleated RBCs # Immature Plt Fraction D-Dimer, Quantitative ABG pH ABG pCO2 ABG pO2 ABG HCO3 ABG Total CO2 ABG O2 Saturation ABG Base Excess FiO2 Sodium 147 H Potassium 3.7 Chloride 110 H Carbon Dioxide 27 Anion Gap 13.7 BUN 28 H Creatinine 1.30 GFR Calculation 58 BUN/Creatinine Ratio 21.00 H Glucose 124 H POC Glucose Calculated Osmolality 298.4 Calcium 8.1 L Total Bilirubin 1.40 H AST 24 ALT 21 Alkaline Phosphatase 61 Total Creatine Kinase CK-MB (CK-2) Troponin I B-Natriuretic Peptide Total Protein 6.9 Albumin 3.3 L Globulin 3.6 H Albumin/Globulin Ratio 0.9 L - EKG EKG results: interpreted by me, sinus rhythm <Roxann Emmanuel - Last Filed: 11/15/16 16:24> History of Present Illness - Consult Narrative History of present illness: I have personally interviewed and evaluated the patient, reviewed the chart and discussed medical decision-making with practitioner Josue. I have read this note and agree with her documentation here in. CC: Robin Gilman, DO Physical Examination Vital Signs Temp Pulse Resp BP Pulse Ox 98.2 F 111 H 20 129/74 97 11/11/16 08:29 11/11/16 08:29 11/11/16 08:29 11/11/16 08:29 11/11/16 08:29 Result/EKG - Labs CBC & BMP: 11/15/16 02:58 11/15/16 02:58 Labs: Laboratory Results - last 24 hr 11/14/16 11/14/16 11/14/16 21:30 21:59 21:59 WBC 16.5 H D RBC 3.58 L Hgb 10.4 L Hct 31.5 L MCV 88.0 MCH 29 MCHC 33.0 RDW 14.4 Plt Count 239 D MPV 13.1 H Neut % (Auto) 73.6 Lymph % (Auto) 12.5 L [place] % (Auto) 10.3 Eos % (Auto) 1.9 Baso % (Auto) 0.2 Neut # (Auto) 12.2 H Lymph # (Auto) 2.1 [place] # (Auto) 1.7 H Eos # (Auto) 0.3 Baso # (Auto) 0.0 Immature Gran % 1.5 Nucleated RBC % 0.1 Immature Gran # 0.24 Nucleated RBCs # 0.02 Immature Plt Fraction 0.0 D-Dimer, Quantitative ABG pH 7.357 ABG pCO2 41.9 ABG pO2 236.0 H ABG HCO3 22.9 ABG Total CO2 21.5 L ABG O2 Saturation 100.0 ABG Base Excess -1.8 FiO2 100.00 Sodium 144 Potassium 3.9 Chloride 114 H Carbon Dioxide 22 Anion Gap 11.9 BUN 28 H Creatinine 1.20 GFR Calculation 64 BUN/Creatinine Ratio 23.00 H Glucose 129 H POC Glucose Calculated Osmolality 293.8 Calcium 8.0 L Total Bilirubin 0.50 AST 26 ALT 22 Alkaline Phosphatase 62 Total Creatine Kinase CK-MB (CK-2) Troponin I B-Natriuretic Peptide Total Protein 6.7 Albumin 3.2 L Globulin 3.5 Albumin/Globulin Ratio 0.9 L 11/14/16 11/14/16 11/14/16 22:08 22:08 22:08 WBC RBC Hgb Hct MCV MCH MCHC RDW Plt Count MPV Neut % (Auto) Lymph % (Auto) [place] % (Auto) Eos % (Auto) Baso % (Auto) Neut # (Auto) Lymph # (Auto) [place] # (Auto) Eos # (Auto) Baso # (Auto) Immature Gran % Nucleated RBC % Immature Gran # Nucleated RBCs # Immature Plt Fraction D-Dimer, Quantitative 1.8 ABG pH ABG pCO2 ABG pO2 ABG HCO3 ABG Total CO2 ABG O2 Saturation ABG Base Excess FiO2 Sodium Potassium Chloride Carbon Dioxide Anion Gap BUN Creatinine GFR Calculation BUN/Creatinine Ratio Glucose POC Glucose Calculated Osmolality Calcium Total Bilirubin AST ALT Alkaline Phosphatase Total Creatine Kinase 346 H CK-MB (CK-2) 2.7 Troponin I 0.180 H B-Natriuretic Peptide 415 H Total Protein Albumin Globulin Albumin/Globulin Ratio 11/14/16 11/15/16 11/15/16 22:35 01:40 02:58 WBC 15.7 H RBC 3.49 L Hgb 10.1 L Hct 30.3 L MCV 86.8 L MCH 29 MCHC 33.3 RDW 14.4 Plt Count 227 MPV 13.1 H Neut % (Auto) 79.3 H Lymph % (Auto) 8.9 L [place] % (Auto) 10.4 Eos % (Auto) 0.4 Baso % (Auto) 0.2 Neut # (Auto) 12.5 H Lymph # (Auto) 1.4 [place] # (Auto) 1.6 H Eos # (Auto) 0.1 Baso # (Auto) 0.0 Immature Gran % 0.8 Nucleated RBC % 0.0 Immature Gran # 0.12 Nucleated RBCs # 0.00 Immature Plt Fraction 0.0 D-Dimer, Quantitative ABG pH 7.300 L ABG pCO2 47.8 ABG pO2 217.0 H ABG HCO3 21.8 ABG Total CO2 21.5 L ABG O2 Saturation 99.6 ABG Base Excess -3.1 L FiO2 100.00 Sodium Potassium Chloride Carbon Dioxide Anion Gap BUN Creatinine GFR Calculation BUN/Creatinine Ratio Glucose POC Glucose 136 H Calculated Osmolality Calcium Total Bilirubin AST ALT Alkaline Phosphatase Total Creatine Kinase CK-MB (CK-2) Troponin I B-Natriuretic Peptide Total Protein Albumin Globulin Albumin/Globulin Ratio 11/15/16 02:58 WBC RBC Hgb Hct MCV MCH MCHC RDW Plt Count MPV Neut % (Auto) Lymph % (Auto) [place] % (Auto) Eos % (Auto) Baso % (Auto) Neut # (Auto) Lymph # (Auto) [place] # (Auto) Eos # (Auto) Baso # (Auto) Immature Gran % Nucleated RBC % Immature Gran # Nucleated RBCs # Immature Plt Fraction D-Dimer, Quantitative ABG pH ABG pCO2 ABG pO2 ABG HCO3 ABG Total CO2 ABG O2 Saturation ABG Base Excess FiO2 Sodium 147 H Potassium 3.7 Chloride 110 H Carbon Dioxide 27 Anion Gap 13.7 BUN 28 H Creatinine 1.30 GFR Calculation 58 BUN/Creatinine Ratio 21.00 H Glucose 124 H POC Glucose Calculated Osmolality 298.4 Calcium 8.1 L Total Bilirubin 1.40 H AST 24 ALT 21 Alkaline Phosphatase 61 Total Creatine Kinase CK-MB (CK-2) Troponin I B-Natriuretic Peptide Total Protein 6.9 Albumin 3.3 L Globulin 3.6 H Albumin/Globulin Ratio 0.9 L
[2016-11-15] MEDS ORDERED: LOSARTAN 50 MG TABLET PO ONE (09:09)
[2016-11-15] MEDS ORDERED: LOSARTAN 50 MG TABLET PO SCH (09:30)
--- NOTE | 2016-11-15 09:58 | Gastrointestinal Progress Note ---
Assessment and Plan (1) GI bleed Status: Acute Assessment and plan: 11/15-no overt bleeding reported. H&H holding at 02/12. Negative for possible IVC placement today. Plan an addendum to follow Dr. Carney. 11/14-no reports of overt bleeding at this time. H&H holding at 01/11. Tolerating small amounts of diet. Continue to monitor present time. Plan an addendum to follow Dr. Carney. Current Visit: No Gastroenterology - PN: Subj Interval history: CC: GI bleed Patient is seen, awake, however agitated and somewhat confused this morning. Continues to try to get out of bed and remove his oxygen. There is no further overt bleeding this been reported. H&H is improving at 02/12. Abdomen is soft , nontender. Interventional radiology consult noted for possible PICC line placement as well as possible IVC filter placement. Cardiology has been consulted and is following. ROS: No acute distress noted at present Exam (Progress Note) - Constitutional Vitals: Period Temp Pulse Resp BP Sys/Gloria Pulse Ox Last 24 Hr 96.6 F-98.2 F 68-98 13-46 99-228/50-126 90-100 General appearance: normal weight, no acute distress - Head Head exam: Present: normal inspection, normocephalic - Eye Eye exam: Present: other (Lids and conjunctive are unremarkable). Absent: scleral icterus - ENT ENT exam: Present: normal exam, normal oropharynx - Neck Neck exam: Present: normal inspection - Respiratory Respiratory exam: Present: clear to auscultation bilaterally. Absent: rales, rhonchi, wheezes - Cardiovascular Cardiovascular exam: Present: regular rate and rhythm. Absent: diastolic murmur , JVD, systolic murmur - GI/Abdominal GI/Abdominal exam: Present: normal bowel sounds, soft. Absent: ascites, distended, mass, organomegaly, tenderness - Extremities Exam Extremities exam: Present: normal inspection, full ROM - Back Exam Back exam: Present: normal inspection - Neurological Exam Neurological exam: Present: alert, altered - Psychiatric Psychiatric exam: Present: normal affect, normal mood - Skin Skin exam: Present: normal color, warm, dry Results - Labs CBC & BMP: 11/15/16 02:58 11/15/16 02:58 Lab Results: I have reviewed the past 24 hour labs
--- NOTE | 2016-11-15 11:48 | IR History and Physical Update ---
IR Pre-Procedure - History and Physical H&P was reviewed, the patient examined and there: are no changes in the patients condition since last H&P was completed. Reason for procedure:: 81-year-old male with pulmonary embolus but no DVT on ultrasound. Recent melena requiring blood transfusion. Contraindication to anticoagulation. Asked to place IVC filter for prophylaxis against future PE. - Dictation Physical: refer to H&P completed by admitting physician - Physical Exam Vital Signs: Last Vital Signs Temp 98.6 F 11/15/16 08:00 Pulse 74 11/15/16 11:34 Resp 29 H 11/15/16 11:34 BP 105/57 11/15/16 10:45 Pulse Ox 97 11/15/16 11:34 - Sedation IR anesthesia plan for sedation: none ASA Class: IV - Risks Risks: Procedures explained. Risks discussed include, but not limited to, the following:[IVC thrombosis] All questions answered. The following alternatives were discussed:[None] Risks and benefits discussed with: patient, significant Consent obtained from: significant (Cousin, only relative) Assessment and Plan - Time spent with patient Time spent with patient: Less than 30 minutes
[2016-11-15] MEDS: LORazepam 2 MG/1 ML VIAL IV PRN (12:45)
[2016-11-15] MEDS ORDERED: LORazepam 2 MG/1 ML VIAL IV PRN (12:52)
--- NOTE | 2016-11-15 13:04 | Post Interventional Procedure ---
Pre-op diagnosis: PE, GI bleed Post-op diagnosis: same Procedure: IVC filter right CFV Contrast: Omni 350, 15cc Flouroscopy: 0.8 min Radiologist: Will Gonzalez Anesthesia: local Specimens: none sent Estimated blood loss: none Complications: none Condition: other (extremely combative) Assessment and Plan - Time spent with patient Time spent with patient: Greater than 30 minutes
--- NOTE | 2016-11-15 13:05 | Post Interventional Procedure ---
Pre-op diagnosis: Limited PIV access, combative, uncooperative Post-op diagnosis: same Procedure: Right subclavian central line Flouroscopy: 0.1 min Radiologist: Will Gonzalez Anesthesia: local Specimens: none sent Estimated blood loss: none Complications: none Condition: other (extremely combative) Assessment and Plan - Time spent with patient Time spent with patient: Greater than 30 minutes
[2016-11-15] MEDS: HALOPERIDOL 5 MG/ML AMP IV PRN (13:51)
--- NOTE | 2016-11-15 15:07 | Interventional Radiology Rpt ---
IR IVC filter placement Indication: Pulmonary embolus. Contraindication anticoagulation. IVC FILTER PLACEMENT Description: A formal timeout was performed. Maximum sterile barrier technique was used. The right groin was prepped and draped in a sterile fashion. Sonographic evaluation demonstrates a patent and compressible right common femoral vein. 5 cc 1% lidocaine was infused subcutaneously. Under sonographic guidance, a micropuncture needle was advanced into the target vein. A captured sonographic image documents the position of the needle. The needle was exchanged over a wire for a vascular dilator with the tip in the distal IVC. An inferior venacavogram was performed. Normal anatomy was present. The lowest renal vein inflow was identified. The dilator was exchanged over a wire for a Celect IVC filter sheath. The filter was then advanced and deployed such that the apex is at the lowest renal vein inflow. The deployment apparatus was removed and hemostasis achieved with manual compression. Medications: None. Contrast: Omnipaque 350, 15 cc. Fluoroscopy: 0.8 minutes. Impression: Infrarenal IVC filter placement as described. PROCEDURE INTERPRETED AT [facility] DEPARTMENT OF RADIOLOGY Final Report Signed by: Will Gonzalez M.D.
--- NOTE | 2016-11-15 15:09 | Interventional Radiology Rpt ---
IR cvc insert nt >5, Consult to Interventional Rad, IR fluoro guide cv cath, US guide vascular access Indication: Limited peripheral IV access. Patient is combative and pulls IVs frequently. CENTRAL LINE Description: A formal timeout was performed. Maximum sterile barrier technique was used. Sonographic evaluation of the subclavian region demonstrates patent and compressible right subclavian vein. The right anterior chest wall was prepped and draped in sterile fashion. 3 cc 1% lidocaine was administered subcutaneously. Under sonographic guidance, a micropuncture needle was advanced into the vein. A captured sonographic image documents the position of the needle. Needle was exchanged over a wire for a vascular dilator. A triple lumen central line was advanced until the tip was at the RA-SVC junction. The catheter depth was noted to be 15 cm. The position of the catheter was confirmed with fluoroscopic guidance and an image stored in PACS. The wire was removed. All 3 ports of the central line were aspirated and flushed with heparinized saline. The device was secured with suture, and a sterile dressing applied. Fluoroscopy: 0.1 minute, one captured fluoroscopic image. Impression: Central ready for immediate use. Routine catheter care. PROCEDURE INTERPRETED AT [facility] [place] DEPARTMENT OF RADIOLOGY Final Report Signed by: Will Gonzalez M.D.
--- NOTE | 2016-11-15 18:11 | ECHO Report ---
Mark Lovelace Exam Date: 11/15/2016 09:22 Referring Physician: Technologist: Sylvia Granados Age: 81 Ht (in): 69 Wt (lb): 175 Gender: M Exam Location: [facility] Echo Indications: a fib, GI Bleed, pulmonary embolism, SOB, HTN, COPD BP: 135 / 63 HR: 86 Rhythm: Atrial fibrillation Technical Quality: Technically difficult study IMPRESSIONS Normal LV systolic function, ejection fraction 60%. Grade 1/4 diastolic dysfunction. Mild concentric left ventricular hypertrophy. Mild aortic, tricuspid and pulmonic regurgitation. Small pericardial effusion. MEASUREMENTS (Male / Female) Normal Values 2D ECHO LV Diastolic Diameter PLAX 3.8 cm 4.2 - 5.9 / 3.9 - 5.3 cm LV Systolic Diameter PLAX 2.3 cm LV Fractional Shortening PLAX 38.4 % IVS Diastolic Thickness 1.3 cm 0.6 - 1.0 / 0.6 - 0.9 cm LVPW Diastolic Thickness 1.2 cm 0.6 - 1.0 / 0.6 - 0.9 cm RV Internal Dim ED PLAX 2.1 cm Aortic Root Diameter 2.5 cm LA Systolic Diameter LX 2.5 cm 3.0 - 4.0 / 2.7 - 3.8 cm DOPPLER TR Peak Velocity 149.0 cm/s TR Peak Gradient 8.9 mmHg FINDINGS Left Ventricle Mild concentric left ventricular hypertrophy. Normal left ventricular cavity size.left ventricular ejection fraction is estimated at 60 %. There is poor endocardial resolution which hinders regional wall motion assessment. Right Ventricle Normal right ventricular size. Right Atrium Normal right atrial size. Left Atrium Normal left atrial size. Mitral Valve Morphologically normal mitral valve. Aortic Valve Mild aortic valve sclerosis without stenosis. Trace - mild aortic valve regurgitation. Tricuspid Valve Morphologically normal tricuspid valve. Trace tricuspid valve regurgitation. Pulmonic Valve Morphologically normal pulmonic valve. Trace pulmonary valve regurgitation. Pericardium Small pericardial effusion. Aorta Normal size aortic root and proximal ascending aorta. Roxann Emmanuel MD (Electronically Signed) Final Date: 15 November 2016 18:10
[2016-11-15] MEDS: PANTOPRAZOLE 40 MG VIAL IV SCH (21:35)
[2016-11-16] MEDS: LORazepam 2 MG/1 ML VIAL IV PRN ×4 (00:09→21:43)
[2016-11-16] MEDS: HALOPERIDOL 5 MG/ML AMP IV PRN (00:11)
[2016-11-16] MEDS: NITROPRUSSIDE 100 MG in DEXTROSE 5% 246 ML IV SCH (00:18)
[2016-11-16 02:47] LABS: ABG Base Excess 2.8 MMOL/L (-2.5-2.5); ABG HCO3 26.9 MMOL/L (20-26); ABG PCO2 42.6 MM HG (35-48); ABG PH 7.419 (7.35-7.45); ABG TCO2 25.2 MMOL/L (23-27)
[2016-11-16] MEDS: SOTALOL 80 MG TABLET PO SCH ×3 (02:54→21:35)
[2016-11-16 03:53] LABS: Basophils % 0.2 % (0.0-0.8); Eosinophils # 0.1 10*3/uL (0.0-0.87); Eosinophils % 0.7 % (0.00-10.9); Hematocrit 30.5 VOL% (42.0-52.0); Hemoglobin 10.1 GM/DL (14.0-18.0); Immature Granulocytes % 0.6 %; Immature Granulocytes Absolute 0.09 #; Lymphocytes # 1.9 10*3/uL (1.4-4.0); Lymphocytes % 12.7 % (21.2-54.2); Mean Corpuscular HGB Conc 33.1 GM/DL (32-36); Mean Corpuscular Hemoglobin 29 PG (27-34); Mean Corpuscular Volume 87.6 FL (87-102); Mean Platelet Volume 12.4 FL (9.6-12.0); Monocytes # 2.2 10*3/uL (0.11-0.8); Monocytes % 14.9 % (1.7-12.7); Neutrophils # 10.5 10*3/uL (1.4-7.4); Neutrophils % 70.9 % (38.7-73.9); Platelet Count 210 T/CUMM (130-400); Red Blood Count 3.48 MC/CUMM (3.8-5.5); Red Cell Distribution Width 14.4 % (9.3-17.3); White Blood Count 14.8 T/CUMM (4-12)
[2016-11-16 04:19] LABS: Calcium 8.1 MG/DL (8.5-10.1); Osmolality,Calculated 299.4 MOS/KG (273-304); Potassium 3.3 MMOL/L (3.5-5.1)
[2016-11-16] MEDS: POTASSIUM CHLORIDE RIDER 20 MEQ in PREMIX 1 EACH IV PRN ×3 (04:32→09:33)
[2016-11-16] MEDS ORDERED: AMIODARONE 450 MG/9 ML VIAL IV ONE (06:08)
[2016-11-16] MEDS ORDERED: AMIODARONE INJ 450 MG in DEXTROSE 5% 241 ML IV SCH (06:30)
--- NOTE | 2016-11-16 06:47 | Pulmonology Progress Note ---
Pulmonary - PN: Subj Interval history: This 81-year-old white male came in with GI bleed. Source has not been found as yet after an EGD. Patient has had atrial fibrillation with rapid ventricular response and is now in sinus rhythm on amiodarone. He has been reluctant to take some of his medications including sotalol. He became acutely short of breath not before last with test indicating that he has had pulmonary emboli to the right lung. This does not appear to be massive embolism. He was not able to be anticoagulated so we had an IVC filter placed yesterday. He is better now with a PO2 of 303 on 60% facemask oxygen. Will reduce FiO2. Exam (Progress Note) - Constitutional Vitals: Period Temp Pulse Resp BP Sys/Gloria Pulse Ox Last 24 Hr 96.7 F-100.2 F 73-132 20-38 77-194/43-98 88-100 Exam: Patient is presently sleeping but has been somewhat combative at times. Vital signs are normal. Pupils react to light. Wearing facemask oxygen. Neck is supple. Chest reveals a few scattered rhonchi. Equal breath sounds. Heart normal rate and rhythm no murmurs. Abdomen soft nontender bowel sounds present. Extremities no clubbing cyanosis or edema. Calves nontender. Results - Labs CBC & BMP: 11/16/16 03:30 11/16/16 03:30 Lab Results: I have reviewed the past 24 hour labs - Diagnostic Findings Procedure: Chest x-ray: image reviewed by me (Upper lobe infiltrates bilaterally. Little change from yesterday.) Assessment and Plan (1) Atrial fibrillation with RVR Status: Chronic Assessment and plan: Managed by cardiology. Patient is not on anticoagulants on admission. 11/16/2016 presently in a sinus rhythm. Current Visit: No (2) Panic attacks Status: Chronic Assessment and plan: Patient gets quite anxious. He has declined colonoscope earlier. 11/16/2016 he occasionally gets very anxious and occasionally refuses medications. Apparently no history of dementia. Current Visit: Yes (3) Gastrointestinal hemorrhage with melena Status: Acute Assessment and plan: Had negative EGD. Will set up for small bowel follow-through. Colonoscope. 11/16/2016 hematocrit is 30 and stable. No melena noted at present. Current Visit: Yes (4) Pulmonary embolism Status: Acute Assessment and plan: Patient was acutely worsened overnight and found to have pulmonary emboli on CT. I think there is an element of congestive heart failure as well. Anticoagulation is contraindicated. He will need IVC filter most likely. Prognosis guarded. Will get venous Dopplers prior to deciding on the filter. 11/16/2016 venous Dopp[address] were negative. Dr. Gonzalez did place an IVC filter yesterday. This is really all we could do for a pulmonary embolus at this point in time. I do not think the pulmonary emboli were major. May consider anticoagulation once the cause of the GI bleed is defined. Otherwise would not do it. Current Visit: Yes
[2016-11-16] MEDS: ALBUTEROL/IPRATROPIUM 3 ML NEB RESP TX SCH ×4 (07:24→20:23)
--- NOTE | 2016-11-16 08:03 | XRay Report ---
XR chest 1V portable Indication: CHF, PTED Comparison: Chest x-ray dated November 14, 2016 Technique: Single frontal view of the chest. Findings: Continued cardiomegaly. Continued opacification of the bilateral upper lungs. Right-sided central venous catheter tip projects over the atriocaval junction. Visualized osseous and surrounding soft tissue structures appear grossly unchanged. IMPRESSION: No significant interval change. PROCEDURE INTERPRETED AT [facility] DEPARTMENT OF RADIOLOGY Final Report Signed by: Dr Gee Grier
--- NOTE | 2016-11-16 08:26 | Cardiology Progress Note ---
<Olga Salas E - Last Filed: 11/16/16 09:55> Assessment and Plan - Time spent with patient Time spent with patient: Less than 30 minutes (1) Pulmonary embolism Status: Acute Assessment and plan: See plan of care listed below. Current Visit: Yes (2) History of GI bleed Status: Acute Assessment and plan: See plan of care listed below. Current Visit: Yes (3) Paroxysmal atrial fibrillation Status: Chronic Assessment and plan: See plan of care listed below. Current Visit: Yes (4) hypertension Status: Chronic Assessment and plan: See plan of care listed below. Current Visit: No (5) Panic attacks Status: Chronic Assessment and plan: See plan of care listed below. Current Visit: Yes Cardiology - PN: Subj Interval history: Clerical Assigner: Dr. Keane PCP: Dr. Gilman SUMMARY: Mr. Lovelace is a 81 year old male with a history of hypertension, PAF, CVA, emphysema, GI Bleed, and claustrophobia who was admitted to the hospital with rectal bleeding requiring transfusion. He has undergone EGD which was unremarkable. He has been kept in the ICU due to agitation and confusion and has required bilateral wrist restraints. He went for CT chest which revealed a component of CHF as well as PE in the right upper lobe and right lower lobe. Given his history of GI bleed, he is not a candidate for full anticoagulation. Venous dopplers were negative for DVT. On 11/15/16, he went for PICC line placement and IVC filter with interventional radiology. He has also had several episodes of PAF since his admission. We were consulted to see him. There was suggestion of possible CHF. He had an elevated BNP after receiving IV fluids. Chest CT suggested trace bilateral pleural effusions. He was diuresed. Echocardiogram revealed EF 60%, grade I/IV diastolic dysfunction, mild LVH, mild AI, TR, VT, and small pericardial effusion. NOVEMBER 16, 2016 UPDATE: He had an episode of atrial fibrillation with rapid ventricular response and was started on IV amiodarone; however, he converted back to normal sinus rhythm on his own as this was being started. EKG's this admission have revealed slightly prolonged QT interval a couple of days ago, therefore increasing his Sotalol dose may not be the best option. Creatinine has risen to 1.7 today. Will further discuss with Dr. Emmanuel and await additional recommendations. IV amiodarone continues at the present time and he is remaining in NSR. ASSESSMENT/PLAN: 1. PULMONARY EMBOLUS - He went for IVC filter placement yesterday. He is now on O2 via NBP with SpO2 >93%. He remains tachypneic. We will continue to follow along. 2. HISTORY OF GI BLEED - Has received a total of 2 units PRBCs. H&H currently 10.1 and 30.5. Not a candidate for anticoagulation. Will continue to monitor. 3. PAROXYSMAL ATRIAL FIBRILLATION - He is currently in normal sinus rhythm on IV amiodarone after episode of AFRVR yesterday. He is also on Sotalol 80mg PO BID. He is not a good candidate for formal anticoagulation due to recent history of GI bleed. 4. HYPERTENSION - No longer requiring Nipride. We increased his dose of Cozaar to 100mg po daily. Creatinine currently 1.7 with potassium 3.3. Potassium has already been replaced this morning. Will monitor BMP. 5. PANIC ATTACKS - Currently on Xanax 0.5mg PO TID PRN. Exam (Progress Note) - Constitutional Vitals: Period Temp Pulse Resp BP Sys/Gloria Pulse Ox Last 24 Hr 96.7 F-100.2 F 73-132 20-38 77-194/43-98 88-100 Exam: General appearance: O2 via NBP. Mildly tachypneic. Head exam: Present: normal inspection, normocephalic, atraumatic. Absent: hematoma, laceration Eye exam: Present: EOMI. Absent: conjunctival injection, nystagmus, periorbital swelling, scleral icterus, laceration to eyelids Pupils: Present: PERRL. Absent: constricted, dilated, fixed, irregular, unequal ENT exam: Present: normal exam, normal external ear exam Neck exam: Present: normal inspection. Absent: lymphadenopathy, meningismus, tenderness, thyromegaly Respiratory exam: Present: bilateral wheezes anteriorly with mild tachypnea present. Absent: accessory muscle use, chest wall tenderness, rhonchi. Cardiovascular exam: Present: regular rate and rhythm. Absent: gallop, JVD, rubs, murmur GI/Abdominal exam: Present: normal bowel sounds, soft. Absent: distended, firm , guarding, hernia, mass, tenderness, rebound. Extremities exam: Present: normal inspection, normal capillary refill. Upper extremity pulses 2+. Lower extremity pulses 2+. Bilateral wrist restraints in place. Absent: calf tenderness, edema Musculoskeletal: Present: No Fluid Collection, No Pain, Normal Range of Motion Neurological exam: Present: alert, oriented to person, will follow commands but is easily agitated. Opens eyes and moves all extremities upon request. grossly intact without resting or essential tremor Psychiatric exam: Present: normal affect, normal mood Skin exam: Present: normal color, warm, dry, intact. Absent: cyanosis, diaphoretic, rash, urticaria Result/EKG - Labs CBC & BMP: 11/16/16 03:30 11/16/16 08:03 Lab Results: I have reviewed the past 24 hour labs Labs: Laboratory Results - last 24 hr 11/16/16 11/16/16 11/16/16 02:39 03:30 03:30 WBC 14.8 H RBC 3.48 L Hgb 10.1 L Hct 30.5 L MCV 87.6 MCH 29 MCHC 33.1 RDW 14.4 Plt Count 210 MPV 12.4 H Neut % (Auto) 70.9 Lymph % (Auto) 12.7 L [place] % (Auto) 14.9 H Eos % (Auto) 0.7 Baso % (Auto) 0.2 Neut # (Auto) 10.5 H Lymph # (Auto) 1.9 [place] # (Auto) 2.2 H Eos # (Auto) 0.1 Baso # (Auto) 0.0 Immature Gran % 0.6 Nucleated RBC % 0.0 Immature Gran # 0.09 Nucleated RBCs # 0.00 Immature Plt Fraction 0.0 ABG pH 7.419 ABG pCO2 42.6 ABG pO2 303.0 H ABG HCO3 26.9 H ABG Total CO2 25.2 ABG O2 Saturation 100.0 ABG Base Excess 2.8 H Sodium 147 H Potassium 3.3 L Chloride 108 H Carbon Dioxide 29 Anion Gap 13.3 BUN 32 H Creatinine 1.70 H GFR Calculation 42 BUN/Creatinine Ratio 18.00 Glucose 110 H Calculated Osmolality 299.4 Calcium 8.1 L Magnesium 11/16/16 03:30 WBC RBC Hgb Hct MCV MCH MCHC RDW Plt Count MPV Neut % (Auto) Lymph % (Auto) [place] % (Auto) Eos % (Auto) Baso % (Auto) Neut # (Auto) Lymph # (Auto) [place] # (Auto) Eos # (Auto) Baso # (Auto) Immature Gran % Nucleated RBC % Immature Gran # Nucleated RBCs # Immature Plt Fraction ABG pH ABG pCO2 ABG pO2 ABG HCO3 ABG Total CO2 ABG O2 Saturation ABG Base Excess Sodium Potassium Chloride Carbon Dioxide Anion Gap BUN Creatinine GFR Calculation BUN/Creatinine Ratio Glucose Calculated Osmolality Calcium Magnesium 2.2 - EKG EKG results: interpreted by me, sinus rhythm Quality Measures - VTE Contraindication to Pharmacological VTE Prophylaxis: High Risk of Bleeding <Roxann Emmanuel - Last Filed: 11/16/16 17:28> Cardiology - PN: Subj Interval history: I have personally interviewed and evaluated the patient, reviewed the chart and discussed medical decision-making with practitioner Josue. I have read this note and agree with her documentation here in. Exam (Progress Note) - Constitutional Vitals: Period Temp Pulse Resp BP Sys/Gloria Pulse Ox Last 24 Hr 96.7 F-100.2 F 69-132 17-41 77-194/44-98 89-100 Result/EKG - Labs CBC & BMP: 11/16/16 03:30 11/16/16 08:03 Labs: Laboratory Results - last 24 hr 11/16/16 11/16/16 11/16/16 02:39 03:30 03:30 WBC 14.8 H RBC 3.48 L Hgb 10.1 L Hct 30.5 L MCV 87.6 MCH 29 MCHC 33.1 RDW 14.4 Plt Count 210 MPV 12.4 H Neut % (Auto) 70.9 Lymph % (Auto) 12.7 L [place] % (Auto) 14.9 H Eos % (Auto) 0.7 Baso % (Auto) 0.2 Neut # (Auto) 10.5 H Lymph # (Auto) 1.9 [place] # (Auto) 2.2 H Eos # (Auto) 0.1 Baso # (Auto) 0.0 Immature Gran % 0.6 Nucleated RBC % 0.0 Immature Gran # 0.09 Nucleated RBCs # 0.00 Immature Plt Fraction 0.0 ABG pH 7.419 ABG pCO2 42.6 ABG pO2 303.0 H ABG HCO3 26.9 H ABG Total CO2 25.2 ABG O2 Saturation 100.0 ABG Base Excess 2.8 H Sodium 147 H Potassium 3.3 L Chloride 108 H Carbon Dioxide 29 Anion Gap 13.3 BUN 32 H Creatinine 1.70 H GFR Calculation 42 BUN/Creatinine Ratio 18.00 Glucose 110 H Calculated Osmolality 299.4 Calcium 8.1 L Magnesium 11/16/16 11/16/16 03:30 08:03 WBC RBC Hgb Hct MCV MCH MCHC RDW Plt Count MPV Neut % (Auto) Lymph % (Auto) [place] % (Auto) Eos % (Auto) Baso % (Auto) Neut # (Auto) Lymph # (Auto) [place] # (Auto) Eos # (Auto) Baso # (Auto) Immature Gran % Nucleated RBC % Immature Gran # Nucleated RBCs # Immature Plt Fraction ABG pH ABG pCO2 ABG pO2 ABG HCO3 ABG Total CO2 ABG O2 Saturation ABG Base Excess Sodium Potassium 3.7 Chloride Carbon Dioxide Anion Gap BUN Creatinine GFR Calculation BUN/Creatinine Ratio Glucose Calculated Osmolality Calcium Magnesium 2.2
--- NOTE | 2016-11-16 08:32 | Family Practice Progress Note ---
Family Practice - PN: Subj Interval history: Patient was admitted with rectal bleeding . Subsequently required 2 units of packed RBCs. His bleeding has stabilized since she has been in the intensive care unit. Patient had an EGD this a.m. which was unremarkable. Patient is had no further bleeding since admission to the hospital. He has been very lethargic today after receiving meds during the night for agitation as well as sedation this a.m. for the EGD. He will awake and answers questions appropriately. Moving all extremities with no localizing features. His labs are stable and vitals are stable with present. We will try to hold any further sedatives and if patient alert and functioning well in a.m. consider discharge. She had similar episodes in the past. Had recent admission with gastric and esophageal ulcers. These have apparently healed on EGD. We will continue to monitor in intensive care overnight. 11/14/16 -patient is much more alert this a.m. Still slightly confused but oriented. No new problems noted by staff. Vitals are stable. No hematochezia or melena noted. His a.m. labs are stable. Patient does not have any remembrance of last p.m. when he was extremely confused and lethargic. Reviewed chart in detail. Heart regular rate and rhythm, lungs are clear to auscultation, abdomen is soft and nontender. Will transfer to monitored bed and continue present evaluation. Will have patient ambulate and sit in chair as much as possible. Need to make sure patient can ambulate and care for himself at home. If patient has stable today will probably discharge a.m. 11/15/16 -patient was held in the intensive care due to significant agitation and confusion. Last p.m. he became extremely dyspneic and evaluation revealed component of congestive heart failure as well as pulmonary embolus in the right upper lobe and right lower lobe. Due to his history of GI bleed we are unable to anticoagulate at present. Patient presently requiring 100% rebreather. Being followed by Dr. Espinosa. He is to have a venous Doppler this a.m. and consideration for IVC filter placement. He is presently minimally responsive. Patient has multiple medical problems which are all complicating factors. I discussed in detail with patient's cousin. She is his only living relative. I advised that in view of his medical history with multiple medical problems and present medical state that I would not recommend patient being intubated in the event of respiratory failure. Cousin states that she would like to have him placed on a respirator in the event of respiratory failure. We will continue present treatment plan but overall prognosis is very poor. 11/16/16 -patient stable this a.m. His oxygenation is much improved and Dr. Espinosa has made changes. Staff reports that urine output has been decreased they feel that he is probably dry. He is not taking much fluids. He refuses to eat most foods only eats very soft type foods. He has mental status is still altered. He becomes very combative at times. He will answer questions but very slow response and very soft voice. I feel that he has had a component of dementia is progressively gotten worse over time. Certainly the ICU would exacerbate this condition. I plan to get him in a room so he can be with family members which I think will help improve his mental state. Staff feels that he is stable to transfer to telemetry floor. Agree with cardiology and pulmonary recommendations. Will transfer to telemetry and continue present treatment plan. Will start on IV fluids and monitor closely. Exam (Progress Note) - Constitutional Vitals: Period Temp Pulse Resp BP Sys/Gloria Pulse Ox Last 24 Hr 96.7 F-100.2 F 73-132 20-38 77-194/43-98 88-100 Results - Labs CBC & BMP: 11/16/16 03:30 11/16/16 03:30 Quality Measures - VTE Contraindication to Pharmacological VTE Prophylaxis: High Risk of Bleeding
[2016-11-16] MEDS: PANTOPRAZOLE 40 MG VIAL IV SCH ×2 (08:53→21:35)
[2016-11-16] MEDS: LOSARTAN 50 MG TABLET PO SCH (09:34)
[2016-11-16] MEDS: POTASSIUM CHLORIDE INJ 10 MEQ in SODIUM CHLORIDE 0.45% 1,000 ML IV SCH ×2 (09:39→21:45)
--- NOTE | 2016-11-16 10:23 | Physician Query Form ---
CLICK EDIT DOCUMENT TO SELECT QUERY ANSWER --> OK --> SIGN Francia Kemp RN, CCDS Certified Clinical Senior Ui Web Developer W) [phone] (f) [phone] [email or web address] PROVIDERS: Make your selection(s) from the choices in EACH section by typing an "x" and enter comments in the comment section. Please use your independent medical judgment in providing your response. This request does not imply that any particular answer is desired or expected. CLINICAL INDICATORS: (Providers should not edit this section) The medical record indicates that the patient was admitted with GI bleeding, on the "pt breathing hard", "think there is an element of congestive heart failure", "pulmonary edema", BNP of 413# and the patient was diuresed. ECHO-------- Normal LV systolic function, ejection fraction 60%. Please provide further specificity regarding CHF. ACUITY: ( ) Acute ( ) Chronic ( ) Acute on Chronic ( x) Clinically unable to determine TYPE: ( ) Systolic (HFrEF - heart failure with reduced systolic function/EF) ( ) Diastolic (HFpEF - heart failure with preserved systolic function/EF) ( ) Combined Systolic/Diastolic ( ) Other, please specify: ( x) Clinically unable to determine ( ) Past Medical History of Systolic CHF ( ) Past Medical History of Diastolic CHF (x ) Clinically unable to determine COMMENTS: PLEASE ALSO DOCUMENT RESPONSE IN PROGRESS NOTES AND/OR DISCHARGE SUMMARY Use of terms such as suspected, likely, or probable (associated with a specific diagnosis that is being evaluated, monitored, or treated as if it exists) are acceptable and can be restated in the discharge summary if not ruled out. MTDD
[2016-11-16] MEDS: DESITIN 4OZ/NYSTATIN 15 GRAM MIXTURE PASTE TOP SCH ×2 (12:48→23:27)
[2016-11-16] MEDS: AMIODARONE INJ 450 MG in DEXTROSE 5% 241 ML IV SCH (12:55)
[2016-11-17] MEDS: NITROPRUSSIDE 100 MG in DEXTROSE 5% 246 ML IV SCH ×2 (00:45→22:21)
[2016-11-17 05:47] LABS: Basophils % 0.3 % (0.0-0.8); Eosinophils # 0.5 10*3/uL (0.0-0.87); Hematocrit 28.3 VOL% (42.0-52.0); Hemoglobin 9.4 GM/DL (14.0-18.0); Immature Granulocytes % 0.6 %; Immature Granulocytes Absolute 0.07 #; Lymphocytes # 1.7 10*3/uL (1.4-4.0); Lymphocytes % 14.1 % (21.2-54.2); Mean Corpuscular HGB Conc 33.2 GM/DL (32-36); Mean Corpuscular Hemoglobin 29 PG (27-34); Mean Corpuscular Volume 88.4 FL (87-102); Mean Platelet Volume 12.4 FL (9.6-12.0); Monocytes % 16.6 % (1.7-12.7); Neutrophils # 7.9 10*3/uL (1.4-7.4); Neutrophils % 64.4 % (38.7-73.9); Platelet Count 228 T/CUMM (130-400); Red Cell Distribution Width 14.6 % (9.3-17.3); White Blood Count 12.2 T/CUMM (4-12)
[2016-11-17 06:13] LABS: Albumin 2.4 G/DL (3.4-5.0); Bilirubin,Total 1.5 MG/DL (0.2-1.0); Calcium 7.7 MG/DL (8.5-10.1); Osmolality,Calculated 293.8 MOS/KG (273-304); Potassium 3.8 MMOL/L (3.5-5.1); Total Protein 6.1 G/DL (6.4-8.3)
[2016-11-17] MEDS: AMIODARONE INJ 450 MG in DEXTROSE 5% 241 ML IV SCH ×2 (06:14→09:12)
[2016-11-17] MEDS: POTASSIUM CHLORIDE INJ 10 MEQ in SODIUM CHLORIDE 0.45% 1,000 ML IV SCH (06:15)
[2016-11-17 06:18] LABS: Hypochromasia 2+; Lymphocytes 7 % (20-55); Macrocytosis 1+; Myelocytes 1 %; Polychromasia Slight; Segmented Neutrophils 83 % (50-85); Target Cells Slight; Total Cells Counted 100
[2016-11-17 06:19] LABS: Platelet Estimate Adequate
--- NOTE | 2016-11-17 06:43 | Pulmonology Progress Note ---
Pulmonary - PN: Subj Interval history: This 81-year-old white male came in with GI bleed. Source has not been found as yet after an EGD. Patient has had atrial fibrillation with rapid ventricular response and is now in sinus rhythm on amiodarone. He has been reluctant to take some of his medications including sotalol. He became acutely short of breath not before last with test indicating that he has had pulmonary emboli to the right lung. This does not appear to be massive embolism. He was not able to be anticoagulated so we had an IVC filter placed yesterday. He is better now with a PO2 of 303 on 60% facemask oxygen. Will reduce FiO2. 11/17/2016 patient is a little more short of breath this morning. He does have some wheezing. He was put back on saline yesterday. Has congestive heart failure. Will stop saline and give Lasix. Has pulmonary thromboembolic disease involving his right long which was treated with an IVC filter because of GI bleeding. Exam (Progress Note) - Constitutional Vitals: Period Temp Pulse Resp BP Sys/Gloria Pulse Ox Last 24 Hr 97.4 F-99.8 F 66-100 16-41 92-163/51-87 89-100 Exam: Patient is presently responsive. Vital signs are normal. Pupils react to light. Wearing nasal oxygen. O2 sat 98%. Neck is supple. Chest reveals a few scattered rhonchi, bibasilar crackles, a few scattered wheezes as well. Equal breath sounds. Heart normal rate and rhythm no murmurs. Abdomen soft nontender bowel sounds present. Extremities no clubbing cyanosis or edema. Calves nontender. Results - Labs CBC & BMP: 11/17/16 05:03 11/17/16 05:03 Lab Results: I have reviewed the past 24 hour labs - Diagnostic Findings Procedure: Chest x-ray: pending Assessment and Plan (1) Atrial fibrillation with RVR Status: Chronic Assessment and plan: Managed by cardiology. Patient is not on anticoagulants on admission. 11/16/2016 presently in a sinus rhythm. 11/17/2016 sinus rhythm controlled rate Current Visit: No (2) Panic attacks Status: Chronic Assessment and plan: Patient gets quite anxious. He has declined colonoscope earlier. 11/16/2016 he occasionally gets very anxious and occasionally refuses medications. Apparently no history of dementia. 11/17/2016 he is a bit anxious. Current Visit: Yes (3) Gastrointestinal hemorrhage with melena Status: Acute Assessment and plan: Had negative EGD. Will set up for small bowel follow-through. Colonoscope. 11/16/2016 hematocrit is 30 and stable. No melena noted at present. 11/17/16 no active bleeding, it appears. Hematocrit 28 today. Current Visit: Yes (4) Pulmonary embolism Status: Acute Assessment and plan: Patient was acutely worsened overnight and found to have pulmonary emboli on CT. I think there is an element of congestive heart failure as well. Anticoagulation is contraindicated. He will need IVC filter most likely. Prognosis guarded. Will get venous Dopplers prior to deciding on the filter. 11/16/2016 venous Dopplers were negative. Dr. Gonzalez did place an IVC filter yesterday. This is really all we could do for a pulmonary embolus at this point in time. I do not think the pulmonary emboli were major. May consider anticoagulation once the cause of the GI bleed is defined. Otherwise would not do it. 11/17/16 patient had an IVC filter placed because of pulmonary emboli. Unable to use anticoagulants due to active GI bleeding. Not actively bleeding at present but still cannot use anticoagulants. Current Visit: Yes
[2016-11-17] MEDS: ALBUTEROL/IPRATROPIUM 3 ML NEB RESP TX SCH ×4 (07:57→19:44)
--- NOTE | 2016-11-17 08:07 | XRay Report ---
Exam: XR chest 1V portable Date: 11/17/2016 6:41 AM Indication: CHF Comparison: 11/16/2016 Technical: AP Findings: A right subclavian catheter is present. Distal tip is in the right atrial junction. Patchy infiltrates are present and scarring in the upper lungs bilaterally. There some pleural diaphragmatic reaction left base. Cardiomegaly is present. Impression: 1. No significant interval changes. PROCEDURE INTERPRETED AT [facility] DEPARTMENT OF RADIOLOGY Final Report Signed by: Dr. Nilay Owens
[2016-11-17] MEDS: LOSARTAN 50 MG TABLET PO SCH (09:04)
[2016-11-17] MEDS: SOTALOL 80 MG TABLET PO SCH ×2 (09:04→22:19)
[2016-11-17] MEDS: FUROSEMIDE 40 MG/4 ML VIAL IV SCH (09:11)
[2016-11-17] MEDS: PANTOPRAZOLE 40 MG VIAL IV SCH ×2 (09:11→22:20)
[2016-11-17] MEDS: DESITIN 4OZ/NYSTATIN 15 GRAM MIXTURE PASTE TOP SCH ×2 (09:13→22:21)
--- NOTE | 2016-11-17 09:42 | Gastrointestinal Progress Note ---
Assessment and Plan (1) GI bleed Status: Acute Assessment and plan: 11/17-no reports of overt bleeding. H&H stable but down slightly at 01/11. IVC placement on 11/15. No complaints of abdominal pain. Plan an addendum followed by Dr. Carney peer 11/15-no overt bleeding reported. H&H holding at 1030. Noted for possible IVC placement today. Plan an addendum to follow Dr. Carney. 11/14-no reports of overt bleeding at this time. H&H holding at 01/11. Tolerating small amounts of diet. Continue to monitor present time. Plan an addendum to follow Dr. Carney. Current Visit: No Gastroenterology - PN: Subj Interval history: CC: GI bleed Patient is seen today, and seems to be more alert however is continually confused. He is requiring 24 hour sitter care due to trying to get out of bed and pull out his IV lines, etc. He is eating with assistance. There is no reports of overt bleeding as well. His H&H is down slightly at 01/11. Abdomen soft, nontender. ROS: Denies shortness of breath or chest pain Exam (Progress Note) - Constitutional Vitals: Period Temp Pulse Resp BP Sys/Gloria Pulse Ox Last 24 Hr 97.4 F-98.7 F 59-100 16-41 92-163/54-87 89-99 - Other Additional findings: General appearance: normal weight, no acute distress - Head Head exam: Present: normal inspection, normocephalic - Eye Eye exam: Present: other (Lids and conjunctive are unremarkable). Absent: scleral icterus - ENT ENT exam: Present: normal exam, normal oropharynx - Neck Neck exam: Present: normal inspection - Respiratory Respiratory exam: Present: clear to auscultation bilaterally. Absent: rales, rhonchi, wheezes - Cardiovascular Cardiovascular exam: Present: regular rate and rhythm. Absent: diastolic murmur , JVD, systolic murmur - GI/Abdominal GI/Abdominal exam: Present: normal bowel sounds, soft. Absent: ascites, distended, mass, organomegaly, tenderness - Extremities Exam Extremities exam: Present: normal inspection, full ROM - Back Exam Back exam: Present: normal inspection - Neurological Exam Neurological exam: Present: alert, altered - Psychiatric Psychiatric exam: Present: normal affect, normal mood - Skin Skin exam: Present: normal color, warm, dry Results - Labs CBC & BMP: 11/17/16 05:03 11/17/16 05:03 Lab Results: I have reviewed the past 24 hour labs
--- NOTE | 2016-11-17 13:40 | Family Practice Progress Note ---
Family Practice - PN: Subj Interval history: Patient was admitted with rectal bleeding . Subsequently required 2 units of packed RBCs. His bleeding has stabilized since she has been in the intensive care unit. Patient had an EGD this a.m. which was unremarkable. Patient is had no further bleeding since admission to the hospital. He has been very lethargic today after receiving meds during the night for agitation as well as sedation this a.m. for the EGD. He will awake and answers questions appropriately. Moving all extremities with no localizing features. His labs are stable and vitals are stable with present. We will try to hold any further sedatives and if patient alert and functioning well in a.m. consider discharge. She had similar episodes in the past. Had recent admission with gastric and esophageal ulcers. These have apparently healed on EGD. We will continue to monitor in intensive care overnight. 11/14/16 -patient is much more alert this a.m. Still slightly confused but oriented. No new problems noted by staff. Vitals are stable. No hematochezia or melena noted. His a.m. labs are stable. Patient does not have any remembrance of last p.m. when he was extremely confused and lethargic. Reviewed chart in detail. Heart regular rate and rhythm, lungs are clear to auscultation, abdomen is soft and nontender. Will transfer to monitored bed and continue present evaluation. Will have patient ambulate and sit in chair as much as possible. Need to make sure patient can ambulate and care for himself at home. If patient has stable today will probably discharge a.m. 11/15/16 -patient was held in the intensive care due to significant agitation and confusion. Last p.m. he became extremely dyspneic and evaluation revealed component of congestive heart failure as well as pulmonary embolus in the right upper lobe and right lower lobe. Due to his history of GI bleed we are unable to anticoagulate at present. Patient presently requiring 100% rebreather. Being followed by Dr. Espinosa. He is to have a venous Doppler this a.m. and consideration for IVC filter placement. He is presently minimally responsive. Patient has multiple medical problems which are all complicating factors. I discussed in detail with patient's cousin. She is his only living relative. I advised that in view of his medical history with multiple medical problems and present medical state that I would not recommend patient being intubated in the event of respiratory failure. Cousin states that she would like to have him placed on a respirator in the event of respiratory failure. We will continue present treatment plan but overall prognosis is very poor. 11/16/16 -patient stable this a.m. His oxygenation is much improved and Dr. Espinosa has made changes. Staff reports that urine output has been decreased they feel that he is probably dry. He is not taking much fluids. He refuses to eat most foods only eats very soft type foods. He has mental status is still altered. He becomes very combative at times. He will answer questions but very slow response and very soft voice. I feel that he has had a component of dementia is progressively gotten worse over time. Certainly the ICU would exacerbate this condition. I plan to get him in a room so he can be with family members which I think will help improve his mental state. Staff feels that he is stable to transfer to telemetry floor. Agree with cardiology and pulmonary recommendations. Will transfer to telemetry and continue present treatment plan. Will start on IV fluids and monitor closely. 11/17/16-patient continues to slowly improve. Family and staff states that he continues to have some confusion but this is significantly improved also. He is alert and answers appropriate questions this a.m.. He still appears to be dyspneic at rest and has some slight wheezing in bases but is definitely improved. Patient has panic attacks and family states that he panics almost every time family members leave the room. He presently has a sitter which I had planned on stopping the day but family thinks that he will do very poorly without having somebody in the room. Family states that they cannot stay with the patient full-time. We will continue this overnight and hopefully can stop the sitter in a.m. no further signs of GI bleeding. He is otherwise stable and continues to slowly improve. Have consulted physical therapy as patient needs to be pending sitting in a chair as much as possible. Exam (Progress Note) - Constitutional Vitals: Period Temp Pulse Resp BP Sys/Gloria Pulse Ox Last 24 Hr 97.4 F-98.7 F 59-100 16-40 129-163/58-87 90-99 Results - Labs CBC & BMP: 11/17/16 05:03 11/17/16 05:03 Quality Measures - VTE Contraindication to Pharmacological VTE Prophylaxis: High Risk of Bleeding
--- NOTE | 2016-11-17 15:06 | EKG Report ---
Stationary ECG Study [facility] Test Date: 11/17/2016 3:04:19 PM Pat Name: JOAQUIM LINDSEY Department: Room: 267 Gender: M Power Switchboard Operator: OLINDA : 1935 Requested by: oRdolfo Salas Order Number: [id number] Reading MD: ELLEN GUTIERREZ Intervals [place] Rate: 64 P: 46 MS: 160 QRS: -5 QRSD: 95 T: 8 QT: 425 QTc: 435 Interpretive Statements SINUS RHYTHM NONSPECIFIC T-WAVE ABNORMALITY Electronically Signed On 11-20-16 06:17:07 CDT by ELLEN GUTIERREZ [id number]
--- NOTE | 2016-11-17 15:25 | Cardiology Progress Note ---
<Olga Salas E - Last Filed: 11/17/16 15:19> Assessment and Plan - Time spent with patient Time spent with patient: Less than 30 minutes (1) Pulmonary embolism Status: Acute Assessment and plan: See plan of care listed below. Current Visit: Yes (2) History of GI bleed Status: Acute Assessment and plan: See plan of care listed below. Current Visit: Yes (3) Paroxysmal atrial fibrillation Status: Chronic Assessment and plan: See plan of care listed below. Current Visit: Yes (4) hypertension Status: Chronic Assessment and plan: See plan of care listed below. Current Visit: No (5) Panic attacks Status: Chronic Assessment and plan: See plan of care listed below. Current Visit: Yes Cardiology - PN: Subj Interval history: Construction Ironworker: Dr. Keane PCP: Dr. Gilman SUMMARY: Mr. Lovelace is a 81 year old male with a history of hypertension, PAF, CVA, emphysema, GI Bleed, and claustrophobia who was admitted to the hospital with rectal bleeding requiring transfusion. He has undergone EGD which was unremarkable. He has been kept in the ICU due to agitation and confusion and has required bilateral wrist restraints. He went for CT chest which revealed a component of CHF as well as PE in the right upper lobe and right lower lobe. Given his history of GI bleed, he is not a candidate for full anticoagulation. Venous dopplers were negative for DVT. On 11/15/16, he went for PICC line placement and IVC filter with interventional radiology. He has also had several episodes of PAF since his admission. We were consulted to see him. There was suggestion of possible CHF. He had an elevated BNP after receiving IV fluids. Chest CT suggested trace bilateral pleural effusions. He was diuresed. Echocardiogram revealed EF 60%, grade I/IV diastolic dysfunction, mild LVH, mild AI, TR, MA, and small pericardial effusion. NOVEMBER 17, 2016 UPDATE: Patient is back in normal sinus rhythm. Amiodarone has been discontinued. We will continue to monitor him on Sotalol. QTC remains acceptable per EKG. Will check daily EKGs. Mr. Lovelace is now housed on the telemetry unit but remains somewhat confused and requires a sitter at the bedside as his family cannot be present /. He has panic attacks and tends to become anxious when he is left alone. ASSESSMENT/PLAN: 1. PULMONARY EMBOLUS - He is status post IVC filter placement. He is now on O2 via NBP with SpO2 >95%. He remains tachypneic and confused. We will continue to follow along. 2. HISTORY OF GI BLEED - Has received a total of 2 units PRBCs. H&H currently 9.4 & 28.3. Not a candidate for anticoagulation. Will continue to monitor. 3. PAROXYSMAL ATRIAL FIBRILLATION - He is currently in normal sinus rhythm. He is also on Sotalol 80mg PO BID. He is not a good candidate for formal anticoagulation due to recent history of GI bleed. 4. HYPERTENSION - No longer requiring Nipride. We increased his dose of Cozaar to 100mg po daily. Creatinine currently 1.4 with potassium 3.8. Will monitor BMP. 5. PANIC ATTACKS - Currently on Xanax 0.5mg PO TID PRN. Exam (Progress Note) - Constitutional Vitals: Period Temp Pulse Resp BP Sys/Gloria Pulse Ox Last 24 Hr 97.4 F-98.7 F 59-100 16-40 129-163/58-87 90-99 Exam: General appearance: O2 via NBP. Mildly tachypneic. Head exam: Present: normal inspection, normocephalic, atraumatic. Absent: hematoma, laceration Eye exam: Present: EOMI. Absent: conjunctival injection, nystagmus, periorbital swelling, scleral icterus, laceration to eyelids Pupils: Present: PERRL. Absent: constricted, dilated, fixed, irregular, unequal ENT exam: Present: normal exam, normal external ear exam Neck exam: Present: normal inspection. Absent: lymphadenopathy, meningismus, tenderness, thyromegaly Respiratory exam: Present: bilateral crackles anteriorly with mild tachypnea present. Absent: accessory muscle use, chest wall tenderness, rhonchi. Cardiovascular exam: Present: regular rate and rhythm. Absent: gallop, JVD, rubs, murmur GI/Abdominal exam: Present: normal bowel sounds, soft. Absent: distended, firm , guarding, hernia, mass, tenderness, rebound. Extremities exam: Present: normal inspection, normal capillary refill. Upper extremity pulses 2+. Lower extremity pulses 2+. Bilateral wrist restraints in place. Absent: calf tenderness, edema Musculoskeletal: Present: No Fluid Collection, No Pain, Normal Range of Motion Neurological exam: Present: alert, oriented to person, will follow commands but is easily agitated. Opens eyes and moves all extremities upon request. grossly intact without resting or essential tremor Psychiatric exam: Present: normal affect, normal mood Skin exam: Present: normal color, warm, dry, intact. Absent: cyanosis, diaphoretic, rash, urticaria Result/EKG - Labs CBC & BMP: 11/17/16 05:03 11/17/16 05:03 Lab Results: I have reviewed the past 24 hour labs Labs: Laboratory Results - last 24 hr 11/17/16 11/17/16 05:03 05:03 WBC 12.2 H RBC 3.20 L Hgb 9.4 L Hct 28.3 L MCV 88.4 MCH 29 MCHC 33.2 RDW 14.6 Plt Count 228 MPV 12.4 H Neut % (Auto) 64.4 Lymph % (Auto) 14.1 L Norton % (Auto) 16.6 H Eos % (Auto) 4.0 Baso % (Auto) 0.3 Neut # (Auto) 7.9 H Lymph # (Auto) 1.7 Norton # (Auto) 2.0 H Eos # (Auto) 0.5 Baso # (Auto) 0.0 Total Counted 100 Immature Gran % 0.6 Nucleated RBC % 0.0 Immature Gran # 0.07 Segmented Neutrophils 83 Lymphocytes 7 L Monocytes 9 Myelocytes 1 Nucleated RBCs # 0.00 Platelet Estimate Adequate Immature Plt Fraction 0.0 Polychromasia Slight Hypochromasia 2+ Macrocytosis 1+ Target Cells Slight Sodium 144 Potassium 3.8 Chloride 111 H Carbon Dioxide 29 Anion Gap 7.8 BUN 32 H Creatinine 1.40 H GFR Calculation 50 BUN/Creatinine Ratio 22.00 H Glucose 110 H Calculated Osmolality 293.8 Calcium 7.7 L Total Bilirubin 1.50 H AST 22 ALT 17 Alkaline Phosphatase 54 Total Protein 6.1 L Albumin 2.4 L Globulin 3.7 H Albumin/Globulin Ratio 0.6 L - EKG EKG results: interpreted by me, sinus rhythm Quality Measures - VTE Contraindication to Pharmacological VTE Prophylaxis: High Risk of Bleeding <Roxann Emmanuel - Last Filed: 11/17/16 16:04> Cardiology - PN: Subj Interval history: I have personally interviewed and evaluated the patient, reviewed the chart and discussed medical decision-making with practitioner Josue. I have read this note and agree with her documentation here in. Exam (Progress Note) - Constitutional Vitals: Period Temp Pulse Resp BP Sys/Gloria Pulse Ox Last 24 Hr 97.4 F-98.6 F 59-100 2-40 129-163/58-87 90-99 Result/EKG - Labs CBC & BMP: 11/17/16 05:03 11/17/16 05:03 Labs: Laboratory Results - last 24 hr 11/17/16 11/17/16 05:03 05:03 WBC 12.2 H RBC 3.20 L Hgb 9.4 L Hct 28.3 L MCV 88.4 MCH 29 MCHC 33.2 RDW 14.6 Plt Count 228 MPV 12.4 H Neut % (Auto) 64.4 Lymph % (Auto) 14.1 L Norton % (Auto) 16.6 H Eos % (Auto) 4.0 Baso % (Auto) 0.3 Neut # (Auto) 7.9 H Lymph # (Auto) 1.7 Norton # (Auto) 2.0 H Eos # (Auto) 0.5 Baso # (Auto) 0.0 Total Counted 100 Immature Gran % 0.6 Nucleated RBC % 0.0 Immature Gran # 0.07 Segmented Neutrophils 83 Lymphocytes 7 L Monocytes 9 Myelocytes 1 Nucleated RBCs # 0.00 Platelet Estimate Adequate Immature Plt Fraction 0.0 Polychromasia Slight Hypochromasia 2+ Macrocytosis 1+ Target Cells Slight Sodium 144 Potassium 3.8 Chloride 111 H Carbon Dioxide 29 Anion Gap 7.8 BUN 32 H Creatinine 1.40 H GFR Calculation 50 BUN/Creatinine Ratio 22.00 H Glucose 110 H Calculated Osmolality 293.8 Calcium 7.7 L Total Bilirubin 1.50 H AST 22 ALT 17 Alkaline Phosphatase 54 Total Protein 6.1 L Albumin 2.4 L Globulin 3.7 H Albumin/Globulin Ratio 0.6 L
[2016-11-17] MEDS ORDERED: AMIODARONE 200 MG TABLET PO SCH (21:00)
[2016-11-18 05:24] LABS: Basophils % 0.3 % (0.0-0.8); Eosinophils # 0.6 10*3/uL (0.0-0.87); Eosinophils % 5.2 % (0.00-10.9); Hematocrit 29.5 VOL% (42.0-52.0); Hemoglobin 9.7 GM/DL (14.0-18.0); Immature Granulocytes % 0.6 %; Immature Granulocytes Absolute 0.07 #; Lymphocytes # 1.7 10*3/uL (1.4-4.0); Lymphocytes % 14.5 % (21.2-54.2); Mean Corpuscular HGB Conc 32.9 GM/DL (32-36); Mean Corpuscular Hemoglobin 29 PG (27-34); Mean Platelet Volume 12.7 FL (9.6-12.0); Monocytes # 1.7 10*3/uL (0.11-0.8); Monocytes % 14.2 % (1.7-12.7); Neutrophils # 7.6 10*3/uL (1.4-7.4); Neutrophils % 65.2 % (38.7-73.9); Platelet Count 275 T/CUMM (130-400); Red Blood Count 3.39 MC/CUMM (3.8-5.5); Red Cell Distribution Width 14.3 % (9.3-17.3); White Blood Count 11.6 T/CUMM (4-12)
[2016-11-18 05:49] LABS: Calcium 8.3 MG/DL (8.5-10.1); Magnesium 2.3 MG/DL (1.8-2.4); Osmolality,Calculated 294.7 MOS/KG (273-304); Potassium 3.5 MMOL/L (3.5-5.1)
[2016-11-18] MEDS: ALBUTEROL/IPRATROPIUM 3 ML NEB RESP TX SCH ×4 (07:08→19:33)
--- NOTE | 2016-11-18 07:42 | Pulmonology Progress Note ---
Pulmonary - PN: Subj Interval history: The patient is an 81-year-old white man that is quite debilitated with COPD and has had atrial fibrillation. He has been found to have pulmonary emboli and has an inferior vena cava filter in place. He has had some recent GI bleeding. He is a very poor historian but says he is breathing okay. His chest x-ray shows worsening bilateral upper lobe infiltrates. He apparently gets confused at night and restless at times. He is not complaining of increased shortness of breath or chest pain. Exam (Progress Note) - Constitutional Vitals: Period Temp Pulse Resp BP Sys/Gloria Pulse Ox Last 24 Hr 97.0 F-97.7 F 48-90 2-24 127-158/55-87 91-99 General appearance: no acute distress (The patient is in no distress but does look chronically ill.), under weight - Head Head exam: Present: normal inspection, normocephalic - Eye Eye exam: Present: EOMI. Absent: scleral icterus Pupils: Present: CHANNING - ENT ENT exam: Present: normal exam - Neck Neck exam: Present: normal inspection. Absent: lymphadenopathy, thyromegaly - Respiratory Respiratory exam: Present: decreased breath sounds, prolonged expiratory phase, rales, rhonchi - Cardiovascular Cardiovascular exam: Present: regular rate and rhythm. Absent: gallop, systolic murmur - GI/Abdominal GI/Abdominal exam: Present: normal bowel sounds, soft. Absent: organomegaly, tenderness - Extremities Exam Extremities exam: Absent: calf tenderness, edema - Neurological Exam Neurological exam: Present: alert, oriented X3, other (He appears weak and chronically ill) - Psychiatric Psychiatric exam: Present: depressed. Absent: anxious - Skin Skin exam: Present: warm, dry Results - Labs CBC & BMP: 11/18/16 04:36 11/18/16 04:36 - Diagnostic Findings Procedure: Chest x-ray: image reviewed by me, report reviewed by me (Chest x- ray yesterday shows worsening upper lobe infiltrates.) Assessment and Plan (1) Bilateral pulmonary infiltrates on chest x-ray Status: Acute Assessment and plan: The patient's x-ray does appear worse with bilateral upper lobe infiltrates. Will cover with antibiotics for now. Current Visit: Yes (2) Atrial fibrillation with RVR Status: Chronic Assessment and plan: He has been in a sinus rhythm lately. Current Visit: No (3) chronic obstructive pulmonary disease Status: Chronic Assessment and plan: The patient does have chronic lung disease but says he is breathing comfortably at present. Current Visit: No (4) Pulmonary embolism Status: Acute Assessment and plan: The patient has an IVC filter in place. He cannot take anticoagulation because of bleeding per Current Visit: Yes (5) History of GI bleed Status: Acute Assessment and plan: The patient's hematocrit has been stable around 30. Current Visit: Yes
--- NOTE | 2016-11-18 08:43 | Family Practice Progress Note ---
Family Practice - PN: Subj Interval history: PCP: Dr. Gilman. Patient is seen and examined at the telemetry floor, Is sitting at the bedside having breakfast. Sitter is present at the bedside. Patient is a poor historian, though mentions he is okay, does not recollect the recent events. On oxygen, nasal cannula 2 L. Patient mentions no chest pain, no shortness of breath, no headaches, no dizziness. No overnight events reported by the nurse. Patient had bowel movement this morning kind of dark-colored as per the sitter. Patient stay with cousin, they are out of town at [place] for now. Exam (Progress Note) - Constitutional Vitals: Period Temp Pulse Resp BP Sys/Gloria Pulse Ox Last 24 Hr 97.0 F-97.7 F 48-90 2-20 127-166/55-87 91-100 Exam: GENERAL APPEARANCE: alert and oriented 1, pleasant, in no acute distress, on nasal cannula 2 L oxygen HEENT: normal. NECK/THYROID: neck supple, full range of motion, no cervical lymphadenopathy, no thyromegaly. HEART: regular rate and rhythm, no murmurs, rubs, gallops. LUNGS: Basilar rales left more than right present. ABDOMEN: soft, nontender, nondistended, no organomegaly , bowel sounds present. EXTREMITIES: no edema. NEUROLOGIC:, cranial nerves 2-12 grossly intact, strength 4+/5 in bilateral upper extremity, 4-/5 bilateral lower extremities Results - Labs CBC & BMP: 11/18/16 04:36 11/18/16 04:36 Lab Results: I have reviewed the past 24 hour labs Assessment and Plan (1) Bilateral pulmonary infiltrates on chest x-ray Status: Acute Assessment and plan: Continue management as ordered by tobacco stripper hand. 2. PE status post IVC filter placement, not on anticoagulants presently 3. Paroxysmal A. fib, stable on medications. 4. GI bleed secondary to gastric ulcer, improved on conservative management. Daily acid reflux meds. GI has signed off on the case. 5. Hypertension, stable on oral meds. 6. Will consult nephrology social worker for possible placement after discharge either with the sitter at home and home health, or possible placement as per patient's family preference Current Visit: Yes (2) Pulmonary embolism Status: Acute Current Visit: Yes (3) Panic attacks Status: Chronic Current Visit: Yes (4) Paroxysmal atrial fibrillation Status: Chronic Current Visit: Yes (5) GI bleed secondary to gastric ulcer Status: Resolved Current Visit: Yes (6) chronic obstructive pulmonary disease Status: Chronic Current Visit: Yes (7) hypertension Status: Chronic Current Visit: Yes Quality Measures - VTE Contraindication to Pharmacological VTE Prophylaxis: High Risk of Bleeding
--- NOTE | 2016-11-18 09:00 | EKG Report ---
Stationary ECG Study [facility] Test Date: 11/18/2016 9:00:01 AM Pat Name: JOAQUIM LINDSEY Department: Room: 267 Gender: M Superannuation Clerk: RUDOLPH : 1935 Requested by: Rodolfo Salas Order Number: [id number] Reading MD: ELLEN GUTIERREZ Intervals [place] Rate: 70 P: 33 [place]: 143 QRS: -33 QRSD: 87 T: 47 QT: 382 QTc: 403 Interpretive Statements SINUS RHYTHM MARKED LEFT AXIS DEVIATION NONSPECIFIC T-WAVE ABNORMALITY Electronically Signed On 11-20-16 07:20:10 CDT by ELLEN GUTIERREZ [email or web address]
[2016-11-18] MEDS: CEFTAROLINE 600 MG in SODIUM CHLORIDE 0.9% 100 ML IV SCH ×2 (09:55→23:58)
[2016-11-18] MEDS: FUROSEMIDE 40 MG/4 ML VIAL IV SCH (09:57)
[2016-11-18] MEDS: LOSARTAN 50 MG TABLET PO SCH (09:58)
[2016-11-18] MEDS: SOTALOL 80 MG TABLET PO SCH ×2 (09:58→23:58)
[2016-11-18] MEDS: PANTOPRAZOLE 40 MG TABLET PO SCH (09:58)
[2016-11-18] MEDS: DESITIN 4OZ/NYSTATIN 15 GRAM MIXTURE PASTE TOP SCH ×2 (10:13→23:58)
[2016-11-18] MEDS: PANTOPRAZOLE 40 MG VIAL IV SCH (10:20)
[2016-11-18 13:32] LABS: Apearance,Urine CLEAR (Clear); Bilirubin,Urine Negative (Negative); Blood, Urine Small mg/dL (Negative); Glucose,Urine (UA) Negative (Negative); Hyaline Casts,Urine 2 /LPF (0-3); Ketones,Urine Negative (Negative); Nitrite,Urine Negative (Negative); Protein,Urine Negative; RBC,Urine 3 /HPF (0-4); Urine Color Straw (Yellow); Urine Specific Gravity 1.004 (1.001-1.035); Urine Urobilinogen < 2.0 EU/DL (0.2-1.0); WBC,Urine 15 /HPF (0-6)
[2016-11-19] MEDS: LORazepam 2 MG/1 ML VIAL IV PRN (01:19)
[2016-11-19 05:46] LABS: Calcium 8.1 MG/DL (8.5-10.1); Magnesium 2.1 MG/DL (1.8-2.4); Potassium 3.2 MMOL/L (3.5-5.1)
[2016-11-19] MEDS: DESITIN 4OZ/NYSTATIN 15 GRAM MIXTURE PASTE TOP SCH ×2 (07:30→20:46)
--- NOTE | 2016-11-19 08:16 | EKG Report ---
Stationary ECG Study [facility] Test Date: 11/19/2016 7:02:45 AM Pat Name: JOAQUIM LINDSEY Department: Room: 267 Gender: M Garage Attendant: RUDOLPH : 1935 Requested by: Rodolfo Salas Order Number: [id number] Reading MD: ELLEN GUTIERREZ Intervals [place] Rate: 106 P: 999 IN: 0 QRS: 25 QRSD: 93 T: 30 QT: 381 QTc: 443 Interpretive Statements ATRIAL FIBRILLATION WITH RAPID VENTRICULAR RESPONSE MODERATE ST DEPRESSION Electronically Signed On 11-20-16 07:34:16 CDT by ELLEN GUTIERREZ [email or web address]
[2016-11-19] MEDS: ALBUTEROL/IPRATROPIUM 3 ML NEB RESP TX SCH ×4 (08:22→19:21)
[2016-11-19] MEDS: CEFTAROLINE 600 MG in SODIUM CHLORIDE 0.9% 100 ML IV SCH ×2 (08:56→20:46)
[2016-11-19] MEDS: LOSARTAN 50 MG TABLET PO SCH (08:56)
[2016-11-19] MEDS: SOTALOL 80 MG TABLET PO SCH ×2 (08:57→20:44)
[2016-11-19] MEDS: FUROSEMIDE 20 MG TABLET PO SCH ×2 (08:57→16:01)
[2016-11-19] MEDS: PANTOPRAZOLE 40 MG TABLET PO SCH (08:58)
[2016-11-19] MEDS ORDERED: FUROSEMIDE 20 MG TABLET PO SCH (09:00)
--- NOTE | 2016-11-19 09:17 | Pulmonology Progress Note ---
Pulmonary - PN: Subj Interval history: The patient is an 81-year-old white man that is quite debilitated with COPD and has had atrial fibrillation. He has been found to have pulmonary emboli and has an inferior vena cava filter in place. He has had some recent GI bleeding. He is a very poor historian but says he is breathing okay. His chest x-ray shows worsening bilateral upper lobe infiltrates. He says he is breathing better but still has a lot of coughing and sputum production. He is sitting up eating and seems to be a little better today. He does have runs of ectopy. He denies chest pain now. At present he seems to be doing a little better. Exam (Progress Note) - Constitutional Vitals: Period Temp Pulse Resp BP Sys/Gloria Pulse Ox Last 24 Hr 96.6 F-98.2 F 65-127 17-22 118-142/67-77 87-98 Exam: General appearance: no acute distress (The patient is in no distress but does look chronically ill. He is sitting up and looks more comfortable.), under weight - Head Head exam: Present: normal inspection, normocephalic - Eye Eye exam: Present: EOMI. Absent: scleral icterus Pupils: Present: CHANNING - ENT ENT exam: Present: normal exam - Neck Neck exam: Present: normal inspection. Absent: lymphadenopathy, thyromegaly - Respiratory Respiratory exam: Present: decreased breath sounds, prolonged expiratory phase, he does have some crackles in the upper lung huddleston. - Cardiovascular Cardiovascular exam: Present: regular rate and rhythm. He does have some ectopy. Absent: gallop, systolic murmur - GI/Abdominal GI/Abdominal exam: Present: normal bowel sounds, soft. Absent: organomegaly, tenderness - Extremities Exam Extremities exam: Absent: calf tenderness, edema - Neurological Exam Neurological exam: Present: alert, oriented X3, other (He appears weak and chronically ill) - Psychiatric Psychiatric exam: Present: depressed. Absent: anxious - Skin Skin exam: Present: warm, dry Results - Labs CBC & BMP: 11/18/16 04:36 11/19/16 04:12 Assessment and Plan (1) Bilateral pulmonary infiltrates on chest x-ray Status: Acute Assessment and plan: The patient's x-ray does appear worse with bilateral upper lobe infiltrates. Will cover with antibiotics for now. His breathing is stable and we will check a chest x-ray tomorrow. Current Visit: Yes (2) Atrial fibrillation with RVR Status: Chronic Assessment and plan: He has been in a sinus rhythm lately. He does have some ectopy. He is tolerating everything okay. Current Visit: No (3) chronic obstructive pulmonary disease Status: Chronic Assessment and plan: The patient does have chronic lung disease but says he is breathing comfortably at present. Current Visit: Yes (4) Pulmonary embolism Status: Acute Assessment and plan: The patient has an IVC filter in place. He cannot take anticoagulation because of bleeding. He is not having any increased shortness of breath. Current Visit: Yes (5) History of GI bleed Status: Acute Assessment and plan: The patient's hematocrit has been stable around 30. Current Visit: Yes
[2016-11-19] MEDS: POTASSIUM CHLORIDE RIDER 10 MEQ in PREMIX 1 EACH IV PRN ×4 (09:23→12:34)
--- NOTE | 2016-11-19 09:44 | Family Practice Progress Note ---
Family Practice - PN: Subj Interval history: PCP: Dr. Gilman. Patient is seen and examined at the telemetry floor, Is lying in the bed. Sitter is present at the bedside. Patient is a poor historian, On oxygen, nasal cannula 2 L. Patient had run of A. fib last night. Patient mentions no chest pain, no shortness of breath, no headaches, no dizziness. Family has visited him yesterday as per the nurse Exam (Progress Note) - Constitutional Vitals: Period Temp Pulse Resp BP Sys/Gloria Pulse Ox Last 24 Hr 96.6 F-98.2 F 65-127 17-22 118-142/67-77 87-98 Exam: GENERAL APPEARANCE: alert and oriented 1, pleasant, in no acute distress, on nasal cannula 2 L oxygen HEENT: normal. NECK/THYROID: neck supple, full range of motion, no cervical lymphadenopathy, no thyromegaly. HEART: Irregularly irregular rhythm, no murmurs, rubs, gallops. LUNGS: Basilar rales left more than right present. ABDOMEN: soft, nontender, nondistended, no organomegaly , bowel sounds present. EXTREMITIES: no edema. NEUROLOGIC:, cranial nerves 2-12 grossly intact, Results - Labs CBC & BMP: 11/18/16 04:36 11/19/16 04:12 Lab Results: I have reviewed the past 24 hour labs - EKG EKG shows: atrial fibrillation Assessment and Plan (1) Bilateral pulmonary infiltrates on chest x-ray Status: Acute Assessment and plan: Continue management as ordered by payable representative. 2. PE status post IVC filter placement, not on anticoagulants presently 3. paroxysmal A. fib, continue current management 4. GI bleed secondary to gastric ulcer, improved. 5. Hypertension, stable on oral meds, on lasix 20mg bid. 6. Possible need of placement in rehab or long-term care, or home health at the time of discharge( convention services director consulted), will consult PT OT for evaluation for tomorrow AM. Current Visit: Yes (2) Pulmonary embolism Status: Acute Current Visit: Yes (3) Panic attacks Status: Chronic Current Visit: Yes (4) Paroxysmal atrial fibrillation Status: Acute Current Visit: Yes (5) GI bleed secondary to gastric ulcer Status: Resolved Current Visit: Yes (6) chronic obstructive pulmonary disease Status: Chronic Current Visit: Yes (7) hypertension Status: Chronic Current Visit: Yes Quality Measures - VTE Contraindication to Pharmacological VTE Prophylaxis: High Risk of Bleeding
[2016-11-19] MEDS: ACETAMINOPHEN 325 MG TABLET PO PRN (13:32)
--- NOTE | 2016-11-19 14:15 | Cardiology Progress Note ---
Assessment and Plan (1) chronic obstructive pulmonary disease Status: Chronic Current Visit: Yes (2) cerebrovascular accident Status: Chronic Current Visit: No (3) hypertension Status: Chronic Current Visit: Yes (4) Dyspnea Status: Acute Current Visit: No (5) anxiety disorder Status: Chronic Current Visit: No (6) GI bleed Status: Acute Current Visit: No (7) Pulmonary embolism Status: Acute Current Visit: Yes (8) Paroxysmal atrial fibrillation Status: Chronic Current Visit: Yes (9) Bilateral pulmonary infiltrates on chest x-ray Status: Acute Current Visit: Yes Cardiology - PN: Subj Interval history: This is a late entry. The patient was seen November 18, 2016 but the note was not completed High Man: Dr. Keane PCP: Dr. Gilman SUMMARY: Mr. Lovelace is a 81 year old male with a history of hypertension, PAF, CVA, emphysema, GI Bleed, and claustrophobia who was admitted to the hospital with rectal bleeding requiring transfusion. He has undergone EGD which was unremarkable. He has been kept in the ICU due to agitation and confusion and has required bilateral wrist restraints. He went for CT chest which revealed a component of CHF as well as PE in the right upper lobe and right lower lobe. Given his history of GI bleed, he is not a candidate for full anticoagulation. Venous dopplers were negative for DVT. On 11/15/16, he went for PICC line placement and IVC filter with interventional radiology. He has also had several episodes of PAF since his admission. We were consulted to see him. There was suggestion of possible CHF. He had an elevated BNP after receiving IV fluids. Chest CT suggested trace bilateral pleural effusions. He was diuresed. Echocardiogram revealed EF 60%, grade I/IV diastolic dysfunction, mild LVH, mild AI, TR, ID, and small pericardial effusion. NOVEMBER 17, 2016 UPDATE: Patient is back in normal sinus rhythm. Amiodarone has been discontinued. We will continue to monitor him on Sotalol. QTC remains acceptable per EKG. Will check daily EKGs. Mr. Lovelace is now housed on the telemetry unit but remains somewhat confused and requires a sitter at the bedside as his family cannot be present /. He has panic attacks and tends to become anxious when he is left alone. November 18, 2016: Continues to be in sinus rhythm, he has no acute complaints. He denies chest pain or shortness of breath. He continues to have some confusion and cough. ASSESSMENT/PLAN: 1. PULMONARY EMBOLUS - He is status post IVC filter placement. He remains tachypneic and confused. We will continue to follow along. 2. HISTORY OF GI BLEED - Has received a total of 2 units PRBCs. Not a candidate for anticoagulation. Will continue to monitor. 3. PAROXYSMAL ATRIAL FIBRILLATION - He is currently in normal sinus rhythm. He is also on Sotalol 80mg PO BID. He is not a good candidate for formal anticoagulation due to recent history of GI bleed. 4. HYPERTENSION - No longer requiring Nipride. We increased his dose of Cozaar to 100mg po daily. Creatinine currently 1.4 with potassium 3.8. Will monitor BMP. 5. PANIC ATTACKS - Currently on Xanax 0.5mg PO TID PRN. Exam (Progress Note) - Constitutional Vitals: Period Temp Pulse Resp BP Sys/Gloria Pulse Ox Last 24 Hr 96.6 F-98.2 F 64-117 17-22 111-142/67-74 87-100 Exam: General appearance: normal weight, ill-appearing but overall no acute distress - Head Head exam: Present: normal inspection, normocephalic, atraumatic. Absent: hematoma, laceration - Eye Eye exam: Present: EOMI. Absent: conjunctival injection, nystagmus, periorbital swelling, scleral icterus, laceration to eyelids Pupils: Present: PERRL. Absent: constricted, dilated, fixed, irregular, unequal - ENT ENT exam: Present: normal exam, normal external ear exam - Neck Neck exam: Present: normal inspection. Absent: lymphadenopathy, meningismus, tenderness, thyromegaly - Respiratory Respiratory exam: Present: clear to auscultation bilaterally. Absent: accessory muscle use, chest wall tenderness - Cardiovascular Cardiovascular exam: Present: regular rate and rhythm. Absent: carotid bruit, gallop, JVD, rubs - GI/Abdominal GI/Abdominal exam: Present: normal bowel sounds, soft. Absent: distended, firm , guarding, hernia, mass, tenderness, rebound. - Extremities Exam Extremities exam: Present: normal inspection, normal capillary refill. Absent: calf tenderness, edema - Back Exam Back exam: Present: normal inspection. Absent: muscle spasm, vertebral tenderness - Neurological Exam Neurological exam: Present: He is somewhat confused, mildly agitated, overall motor function is grossly intact. - Psychiatric Psychiatric exam: Present: Some confusion, calm at the time of my interview. - Skin Skin exam: Present: normal color, warm, dry, intact. Absent: cyanosis, diaphoretic, rash, urticaria Result/EKG - Labs CBC & BMP: 11/18/16 04:36 11/19/16 04:12 Lab Results: I have reviewed the past 24 hour labs Labs: Laboratory Results - last 24 hr 11/19/16 04:12 Sodium 143 Potassium 3.2 L Chloride 106 Carbon Dioxide 29 Anion Gap 11.2 BUN 30 H Creatinine 1.50 H GFR Calculation 46 BUN/Creatinine Ratio 20.00 Glucose 123 H Calculated Osmolality 291.0 Calcium 8.1 L Magnesium 2.1 Quality Measures - VTE Contraindication to Pharmacological VTE Prophylaxis: High Risk of Bleeding
--- NOTE | 2016-11-19 14:17 | Cardiology Progress Note ---
Assessment and Plan (1) chronic obstructive pulmonary disease Status: Chronic Current Visit: Yes (2) cerebrovascular accident Status: Chronic Current Visit: No (3) hypertension Status: Chronic Current Visit: Yes (4) Dyspnea Status: Acute Current Visit: No (5) anxiety disorder Status: Chronic Current Visit: No (6) GI bleed Status: Acute Current Visit: No (7) Pulmonary embolism Status: Acute Current Visit: Yes (8) Paroxysmal atrial fibrillation Status: Chronic Current Visit: Yes (9) Bilateral pulmonary infiltrates on chest x-ray Status: Acute Current Visit: Yes Cardiology - PN: Subj Interval history: Cook Barbecue: Dr. Keane PCP: Dr. Gilman SUMMARY: Mr. Lovelace is a 81 year old male with a history of hypertension, PAF, CVA, emphysema, GI Bleed, and claustrophobia who was admitted to the hospital with rectal bleeding requiring transfusion. He has undergone EGD which was unremarkable. He has been kept in the ICU due to agitation and confusion and has required bilateral wrist restraints. He went for CT chest which revealed a component of CHF as well as PE in the right upper lobe and right lower lobe. Given his history of GI bleed, he is not a candidate for full anticoagulation. Venous dopplers were negative for DVT. On 11/15/16, he went for PICC line placement and IVC filter with interventional radiology. He has also had several episodes of PAF since his admission. We were consulted to see him. There was suggestion of possible CHF. He had an elevated BNP after receiving IV fluids. Chest CT suggested trace bilateral pleural effusions. He was diuresed. Echocardiogram revealed EF 60%, grade I/IV diastolic dysfunction, mild LVH, mild AI, TR, UT, and small pericardial effusion. NOVEMBER 17, 2016 UPDATE: Patient is back in normal sinus rhythm. Amiodarone has been discontinued. We will continue to monitor him on Sotalol. QTC remains acceptable per EKG. Will check daily EKGs. Mr. Lovelace is now housed on the telemetry unit but remains somewhat confused and requires a sitter at the bedside as his family cannot be present 06/11. He has panic attacks and tends to become anxious when he is left alone. November 18, 2016: Continues to be in sinus rhythm, he has no acute complaints. He denies chest pain or shortness of breath. He continues to have some confusion and cough. November 19, 2016: Evening was uneventful. He denies any chest pain, shortness of breath. Hemodynamics are stable. He is not sleeping well, and this is likely contributing to his confusion. ASSESSMENT/PLAN: 1. PULMONARY EMBOLUS - He is status post IVC filter placement. He remains tachypneic and confused. We will continue to follow along. 2. HISTORY OF GI BLEED - Has received a total of 2 units PRBCs. Not a candidate for anticoagulation. Will continue to monitor. 3. PAROXYSMAL ATRIAL FIBRILLATION - He is currently in normal sinus rhythm. He is also on Sotalol 80mg PO BID. He is not a good candidate for formal anticoagulation due to recent history of GI bleed. 4. HYPERTENSION - No longer requiring Nipride. We increased his dose of Cozaar to 100mg po daily. Creatinine currently 1.4 with potassium 3.8. Will monitor BMP. 5. PANIC ATTACKS - Currently on Xanax 0.5mg PO TID PRN. Exam (Progress Note) - Constitutional Vitals: Period Temp Pulse Resp BP Sys/Gloria Pulse Ox Last 24 Hr 96.6 F-98.2 F 64-117 17-22 111-142/67-74 87-100 Exam: General appearance: normal weight, ill-appearing but overall no acute distress - Head Head exam: Present: normal inspection, normocephalic, atraumatic. Absent: hematoma, laceration - Eye Eye exam: Present: EOMI. Absent: conjunctival injection, nystagmus, periorbital swelling, scleral icterus, laceration to eyelids Pupils: Present: PERRL. Absent: constricted, dilated, fixed, irregular, unequal - ENT ENT exam: Present: normal exam, normal external ear exam - Neck Neck exam: Present: normal inspection. Absent: lymphadenopathy, meningismus, tenderness, thyromegaly - Respiratory Respiratory exam: Present: clear to auscultation bilaterally. Absent: accessory muscle use, chest wall tenderness - Cardiovascular Cardiovascular exam: Present: regular rate and rhythm. Absent: carotid bruit, gallop, JVD, rubs - GI/Abdominal GI/Abdominal exam: Present: normal bowel sounds, soft. Absent: distended, firm , guarding, hernia, mass, tenderness, rebound. - Extremities Exam Extremities exam: Present: normal inspection, normal capillary refill. Absent: calf tenderness, edema - Back Exam Back exam: Present: normal inspection. Absent: muscle spasm, vertebral tenderness - Neurological Exam Neurological exam: Present: He is somewhat confused, mildly agitated, overall motor function is grossly intact. - Psychiatric Psychiatric exam: Present: Some confusion, calm at the time of my interview. - Skin Skin exam: Present: normal color, warm, dry, intact. Absent: cyanosis, diaphoretic, rash, urticaria Result/EKG - Labs CBC & BMP: 11/18/16 04:36 11/19/16 04:12 Lab Results: I have reviewed the past 24 hour labs Labs: Laboratory Results - last 24 hr 11/19/16 04:12 Sodium 143 Potassium 3.2 L Chloride 106 Carbon Dioxide 29 Anion Gap 11.2 BUN 30 H Creatinine 1.50 H GFR Calculation 46 BUN/Creatinine Ratio 20.00 Glucose 123 H Calculated Osmolality 291.0 Calcium 8.1 L Magnesium 2.1 Quality Measures - VTE Contraindication to Pharmacological VTE Prophylaxis: High Risk of Bleeding
[2016-11-20 05:02] LABS: Basophils % 0.6 % (0.0-0.8); Eosinophils # 0.7 10*3/uL (0.0-0.87); Eosinophils % 11.8 % (0.00-10.9); Hematocrit 27.1 VOL% (42.0-52.0); Hemoglobin 8.9 GM/DL (14.0-18.0); Immature Granulocytes % 0.6 %; Immature Granulocytes Absolute 0.04 #; Lymphocytes # 1.7 10*3/uL (1.4-4.0); Lymphocytes % 28.2 % (21.2-54.2); Mean Corpuscular HGB Conc 32.8 GM/DL (32-36); Mean Corpuscular Hemoglobin 28 PG (27-34); Mean Corpuscular Volume 86.6 FL (87-102); Mean Platelet Volume 12.6 FL (9.6-12.0); Monocytes % 15.4 % (1.7-12.7); Neutrophils # 2.7 10*3/uL (1.4-7.4); Neutrophils % 43.4 % (38.7-73.9); Platelet Count 268 T/CUMM (130-400); Red Blood Count 3.13 MC/CUMM (3.8-5.5); White Blood Count 6.2 T/CUMM (4-12)
[2016-11-20 05:35] LABS: Calcium 7.9 MG/DL (8.5-10.1); Magnesium 2.3 MG/DL (1.8-2.4); Potassium 3.8 MMOL/L (3.5-5.1)
[2016-11-20 05:44] LABS: Eosinophils 9 % (0-10); Giant Platelets Few; Hypochromasia 1+; Lymphocytes 27 % (20-55); Ovalocytes Slight; Platelet Estimate Adequate; Segmented Neutrophils 52 % (50-85); Total Cells Counted 100
[2016-11-20] MEDS: ALBUTEROL/IPRATROPIUM 3 ML NEB RESP TX SCH ×4 (06:55→19:30)
--- NOTE | 2016-11-20 07:19 | Pulmonology Progress Note ---
Pulmonary - PN: Subj Interval history: This 81-year-old white male came in with GI bleed. Source has not been found as yet after an EGD. Patient has had atrial fibrillation with rapid ventricular response and is now in sinus rhythm on amiodarone. He has been reluctant to take some of his medications including sotalol. He became acutely short of breath not before last with test indicating that he has had pulmonary emboli to the right lung. This does not appear to be massive embolism. He was not able to be anticoagulated so we had an IVC filter placed yesterday. He is better now with a PO2 of 303 on 60% facemask oxygen. Will reduce FiO2. 11/17/2016 patient is a little more short of breath this morning. He does have some wheezing. He was put back on saline yesterday. Has congestive heart failure. Will stop saline and give Lasix. Has pulmonary thromboembolic disease involving his right long which was treated with an IVC filter because of GI bleeding. 11/20/2016 patient feeling much better and his lungs sound better. He is not coughing up any phlegm. I think we can change to oral antibiotics. I think the infiltrates are primarily edema. Exam (Progress Note) - Constitutional Vitals: Period Temp Pulse Resp BP Sys/Gloria Pulse Ox Last 24 Hr 97.9 F-98.5 F 60-117 16-22 111-129/59-74 87-100 Exam: Patient is presently responsive. Vital signs are normal. Pupils react to light. Wearing nasal oxygen. O2 sat 98%. Neck is supple. Chest sounds clear. Equal breath sounds. Heart normal rate and rhythm no murmurs. Abdomen soft nontender bowel sounds present. Extremities no clubbing cyanosis or edema. Calves nontender. Results - Labs CBC & BMP: 11/20/16 04:13 11/20/16 04:13 Lab Results: I have reviewed the past 24 hour labs - Diagnostic Findings Procedure: Chest x-ray: image reviewed by me (Interstitial infiltrates in both upper lobes. Little change from before.) Assessment and Plan (1) Atrial fibrillation with RVR Status: Chronic Assessment and plan: Managed by cardiology. Patient is not on anticoagulants on admission. 11/16/2016 presently in a sinus rhythm. 11/17/2016 sinus rhythm controlled rate 11/20/2016 this is now controlled. He is in a sinus rhythm. Current Visit: No (2) Panic attacks Status: Chronic Assessment and plan: Patient gets quite anxious. He has declined colonoscope earlier. 11/16/2016 he occasionally gets very anxious and occasionally refuses medications. Apparently no history of dementia. 11/17/2016 he is a bit anxious. 11/20/2016 patient seems much calmer today. Current Visit: Yes (3) Gastrointestinal hemorrhage with melena Status: Acute Assessment and plan: Had negative EGD. Will set up for small bowel follow-through. Colonoscope. 11/16/2016 hematocrit is 30 and stable. No melena noted at present. 11/17/16 no active bleeding, it appears. Hematocrit 28 today. 11/20/2016 hematocrit is 27. We have not been able to anticoagulate due to the GI bleed. Current Visit: Yes (4) Pulmonary embolism Status: Acute Assessment and plan: Patient was acutely worsened overnight and found to have pulmonary emboli on CT. I think there is an element of congestive heart failure as well. Anticoagulation is contraindicated. He will need IVC filter most likely. Prognosis guarded. Will get venous Dopplers prior to deciding on the filter. 11/16/[address]. Gonzalez did place an IVC filter yesterday. This is really all we could do for a pulmonary embolus at this point in time. I do not think the pulmonary emboli were major. May consider anticoagulation once the cause of the GI bleed is defined. Otherwise would not do it. 11/17/16 patient had an IVC filter placed because of pulmonary emboli. Unable to use anticoagulants due to active GI bleeding. Not actively bleeding at present but still cannot use anticoagulants. 11/20/2016 patient had some right-sided emboli. Unable to anticoagulate due to GI bleed. Has IVC filter. Would consider starting anticoagulants whenever GI feels it is safe. Probably half dose Eliquis would be a good idea. Current Visit: Yes
--- NOTE | 2016-11-20 07:44 | XRay Report ---
Single view the chest. Indication: Bilateral pneumonia. Comparison: November 17, 2016. The heart is mildly enlarged with left ventricular hypertrophy. The lung hudd[place] are hyperexpanded. There is improved aeration at the left lung base. There are bilateral parenchymal opacities within both upper lung huddleston. Lucent areas in the left upper lung field consistent with cystic change or bullous disease, stable to mildly more prominent. No pneumothorax. No pleural effusion. Central venous catheter is in satisfactory position. Impression: Persistent opacities in the upper lung huddl[place] which remains stable. Improved aeration at the left base. PROCEDURE INTERPRETED AT [facility] DEPARTMENT OF RADIOLOGY Final Report Signed by: Dr. Zohra Joya
[2016-11-20] MEDS: FUROSEMIDE 20 MG TABLET PO SCH ×3 (09:11→16:58)
[2016-11-20] MEDS: SOTALOL 80 MG TABLET PO SCH ×3 (09:11→21:33)
[2016-11-20] MEDS: CEFUROXIME 500 MG TABLET PO SCH ×3 (09:11→21:34)
[2016-11-20] MEDS: DESITIN 4OZ/NYSTATIN 15 GRAM MIXTURE PASTE TOP SCH ×2 (09:11→21:37)
[2016-11-20] MEDS: PANTOPRAZOLE 40 MG TABLET PO SCH ×2 (09:11→10:41)
[2016-11-20] MEDS: LOSARTAN 50 MG TABLET PO SCH ×2 (09:11→10:41)
--- NOTE | 2016-11-20 12:27 | Cardiology Progress Note ---
Assessment and Plan - Time spent with patient Time spent with patient: Less than 30 minutes (1) Pulmonary embolism Status: Acute Assessment and plan: See plan of care listed below. Current Visit: Yes (2) History of GI bleed Status: Acute Assessment and plan: See plan of care listed below. Current Visit: Yes (3) Paroxysmal atrial fibrillation Status: Chronic Assessment and plan: See plan of care listed below. Current Visit: Yes (4) hypertension Status: Chronic Assessment and plan: See plan of care listed below. Current Visit: Yes (5) Panic attacks Status: Chronic Assessment and plan: See plan of care listed below. Current Visit: Yes Cardiology - PN: Subj Interval history: Outside Residential [employer] Professional: Dr. Keane PCP: Dr. Gilman SUMMARY: Mr. Lovelace is a 81 year old male with a history of hypertension, PAF, CVA, emphysema, GI Bleed, and claustrophobia who was admitted to the hospital with rectal bleeding requiring transfusion. He has undergone EGD which was unremarkable. He has been kept in the ICU due to agitation and confusion and has required bilateral wrist restraints. He went for CT chest which revealed a component of CHF as well as PE in the right upper lobe and right lower lobe. Given his history of GI bleed, he is not a candidate for full anticoagulation. Venous dopplers were negative for DVT. On 11/15/16, he went for PICC line placement and IVC filter with interventional radiology. He has also had several episodes of PAF since his admission. We were consulted to see him. There was suggestion of possible CHF. He had an elevated BNP after receiving IV fluids. Chest CT suggested trace bilateral pleural effusions. He was diuresed. Echocardiogram revealed EF 60%, grade I/IV diastolic dysfunction, mild LVH, mild AI, TR, RI, and small pericardial effusion. November 20, 2016 UPDATE: He denies any chest pain, shortness of breath. Hemodynamics are stable. He has been more ambulatory and is much less tachypneic. He remains in sinus rhythm. Continue current plan of care. ASSESSMENT/PLAN: 1. PULMONARY EMBOLUS - He is status post IVC filter placement. He remains confused at times. We will continue to follow along. 2. HISTORY OF GI BLEED - Has received a total of 2 units PRBCs. Not a candidate for anticoagulation. Will continue to monitor. 3. PAROXYSMAL ATRIAL FIBRILLATION - He is currently in normal sinus rhythm. He is also on Sotalol 80mg PO BID. He is not a good candidate for formal anticoagulation due to recent history of GI bleed. 4. HYPERTENSION - No longer requiring Nipride. Cozaar was increased to 100mg po daily. Creatinine currently 1.6 with potassium 3.8. Will monitor BMP. 5. PANIC ATTACKS - Currently on Xanax 0.5mg PO TID PRN. Exam (Progress Note) - Constitutional Vitals: Period Temp Pulse Resp BP Sys/Gloria Pulse Ox Last 24 Hr 97.4 F-98.5 F 60-75 16-20 114-151/59-69 91-99 Exam: General appearance: Pleasant and cooperative. O2 via NBP. Head exam: Present: normal inspection, normocephalic, atraumatic. Absent: hematoma, laceration Eye exam: Present: EOMI. Absent: conjunctival injection, nystagmus, periorbital swelling, scleral icterus, laceration to eyelids Pupils: Present: PERRL. Absent: constricted, dilated, fixed, irregular, unequal ENT exam: Present: normal exam, normal external ear exam Neck exam: Present: normal inspection. Absent: lymphadenopathy, meningismus, tenderness, thyromegaly Respiratory exam: Present: Clear to auscultation bilaterally. Absent: accessory muscle use, chest wall tenderness, rhonchi. Cardiovascular exam: Present: regular rate and rhythm. Absent: gallop, JVD, rubs, murmur GI/Abdominal exam: Present: normal bowel sounds, soft. Absent: distended, firm , guarding, hernia, mass, tenderness, rebound. Extremities exam: Present: normal inspection, normal capillary refill. Upper extremity pulses 2+. Lower extremity pulses 2+. Absent: calf tenderness, edema Musculoskeletal: Present: No Fluid Collection, No Pain, Normal Range of Motion Neurological exam: Present: alert, oriented to person, calm at the time of exam. grossly intact without resting or essential tremor Psychiatric exam: Present: normal affect, normal mood, somewhat confused. Skin exam: Present: normal color, warm, dry, intact. Absent: cyanosis, diaphoretic, rash, urticaria Result/EKG - Labs CBC & BMP: 11/20/16 04:13 11/20/16 04:13 Lab Results: I have reviewed the past 24 hour labs Labs: Laboratory Results - last 24 hr 11/20/16 11/20/16 04:13 04:13 WBC 6.2 D RBC 3.13 L Hgb 8.9 L Hct 27.1 L MCV 86.6 L MCH 28 MCHC 32.8 RDW 14.0 Plt Count 268 MPV 12.6 H Neut % (Auto) 43.4 Lymph % (Auto) 28.2 [place] % (Auto) 15.4 H Eos % (Auto) 11.8 H Baso % (Auto) 0.6 Neut # (Auto) 2.7 Lymph # (Auto) 1.7 [place] # (Auto) 1.0 H Eos # (Auto) 0.7 Baso # (Auto) 0.0 Total Counted 100 Immature Gran % 0.6 Nucleated RBC % 0.0 Immature Gran # 0.04 Segmented Neutrophils 52 Lymphocytes 27 Monocytes 12 Eosinophils 9 Nucleated RBCs # 0.00 Platelet Estimate Adequate Giant Platelets Few Immature Plt Fraction 0.0 Hypochromasia 1+ Ovalocytes Slight Sodium 143 Potassium 3.8 Chloride 107 Carbon Dioxide 31 Anion Gap 8.8 BUN 30 H Creatinine 1.60 H GFR Calculation 43 BUN/Creatinine Ratio 18.00 Glucose 99 Calculated Osmolality 290.0 Calcium 7.9 L Magnesium 2.3 - EKG EKG results: interpreted by me, sinus rhythm Quality Measures - VTE Contraindication to Pharmacological VTE Prophylaxis: High Risk of Bleeding
--- NOTE | 2016-11-20 17:50 | Family Practice Progress Note ---
Family Practice - PN: Subj Interval history: Patient was admitted with rectal bleeding . Subsequently required 2 units of packed RBCs. His bleeding has stabilized since she has been in the intensive care unit. Patient had an EGD this a.m. which was unremarkable. Patient is had no further bleeding since admission to the hospital. He has been very lethargic today after receiving meds during the night for agitation as well as sedation this a.m. for the EGD. He will awake and answers questions appropriately. Moving all extremities with no localizing features. His labs are stable and vitals are stable with present. We will try to hold any further sedatives and if patient alert and functioning well in a.m. consider discharge. She had similar episodes in the past. Had recent admission with gastric and esophageal ulcers. These have apparently healed on EGD. We will continue to monitor in intensive care overnight. 11/14/16 -patient is much more alert this a.m. Still slightly confused but oriented. No new problems noted by staff. Vitals are stable. No hematochezia or melena noted. His a.m. labs are stable. Patient does not have any remembrance of last p.m. when he was extremely confused and lethargic. Reviewed chart in detail. Heart regular rate and rhythm, lungs are clear to auscultation, abdomen is soft and nontender. Will transfer to monitored bed and continue present evaluation. Will have patient ambulate and sit in chair as much as possible. Need to make sure patient can ambulate and care for himself at home. If patient has stable today will probably discharge a.m. 11/15/16 -patient was held in the intensive care due to significant agitation and confusion. Last p.m. he became extremely dyspneic and evaluation revealed component of congestive heart failure as well as pulmonary embolus in the right upper lobe and right lower lobe. Due to his history of GI bleed we are unable to anticoagulate at present. Patient presently requiring 100% rebreather. Being followed by Dr. Espinosa. He is to have a venous Doppler this a.m. and consideration for IVC filter placement. He is presently minimally responsive. Patient has multiple medical problems which are all complicating factors. I discussed in detail with patient's cousin. She is his only living relative. I advised that in view of his medical history with multiple medical problems and present medical state that I would not recommend patient being intubated in the event of respiratory failure. Cousin states that she would like to have him placed on a respirator in the event of respiratory failure. We will continue present treatment plan but overall prognosis is very poor. 11/16/16 -patient stable this a.m. His oxygenation is much improved and Dr. Espinosa has made changes. Staff reports that urine output has been decreased they feel that he is probably dry. He is not taking much fluids. He refuses to eat most foods only eats very soft type foods. He has mental status is still altered. He becomes very combative at times. He will answer questions but very slow response and very soft voice. I feel that he has had a component of dementia is progressively gotten worse over time. Certainly the ICU would exacerbate this condition. I plan to get him in a room so he can be with family members which I think will help improve his mental state. Staff feels that he is stable to transfer to telemetry floor. Agree with cardiology and pulmonary recommendations. Will transfer to telemetry and continue present treatment plan. Will start on IV fluids and monitor closely. 11/17/16-patient continues to slowly improve. Family and staff states that he continues to have some confusion but this is significantly improved also. He is alert and answers appropriate questions this a.m.. He still appears to be dyspneic at rest and has some slight wheezing in bases but is definitely improved. Patient has panic attacks and family states that he panics almost every time family members leave the room. He presently has a sitter which I had planned on stopping the day but family thinks that he will do very poorly without having somebody in the room. Family states that they cannot stay with the patient full-time. We will continue this overnight and hopefully can stop the sitter in a.m. no further signs of GI bleeding. He is otherwise stable and continues to slowly improve. Have consulted physical therapy as patient needs to be pending sitting in a chair as much as possible. 11/20/16 - patient continues to slowly improve. Less dyspnea today. He has ambulated with assistance. No new issues identified. Reviewed all lab and those studies. His lung [place] ARE to auscultation at present .discussed swing bed placement with patient and family. We'll have social work specialist began swing bed placement. We'll otherwise continue present therapy increase activity Exam (Progress Note) - Constitutional Vitals: Period Temp Pulse Resp BP Sys/Gloria Pulse Ox Last 24 Hr 97.2 F-98.5 F 59-67 16-20 119-152/59-73 91-99 Results - Labs CBC & BMP: 11/20/16 04:13 11/20/16 04:13 Quality Measures - VTE Contraindication to Pharmacological VTE Prophylaxis: High Risk of Bleeding
[2016-11-21] MEDS: ACETAMINOPHEN 325 MG TABLET PO PRN (01:12)
[2016-11-21 06:02] LABS: Basophils % 0.5 % (0.0-0.8); Eosinophils # 0.5 10*3/uL (0.0-0.87); Eosinophils % 8.3 % (0.00-10.9); Hematocrit 27.1 VOL% (42.0-52.0); Immature Granulocytes % 0.6 %; Immature Granulocytes Absolute 0.04 #; Lymphocytes # 1.8 10*3/uL (1.4-4.0); Lymphocytes % 29.4 % (21.2-54.2); Mean Corpuscular HGB Conc 33.2 GM/DL (32-36); Mean Corpuscular Hemoglobin 29 PG (27-34); Mean Corpuscular Volume 86.3 FL (87-102); Monocytes % 15.4 % (1.7-12.7); Neutrophils # 2.9 10*3/uL (1.4-7.4); Neutrophils % 45.8 % (38.7-73.9); Platelet Count 297 T/CUMM (130-400); Red Blood Count 3.14 MC/CUMM (3.8-5.5); Red Cell Distribution Width 13.9 % (9.3-17.3); White Blood Count 6.2 T/CUMM (4-12)
[2016-11-21 06:39] LABS: Calcium 8.7 MG/DL (8.5-10.1); Osmolality,Calculated 289.1 MOS/KG (273-304)
--- NOTE | 2016-11-21 07:30 | Pulmonology Progress Note ---
Pulmonary - PN: Subj Interval history: This 81-year-old white male came in with GI bleed. Source has not been found as yet after an EGD. Patient has had atrial fibrillation with rapid ventricular response and is now in sinus rhythm on amiodarone. He has been reluctant to take some of his medications including sotalol. He became acutely short of breath not before last with test indicating that he has had pulmonary emboli to the right lung. This does not appear to be massive embolism. He was not able to be anticoagulated so we had an IVC filter placed yesterday. He is better now with a PO2 of 303 on 60% facemask oxygen. Will reduce FiO2. 11/17/2016 patient is a little more short of breath this morning. He does have some wheezing. He was put back on saline yesterday. Has congestive heart failure. Will stop saline and give Lasix. Has pulmonary thromboembolic disease involving his right long which was treated with an IVC filter because of GI bleeding. 11/20/2016 patient feeling much better and his lungs sound better. He is not coughing up any phlegm. I think we can change to oral antibiotics. I think the infiltrates are primarily edema. 11/21/2016 patient is feeling better. The quandary we have is that we do not know where his GI bleed came from, and thus we cannot give him anticoagulants despite his having pulmonary emboli. If he does not have any further GI bleeding, would consider something like half dose Eliquis after 2 weeks from last GI bleed. Defer to GI as far as any further evaluation indicated. He does not appear to be bleeding at present. He will certainly be at increased risk for deep vein thrombosis or recurrent emboli despite the IVC filter if not on anticoagulants. Exam (Progress Note) - Constitutional Vitals: Period Temp Pulse Resp BP Sys/Gloria Pulse Ox Last 24 Hr 96.6 F-98.9 F 59-67 16-20 124-152/52-75 91-99 Exam: Patient is presently responsive. Vital signs are normal. Pupils react to light. Wearing nasal oxygen. O2 sat 98%. Neck is supple. Chest sounds clear. Equal breath sounds. Heart normal rate and rhythm no murmurs. Abdomen soft nontender bowel sounds present. Extremities no clubbing cyanosis or edema. Calves nontender. Results - Labs CBC & BMP: 11/21/16 05:28 11/21/16 05:28 Lab Results: I have reviewed the past 24 hour labs Assessment and Plan (1) Atrial fibrillation with RVR Status: Chronic Assessment and plan: Managed by cardiology. Patient is not on anticoagulants on admission. 11/16/2016 presently in a sinus rhythm. 11/17/2016 sinus rhythm controlled rate 11/20/2016 this is now controlled. He is in a sinus rhythm. 11/21/2016 sinus rhythm control rate. Current Visit: No (2) Panic attacks Status: Chronic Assessment and plan: Patient gets quite anxious. He has declined colonoscope earlier. 11/16/2016 he occasionally gets very anxious and occasionally refuses medications. Apparently no history of dementia. 11/17/2016 he is a bit anxious. 11/20/2016 patient seems much calmer today. 11/21/2016 seems calm today. Current Visit: Yes (3) Gastrointestinal hemorrhage with melena Status: Acute Assessment and plan: Had negative EGD. Will set up for small bowel follow-through. Colonoscope. 11/16/2016 hematocrit is 30 and stable. No melena noted at present. 11/17/16 no active bleeding, it appears. Hematocrit 28 today. 11/20/2016 hematocrit is 27. We have not been able to anticoagulate due to the GI bleed. 11/21/2016 defer to GI. Certainly would be best if we knew the source of the GI bleed. Current Visit: Yes (4) Pulmonary embolism Status: Acute Assessment and plan: Patient was acutely worsened overnight and found to have pulmonary emboli on CT. I think there is an element of congestive heart failure as well. Anticoagulation is contraindicated. He will need IVC filter most likely. Prognosis guarded. Will get venous Dopplers prior to deciding on the filter. 11/16/[address] negative. Dr. Gonzalez did place an IVC filter yesterday. This is really all we could do for a pulmonary embolus at this point in time. I do not think the pulmonary emboli were major. May consider anticoagulation once the cause of the GI bleed is defined. Otherwise would not do it. 11/17/16 patient had an IVC filter placed because of pulmonary emboli. Unable to use anticoagulants due to active GI bleeding. Not actively bleeding at present but still cannot use anticoagulants. 11/20/2016 patient had some right-sided emboli. Unable to anticoagulate due to GI bleed. Has IVC filter. Would consider starting anticoagulants whenever GI feels it is safe. Probably half dose Eliquis would be a good idea. 11/21/2016 relatively small load of emboli to the right lung. We have treated with an IVC filter because of the GI bleed. If no bleeding in 2 weeks would consider half dose Eliquis. Ideally needs further GI workup to find the source of the GI bleed. Patient has refused colonoscope earlier. Current Visit: Yes
--- NOTE | 2016-11-21 07:36 | EKG Report ---
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
[2016-11-21] MEDS: ALBUTEROL/IPRATROPIUM 3 ML NEB RESP TX SCH ×4 (07:40→19:45)
[2016-11-21] MEDS: PANTOPRAZOLE 40 MG TABLET PO SCH (09:06)
[2016-11-21] MEDS: FUROSEMIDE 20 MG TABLET PO SCH ×2 (09:06→17:17)
[2016-11-21] MEDS: CEFUROXIME 500 MG TABLET PO SCH ×2 (09:06→22:04)
[2016-11-21] MEDS: SOTALOL 80 MG TABLET PO SCH ×2 (09:06→22:05)
[2016-11-21] MEDS: LOSARTAN 50 MG TABLET PO SCH (09:06)
[2016-11-21] MEDS: DESITIN 4OZ/NYSTATIN 15 GRAM MIXTURE PASTE TOP SCH ×2 (09:06→22:05)
--- NOTE | 2016-11-21 13:53 | Cardiology Progress Note ---
Assessment and Plan - Time spent with patient Time spent with patient: Less than 30 minutes (1) Pulmonary embolism Status: Acute Assessment and plan: See plan of care listed below. Current Visit: Yes (2) History of GI bleed Status: Acute Assessment and plan: See plan of care listed below. Current Visit: Yes (3) Paroxysmal atrial fibrillation Status: Chronic Assessment and plan: See plan of care listed below. Current Visit: Yes (4) hypertension Status: Chronic Assessment and plan: See plan of care listed below. Current Visit: Yes (5) Panic attacks Status: Chronic Assessment and plan: See plan of care listed below. Current Visit: Yes Cardiology - PN: Subj Interval history: [place] Measurer: Dr. Keane PCP: Dr. Gilman SUMMARY: Mr. Lovelace is a 81 year old male with a history of hypertension, PAF, CVA, emphysema, GI Bleed, and claustrophobia who was admitted to the hospital with rectal bleeding requiring transfusion. He has undergone EGD which was unremarkable. He has been kept in the ICU due to agitation and confusion and has required bilateral wrist restraints. He went for CT chest which revealed a component of CHF as well as PE in the right upper lobe and right lower lobe. Given his history of GI bleed, he is not a candidate for full anticoagulation. Venous dopplers were negative for DVT. On 11/15/16, he went for PICC line placement and IVC filter with interventional radiology. He has also had several episodes of PAF since his admission. We were consulted to see him. There was suggestion of possible CHF. He had an elevated BNP after receiving IV fluids. Chest CT suggested trace bilateral pleural effusions. He was diuresed. Echocardiogram revealed EF 60%, grade I/IV diastolic dysfunction, mild LVH, mild AI, TR, LA, and small pericardial effusion. November 21, 2016 UPDATE: He denies any chest pain, shortness of breath. Hemodynamics are stable. He has been more ambulatory and is much less tachypneic. He remains in sinus rhythm. Continue current plan of care. QTC improved today, was previously prolonged while receiving IV amiodarone and sotalol. Okay to transfer to rehab from cardiology standpoint. ASSESSMENT/PLAN: 1. PULMONARY EMBOLUS - He is status post IVC filter placement. He remains confused at times. We will continue to follow along. 2. HISTORY OF GI BLEED - Has received a total of 2 units PRBCs. Will continue to monitor. Once his bleeding risk is lower, he could be a candidate for anticoagulation. 3. PAROXYSMAL ATRIAL FIBRILLATION - He is currently in normal sinus rhythm. He is also on Sotalol 80mg PO BID. 4. HYPERTENSION - No longer requiring Nipride. Cozaar was increased to 100mg po daily. Creatinine currently 1.7 with potassium 4.0. Will monitor BMP. 5. PANIC ATTACKS - Currently on Xanax 0.5mg PO TID PRN. Exam (Progress Note) - Constitutional Vitals: Period Temp Pulse Resp BP Sys/Gloria Pulse Ox Last 24 Hr 96.6 F-98.9 F 60-71 16-22 111-152/49-75 91-99 Exam: General appearance: Pleasant and cooperative. On room air. Head exam: Present: normal inspection, normocephalic, atraumatic. Absent: hematoma, laceration Eye exam: Present: EOMI. Absent: conjunctival injection, nystagmus, periorbital swelling, scleral icterus, laceration to eyelids Pupils: Present: PERRL. Absent: constricted, dilated, fixed, irregular, unequal ENT exam: Present: normal exam, normal external ear exam Neck exam: Present: normal inspection. Absent: lymphadenopathy, meningismus, tenderness, thyromegaly Respiratory exam: Present: Clear to auscultation bilaterally. Absent: accessory muscle use, chest wall tenderness, rhonchi. Cardiovascular exam: Present: regular rate and rhythm. Absent: gallop, JVD, rubs, murmur GI/Abdominal exam: Present: normal bowel sounds, soft. Absent: distended, firm , guarding, hernia, mass, tenderness, rebound. Extremities exam: Present: normal inspection, normal capillary refill. Upper extremity pulses 2+. Lower extremity pulses 2+. Absent: calf tenderness, edema Musculoskeletal: Present: No Fluid Collection, No Pain, Normal Range of Motion Neurological exam: Present: alert, oriented to person, calm at the time of exam. grossly intact without resting or essential tremor Psychiatric exam: Present: normal affect, normal mood, somewhat confused. Skin exam: Present: normal color, warm, dry, intact. Absent: cyanosis, diaphoretic, rash, urticaria Result/EKG - Labs CBC & BMP: 11/21/16 05:28 08/08/17 05:28 Lab Results: I have reviewed the past 24 hour labs Labs: Laboratory Results - last 24 hr 11/21/16 11/21/16 05:28 05:28 WBC 6.2 RBC 3.14 L Hgb 9.0 L Hct 27.1 L MCV 86.3 L MCH 29 MCHC 33.2 RDW 13.9 Plt Count 297 MPV 12.0 Neut % (Auto) 45.8 Lymph % (Auto) 29.4 [place] % (Auto) 15.4 H Eos % (Auto) 8.3 Baso % (Auto) 0.5 Neut # (Auto) 2.9 Lymph # (Auto) 1.8 [place] # (Auto) 1.0 H Eos # (Auto) 0.5 Baso # (Auto) 0.0 Immature Gran % 0.6 Nucleated RBC % 0.0 Immature Gran # 0.04 Nucleated RBCs # 0.00 Immature Plt Fraction 0.0 Sodium 142 Potassium 4.0 Chloride 105 Carbon Dioxide 33 H Anion Gap 8.0 BUN 33 H Creatinine 1.70 H GFR Calculation 41 BUN/Creatinine Ratio 19.00 Glucose 99 Calculated Osmolality 289.1 Calcium 8.7 - EKG EKG results: interpreted by me, sinus rhythm Quality Measures - VTE Contraindication to Pharmacological VTE Prophylaxis: High Risk of Bleeding Specialty Discharge - Follow Up or Referrals Follow up with: Maycol Keane MD [Physician] - 2 Weeks (Follow up with Dr. Keane in 2-3 weeks with CBC, BMP, EKG. )
--- NOTE | 2016-11-21 17:44 | Family Practice Progress Note ---
Family Practice - PN: Subj Interval history: Patient was admitted with rectal bleeding . Subsequently required 2 units of packed RBCs. His bleeding has stabilized since she has been in the intensive care unit. Patient had an EGD this a.m. which was unremarkable. Patient is had no further bleeding since admission to the hospital. He has been very lethargic today after receiving meds during the night for agitation as well as sedation this a.m. for the EGD. He will awake and answers questions appropriately. Moving all extremities with no localizing features. His labs are stable and vitals are stable with present. We will try to hold any further sedatives and if patient alert and functioning well in a.m. consider discharge. She had similar episodes in the past. Had recent admission with gastric and esophageal ulcers. These have apparently healed on EGD. We will continue to monitor in intensive care overnight. 11/14/16 -patient is much more alert this a.m. Still slightly confused but oriented. No new problems noted by staff. Vitals are stable. No hematochezia or melena noted. His a.m. labs are stable. Patient does not have any remembrance of last p.m. when he was extremely confused and lethargic. Reviewed chart in detail. Heart regular rate and rhythm, lungs are clear to auscultation, abdomen is soft and nontender. Will transfer to monitored bed and continue present evaluation. Will have patient ambulate and sit in chair as much as possible. Need to make sure patient can ambulate and care for himself at home. If patient has stable today will probably discharge a.m. 11/15/16 -patient was held in the intensive care due to significant agitation and confusion. Last p.m. he became extremely dyspneic and evaluation revealed component of congestive heart failure as well as pulmonary embolus in the right upper lobe and right lower lobe. Due to his history of GI bleed we are unable to anticoagulate at present. Patient presently requiring 100% rebreather. Being followed by Dr. Espinosa. He is to have a venous Doppler this a.m. and consideration for IVC filter placement. He is presently minimally responsive. Patient has multiple medical problems which are all complicating factors. I discussed in detail with patient's cousin. She is his only living relative. I advised that in view of his medical history with multiple medical problems and present medical state that I would not recommend patient being intubated in the event of respiratory failure. Cousin states that she would like to have him placed on a respirator in the event of respiratory failure. We will continue present treatment plan but overall prognosis is very poor. 11/16/16 -patient stable this a.m. His oxygenation is much improved and Dr. Espinosa has made changes. Staff reports that urine output has been decreased they feel that he is probably dry. He is not taking much fluids. He refuses to eat most foods only eats very soft type foods. He has mental status is still altered. He becomes very combative at times. He will answer questions but very slow response and very soft voice. I feel that he has had a component of dementia is progressively gotten worse over time. Certainly the ICU would exacerbate this condition. I plan to get him in a room so he can be with family members which I think will help improve his mental state. Staff feels that he is stable to transfer to telemetry floor. Agree with cardiology and pulmonary recommendations. Will transfer to telemetry and continue present treatment plan. Will start on IV fluids and monitor closely. 11/17/16-patient continues to slowly improve. Family and staff states that he continues to have some confusion but this is significantly improved also. He is alert and answers appropriate questions this a.m.. He still appears to be dyspneic at rest and has some slight wheezing in bases but is definitely improved. Patient has panic attacks and family states that he panics almost every time family members leave the room. He presently has a sitter which I had planned on stopping the day but family thinks that he will do very poorly without having somebody in the room. Family states that they cannot stay with the patient full-time. We will continue this overnight and hopefully can stop the sitter in a.m. no further signs of GI bleeding. He is otherwise stable and continues to slowly improve. Have consulted physical therapy as patient needs to be pending sitting in a chair as much as possible. 11/20/16 - patient continues to slowly improve. Less dyspnea today. He has ambulated with assistance. No new issues identified. Reviewed all lab and those studies. His lung hudd[place] ARE to auscultation at present .discussed swing bed placement with patient and family. We'll have child welfare social worker began swing bed placement. We'll otherwise continue present therapy increase activity 11/21/16 - patient continues to improve. He is ambulating using his walker. His dyspnea is much improved. Denies any chest pain or shortness of breath present. No further signs of GI bleed. We are awaiting approval for swing bed. Apparently there are some conflicts with his insurance about swing bed placement. I agree with pulmonary's recommendations for a half-strength eliquis to when patient is stable. No new problems identified. We'll continue present therapy awaiting swing bed placement Exam (Progress Note) - Constitutional Vitals: Period Temp Pulse Resp BP Sys/Gloria Pulse Ox Last 24 Hr 96.6 F-98.9 F 60-75 16-22 111-147/49-75 91-99 Results - Labs CBC & BMP: 11/21/16 05:28 11/21/16 05:28 Quality Measures - VTE Contraindication to Pharmacological VTE Prophylaxis: High Risk of Bleeding Specialty Discharge - Follow Up or Referrals Follow up with: Maycol Keane MD [Physician] - 2 Weeks (Follow up with Dr. Keane in 2-3 weeks with CBC, BMP, EKG. )
[2016-11-22 05:14] LABS: Basophils # 0.1 10*3/uL (0.0-0.2); Basophils % 0.5 % (0.0-0.8); Eosinophils # 0.4 10*3/uL (0.0-0.87); Eosinophils % 3.5 % (0.00-10.9); Hematocrit 30.3 VOL% (42.0-52.0); Hemoglobin 9.9 GM/DL (14.0-18.0); Lymphocytes # 2.1 10*3/uL (1.4-4.0); Mean Corpuscular HGB Conc 32.7 GM/DL (32-36); Mean Corpuscular Hemoglobin 28 PG (27-34); Mean Corpuscular Volume 86.1 FL (87-102); Mean Platelet Volume 11.9 FL (9.6-12.0); Monocytes # 1.3 10*3/uL (0.11-0.8); Monocytes % 12.8 % (1.7-12.7); Neutrophils # 6.2 10*3/uL (1.4-7.4); Neutrophils % 61.2 % (38.7-73.9); Platelet Count 345 T/CUMM (130-400); Red Blood Count 3.52 MC/CUMM (3.8-5.5); Red Cell Distribution Width 13.8 % (9.3-17.3); White Blood Count 10.2 T/CUMM (4-12)
[2016-11-22 05:45] LABS: Calcium 8.7 MG/DL (8.5-10.1); Osmolality,Calculated 286.4 MOS/KG (273-304); Potassium 4.2 MMOL/L (3.5-5.1)
[2016-11-22] MEDS: ALBUTEROL/IPRATROPIUM 3 ML NEB RESP TX SCH ×4 (06:55→20:02)
--- NOTE | 2016-11-22 07:16 | Pulmonology Progress Note ---
Pulmonary - PN: Subj Interval history: This 81-year-old white male came in with GI bleed. Source has not been found as yet after an EGD. Patient has had atrial fibrillation with rapid ventricular response and is now in sinus rhythm on amiodarone. He has been reluctant to take some of his medications including sotalol. He became acutely short of breath not before last with test indicating that he has had pulmonary emboli to the right lung. This does not appear to be massive embolism. He was not able to be anticoagulated so we had an IVC filter placed yesterday. He is better now with a PO2 of 303 on 60% facemask oxygen. Will reduce FiO2. 11/17/2016 patient is a little more short of breath this morning. He does have some wheezing. He was put back on saline yesterday. Has congestive heart failure. Will stop saline and give Lasix. Has pulmonary thromboembolic disease involving his right long which was treated with an IVC filter because of GI bleeding. 11/20/2016 patient feeling much better and his lungs sound better. He is not coughing up any phlegm. I think we can change to oral antibiotics. I think the infiltrates are primarily edema. 11/21/2016 patient is feeling better. The quandary we have is that we do not know where his GI bleed came from, and thus we cannot give him anticoagulants despite his having pulmonary emboli. If he does not have any further GI bleeding, would consider something like half dose Eliquis after 2 weeks from last GI bleed. Defer to GI as far as any further evaluation indicated. He does not appear to be bleeding at present. He will certainly be at increased risk for deep vein thrombosis or recurrent emboli despite the IVC filter if not on anticoagulants. 11/22/2016 again patient feeling better. Not short of breath. No further GI bleeding. Agree with plans for swing bed if he would agree to that. Recheck CBC and consider low-dose Eliquis in another week and a half. Exam (Progress Note) - Constitutional Vitals: Period Temp Pulse Resp BP Sys/Gloria Pulse Ox Last 24 Hr 97.6 F-98.5 F 60-79 16-22 111-147/49-75 91-97 Exam: Patient is presently responsive. Vital signs are normal. Pupils react to light. Wearing nasal oxygen. O2 sat 98%. Neck is supple. Chest sounds clear. Equal breath sounds. Heart normal rate and rhythm no murmurs. Abdomen soft nontender bowel sounds present. Extremities no clubbing cyanosis or edema. Calves nontender. Results - Labs CBC & BMP: 11/22/16 04:06 11/22/16 04:06 Lab Results: I have reviewed the past 24 hour labs Assessment and Plan (1) Atrial fibrillation with RVR Status: Resolved Assessment and plan: Managed by cardiology. Patient is not on anticoagulants on admission. 11/16/2016 presently in a sinus rhythm. 11/17/2016 sinus rhythm controlled rate 11/20/2016 this is now controlled. He is in a sinus rhythm. 11/21/2016 sinus rhythm control rate. 11/22/2016 now in a regular rhythm. Current Visit: No (2) Panic attacks Status: Chronic Assessment and plan: Patient gets quite anxious. He has declined colonoscope earlier. 11/16/2016 he occasionally gets very anxious and occasionally refuses medications. Apparently no history of dementia. 11/17/2016 he is a bit anxious. 11/20/2016 patient seems much calmer today. 11/21/2016 seems calm today. 11/22/2016 patient is much calmer and joking around today. Current Visit: Yes (3) Gastrointestinal hemorrhage with melena Status: Acute Assessment and plan: Had negative EGD. Will set up for small bowel follow-through. Colonoscope. 11/16/2016 hematocrit is 30 and stable. No melena noted at present. 11/17/16 no active bleeding, it appears. Hematocrit 28 today. 11/20/2016 hematocrit is 27. We have not been able to anticoagulate due to the GI bleed. 11/21/2016 defer to GI. Certainly would be best if we knew the source of the GI bleed. 11/22/2016 hematocrit 30. No further GI bleeding. Current Visit: Yes (4) Pulmonary embolism Status: Acute Assessment and plan: Patient was acutely worsened overnight and found to have pulmonary emboli on CT. I think there is an element of congestive heart failure as well. Anticoagulation is contraindicated. He will need IVC filter most likely. Prognosis guarded. Will get venous Dopplers prior to deciding on the filter. 11/16/[address]. Gonzalez did place an IVC filter yesterday. This is really all we could do for a pulmonary embolus at this point in time. I do not think the pulmonary emboli were major. May consider anticoagulation once the cause of the GI bleed is defined. Otherwise would not do it. 11/17/16 patient had an IVC filter placed because of pulmonary emboli. Unable to use anticoagulants due to active GI bleeding. Not actively bleeding at present but still cannot use anticoagulants. 11/20/2016 patient had some right-sided emboli. Unable to anticoagulate due to GI bleed. Has IVC filter. Would consider starting anticoagulants whenever GI feels it is safe. Probably half dose Eliquis would be a good idea. 11/21/2016 relatively small load of emboli to the right lung. We have treated with an IVC filter because of the GI bleed. If no bleeding in 2 weeks would consider half dose Eliquis. Ideally needs further GI workup to find the source of the GI bleed. Patient has refused colonoscope earlier. 11/22/2016 treated with IVC filter because of GI bleed. Suggest half dose Eliquis in another week and a half if hematocrit is stable. Would need close watch of stool for bleeding. Current Visit: Yes Specialty Discharge - Follow Up or Referrals Follow up with: Maycol Keane MD [Physician] - 2 Weeks (Follow up with Dr. Keane in 2-3 weeks with CBC, BMP, EKG. )
--- NOTE | 2016-11-22 08:51 | Family Practice Progress Note ---
Family Practice - PN: Subj Interval history: Patient was admitted with rectal bleeding . Subsequently required 2 units of packed RBCs. His bleeding has stabilized since she has been in the intensive care unit. Patient had an EGD this a.m. which was unremarkable. Patient is had no further bleeding since admission to the hospital. He has been very lethargic today after receiving meds during the night for agitation as well as sedation this a.m. for the EGD. He will awake and answers questions appropriately. Moving all extremities with no localizing features. His labs are stable and vitals are stable with present. We will try to hold any further sedatives and if patient alert and functioning well in a.m. consider discharge. She had similar episodes in the past. Had recent admission with gastric and esophageal ulcers. These have apparently healed on EGD. We will continue to monitor in intensive care overnight. 11/14/16 -patient is much more alert this a.m. Still slightly confused but oriented. No new problems noted by staff. Vitals are stable. No hematochezia or melena noted. His a.m. labs are stable. Patient does not have any remembrance of last p.m. when he was extremely confused and lethargic. Reviewed chart in detail. Heart regular rate and rhythm, lungs are clear to auscultation, abdomen is soft and nontender. Will transfer to monitored bed and continue present evaluation. Will have patient ambulate and sit in chair as much as possible. Need to make sure patient can ambulate and care for himself at home. If patient has stable today will probably discharge a.m. 11/15/16 -patient was held in the intensive care due to significant agitation and confusion. Last p.m. he became extremely dyspneic and evaluation revealed component of congestive heart failure as well as pulmonary embolus in the right upper lobe and right lower lobe. Due to his history of GI bleed we are unable to anticoagulate at present. Patient presently requiring 100% rebreather. Being followed by Dr. Espinosa. He is to have a venous Doppler this a.m. and consideration for IVC filter placement. He is presently minimally responsive. Patient has multiple medical problems which are all complicating factors. I discussed in detail with patient's cousin. She is his only living relative. I advised that in view of his medical history with multiple medical problems and present medical state that I would not recommend patient being intubated in the event of respiratory failure. Cousin states that she would like to have him placed on a respirator in the event of respiratory failure. We will continue present treatment plan but overall prognosis is very poor. 11/16/16 -patient stable this a.m. His oxygenation is much improved and Dr. Espinosa has made changes. Staff reports that urine output has been decreased they feel that he is probably dry. He is not taking much fluids. He refuses to eat most foods only eats very soft type foods. He has mental status is still altered. He becomes very combative at times. He will answer questions but very slow response and very soft voice. I feel that he has had a component of dementia is progressively gotten worse over time. Certainly the ICU would exacerbate this condition. I plan to get him in a room so he can be with family members which I think will help improve his mental state. Staff feels that he is stable to transfer to telemetry floor. Agree with cardiology and pulmonary recommendations. Will transfer to telemetry and continue present treatment plan. Will start on IV fluids and monitor closely. 11/17/16-patient continues to slowly improve. Family and staff states that he continues to have some confusion but this is significantly improved also. He is alert and answers appropriate questions this a.m.. He still appears to be dyspneic at rest and has some slight wheezing in bases but is definitely improved. Patient has panic attacks and family states that he panics almost every time family members leave the room. He presently has a sitter which I had planned on stopping the day but family thinks that he will do very poorly without having somebody in the room. Family states that they cannot stay with the patient full-time. We will continue this overnight and hopefully can stop the sitter in a.m. no further signs of GI bleeding. He is otherwise stable and continues to slowly improve. Have consulted physical therapy as patient needs to be pending sitting in a chair as much as possible. 11/20/16 - patient continues to slowly improve. Less dyspnea today. He has ambulated with assistance. No new issues identified. Reviewed all lab and those studies. His lung [place]udd[place] ARE to auscultation at present .discussed swing bed placement with patient and family. We'll have social science instructor began swing bed placement. We'll otherwise continue present therapy increase activity 11/21/16 - patient continues to improve. He is ambulating using his walker. His dyspnea is much improved. Denies any chest pain or shortness of breath present. No further signs of GI bleed. We are awaiting approval for swing bed. Apparently there are some conflicts with his insurance about swing bed placement. I agree with pulmonary's recommendations for a half-strength eliquis to when patient is stable. No new problems identified. We'll continue present therapy awaiting swing bed placement 11/22/16 - patient continues to improve. Minimal dyspnea at rest. He is ambulating much better with his walker. He now states that he doesn't want to go to swing bed. I advised patient that he needs to talk with caregiver and make decisions so we can arrange discharge planning. He states that he would prefer home health with home physical therapy. Again stressed that he must make a decision so we can now proceed with discharge planning. Patient states that he will notify nursing staff and social science instructor today of his decision. He is actually doing quite well. Exam (Progress Note) - Constitutional Vitals: Period Temp Pulse Resp BP Sys/Gloria Pulse Ox Last 24 Hr 97.6 F-98.5 F 58-79 16-22 111-139/49-73 91-97 Results - Labs CBC & BMP: 11/22/16 04:06 11/22/16 04:06 Quality Measures - VTE Contraindication to Pharmacological VTE Prophylaxis: High Risk of Bleeding Specialty Discharge - Follow Up or Referrals Follow up with: Maycol Keane MD [Physician] - 2 Weeks (Follow up with Dr. Keane in 2-3 weeks with CBC, BMP, EKG. )
[2016-11-22] MEDS: LOSARTAN 50 MG TABLET PO SCH (09:07)
[2016-11-22] MEDS: SOTALOL 80 MG TABLET PO SCH ×2 (09:07→20:39)
[2016-11-22] MEDS: FUROSEMIDE 20 MG TABLET PO SCH ×2 (09:08→16:22)
[2016-11-22] MEDS: CEFUROXIME 500 MG TABLET PO SCH ×2 (09:08→20:40)
[2016-11-22] MEDS: PANTOPRAZOLE 40 MG TABLET PO SCH (09:08)
[2016-11-22] MEDS: DESITIN 4OZ/NYSTATIN 15 GRAM MIXTURE PASTE TOP SCH ×2 (10:05→20:40)
--- NOTE | 2016-11-22 13:16 | Cardiology Progress Note ---
Assessment and Plan - Time spent with patient Time spent with patient: Less than 30 minutes (1) Pulmonary embolism Status: Acute Assessment and plan: See plan of care listed below. Current Visit: Yes (2) History of GI bleed Status: Acute Assessment and plan: See plan of care listed below. Current Visit: Yes (3) Paroxysmal atrial fibrillation Status: Chronic Assessment and plan: See plan of care listed below. Current Visit: Yes (4) hypertension Status: Chronic Assessment and plan: See plan of care listed below. Current Visit: Yes (5) Panic attacks Status: Chronic Assessment and plan: See plan of care listed below. Current Visit: Yes Cardiology - PN: Subj Interval history: Varnish Melter: Dr. Keane PCP: Dr. Gilman SUMMARY: Mr. Lovelace is a 81 year old male with a history of hypertension, PAF, CVA, emphysema, GI Bleed, and claustrophobia who was admitted to the hospital with rectal bleeding requiring transfusion. He has undergone EGD which was unremarkable. He has been kept in the ICU due to agitation and confusion and has required bilateral wrist restraints. He went for CT chest which revealed a component of CHF as well as PE in the right upper lobe and right lower lobe. Given his history of GI bleed, he is not a candidate for full anticoagulation. Venous dopplers were negative for DVT. On 11/15/16, he went for PICC line placement and IVC filter with interventional radiology. He has also had several episodes of PAF since his admission. We were consulted to see him. There was suggestion of possible CHF. He had an elevated BNP after receiving IV fluids. Chest CT suggested trace bilateral pleural effusions. He was diuresed. Echocardiogram revealed EF 60%, grade I/IV diastolic dysfunction, mild LVH, mild AI, TR, ND, and small pericardial effusion. November 22, 2016 UPDATE: He denies any chest pain, shortness of breath. Hemodynamics are stable. He has been more ambulatory and is much less tachypneic. He remains in sinus rhythm. Continue current plan of care. Awaiting swingbed placement. He will need to follow up with Dr. Keane in 2-3 weeks with EKG. ASSESSMENT/PLAN: 1. PULMONARY EMBOLUS - He is status post IVC filter placement. We will continue to follow along. 2. HISTORY OF GI BLEED - Has received a total of 2 units PRBCs. Will continue to monitor. Once his bleeding risk is lower, he could be a candidate for anticoagulation. 3. PAROXYSMAL ATRIAL FIBRILLATION - He is currently in normal sinus rhythm. He is also on Sotalol 80mg PO BID. 4. HYPERTENSION - No longer requiring Nipride. Cozaar was increased to 100mg po daily. Creatinine currently 1.7 with potassium 4.0. Will monitor BMP. 5. PANIC ATTACKS - Currently on Xanax 0.5mg PO TID PRN. Exam (Progress Note) - Constitutional Vitals: Period Temp Pulse Resp BP Sys/Gloria Pulse Ox Last 24 Hr 97.6 F-98.5 F 57-79 16-20 111-139/49-73 91-97 Exam: General appearance: Pleasant and cooperative. On room air. Head exam: Present: normal inspection, normocephalic, atraumatic. Absent: hematoma, laceration Eye exam: Present: EOMI. Absent: conjunctival injection, nystagmus, periorbital swelling, scleral icterus, laceration to eyelids Pupils: Present: PERRL. Absent: constricted, dilated, fixed, irregular, unequal ENT exam: Present: normal exam, normal external ear exam Neck exam: Present: normal inspection. Absent: lymphadenopathy, meningismus, tenderness, thyromegaly Respiratory exam: Present: Clear to auscultation bilaterally. Absent: accessory muscle use, chest wall tenderness, rhonchi. Cardiovascular exam: Present: regular rate and rhythm. Absent: gallop, JVD, rubs, murmur GI/Abdominal exam: Present: normal bowel sounds, soft. Absent: distended, firm , guarding, hernia, mass, tenderness, rebound. Extremities exam: Present: normal inspection, normal capillary refill. Upper extremity pulses 2+. Lower extremity pulses 2+. Absent: calf tenderness, edema Musculoskeletal: Present: No Fluid Collection, No Pain, Normal Range of Motion Neurological exam: Present: alert, oriented to person, calm at the time of exam. grossly intact without resting or essential tremor Psychiatric exam: Present: normal affect, normal mood, somewhat confused. Skin exam: Present: normal color, warm, dry, intact. Absent: cyanosis, diaphoretic, rash, urticaria Result/EKG - Labs CBC & BMP: 11/22/16 04:06 11/22/16 04:06 Lab Results: I have reviewed the past 24 hour labs Labs: Laboratory Results - last 24 hr 11/22/16 11/22/16 04:06 04:06 WBC 10.2 D RBC 3.52 L Hgb 9.9 L Hct 30.3 L MCV 86.1 L MCH 28 MCHC 32.7 RDW 13.8 Plt Count 345 MPV 11.9 Neut % (Auto) 61.2 Lymph % (Auto) 21.0 L Coos % (Auto) 12.8 H Eos % (Auto) 3.5 Baso % (Auto) 0.5 Neut # (Auto) 6.2 Lymph # (Auto) 2.1 Coos # (Auto) 1.3 H Eos # (Auto) 0.4 Baso # (Auto) 0.1 Immature Gran % 1.0 Nucleated RBC % 0.0 Immature Gran # 0.10 Nucleated RBCs # 0.00 Immature Plt Fraction 0.0 Sodium 140 Potassium 4.2 Chloride 101 Carbon Dioxide 34 H Anion Gap 9.2 BUN 35 H Creatinine 1.80 H GFR Calculation 38 BUN/Creatinine Ratio 19.00 Glucose 106 Calculated Osmolality 286.4 Calcium 8.7 - EKG EKG results: interpreted by me, sinus rhythm Quality Measures - VTE Contraindication to Pharmacological VTE Prophylaxis: High Risk of Bleeding Specialty Discharge - Follow Up or Referrals Follow up with: Maycol Keane MD [Physician] - 2 Weeks (Follow up with Dr. Keane in 2-3 weeks with CBC, BMP, EKG. )
[2016-11-22] MEDS ORDERED: DIPHENOXYLATE/ATROPINE 2.5-0.025 MG TABLET PO PRN (16:40)
--- NOTE | 2016-11-23 07:01 | Pulmonology Progress Note ---
Pulmonary - PN: Subj Interval history: This 81-year-old white male came in with GI bleed. Source has not been found as yet after an EGD. Patient has had atrial fibrillation with rapid ventricular response and is now in sinus rhythm on amiodarone. He has been reluctant to take some of his medications including sotalol. He became acutely short of breath not before last with test indicating that he has had pulmonary emboli to the right lung. This does not appear to be massive embolism. He was not able to be anticoagulated so we had an IVC filter placed yesterday. He is better now with a PO2 of 303 on 60% facemask oxygen. Will reduce FiO2. 11/17/2016 patient is a little more short of breath this morning. He does have some wheezing. He was put back on saline yesterday. Has congestive heart failure. Will stop saline and give Lasix. Has pulmonary thromboembolic disease involving his right long which was treated with an IVC filter because of GI bleeding. 11/20/2016 patient feeling much better and his lungs sound better. He is not coughing up any phlegm. I think we can change to oral antibiotics. I think the infiltrates are primarily edema. 11/21/2016 patient is feeling better. The quandary we have is that we do not know where his GI bleed came from, and thus we cannot give him anticoagulants despite his having pulmonary emboli. If he does not have any further GI bleeding, would consider something like half dose Eliquis after 2 weeks from last GI bleed. Defer to GI as far as any further evaluation indicated. He does not appear to be bleeding at present. He will certainly be at increased risk for deep vein thrombosis or recurrent emboli despite the IVC filter if not on anticoagulants. 11/22/2016 again patient feeling better. Not short of breath. No further GI bleeding. Agree with plans for swing bed if he would agree to that. Recheck CBC and consider low-dose Eliquis in another week and a half. 11/23/2016 patient is feeling better. He grew staph aureus from his sputum but it was not methicillin-resistant. He has been on cephalosporins which should cover it. Probably did have a left upper lobe pneumonitis. Also has had pulmonary emboli treated with IVC umbrella. As discussed with Dr. Gilman, would plan to put on half dose Eliquis once he is 2 weeks out from his last signs of GI bleeding. Exam (Progress Note) - Constitutional Vitals: Period Temp Pulse Resp BP Sys/Gloria Pulse Ox Last 24 Hr 97.6 F-98.5 F 57-77 16-18 111-144/55-73 92-97 Exam: Patient is presently responsive. Vital signs are normal. Pupils react to light. Wearing nasal oxygen. O2 sat 98%. Neck is supple. Chest sounds clear. Equal breath sounds. Heart normal rate and rhythm no murmurs. Abdomen soft nontender bowel sounds present. Extremities no clubbing cyanosis or edema. Calves nontender. Little change from yesterday Results - Labs CBC & BMP: 11/22/16 04:06 11/22/16 04:06 Lab Results: I have reviewed the past 24 hour labs Assessment and Plan (1) Atrial fibrillation with RVR Status: Resolved Assessment and plan: Managed by cardiology. Patient is not on anticoagulants on admission. 11/16/2016 presently in a sinus rhythm. 11/17/2016 sinus rhythm controlled rate 11/20/2016 this is now controlled. He is in a sinus rhythm. 11/21/2016 sinus rhythm control rate. 11/22/2016 now in a regular rhythm. 11/23/16 converted to sinus rhythm. Current Visit: No (2) Panic attacks Status: Chronic Assessment and plan: Patient gets quite anxious. He has declined colonoscope earlier. 11/16/2016 he occasionally gets very anxious and occasionally refuses medications. Apparently no history of dementia. 11/17/2016 he is a bit anxious. 11/20/2016 patient seems much calmer today. 11/21/2016 seems calm today. 11/22/2016 patient is much calmer and joking around today. 11/23/2016 patient is calm. Current Visit: Yes (3) Gastrointestinal hemorrhage with melena Status: Acute Assessment and plan: Had negative EGD. Will set up for small bowel follow-through. Colonoscope. 11/16/2016 hematocrit is 30 and stable. No melena noted at present. 11/17/16 no active bleeding, it appears. Hematocrit 28 today. 11/20/2016 hematocrit is 27. We have not been able to anticoagulate due to the GI bleed. 11/21/2016 defer to GI. Certainly would be best if we knew the source of the GI bleed. 11/22/2016 hematocrit 30. No further GI bleeding. Current Visit: Yes (4) Pulmonary embolism Status: Acute Assessment and plan: Patient was acutely worsened overnight and found to have pulmonary emboli on CT. I think there is an element of congestive heart failure as well. Anticoagulation is contraindicated. He will need IVC filter most likely. Prognosis guarded. Will get venous Dopplers prior to deciding on the filter. 11/16/[address]. Gonzalez did place an IVC filter yesterday. This is really all we could do for a pulmonary embolus at this point in time. I do not think the pulmonary emboli were major. May consider anticoagulation once the cause of the GI bleed is defined. Otherwise would not do it. 11/17/16 patient had an IVC filter placed because of pulmonary emboli. Unable to use anticoagulants due to active GI bleeding. Not actively bleeding at present but still cannot use anticoagulants. 11/20/2016 patient had some right-sided emboli. Unable to anticoagulate due to GI bleed. Has IVC filter. Would consider starting anticoagulants whenever GI feels it is safe. Probably half dose Eliquis would be a good idea. 11/21/2016 relatively small load of emboli to the right lung. We have treated with an IVC filter because of the GI bleed. If no bleeding in 2 weeks would consider half dose Eliquis. Ideally needs further GI workup to find the source of the GI bleed. Patient has refused colonoscope earlier. 11/22/2016 treated with IVC filter because of GI bleed. Suggest half dose Eliquis in another week and a half if hematocrit is stable. Would need close watch of stool for bleeding. 11/23/16 has an IVC filter. Negative leg Dopplers. Again suggest Eliquis 2.5 mg twice daily for another week or so. Current Visit: Yes Specialty Discharge - Follow Up or Referrals Follow up with: Maycol Keane MD [Physician] - 2 Weeks (Follow up with Dr. Keane in 2-3 weeks with CBC, BMP, EKG. )
[2016-11-23] MEDS: ALBUTEROL/IPRATROPIUM 3 ML NEB RESP TX SCH ×4 (07:28→20:58)
--- NOTE | 2016-11-23 09:07 | Family Practice Progress Note ---
Family Practice - PN: Subj Interval history: Patient was admitted with rectal bleeding . Subsequently required 2 units of packed RBCs. His bleeding has stabilized since she has been in the intensive care unit. Patient had an EGD this a.m. which was unremarkable. Patient is had no further bleeding since admission to the hospital. He has been very lethargic today after receiving meds during the night for agitation as well as sedation this a.m. for the EGD. He will awake and answers questions appropriately. Moving all extremities with no localizing features. His labs are stable and vitals are stable with present. We will try to hold any further sedatives and if patient alert and functioning well in a.m. consider discharge. She had similar episodes in the past. Had recent admission with gastric and esophageal ulcers. These have apparently healed on EGD. We will continue to monitor in intensive care overnight. 11/14/16 -patient is much more alert this a.m. Still slightly confused but oriented. No new problems noted by staff. Vitals are stable. No hematochezia or melena noted. His a.m. labs are stable. Patient does not have any remembrance of last p.m. when he was extremely confused and lethargic. Reviewed chart in detail. Heart regular rate and rhythm, lungs are clear to auscultation, abdomen is soft and nontender. Will transfer to monitored bed and continue present evaluation. Will have patient ambulate and sit in chair as much as possible. Need to make sure patient can ambulate and care for himself at home. If patient has stable today will probably discharge a.m. 11/15/16 -patient was held in the intensive care due to significant agitation and confusion. Last p.m. he became extremely dyspneic and evaluation revealed component of congestive heart failure as well as pulmonary embolus in the right upper lobe and right lower lobe. Due to his history of GI bleed we are unable to anticoagulate at present. Patient presently requiring 100% rebreather. Being followed by Dr. Espinosa. He is to have a venous Doppler this a.m. and consideration for IVC filter placement. He is presently minimally responsive. Patient has multiple medical problems which are all complicating factors. I discussed in detail with patient's cousin. She is his only living relative. I advised that in view of his medical history with multiple medical problems and present medical state that I would not recommend patient being intubated in the event of respiratory failure. Cousin states that she would like to have him placed on a respirator in the event of respiratory failure. We will continue present treatment plan but overall prognosis is very poor. 11/16/16 -patient stable this a.m. His oxygenation is much improved and Dr. Espinosa has made changes. Staff reports that urine output has been decreased they feel that he is probably dry. He is not taking much fluids. He refuses to eat most foods only eats very soft type foods. He has mental status is still altered. He becomes very combative at times. He will answer questions but very slow response and very soft voice. I feel that he has had a component of dementia is progressively gotten worse over time. Certainly the ICU would exacerbate this condition. I plan to get him in a room so he can be with family members which I think will help improve his mental state. Staff feels that he is stable to transfer to telemetry floor. Agree with cardiology and pulmonary recommendations. Will transfer to telemetry and continue present treatment plan. Will start on IV fluids and monitor closely. 11/17/16-patient continues to slowly improve. Family and staff states that he continues to have some confusion but this is significantly improved also. He is alert and answers appropriate questions this a.m.. He still appears to be dyspneic at rest and has some slight wheezing in bases but is definitely improved. Patient has panic attacks and family states that he panics almost every time family members leave the room. He presently has a sitter which I had planned on stopping the day but family thinks that he will do very poorly without having somebody in the room. Family states that they cannot stay with the patient full-time. We will continue this overnight and hopefully can stop the sitter in a.m. no further signs of GI bleeding. He is otherwise stable and continues to slowly improve. Have consulted physical therapy as patient needs to be pending sitting in a chair as much as possible. 11/20/16 - patient continues to slowly improve. Less dyspnea today. He has ambulated with assistance. No new issues identified. Reviewed all lab and those studies. His lung [place] ARE to auscultation at present .discussed swing bed placement with patient and family. We'll have social studies teacher began swing bed placement. We'll otherwise continue present therapy increase activity 11/21/16 - patient continues to improve. He is ambulating using his walker. His dyspnea is much improved. Denies any chest pain or shortness of breath present. No further signs of GI bleed. We are awaiting approval for swing bed. Apparently there are some conflicts with his insurance about swing bed placement. I agree with pulmonary's recommendations for a half-strength eliquis to when patient is stable. No new problems identified. We'll continue present therapy awaiting swing bed placement 11/22/16 - patient continues to improve. Minimal dyspnea at rest. He is ambulating much better with his walker. He now states that he doesn't want to go to swing bed. I advised patient that he needs to talk with caregiver and make decisions so we can arrange discharge planning. He states that he would prefer home health with home physical therapy. Again stressed that he must make a decision so we can now proceed with discharge planning. Patient states that he will notify nursing staff and social studies teacher today of his decision. He is actually doing quite well. 11/23/16 -patient continues to slowly improve. No significant dyspnea or cough. I spent significant time with patient and talking to his caregiver. They have now decided to go to swing bed. I'm going to work with social studies teacher as patient is ready for discharge. I agree he would benefit from swing bed. He has reached maximum medical improvement for hospitalization and basically needs physical therapy To regain his strength and ambulation. Exam (Progress Note) - Constitutional Vitals: Period Temp Pulse Resp BP Sys/Gloria Pulse Ox Last 24 Hr 97.6 F-98.5 F 57-75 16-18 112-144/55-71 92-99 Results - Labs CBC & BMP: 11/22/16 04:06 11/22/16 04:06 Quality Measures - VTE Contraindication to Pharmacological VTE Prophylaxis: High Risk of Bleeding Specialty Discharge - Follow Up or Referrals Follow up with: Maycol Keane MD [Physician] - 2 Weeks (Follow up with Dr. Keane in 2-3 weeks with CBC, BMP, EKG. )
[2016-11-23] MEDS: PANTOPRAZOLE 40 MG TABLET PO SCH (10:16)
[2016-11-23] MEDS: FUROSEMIDE 20 MG TABLET PO SCH (10:16)
[2016-11-23] MEDS: SOTALOL 80 MG TABLET PO SCH ×2 (10:16→20:06)
[2016-11-23] MEDS: LOSARTAN 50 MG TABLET PO SCH (10:16)
[2016-11-23] MEDS: CEFUROXIME 500 MG TABLET PO SCH ×2 (10:16→20:08)
[2016-11-23] MEDS: DESITIN 4OZ/NYSTATIN 15 GRAM MIXTURE PASTE TOP SCH (12:32)
--- NOTE | 2016-11-23 13:59 | Cardiology Progress Note ---
Assessment and Plan - Time spent with patient Time spent with patient: Less than 30 minutes (1) Pulmonary embolism Status: Acute Assessment and plan: See plan of care listed below. Current Visit: Yes (2) History of GI bleed Status: Acute Assessment and plan: See plan of care listed below. Current Visit: Yes (3) Paroxysmal atrial fibrillation Status: Chronic Assessment and plan: See plan of care listed below. Current Visit: Yes (4) hypertension Status: Chronic Assessment and plan: See plan of care listed below. Current Visit: Yes (5) Panic attacks Status: Chronic Assessment and plan: See plan of care listed below. Current Visit: Yes Cardiology - PN: Subj Interval history: Breakfast Server: Dr. Keane PCP: Dr. Gilman SUMMARY: Mr. Lovelace is a 81 year old male with a history of hypertension, PAF, CVA, emphysema, GI Bleed, and claustrophobia who was admitted to the hospital with rectal bleeding requiring transfusion. He has undergone EGD which was unremarkable. He has been kept in the ICU due to agitation and confusion and has required bilateral wrist restraints. He went for CT chest which revealed a component of CHF as well as PE in the right upper lobe and right lower lobe. Given his history of GI bleed, he is not a candidate for full anticoagulation. Venous dopplers were negative for DVT. On 11/15/16, he went for PICC line placement and IVC filter with interventional radiology. He has also had several episodes of PAF since his admission. We were consulted to see him. There was suggestion of possible CHF. He had an elevated BNP after receiving IV fluids. Chest CT suggested trace bilateral pleural effusions. He was diuresed. Echocardiogram revealed EF 60%, grade I/IV diastolic dysfunction, mild LVH, mild AI, TR, CA, and small pericardial effusion. November 23, 2016 UPDATE: He denies any chest pain, shortness of breath. Hemodynamics are stable. He has been more ambulatory and is much less tachypneic. He remains in sinus rhythm. Continue current plan of care. With awaiting swing bed placement for the past 3-4 days. At this point, the patient states that he just wants to go home he is tired of waiting. He will need to follow up with Dr. Keane in 2-3 weeks with EKG. creatinine is up to 1.8 today. May need to consider switching his sotalol phonon renally excreted antiarrhythmic. Will further discuss with Dr. Fulton and await additional recommendations. ASSESSMENT/PLAN: 1. PULMONARY EMBOLUS - He is status post IVC filter placement. We will continue to follow along. 2. HISTORY OF GI BLEED - Has received a total of 2 units PRBCs. Will continue to monitor. Once his bleeding risk is lower, he could be a candidate for anticoagulation. 3. PAROXYSMAL ATRIAL FIBRILLATION - He is currently in normal sinus rhythm. He is also on Sotalol 80mg PO BID. 4. HYPERTENSION - No longer requiring Nipride. Cozaar was increased to 100mg po daily. Creatinine currently 1.7 with potassium 4.0. Will monitor BMP. 5. PANIC ATTACKS - Currently on Xanax 0.5mg PO TID PRN. Exam (Progress Note) - Constitutional Vitals: Period Temp Pulse Resp BP Sys/Gloria Pulse Ox Last 24 Hr 97.6 F-98.5 F 59-75 16-18 112-144/55-71 92-99 Exam: General appearance: Pleasant and cooperative. On room air. Head exam: Present: normal inspection, normocephalic, atraumatic. Absent: hematoma, laceration Eye exam: Present: EOMI. Absent: conjunctival injection, nystagmus, periorbital swelling, scleral icterus, laceration to eyelids Pupils: Present: PERRL. Absent: constricted, dilated, fixed, irregular, unequal ENT exam: Present: normal exam, normal external ear exam Neck exam: Present: normal inspection. Absent: lymphadenopathy, meningismus, tenderness, thyromegaly Respiratory exam: Present: Clear to auscultation bilaterally. Absent: accessory muscle use, chest wall tenderness, rhonchi. Cardiovascular exam: Present: regular rate and rhythm. Absent: gallop, JVD, rubs, murmur GI/Abdominal exam: Present: normal bowel sounds, soft. Absent: distended, firm , guarding, hernia, mass, tenderness, rebound. Extremities exam: Present: normal inspection, normal capillary refill. Upper extremity pulses 2+. Lower extremity pulses 2+. Absent: calf tenderness, edema Musculoskeletal: Present: No Fluid Collection, No Pain, Normal Range of Motion Neurological exam: Present: alert, oriented to person, calm at the time of exam. grossly intact without resting or essential tremor Psychiatric exam: Present: normal affect, normal mood, somewhat confused. Skin exam: Present: normal color, warm, dry, intact. Absent: cyanosis, diaphoretic, rash, urticaria Result/EKG - Labs CBC & BMP: 11/22/16 04:06 11/22/16 04:06 Lab Results: I have reviewed the past 24 hour labs - EKG EKG results: interpreted by me, sinus rhythm Quality Measures - VTE Contraindication to Pharmacological VTE Prophylaxis: High Risk of Bleeding Specialty Discharge - Follow Up or Referrals Follow up with: Maycol Keane MD [Physician] - 2 Weeks (Follow up with Dr. Keane in 2-3 weeks with CBC, BMP, EKG. )
[2016-11-23] MEDS: ACETAMINOPHEN 325 MG TABLET PO PRN (17:20)
[2016-11-24] MEDS: DESITIN 4OZ/NYSTATIN 15 GRAM MIXTURE PASTE TOP SCH ×2 (04:35→09:04)
[2016-11-24] MEDS: ALBUTEROL/IPRATROPIUM 3 ML NEB RESP TX SCH (08:06)
[2016-11-24 08:26] VITALS: BP 142/70
--- NOTE | 2016-11-24 08:30 | Discharge Summary ---
Specialty Discharge - Follow Up or Referrals Follow up with: Maycol Keane MD [Physician] - 2 Weeks (Follow up with Dr. Keane in 2-3 weeks with CBC, BMP w/ Mg, EKG. ) Discharge Plan - Discharge Data Disposition: Disch To Home/Self Care Condition at Discharge: Stable Discharge Diet: advance to your usual diet Activity: ambulate only with your walker Weight Bearing at Discharge: weight bear as tolerated Contact your physician if you experience:: fever over 101, Shortness of breath - Discharge Medications New Furosemide Tab [Lasix Tab] 20 mg PO DAILY #30 tablet Continue Albuterol/Ipratropium Neb [Duoneb] 3 ml RESP TX QID Aspirin [Ecotrin] 81 mg PO DAILY ALPRAZolam [Xanax] 0.5 mg PO TID PRN #60 tablet PRN Reason: Anxiety Losartan [Cozaar] 50 mg PO DAILY #30 tablet Sotalol [Betapace] 80 mg PO BID #60 tablet Pantoprazole Tab [Protonix Tab] 40 mg PO BID #30 tablet - Follow Up or Referral Follow Up: Maycol Keane MD [Physician] - 2 Weeks (Follow up with Dr. Keane in 2-3 weeks with POPPY, BMP w/ Mg, EKG. ) Robin Gilman DO [Physician] - 2 Weeks - Forms/Instructions Additional Discharge Instructions: Patient needs all medications refilled. Please call these to Mr. castellon in [place]. Exam - Constitutional Vitals: Period Temp Pulse Resp BP Sys/Gloria Pulse Ox Last 24 Hr 97.5 F-98.2 F 60-71 18-20 104-142/54-77 93-98 DS: Provider Date of admission: 11/13/16 10:18 Primary care physician: . No PCP Attending physician on admission: Robin Gilman DO Consults: 11/11/16 11:37 Consult to Case Mgmt/Social Srvs [CONS] Routine Reason for Case Mgmt/Social Srvs: Discharge Planning 11/11/16 11:47 Consult to Physician [CONS] Routine Comment: Consulting Provider: Nilay Carney Consulting Provider Notified: No When should Consulting Provider be notified: Now Consult to Specialist Group: Gastroenterology When should Consulting Provider be notified: Now 11/12/16 09:49 Consult to Anesthesiology [CONS] Routine Consulting Provider: Reason for Anesthesiology: Pre-op Clearance 11/14/16 11:27 Consult to Physical Therapy [CONS] Routine Reason for Physical Therapy: Ambulation Start Therapy: Today Consult Comment: Assist with ambulation 11/14/16 21:25 Consult to Physician [CONS] Routine Comment: Consulting Provider: Devang Espinosa Person Notified: Dr. Espinosa Date Notified: 11/14/16 Time Notified: 21:36 11/15/16 03:09 Consult to Physician [CONS] Routine Comment: Consulting Provider: Jose Hyde Person Notified: Dr. Hyde Date Notified: 11/15/16 Time Notified: 00:02 11/18/16 09:17 Consult to Case Mgmt/Social Srvs [CONS] Routine Reason for Case Mgmt/Social Srvs: Swingbed/SNF/[facility] Other Consult Comment: home health with PT vs longterm? 11/20/16 09:57 Consult to Physical Therapy [CONS] Routine Reason for Physical Therapy: Evaluate and Treat 11/21/16 15:16 OT [Consult to Occupational Therapy] [CONS] Routine Reason for Occupational Therapy: Evaluate and Treat Discharging clinician: Robin Gilman DO
--- NOTE | 2016-11-24 08:45 | Pulmonology Progress Note ---
Pulmonary - PN: Subj Interval history: This 81-year-old white male came in with GI bleed. Source has not been found as yet after an EGD. Patient has had atrial fibrillation with rapid ventricular response and is now in sinus rhythm on amiodarone. He has been reluctant to take some of his medications including sotalol. He became acutely short of breath not before last with test indicating that he has had pulmonary emboli to the right lung. This does not appear to be massive embolism. He was not able to be anticoagulated so we had an IVC filter placed yesterday. He is better now with a PO2 of 303 on 60% facemask oxygen. Will reduce FiO2. 11/17/2016 patient is a little more short of breath this morning. He does have some wheezing. He was put back on saline yesterday. Has congestive heart failure. Will stop saline and give Lasix. Has pulmonary thromboembolic disease involving his right long which was treated with an IVC filter because of GI bleeding. 11/20/2016 patient feeling much better and his lungs sound better. He is not coughing up any phlegm. I think we can change to oral antibiotics. I think the infiltrates are primarily edema. 11/21/2016 patient is feeling better. The quandary we have is that we do not know where his GI bleed came from, and thus we cannot give him anticoagulants despite his having pulmonary emboli. If he does not have any further GI bleeding, would consider something like half dose Eliquis after 2 weeks from last GI bleed. Defer to GI as far as any further evaluation indicated. He does not appear to be bleeding at present. He will certainly be at increased risk for deep vein thrombosis or recurrent emboli despite the IVC filter if not on anticoagulants. 11/22/2016 again patient feeling better. Not short of breath. No further GI bleeding. Agree with plans for swing bed if he would agree to that. Recheck CBC and consider low-dose Eliquis in another week and a half. 11/23/2016 patient is feeling better. He grew staph aureus from his sputum but it was not methicillin-resistant. He has been on cephalosporins which should cover it. Probably did have a left upper lobe pneumonitis. Also has had pulmonary emboli treated with IVC umbrella. As discussed with Dr. Gilman, would plan to put on half dose Eliquis once he is 2 weeks out from his last signs of GI bleeding. 11/24/2016 patient is much improved. Agree with plans for discharge with home health. Would suggest putting him on half dose Eliquis in about another week. Defer to Dr. Gilman on follow-up there. Exam (Progress Note) - Constitutional Vitals: Period Temp Pulse Resp BP Sys/Gloria Pulse Ox Last 24 Hr 97.5 F-98.2 F 60-71 18-20 104-142/54-77 93-98 Exam: Patient is presently responsive. Vital signs are normal. Pupils react to light. Wearing nasal oxygen. O2 sat 98%. Neck is supple. Chest sounds clear. Equal breath sounds. Heart normal rate and rhythm no murmurs. Abdomen soft nontender bowel sounds present. Extremities no clubbing cyanosis or edema. Calves nontender. Little change from yesterday Results - Labs CBC & BMP: 11/22/16 04:06 11/22/16 04:06 Lab Results: I have reviewed the past 24 hour labs Assessment and Plan (1) Atrial fibrillation with RVR Status: Resolved Assessment and plan: Managed by cardiology. Patient is not on anticoagulants on admission. 11/16/2016 presently in a sinus rhythm. 11/17/2016 sinus rhythm controlled rate 11/20/2016 this is now controlled. He is in a sinus rhythm. 11/21/2016 sinus rhythm control rate. 11/22/2016 now in a regular rhythm. 11/23/16 converted to sinus rhythm. Current Visit: No (2) Panic attacks Status: Chronic Assessment and plan: Patient gets quite anxious. He has declined colonoscope earlier. 11/16/2016 he occasionally gets very anxious and occasionally refuses medications. Apparently no history of dementia. 11/17/2016 he is a bit anxious. 11/20/2016 patient seems much calmer today. 11/21/2016 seems calm today. 11/22/2016 patient is much calmer and joking around today. 11/23/2016 patient is calm. 11/24/2016 patient seems very calm today. Current Visit: Yes (3) Gastrointestinal hemorrhage with melena Status: Acute Assessment and plan: Had negative EGD. Will set up for small bowel follow-through. Colonoscope. 11/16/2016 hematocrit is 30 and stable. No melena noted at present. 11/17/16 no active bleeding, it appears. Hematocrit 28 today. 11/20/2016 hematocrit is 27. We have not been able to anticoagulate due to the GI bleed. 11/21/2016 defer to GI. Certainly would be best if we knew the source of the GI bleed. 11/22/2016 hematocrit 30. No further GI bleeding. 11/24/2016 no further GI bleeding. Needs to be watched for this once he is put on anticoagulants. Current Visit: Yes (4) Pulmonary embolism Status: Acute Assessment and plan: Patient was acutely worsened overnight and found to have pulmonary emboli on CT. I think there is an element of congestive heart failure as well. Anticoagulation is contraindicated. He will need IVC filter most likely. Prognosis guarded. Will get venous Dopplers prior to deciding on the filter. 11/16/[address]. Gonzalez did place an IVC filter yesterday. This is really all we could do for a pulmonary embolus at this point in time. I do not think the pulmonary emboli were major. May consider anticoagulation once the cause of the GI bleed is defined. Otherwise would not do it. 11/17/16 patient had an IVC filter placed because of pulmonary emboli. Unable to use anticoagulants due to active GI bleeding. Not actively bleeding at present but still cannot use anticoagulants. 11/20/2016 patient had some right-sided emboli. Unable to anticoagulate due to GI bleed. Has IVC filter. Would consider starting anticoagulants whenever GI feels it is safe. Probably half dose Eliquis would be a good idea. 11/21/2016 relatively small load of emboli to the right lung. We have treated with an IVC filter because of the GI bleed. If no bleeding in 2 weeks would consider half dose Eliquis. Ideally needs further GI workup to find the source of the GI bleed. Patient has refused colonoscope earlier. 11/22/2016 treated with IVC filter because of GI bleed. Suggest half dose Eliquis in another week and a half if hematocrit is stable. Would need close watch of stool for bleeding. 11/23/16 has an IVC filter. Negative leg Dopplers. Again suggest Eliquis 2.5 mg twice daily for another week or so. 11/24/2016 has IVC filter but would do better to have some anticoagulants as discussed. This will be if his GI tract tolerates it. Current Visit: Yes Specialty Discharge - Follow Up or Referrals Follow up with: Robin Gilman DO [Physician] - 2 Weeks Maycol Keane MD [Physician] - 12/07/16 1:00 pm (Follow up with Dr. Keane in 2 -3 weeks with CBC, BMP w/ Mg, EKG. Come to appointment at 12:40 for labwork.)
[2016-11-24] MEDS: SOTALOL 80 MG TABLET PO SCH (09:02)
[2016-11-24] MEDS: FUROSEMIDE 20 MG TABLET PO SCH (09:03)
[2016-11-24] MEDS: PANTOPRAZOLE 40 MG TABLET PO SCH (09:04)
[2016-11-24] MEDS: LOSARTAN 50 MG TABLET PO SCH (09:04)
--- NOTE | 2016-12-07 11:55 | Physician Query Form ---
CLICK EDIT DOCUMENT TO SELECT QUERY ANSWER --> OK --> SIGN Francia Kemp RN, CCDS Certified Clinical Photograph Tinter W) [phone] (f) [phone] [email or web address] PROVIDERS: Make your selection(s) from the choices in EACH section by typing an "x" and enter comments in the comment section. Please use your independent medical judgment in providing your response. This request does not imply that any particular answer is desired or expected. CLINICAL INDICATORS: (Providers should not edit this section) The medical record indicates that the patient was admitted with GI bleeding, on the "pt breathing hard", "think there is an element of congestive heart failure", "pulmonary edema", BNP of 413, "CT chest which revealed a component of CHF", patient was diuresed with IV Lasix. ECHO-------- Normal LV systolic function, grade 1/4 diastolic dysfunction with ejection fraction 60%. Please provide further specificity regarding the acuity of CHF. ACUITY: ( ) Acute ( ) Chronic ( ) Acute on Chronic (x ) Other, please specify- I AM NOT INVOLVED WITH THE CARE OF THIS PATIENT SO I DON'T KNOW ( ) Clinically unable to determine COMMENTS: PLEASE ALSO DOCUMENT RESPONSE IN PROGRESS NOTES AND/OR DISCHARGE SUMMARY Use of terms such as suspected, likely, or probable (associated with a specific diagnosis that is being evaluated, monitored, or treated as if it exists) are acceptable and can be restated in the discharge summary if not ruled out. MTDD
== END 2016-11-24 10:04 | disposition home or self-care (01) | DRG 356 ==
LOC: N.ICU 08:26 → N.ED 08:26 → N.ICU 12:45 → N.TELES 11-16 14:05
PROVIDERS: ADMIT Family Medicine; ATTEND Family Medicine

== ENCOUNTER 2017-07-27 12:42 | Inpatient (IN) ==
[2017-07-27] MEDS ORDERED: MAGNESIUM SULF RIDER 2 GM in PREMIX 1 EACH IV STA (13:00)
[2017-07-27] MEDS ORDERED: MAGNESIUM SULF RIDER 50 ML IV ONE (13:22)
[2017-07-27 13:33] LABS: Partial Thromboplastin Time 27.2 SECS (0-40)
[2017-07-27 13:44] LABS: Basophils # 0.1 10*3/uL (0.0-0.2); Basophils % 0.6 % (0.0-0.8); Eosinophils # 0.2 10*3/uL (0.0-0.87); Eosinophils % 1.8 % (0.00-10.9); Hematocrit 36.1 VOL% (42.0-52.0); Immature Granulocytes % 0.4 %; Immature Granulocytes Absolute 0.05 #; Lymphocytes # 2.7 10*3/uL (1.4-4.0); Lymphocytes % 23.7 % (21.2-54.2); Mean Corpuscular HGB Conc 28.5 GM/DL (32-36); Mean Corpuscular Hemoglobin 21 PG (27-34); Mean Corpuscular Volume 73.2 FL (87-102); Mean Platelet Volume 11.7 FL (9.6-12.0); Monocytes # 1.3 10*3/uL (0.11-0.8); Monocytes % 11.2 % (1.7-12.7); Neutrophils % 62.3 % (38.7-73.9); Platelet Count 270 T/CUMM (130-400); Red Blood Count 4.93 MC/CUMM (3.8-5.5); Red Cell Distribution Width 17.5 % (9.3-17.3); White Blood Count 11.2 T/CUMM (4-12)
[2017-07-27 13:45] LABS: Hemoglobin 10.4 GM/DL (14.0-18.0)
[2017-07-27 13:51] LABS: Albumin 3.1 G/DL (3.4-5.0); Bilirubin,Total 0.5 MG/DL (0.2-1.0); Calcium 8.7 MG/DL (8.5-10.1); Osmolality,Calculated 280.5 MOS/KG (273-304); Potassium 4.4 MMOL/L (3.5-5.1); Thyroid Stimulating Hormone 5.42 uIU/ml (0.358-3.74); Total Protein 7.3 G/DL (6.4-8.3)
[2017-07-27] MEDS ORDERED: DILTIAZEM 50 MG/10 ML VIAL IV STA (14:31)
[2017-07-27] MEDS ORDERED: DILTIAZEM 50 MG/10 ML VIAL IV ONE (14:45)
[2017-07-27] MEDS ORDERED: DILTIAZEM 100 MG VIAL.ADD IV ONE (14:45)
[2017-07-27] MEDS: DILTIAZEM INJ 100 MG in SODIUM CHLORIDE 0.9% 100 ML IV SCH ×2 (14:52→23:04)
[2017-07-27 14:53] LABS: Barbiturates Screen,Urine Negative (Negative); Benzodiazepines Screen,Urine Negative (Negative); Cannabinoid Screen,Urine Negative (Negative); Opiate Screen,Urine Negative (Negative); Phencyclidine Screen,Urine Negative (Negative)
[2017-07-27 15:07] LABS: Apearance,Urine CLOUDY (Clear); Bilirubin,Urine Negative (Negative); Blood, Urine Large mg/dL (Negative); Glucose,Urine (UA) Negative (Negative); Ketones,Urine Negative (Negative); Mucus,Urine Occasional /LPF (Occasional); Nitrite,Urine Positive (Negative); Protein,Urine 100 MG/DL; Urine Color Yellow (Yellow); Urine Specific Gravity 1.015 (1.001-1.035); Urine Urobilinogen < 2.0 EU/DL (0.2-1.0); WBC,Urine 229 /HPF (0-6)
[2017-07-27 15:09] LABS: RBC,Urine 1401 /HPF (0-4)
[2017-07-27] MEDS ORDERED: SODIUM CHLORIDE 0.9% 250 ML IV PRN (15:24)
[2017-07-27] MEDS ORDERED: ONDANSETRON 4 MG/2 ML VIAL IV PRN (17:34)
[2017-07-27] MEDS: SODIUM CHLORIDE 0.9% 1,000 ML IV SCH (18:30)
[2017-07-27] MEDS: DOCUSATE SODIUM 100 MG CAPSULE PO SCH (20:57)
[2017-07-27] MEDS: ENOXAPARIN 40 MG/0.4 ML SYRINGE SUBCUT SCH (20:57)
[2017-07-28] MEDS ORDERED: cefTRIAXone 1,000 MG in SYRINGE 1 EACH IV SCH (07:30)
[2017-07-28] MEDS: PANTOPRAZOLE 40 MG TABLET PO SCH (08:29)
[2017-07-28] MEDS: ALPRAZolam 0.5 MG TABLET PO PRN (08:29)
[2017-07-28] MEDS: DOCUSATE SODIUM 100 MG CAPSULE PO SCH ×3 (08:29→22:09)
[2017-07-28] MEDS: ASPIRIN EC 325 MG TABLET PO SCH (08:29)
[2017-07-28] MEDS: SOTALOL 80 MG TABLET PO SCH ×2 (08:32→22:09)
[2017-07-28] MEDS: POTASSIUM GLUCONATE 500 MG TABLET PO SCH (08:32)
[2017-07-28] MEDS: ALBUTEROL/IPRATROPIUM 3 ML NEB RESP TX PRN (08:57)
[2017-07-28] MEDS ORDERED: diphenhydrAMINE CAP 25 MG CAPSULE PO PRN (09:38)
[2017-07-28] MEDS ORDERED: methylPREDNISolone SOD SUC 125 MG/2 ML VIAL IV ONE ×2 (09:38)
[2017-07-28] MEDS: diphenhydrAMINE CAP 25 MG CAPSULE PO PRN (09:54)
[2017-07-28] MEDS ORDERED: methylPREDNISolone SOD SUC 40 MG/1 ML VIAL IV SCH (10:00)
[2017-07-28] MEDS ORDERED: LEVOFLOXACIN INJ 500 MG in PREMIX 1 EACH IV SCH (10:00)
[2017-07-28] MEDS: methylPREDNISolone SOD SUC 40 MG/1 ML VIAL IV SCH ×2 (10:16→17:48)
[2017-07-28] MEDS: ALBUTEROL/IPRATROPIUM 3 ML NEB RESP TX SCH ×2 (15:56→20:25)
[2017-07-28] MEDS: ENOXAPARIN 40 MG/0.4 ML SYRINGE SUBCUT SCH (22:09)
[2017-07-28] MEDS: SULFAMETHOX/TRIMETHOPRIM 800-160 MG TABLET PO SCH (22:09)
[2017-07-28] MEDS: DILTIAZEM INJ 100 MG in SODIUM CHLORIDE 0.9% 100 ML IV SCH (23:03)
[2017-07-28] MEDS: SODIUM CHLORIDE 0.9% 1,000 ML IV SCH (23:09)
[2017-07-29] MEDS: ALPRAZolam 0.5 MG TABLET PO PRN ×2 (02:05→20:39)
[2017-07-29] MEDS: methylPREDNISolone SOD SUC 40 MG/1 ML VIAL IV SCH ×3 (02:05→18:04)
[2017-07-29] MEDS: ALBUTEROL/IPRATROPIUM 3 ML NEB RESP TX SCH ×4 (02:09→19:00)
[2017-07-29] MEDS ORDERED: DILTIAZEM 50 MG/10 ML VIAL IV ONE (06:30)
[2017-07-29] MEDS: SODIUM CHLORIDE 0.9% 1,000 ML IV SCH (07:30)
[2017-07-29] MEDS: NITROFURANTOIN MACRO/MONO 100 MG CAPSULE PO SCH ×2 (08:43→20:38)
[2017-07-29] MEDS: SOTALOL 80 MG TABLET PO SCH ×2 (08:44→20:39)
[2017-07-29] MEDS: SULFAMETHOX/TRIMETHOPRIM 800-160 MG TABLET PO SCH ×2 (08:44→20:39)
[2017-07-29] MEDS: POTASSIUM GLUCONATE 500 MG TABLET PO SCH (08:44)
[2017-07-29] MEDS: DOCUSATE SODIUM 100 MG CAPSULE PO SCH ×2 (08:44→20:39)
[2017-07-29] MEDS: PANTOPRAZOLE 40 MG TABLET PO SCH (08:44)
[2017-07-29] MEDS: ASPIRIN EC 325 MG TABLET PO SCH (08:44)
[2017-07-29] MEDS: DILTIAZEM INJ 100 MG in SODIUM CHLORIDE 0.9% 100 ML IV SCH ×3 (10:07→20:33)
[2017-07-29] MEDS ORDERED: FUROSEMIDE 40 MG/4 ML VIAL IV ONE (10:22)
[2017-07-29] MEDS: DILTIAZEM 60 MG TABLET PO SCH ×2 (17:17→20:39)
[2017-07-29] MEDS: TAMSULOSIN 0.4 MG CAPSULE PO SCH (20:39)
[2017-07-29] MEDS: ACETAMINOPHEN 325 MG TABLET PO PRN (20:40)
[2017-07-29] MEDS: ENOXAPARIN 40 MG/0.4 ML SYRINGE SUBCUT SCH (20:45)
[2017-07-30] MEDS: ALBUTEROL/IPRATROPIUM 3 ML NEB RESP TX SCH ×4 (00:21→20:35)
[2017-07-30] MEDS: methylPREDNISolone SOD SUC 40 MG/1 ML VIAL IV SCH ×3 (01:51→17:19)
[2017-07-30] MEDS: SODIUM CHLORIDE 0.9% 1,000 ML IV SCH (06:46)
[2017-07-30] MEDS: ACETAMINOPHEN 325 MG TABLET PO PRN (06:46)
[2017-07-30] MEDS: DOCUSATE SODIUM 100 MG CAPSULE PO SCH ×2 (09:31→20:47)
[2017-07-30] MEDS: POTASSIUM GLUCONATE 500 MG TABLET PO SCH (09:31)
[2017-07-30] MEDS: PANTOPRAZOLE 40 MG TABLET PO SCH (09:31)
[2017-07-30] MEDS: ASPIRIN EC 325 MG TABLET PO SCH (09:31)
[2017-07-30] MEDS: SULFAMETHOX/TRIMETHOPRIM 800-160 MG TABLET PO SCH ×2 (09:31→20:46)
[2017-07-30] MEDS: NITROFURANTOIN MACRO/MONO 100 MG CAPSULE PO SCH ×2 (09:31→20:53)
[2017-07-30] MEDS: DILTIAZEM 60 MG TABLET PO SCH ×3 (09:32→20:46)
[2017-07-30] MEDS: SOTALOL 80 MG TABLET PO SCH ×3 (09:32→20:47)
[2017-07-30] MEDS: DILTIAZEM INJ 100 MG in SODIUM CHLORIDE 0.9% 100 ML IV SCH (15:16)
[2017-07-30] MEDS: TAMSULOSIN 0.4 MG CAPSULE PO SCH (20:46)
[2017-07-30] MEDS: ALPRAZolam 0.5 MG TABLET PO PRN (20:46)
[2017-07-30] MEDS: ENOXAPARIN 40 MG/0.4 ML SYRINGE SUBCUT SCH (20:46)
[2017-07-31] MEDS: ALBUTEROL/IPRATROPIUM 3 ML NEB RESP TX SCH ×4 (00:59→19:02)
[2017-07-31] MEDS: methylPREDNISolone SOD SUC 40 MG/1 ML VIAL IV SCH ×3 (02:42→18:43)
[2017-07-31 05:45] LABS: Calcium 9.1 MG/DL (8.5-10.1); Osmolality,Calculated 299.3 MOS/KG (273-304); Potassium 4.5 MMOL/L (3.5-5.1)
[2017-07-31 05:54] LABS: Basophils % 0.1 % (0.0-0.8); Hematocrit 30.8 VOL% (42.0-52.0); Immature Granulocytes % 1.8 %; Immature Granulocytes Absolute 0.29 #; Lymphocytes # 0.6 10*3/uL (1.4-4.0); Lymphocytes % 3.8 % (21.2-54.2); Mean Corpuscular HGB Conc 29.2 GM/DL (32-36); Mean Corpuscular Hemoglobin 21 PG (27-34); Mean Corpuscular Volume 71.8 FL (87-102); Mean Platelet Volume 11.9 FL (9.6-12.0); Monocytes # 0.4 10*3/uL (0.11-0.8); Monocytes % 2.5 % (1.7-12.7); NRBC # 0.03 10*3/uL; Neutrophils % 91.8 % (38.7-73.9); Platelet Count 246 T/CUMM (130-400); Red Blood Count 4.29 MC/CUMM (3.8-5.5); Red Cell Distribution Width 17.9 % (9.3-17.3); White Blood Count 16.3 T/CUMM (4-12)
[2017-07-31 06:02] LABS: Hypochromasia 1+; Lymphocytes 4 % (20-55); Microcytosis 1+; Segmented Neutrophils 94 % (50-85); Total Cells Counted 100
[2017-07-31 06:03] LABS: Ovalocytes Slight; Platelet Estimate Normal; Polychromasia Slight
[2017-07-31 06:30] LABS: Alanine Aminotransferase 15 U/L (16-61); Alkaline Phosphatase 67 U/L (45-117); Aspartate Amino Transferase 9 U/L (0-37); Bilirubin,Total < 0.39 MG/DL (0.2-1.0); Blood Urea Nitrogen 56 MG/DL (7-18); Calcium 8.8 MG/DL (8.5-10.1); Free T4 (Free Thyroxine) 0.83 NG/DL (0.76-1.46); Glucose 156 MG/DL (74-106); Osmolality,Calculated 297.4 MOS/KG (273-304); Potassium 4.5 MMOL/L (3.5-5.1); Sodium 140 MMOL/L (136-145); Thyroid Stimulating Hormone 0.755 uIU/ml (0.358-3.74); Total Protein 7.1 G/DL (6.4-8.3)
[2017-07-31 08:19] LABS: ABG Base Excess -0.8 MMOL/L (-2.5-2.5); ABG HCO3 23.7 MMOL/L (20-26); ABG Oxygen Saturation 93.9 % (95-100); ABG PCO2 40.4 MM HG (35-48); ABG PH 7.383 (7.35-7.45); ABG PO2 68.4 MM HG (80-95); ABG TCO2 22.3 MMOL/L (23-27)
[2017-07-31] MEDS: LINEZOLID INJ 600 MG in PREMIX 1 EACH IV SCH ×2 (09:52→21:33)
[2017-07-31] MEDS: SULFAMETHOX/TRIMETHOPRIM 800-160 MG TABLET PO SCH ×2 (09:53→21:34)
[2017-07-31] MEDS: DOCUSATE SODIUM 100 MG CAPSULE PO SCH ×2 (09:53→21:34)
[2017-07-31] MEDS: PANTOPRAZOLE 40 MG TABLET PO SCH (09:53)
[2017-07-31] MEDS: POTASSIUM GLUCONATE 500 MG TABLET PO SCH (09:53)
[2017-07-31] MEDS: DILTIAZEM 60 MG TABLET PO SCH ×3 (09:53→21:34)
[2017-07-31] MEDS: SOTALOL 80 MG TABLET PO SCH ×2 (09:53→21:34)
[2017-07-31] MEDS: ASPIRIN EC 325 MG TABLET PO SCH (09:53)
[2017-07-31] MEDS: DILTIAZEM INJ 100 MG in SODIUM CHLORIDE 0.9% 100 ML IV SCH (15:49)
[2017-07-31] MEDS: ENOXAPARIN 40 MG/0.4 ML SYRINGE SUBCUT SCH (21:33)
[2017-07-31] MEDS: SODIUM CHLORIDE 0.9% 1,000 ML IV SCH ×2 (21:33→23:00)
[2017-07-31] MEDS: TAMSULOSIN 0.4 MG CAPSULE PO SCH (21:34)
[2017-07-31] MEDS: ALPRAZolam 0.5 MG TABLET PO PRN (21:35)
[2017-08-01] MEDS: ALBUTEROL/IPRATROPIUM 3 ML NEB RESP TX SCH ×4 (00:04→19:45)
[2017-08-01] MEDS: methylPREDNISolone SOD SUC 40 MG/1 ML VIAL IV SCH ×3 (01:11→17:57)
[2017-08-01] MEDS: SODIUM CHLORIDE 0.9% 1,000 ML IV SCH ×2 (03:03→17:17)
[2017-08-01 04:12] LABS: Basophils % 0.1 % (0.0-0.8); Hematocrit 29.9 VOL% (42.0-52.0); Hemoglobin 8.7 GM/DL (14.0-18.0); Immature Granulocytes % 3.4 %; Immature Granulocytes Absolute 0.53 #; Lymphocytes # 0.7 10*3/uL (1.4-4.0); Lymphocytes % 4.7 % (21.2-54.2); Mean Corpuscular HGB Conc 29.1 GM/DL (32-36); Mean Corpuscular Hemoglobin 21 PG (27-34); Mean Corpuscular Volume 70.7 FL (87-102); Mean Platelet Volume 11.7 FL (9.6-12.0); Monocytes # 0.5 10*3/uL (0.11-0.8); Monocytes % 2.9 % (1.7-12.7); NRBC # 0.11 10*3/uL; Neutrophils # 13.9 10*3/uL (1.4-7.4); Neutrophils % 88.9 % (38.7-73.9); Platelet Count 258 T/CUMM (130-400); Red Blood Count 4.23 MC/CUMM (3.8-5.5); Red Cell Distribution Width 17.7 % (9.3-17.3); White Blood Count 15.6 T/CUMM (4-12)
[2017-08-01 04:35] LABS: Albumin 3.1 G/DL (3.4-5.0); Bilirubin,Total 0.7 MG/DL (0.2-1.0); Calcium 8.7 MG/DL (8.5-10.1); Osmolality,Calculated 294.5 MOS/KG (273-304); Potassium 4.5 MMOL/L (3.5-5.1)
[2017-08-01] MEDS: ALPRAZolam 0.5 MG TABLET PO PRN ×2 (04:36→21:02)
[2017-08-01 04:45] LABS: Giant Platelets Few; Hypochromasia 1+; Lymphocytes 4 % (20-55); Ovalocytes Slight; Platelet Estimate Adequate; Segmented Neutrophils 93 % (50-85); Total Cells Counted 100
[2017-08-01 04:46] LABS: Microcytosis 1+
[2017-08-01] MEDS: ASPIRIN EC 325 MG TABLET PO SCH (08:55)
[2017-08-01] MEDS: SOTALOL 80 MG TABLET PO SCH ×2 (08:55→21:02)
[2017-08-01] MEDS: DOCUSATE SODIUM 100 MG CAPSULE PO SCH ×3 (08:55→21:02)
[2017-08-01] MEDS: DILTIAZEM 60 MG TABLET PO SCH ×3 (08:55→21:01)
[2017-08-01] MEDS: PANTOPRAZOLE 40 MG TABLET PO SCH (08:55)
[2017-08-01] MEDS: LINEZOLID INJ 600 MG in PREMIX 1 EACH IV SCH ×2 (08:55→21:02)
[2017-08-01] MEDS: POTASSIUM GLUCONATE 500 MG TABLET PO SCH (08:55)
[2017-08-01] MEDS: SULFAMETHOX/TRIMETHOPRIM 800-160 MG TABLET PO SCH ×2 (08:55→21:01)
[2017-08-01] MEDS: DILTIAZEM INJ 100 MG in SODIUM CHLORIDE 0.9% 100 ML IV SCH (14:50)
[2017-08-01] MEDS: ENOXAPARIN 40 MG/0.4 ML SYRINGE SUBCUT SCH (21:01)
[2017-08-01] MEDS: TAMSULOSIN 0.4 MG CAPSULE PO SCH (21:02)
[2017-08-02] MEDS: ALBUTEROL/IPRATROPIUM 3 ML NEB RESP TX SCH ×4 (00:58→19:31)
[2017-08-02] MEDS: methylPREDNISolone SOD SUC 40 MG/1 ML VIAL IV SCH ×3 (02:46→17:46)
[2017-08-02 05:36] LABS: Hemoglobin 8.3 GM/DL (14.0-18.0); Immature Granulocytes % 5.1 %; Lymphocytes # 0.6 10*3/uL (1.4-4.0); Lymphocytes % 5.9 % (21.2-54.2); Mean Corpuscular HGB Conc 29.6 GM/DL (32-36); Mean Corpuscular Hemoglobin 21 PG (27-34); Mean Corpuscular Volume 70.5 FL (87-102); Mean Platelet Volume 12.1 FL (9.6-12.0); Monocytes # 0.3 10*3/uL (0.11-0.8); Monocytes % 3.1 % (1.7-12.7); NRBC # 0.13 10*3/uL; Neutrophils # 8.5 10*3/uL (1.4-7.4); Neutrophils % 85.9 % (38.7-73.9); Platelet Count 239 T/CUMM (130-400); Red Blood Count 3.97 MC/CUMM (3.8-5.5); Red Cell Distribution Width 17.6 % (9.3-17.3); White Blood Count 9.9 T/CUMM (4-12)
[2017-08-02 06:08] LABS: Giant Platelets Few; Hypochromasia 1+; Lymphocytes 2 % (20-55); Nucleated Red Blood Cells 1 (0-5); Ovalocytes Slight; Platelet Estimate Adequate; Segmented Neutrophils 95 % (50-85); Total Cells Counted 100
[2017-08-02 06:09] LABS: Microcytosis 1+
[2017-08-02 06:12] LABS: Alanine Aminotransferase 19 U/L (16-61); Albumin 2.9 G/DL (3.4-5.0); Alkaline Phosphatase 55 U/L (45-117); Aspartate Amino Transferase 6 U/L (0-37); Bilirubin,Total < 0.39 MG/DL (0.2-1.0); Blood Urea Nitrogen 59 MG/DL (7-18); Calcium 8.4 MG/DL (8.5-10.1); Glucose 160 MG/DL (74-106); Osmolality,Calculated 296.5 MOS/KG (273-304); Potassium 4.6 MMOL/L (3.5-5.1); Sodium 139 MMOL/L (136-145); Total Protein 6.4 G/DL (6.4-8.3)
[2017-08-02] MEDS: LINEZOLID INJ 600 MG in PREMIX 1 EACH IV SCH ×2 (08:42→21:09)
[2017-08-02] MEDS: DOCUSATE SODIUM 100 MG CAPSULE PO SCH ×2 (08:42→21:11)
[2017-08-02] MEDS: PANTOPRAZOLE 40 MG TABLET PO SCH (08:43)
[2017-08-02] MEDS: SOTALOL 80 MG TABLET PO SCH ×2 (08:43→21:11)
[2017-08-02] MEDS: SULFAMETHOX/TRIMETHOPRIM 800-160 MG TABLET PO SCH ×2 (08:43→21:11)
[2017-08-02] MEDS: DILTIAZEM 60 MG TABLET PO SCH ×3 (08:43→21:11)
[2017-08-02] MEDS: ALPRAZolam 0.5 MG TABLET PO PRN ×2 (08:43→21:11)
[2017-08-02] MEDS: ASPIRIN EC 325 MG TABLET PO SCH (08:43)
[2017-08-02] MEDS ORDERED: cefTRIAXone 1,000 MG in SYRINGE 1 EACH IV ONE (09:00)
[2017-08-02] MEDS: POTASSIUM GLUCONATE 500 MG TABLET PO SCH (09:00)
[2017-08-02] MEDS: SODIUM CHLORIDE 0.9% 1,000 ML IV SCH ×2 (09:31→14:19)
[2017-08-02] MEDS: DILTIAZEM INJ 100 MG in SODIUM CHLORIDE 0.9% 100 ML IV SCH (14:31)
[2017-08-02] MEDS: TAMSULOSIN 0.4 MG CAPSULE PO SCH (21:11)
[2017-08-03] MEDS: ALBUTEROL/IPRATROPIUM 3 ML NEB RESP TX SCH ×4 (00:31→19:47)
[2017-08-03] MEDS: methylPREDNISolone SOD SUC 40 MG/1 ML VIAL IV SCH ×3 (01:25→18:37)
[2017-08-03] MEDS ORDERED: cefTRIAXone 1,000 MG in SYRINGE 1 EACH IV ONE (06:00)
[2017-08-03] MEDS ORDERED: BUPIVACAINE SPINAL 0.75% 2 ML AMP SPINAL ONE (07:05)
[2017-08-03] MEDS: ALBUTEROL/IPRATROPIUM 3 ML NEB RESP TX PRN (07:05)
[2017-08-03] MEDS: LACTATED RINGERS 1,000 ML IV SCH (07:08)
[2017-08-03] MEDS ORDERED: LIDOCAINE 2% TOP JELLY 20 ML VIAL INTRAURETH ONE (07:54)
[2017-08-03] MEDS ORDERED: MIDAZOLAM 2 MG/2 ML VIAL ONE (09:00)
[2017-08-03] MEDS ORDERED: fentaNYL 100 MCG/2 ML VIAL ONE (09:00)
[2017-08-03] MEDS ORDERED: ETOMIDATE 40 MG/20 ML VIAL IV ONE (09:01)
[2017-08-03] MEDS: SODIUM CHLORIDE 0.9% 1,000 ML IV SCH ×2 (11:26→21:25)
[2017-08-03] MEDS: SOTALOL 80 MG TABLET PO SCH ×2 (14:36→21:26)
[2017-08-03] MEDS: SULFAMETHOX/TRIMETHOPRIM 800-160 MG TABLET PO SCH ×2 (14:36→21:26)
[2017-08-03] MEDS: ASPIRIN EC 325 MG TABLET PO SCH (14:36)
[2017-08-03] MEDS: LINEZOLID INJ 600 MG in PREMIX 1 EACH IV SCH ×2 (14:36→21:25)
[2017-08-03] MEDS: POTASSIUM GLUCONATE 500 MG TABLET PO SCH (14:36)
[2017-08-03] MEDS: PANTOPRAZOLE 40 MG TABLET PO SCH (14:36)
[2017-08-03] MEDS: DOCUSATE SODIUM 100 MG CAPSULE PO SCH ×2 (14:37→21:26)
[2017-08-03] MEDS: DILTIAZEM 60 MG TABLET PO SCH ×3 (14:37→21:26)
[2017-08-03] MEDS: DILTIAZEM INJ 100 MG in SODIUM CHLORIDE 0.9% 100 ML IV SCH (15:20)
[2017-08-03] MEDS ORDERED: BELLADONNA/OPIUM 30 MG SUPP RECTAL PRN (18:43)
[2017-08-03] MEDS: ALPRAZolam 0.5 MG TABLET PO PRN (21:26)
[2017-08-03] MEDS: TAMSULOSIN 0.4 MG CAPSULE PO SCH (21:26)
[2017-08-03] MEDS: ENOXAPARIN 40 MG/0.4 ML SYRINGE SUBCUT SCH (21:33)
[2017-08-04] MEDS: ALBUTEROL/IPRATROPIUM 3 ML NEB RESP TX SCH ×4 (01:30→19:08)
[2017-08-04] MEDS: methylPREDNISolone SOD SUC 40 MG/1 ML VIAL IV SCH ×3 (01:47→22:09)
[2017-08-04] MEDS ORDERED: ZINC OXIDE PASTE 113 GM TUBE TOP PRN (01:51)
[2017-08-04] MEDS: ACETAMINOPHEN 325 MG TABLET PO PRN (03:00)
[2017-08-04 05:10] LABS: Basophils % 0.1 % (0.0-0.8); Hematocrit 27.8 VOL% (42.0-52.0); Hemoglobin 8.2 GM/DL (14.0-18.0); Immature Granulocytes % 6.3 %; Immature Granulocytes Absolute 0.64 #; Lymphocytes # 0.4 10*3/uL (1.4-4.0); Lymphocytes % 3.9 % (21.2-54.2); Mean Corpuscular HGB Conc 29.5 GM/DL (32-36); Mean Corpuscular Hemoglobin 21 PG (27-34); Mean Corpuscular Volume 69.7 FL (87-102); Mean Platelet Volume 11.5 FL (9.6-12.0); Monocytes # 0.4 10*3/uL (0.11-0.8); Monocytes % 4.2 % (1.7-12.7); NRBC # 0.17 10*3/uL; Neutrophils # 8.8 10*3/uL (1.4-7.4); Neutrophils % 85.5 % (38.7-73.9); Platelet Count 257 T/CUMM (130-400); Red Blood Count 3.99 MC/CUMM (3.8-5.5); Red Cell Distribution Width 17.5 % (9.3-17.3); White Blood Count 10.2 T/CUMM (4-12)
[2017-08-04] MEDS: SODIUM CHLORIDE 0.9% 1,000 ML IV SCH (05:36)
[2017-08-04 05:43] LABS: Calcium 8.1 MG/DL (8.5-10.1); Osmolality,Calculated 297.5 MOS/KG (273-304); Potassium 4.7 MMOL/L (3.5-5.1)
[2017-08-04 07:44] LABS: Band Neutrophils 2 % (0-10); Hypochromasia 2+; Lymphocytes 7 % (20-55); Macrocytosis 1+; Nucleated Red Blood Cells 1 (0-5); Polychromasia Slight; Segmented Neutrophils 86 % (50-85); Total Cells Counted 100
[2017-08-04 07:45] LABS: Elliptocytes Few; Platelet Estimate Adequate
[2017-08-04] MEDS: POTASSIUM GLUCONATE 500 MG TABLET PO SCH (09:59)
[2017-08-04] MEDS: SOTALOL 80 MG TABLET PO SCH ×2 (09:59→22:07)
[2017-08-04] MEDS: DILTIAZEM 60 MG TABLET PO SCH ×3 (09:59→22:07)
[2017-08-04] MEDS: DOCUSATE SODIUM 100 MG CAPSULE PO SCH ×2 (10:00→22:07)
[2017-08-04] MEDS: LINEZOLID INJ 600 MG in PREMIX 1 EACH IV SCH ×2 (10:00→22:09)
[2017-08-04] MEDS: ASPIRIN EC 325 MG TABLET PO SCH (10:00)
[2017-08-04] MEDS: SULFAMETHOX/TRIMETHOPRIM 800-160 MG TABLET PO SCH ×2 (10:00→22:06)
[2017-08-04] MEDS: PANTOPRAZOLE 40 MG TABLET PO SCH (10:01)
[2017-08-04] MEDS ORDERED: FUROSEMIDE 40 MG/4 ML VIAL IV ONE (10:49)
[2017-08-04] MEDS: LACTATED RINGERS 1,000 ML IV SCH (12:00)
[2017-08-04] MEDS: DILTIAZEM INJ 100 MG in SODIUM CHLORIDE 0.9% 100 ML IV SCH (15:22)
[2017-08-04] MEDS: TAMSULOSIN 0.4 MG CAPSULE PO SCH (22:06)
[2017-08-04] MEDS: ENOXAPARIN 40 MG/0.4 ML SYRINGE SUBCUT SCH (22:07)
[2017-08-04] MEDS: ALPRAZolam 0.5 MG TABLET PO PRN (22:07)
[2017-08-05] MEDS: SODIUM CHLORIDE 0.9% 1,000 ML IV SCH ×2 (01:15→22:12)
[2017-08-05 05:21] LABS: Basophils % 0.1 % (0.0-0.8); Hematocrit 30.5 VOL% (42.0-52.0); Immature Granulocytes % 8.1 %; Immature Granulocytes Absolute 0.91 #; Lymphocytes # 0.4 10*3/uL (1.4-4.0); Lymphocytes % 3.2 % (21.2-54.2); Mean Corpuscular HGB Conc 29.5 GM/DL (32-36); Mean Corpuscular Hemoglobin 21 PG (27-34); Mean Corpuscular Volume 70.9 FL (87-102); Monocytes # 0.8 10*3/uL (0.11-0.8); Monocytes % 6.7 % (1.7-12.7); NRBC # 0.18 10*3/uL; Neutrophils # 9.2 10*3/uL (1.4-7.4); Neutrophils % 81.9 % (38.7-73.9); Platelet Count 283 T/CUMM (130-400); Red Cell Distribution Width 17.7 % (9.3-17.3); White Blood Count 11.2 T/CUMM (4-12)
[2017-08-05 05:53] LABS: Calcium 8.2 MG/DL (8.5-10.1); Osmolality,Calculated 301.5 MOS/KG (273-304); Potassium 4.1 MMOL/L (3.5-5.1)
[2017-08-05 06:19] LABS: Lymphocytes 4 % (20-55); Macrocytosis 1+; Nucleated Red Blood Cells 2 (0-5); Platelet Estimate Adequate; Polychromasia Slight; Segmented Neutrophils 92 % (50-85); Target Cells Slight; Total Cells Counted 100
[2017-08-05] MEDS: ALBUTEROL/IPRATROPIUM 3 ML NEB RESP TX SCH ×4 (07:43→20:01)
[2017-08-05] MEDS: POTASSIUM GLUCONATE 500 MG TABLET PO SCH (10:35)
[2017-08-05] MEDS: methylPREDNISolone SOD SUC 40 MG/1 ML VIAL IV SCH ×2 (10:35→22:13)
[2017-08-05] MEDS: DILTIAZEM 60 MG TABLET PO SCH ×3 (10:35→22:12)
[2017-08-05] MEDS: SOTALOL 80 MG TABLET PO SCH ×2 (10:35→22:11)
[2017-08-05] MEDS: PANTOPRAZOLE 40 MG TABLET PO SCH (10:36)
[2017-08-05] MEDS: LINEZOLID INJ 600 MG in PREMIX 1 EACH IV SCH ×2 (10:36→22:17)
[2017-08-05] MEDS: SULFAMETHOX/TRIMETHOPRIM 800-160 MG TABLET PO SCH ×2 (10:36→22:12)
[2017-08-05] MEDS: ASPIRIN EC 325 MG TABLET PO SCH (10:36)
[2017-08-05] MEDS: LACTATED RINGERS 1,000 ML IV SCH (10:37)
[2017-08-05] MEDS: DOCUSATE SODIUM 100 MG CAPSULE PO SCH ×2 (11:10→22:12)
[2017-08-05] MEDS: DILTIAZEM INJ 100 MG in SODIUM CHLORIDE 0.9% 100 ML IV SCH (15:43)
[2017-08-05] MEDS: ALPRAZolam 0.5 MG TABLET PO PRN (22:11)
[2017-08-05] MEDS: ENOXAPARIN 40 MG/0.4 ML SYRINGE SUBCUT SCH (22:11)
[2017-08-05] MEDS: TAMSULOSIN 0.4 MG CAPSULE PO SCH (22:11)
[2017-08-06] MEDS: ALBUTEROL/IPRATROPIUM 3 ML NEB RESP TX SCH ×4 (00:47→20:09)
[2017-08-06] MEDS: LINEZOLID INJ 600 MG in PREMIX 1 EACH IV SCH ×3 (09:15→22:43)
[2017-08-06] MEDS: methylPREDNISolone SOD SUC 40 MG/1 ML VIAL IV SCH ×2 (09:16→22:40)
[2017-08-06] MEDS ORDERED: ALBUTEROL 2.5 MG/3 ML NEB RESP TX ONE (12:39)
[2017-08-06] MEDS ORDERED: GLYCOPYRROLATE 0.4 MG/2 ML VIAL ONE (13:12)
[2017-08-06] MEDS ORDERED: ETOMIDATE 20 MG/10 ML VIAL IV ONE (13:12)
[2017-08-06] MEDS ORDERED: KETAMINE 500 MG/10 ML VIAL ONE (14:30)
[2017-08-06] MEDS: SULFAMETHOX/TRIMETHOPRIM 800-160 MG TABLET PO SCH ×2 (15:21→22:39)
[2017-08-06] MEDS: ASPIRIN EC 325 MG TABLET PO SCH (15:21)
[2017-08-06] MEDS: DOCUSATE SODIUM 100 MG CAPSULE PO SCH ×2 (15:24→22:40)
[2017-08-06] MEDS: SOTALOL 80 MG TABLET PO SCH ×2 (15:26→22:38)
[2017-08-06] MEDS: DILTIAZEM 60 MG TABLET PO SCH ×3 (15:26→22:38)
[2017-08-06] MEDS: FUROSEMIDE 40 MG TABLET PO SCH (15:27)
[2017-08-06] MEDS: POTASSIUM GLUCONATE 500 MG TABLET PO SCH (15:27)
[2017-08-06] MEDS: PANTOPRAZOLE 40 MG TABLET PO SCH (15:27)
[2017-08-06] MEDS: LACTATED RINGERS 1,000 ML IV SCH (15:39)
[2017-08-06] MEDS: DILTIAZEM INJ 100 MG in SODIUM CHLORIDE 0.9% 100 ML IV SCH (16:12)
[2017-08-06] MEDS: ENOXAPARIN 40 MG/0.4 ML SYRINGE SUBCUT SCH (22:36)
[2017-08-06] MEDS: ALPRAZolam 0.5 MG TABLET PO PRN (22:38)
[2017-08-06] MEDS: TAMSULOSIN 0.4 MG CAPSULE PO SCH (22:39)
[2017-08-06] MEDS: SODIUM CHLORIDE 0.9% 1,000 ML IV SCH (22:39)
[2017-08-07] MEDS: ALBUTEROL/IPRATROPIUM 3 ML NEB RESP TX SCH ×4 (01:09→18:40)
[2017-08-07 05:31] LABS: Basophils % 0.1 % (0.0-0.8); Hemoglobin 9.3 GM/DL (14.0-18.0); Immature Granulocytes % 11.8 %; Immature Granulocytes Absolute 1.48 #; Lymphocytes # 0.3 10*3/uL (1.4-4.0); Lymphocytes % 2.6 % (21.2-54.2); Mean Corpuscular Hemoglobin 21 PG (27-34); Mean Corpuscular Volume 70.8 FL (87-102); Mean Platelet Volume 11.1 FL (9.6-12.0); Monocytes # 0.8 10*3/uL (0.11-0.8); Monocytes % 6.3 % (1.7-12.7); NRBC # 0.09 10*3/uL; Neutrophils # 9.9 10*3/uL (1.4-7.4); Neutrophils % 79.2 % (38.7-73.9); Platelet Count 235 T/CUMM (130-400); Red Blood Count 4.38 MC/CUMM (3.8-5.5); Red Cell Distribution Width 17.5 % (9.3-17.3); White Blood Count 12.5 T/CUMM (4-12)
[2017-08-07 05:47] LABS: Giant Platelets Few; Hypochromasia 1+; Lymphocytes 1 % (20-55); Platelet Estimate Adequate; Segmented Neutrophils 93 % (50-85); Total Cells Counted 100
[2017-08-07 05:48] LABS: Microcytosis 1+; Ovalocytes Slight
[2017-08-07 05:54] LABS: Calcium 7.7 MG/DL (8.5-10.1); Osmolality,Calculated 292.8 MOS/KG (273-304); Potassium 4.3 MMOL/L (3.5-5.1)
[2017-08-07] MEDS: LINEZOLID INJ 600 MG in PREMIX 1 EACH IV SCH ×2 (10:08→22:45)
[2017-08-07] MEDS: LACTATED RINGERS 1,000 ML IV SCH (10:37)
[2017-08-07] MEDS: POTASSIUM GLUCONATE 500 MG TABLET PO SCH (10:41)
[2017-08-07] MEDS: SOTALOL 80 MG TABLET PO SCH ×2 (10:41→22:49)
[2017-08-07] MEDS: FUROSEMIDE 40 MG TABLET PO SCH (10:41)
[2017-08-07] MEDS: SULFAMETHOX/TRIMETHOPRIM 800-160 MG TABLET PO SCH ×2 (10:41→22:46)
[2017-08-07] MEDS: methylPREDNISolone SOD SUC 40 MG/1 ML VIAL IV SCH ×2 (10:41→22:46)
[2017-08-07] MEDS: DOCUSATE SODIUM 100 MG CAPSULE PO SCH ×2 (10:42→22:46)
[2017-08-07] MEDS: ALPRAZolam 0.5 MG TABLET PO PRN ×2 (10:42→16:14)
[2017-08-07] MEDS: ASPIRIN EC 325 MG TABLET PO SCH (10:42)
[2017-08-07] MEDS: PANTOPRAZOLE 40 MG TABLET PO SCH (10:42)
[2017-08-07] MEDS: DILTIAZEM 60 MG TABLET PO SCH ×3 (10:44→22:49)
[2017-08-07] MEDS: DILTIAZEM INJ 100 MG in SODIUM CHLORIDE 0.9% 100 ML IV SCH (16:07)
[2017-08-07] MEDS: SODIUM CHLORIDE 0.9% 1,000 ML IV SCH (16:07)
[2017-08-07] MEDS: ACETAMINOPHEN 325 MG TABLET PO PRN (16:11)
[2017-08-07] MEDS: DIPHENOXYLATE/ATROPINE 2.5-0.025 MG TABLET PO PRN (16:29)
[2017-08-07] MEDS: ENOXAPARIN 40 MG/0.4 ML SYRINGE SUBCUT SCH (22:45)
[2017-08-07] MEDS: TAMSULOSIN 0.4 MG CAPSULE PO SCH (22:45)
[2017-08-08] MEDS: ALBUTEROL/IPRATROPIUM 3 ML NEB RESP TX SCH ×4 (00:10→19:11)
[2017-08-08] MEDS: SULFAMETHOX/TRIMETHOPRIM 800-160 MG TABLET PO SCH (10:27)
[2017-08-08] MEDS: FUROSEMIDE 40 MG TABLET PO SCH (10:27)
[2017-08-08] MEDS: POTASSIUM GLUCONATE 500 MG TABLET PO SCH (10:28)
[2017-08-08] MEDS: DILTIAZEM 60 MG TABLET PO SCH ×3 (10:28→22:47)
[2017-08-08] MEDS: ASPIRIN EC 325 MG TABLET PO SCH (10:28)
[2017-08-08] MEDS: DOCUSATE SODIUM 100 MG CAPSULE PO SCH ×2 (10:29→22:48)
[2017-08-08] MEDS: methylPREDNISolone SOD SUC 40 MG/1 ML VIAL IV SCH ×2 (10:29→22:48)
[2017-08-08] MEDS: LACTATED RINGERS 1,000 ML IV SCH (10:29)
[2017-08-08] MEDS: SODIUM CHLORIDE 0.9% 1,000 ML IV SCH (10:30)
[2017-08-08] MEDS: SOTALOL 80 MG TABLET PO SCH ×2 (10:31→22:48)
[2017-08-08] MEDS: PANTOPRAZOLE 40 MG TABLET PO SCH (10:32)
[2017-08-08] MEDS: LINEZOLID INJ 600 MG in PREMIX 1 EACH IV SCH (10:32)
[2017-08-08] MEDS ORDERED: LIDOCAINE 2% TOP JELLY 20 ML VIAL INTRAURETH ONE (13:20)
[2017-08-08] MEDS: DILTIAZEM INJ 100 MG in SODIUM CHLORIDE 0.9% 100 ML IV SCH (17:17)
[2017-08-08] MEDS: DIPHENOXYLATE/ATROPINE 2.5-0.025 MG TABLET PO PRN (18:01)
[2017-08-08] MEDS: TAMSULOSIN 0.4 MG CAPSULE PO SCH (22:47)
[2017-08-08] MEDS: ALPRAZolam 0.5 MG TABLET PO PRN (22:47)
[2017-08-08] MEDS: ENOXAPARIN 40 MG/0.4 ML SYRINGE SUBCUT SCH (22:47)
[2017-08-09] MEDS: ALBUTEROL/IPRATROPIUM 3 ML NEB RESP TX SCH ×4 (01:18→19:35)
[2017-08-09 05:34] LABS: Calcium 8.3 MG/DL (8.5-10.1); Osmolality,Calculated 299.7 MOS/KG (273-304); Potassium 4.8 MMOL/L (3.5-5.1)
[2017-08-09] MEDS: SODIUM CHLORIDE 0.9% 1,000 ML IV SCH (05:43)
[2017-08-09 08:20] LABS: Apearance,Urine Slightly Hazy (Clear); Bilirubin,Urine Negative (Negative); Blood, Urine Large mg/dL (Negative); Glucose,Urine (UA) >=500 mg/dL (Negative); Ketones,Urine Negative (Negative); Nitrite,Urine Negative (Negative); Protein,Urine 100 MG/DL; RBC,Urine 4012 /HPF (0-4); Urine Color Brown (Yellow); Urine Specific Gravity 1.014 (1.001-1.035); Urine Urobilinogen < 2.0 EU/DL (0.2-1.0); WBC,Urine 39 /HPF (0-6)
[2017-08-09] MEDS: SOTALOL 80 MG TABLET PO SCH ×2 (09:32→21:07)
[2017-08-09] MEDS: POTASSIUM GLUCONATE 500 MG TABLET PO SCH (09:33)
[2017-08-09] MEDS: ASPIRIN EC 325 MG TABLET PO SCH (09:33)
[2017-08-09] MEDS: PANTOPRAZOLE 40 MG TABLET PO SCH (09:33)
[2017-08-09] MEDS: DOCUSATE SODIUM 100 MG CAPSULE PO SCH ×3 (09:33→21:15)
[2017-08-09] MEDS: DILTIAZEM 60 MG TABLET PO SCH ×3 (09:33→21:06)
[2017-08-09] MEDS: FUROSEMIDE 40 MG TABLET PO SCH (09:33)
[2017-08-09] MEDS: methylPREDNISolone SOD SUC 40 MG/1 ML VIAL IV SCH ×2 (09:33→21:07)
[2017-08-09] MEDS: LACTATED RINGERS 1,000 ML IV SCH (09:40)
[2017-08-09] MEDS: DILTIAZEM INJ 100 MG in SODIUM CHLORIDE 0.9% 100 ML IV SCH (15:50)
[2017-08-09] MEDS: TAMSULOSIN 0.4 MG CAPSULE PO SCH (21:06)
[2017-08-09] MEDS: ENOXAPARIN 40 MG/0.4 ML SYRINGE SUBCUT SCH (21:07)
[2017-08-10] MEDS: ALBUTEROL/IPRATROPIUM 3 ML NEB RESP TX SCH ×4 (01:52→20:18)
[2017-08-10] MEDS: DILTIAZEM 60 MG TABLET PO SCH ×2 (08:14→15:28)
[2017-08-10] MEDS: PANTOPRAZOLE 40 MG TABLET PO SCH (08:14)
[2017-08-10] MEDS: SOTALOL 80 MG TABLET PO SCH ×2 (08:15→21:08)
[2017-08-10] MEDS: POTASSIUM GLUCONATE 500 MG TABLET PO SCH (08:15)
[2017-08-10] MEDS: ASPIRIN EC 325 MG TABLET PO SCH (08:15)
[2017-08-10] MEDS: FUROSEMIDE 40 MG TABLET PO SCH (08:15)
[2017-08-10] MEDS: DOCUSATE SODIUM 100 MG CAPSULE PO SCH ×2 (08:15→21:09)
[2017-08-10] MEDS: methylPREDNISolone SOD SUC 40 MG/1 ML VIAL IV SCH ×2 (09:24→21:08)
[2017-08-10] MEDS: SODIUM CHLORIDE 0.9% 1,000 ML IV SCH (15:30)
[2017-08-10] MEDS: LACTATED RINGERS 1,000 ML IV SCH (15:30)
[2017-08-10] MEDS: DILTIAZEM INJ 100 MG in SODIUM CHLORIDE 0.9% 100 ML IV SCH (15:33)
[2017-08-10] MEDS: DIPHENOXYLATE/ATROPINE 2.5-0.025 MG TABLET PO PRN (18:05)
[2017-08-10] MEDS: TAMSULOSIN 0.4 MG CAPSULE PO SCH (21:08)
[2017-08-10] MEDS: DILTIAZEM CD 180 MG CAPSULE PO SCH (21:08)
[2017-08-10] MEDS: ALPRAZolam 0.5 MG TABLET PO PRN (21:08)
[2017-08-10] MEDS: ENOXAPARIN 40 MG/0.4 ML SYRINGE SUBCUT SCH (21:09)
[2017-08-11] MEDS: ALBUTEROL/IPRATROPIUM 3 ML NEB RESP TX SCH ×4 (00:51→19:02)
[2017-08-11] MEDS: SODIUM CHLORIDE 0.9% 1,000 ML IV SCH ×2 (01:30→18:29)
[2017-08-11 05:16] LABS: Basophils % 0.1 % (0.0-0.8); Hematocrit 32.4 VOL% (42.0-52.0); Hemoglobin 9.8 GM/DL (14.0-18.0); Immature Granulocytes % 7.1 %; Immature Granulocytes Absolute 1.47 #; Lymphocytes # 0.5 10*3/uL (1.4-4.0); Lymphocytes % 2.3 % (21.2-54.2); Mean Corpuscular HGB Conc 30.2 GM/DL (32-36); Mean Corpuscular Hemoglobin 22 PG (27-34); Mean Corpuscular Volume 71.5 FL (87-102); Mean Platelet Volume 11.4 FL (9.6-12.0); Monocytes # 1.6 10*3/uL (0.11-0.8); Monocytes % 7.6 % (1.7-12.7); NRBC # 0.13 10*3/uL; Neutrophils # 17.3 10*3/uL (1.4-7.4); Neutrophils % 82.9 % (38.7-73.9); Platelet Count 159 T/CUMM (130-400); Red Blood Count 4.53 MC/CUMM (3.8-5.5); Red Cell Distribution Width 17.7 % (9.3-17.3); White Blood Count 20.9 T/CUMM (4-12)
[2017-08-11 05:18] LABS: Calcium 8.5 MG/DL (8.5-10.1); Osmolality,Calculated 307.7 MOS/KG (273-304); Potassium 5.3 MMOL/L (3.5-5.1)
[2017-08-11 05:51] LABS: Band Neutrophils 2 % (0-10); Lymphocytes 3 % (20-55); Segmented Neutrophils 91 % (50-85); Total Cells Counted 100
[2017-08-11 05:52] LABS: Giant Platelets Few; Hypochromasia 1+; Microcytosis 1+; Ovalocytes Slight; Platelet Estimate Normal
[2017-08-11] MEDS: LACTATED RINGERS 1,000 ML IV SCH (09:08)
[2017-08-11] MEDS: FUROSEMIDE 40 MG TABLET PO SCH (09:09)
[2017-08-11] MEDS: PANTOPRAZOLE 40 MG TABLET PO SCH (09:09)
[2017-08-11] MEDS: SOTALOL 80 MG TABLET PO SCH ×2 (09:09→21:24)
[2017-08-11] MEDS: ASPIRIN EC 325 MG TABLET PO SCH (09:09)
[2017-08-11] MEDS: DOCUSATE SODIUM 100 MG CAPSULE PO SCH ×2 (09:09→21:29)
[2017-08-11] MEDS: POTASSIUM GLUCONATE 500 MG TABLET PO SCH (09:09)
[2017-08-11] MEDS: methylPREDNISolone SOD SUC 40 MG/1 ML VIAL IV SCH ×2 (09:10→21:23)
[2017-08-11] MEDS: DIPHENOXYLATE/ATROPINE 2.5-0.025 MG TABLET PO PRN (10:55)
[2017-08-11] MEDS ORDERED: GLUCAGON 1 MG VIAL IM PRN ×2 (19:38→19:41)
[2017-08-11] MEDS ORDERED: DEXTROSE 50% 25 GM/50 ML VIAL IV PRN ×2 (19:38→19:41)
[2017-08-11] MEDS: cefTRIAXone 1,000 MG in SYRINGE 1 EACH IV SCH (21:23)
[2017-08-11] MEDS: INSULIN REGULAR 100 UNIT/ML SUBCUT SCH (21:24)
[2017-08-11] MEDS: ENOXAPARIN 40 MG/0.4 ML SYRINGE SUBCUT SCH (21:24)
[2017-08-11] MEDS: ALPRAZolam 0.5 MG TABLET PO PRN (21:24)
[2017-08-11] MEDS: TAMSULOSIN 0.4 MG CAPSULE PO SCH (21:24)
[2017-08-11] MEDS: DILTIAZEM CD 180 MG CAPSULE PO SCH (21:24)
[2017-08-12] MEDS: ALBUTEROL/IPRATROPIUM 3 ML NEB RESP TX SCH ×4 (00:09→21:11)
[2017-08-12 06:36] LABS: Albumin 2.3 G/DL (3.4-5.0); Bilirubin,Total 0.4 MG/DL (0.2-1.0); Calcium 8.4 MG/DL (8.5-10.1); Osmolality,Calculated 305.1 MOS/KG (273-304); Potassium 5.3 MMOL/L (3.5-5.1); Total Protein 5.1 G/DL (6.4-8.3)
[2017-08-12 06:37] LABS: Basophils % 0.2 % (0.0-0.8); Hematocrit 29.8 VOL% (42.0-52.0); Hemoglobin 8.6 GM/DL (14.0-18.0); Immature Granulocytes % 6.4 %; Immature Granulocytes Absolute 1.11 #; Lymphocytes # 0.8 10*3/uL (1.4-4.0); Lymphocytes % 4.6 % (21.2-54.2); Mean Corpuscular HGB Conc 28.9 GM/DL (32-36); Mean Corpuscular Hemoglobin 21 PG (27-34); Mean Corpuscular Volume 73.2 FL (87-102); Mean Platelet Volume 11.2 FL (9.6-12.0); Monocytes # 1.4 10*3/uL (0.11-0.8); Monocytes % 7.9 % (1.7-12.7); NRBC # 0.05 10*3/uL; Neutrophils % 80.9 % (38.7-73.9); Platelet Count 115 T/CUMM (130-400); Red Blood Count 4.07 MC/CUMM (3.8-5.5); Red Cell Distribution Width 17.2 % (9.3-17.3); White Blood Count 17.3 T/CUMM (4-12)
[2017-08-12 06:59] LABS: Giant Platelets Few; Hypochromasia 1+; Lymphocytes 6 % (20-55); Platelet Estimate Decreased; Segmented Neutrophils 86 % (50-85); Total Cells Counted 100
[2017-08-12 07:00] LABS: Microcytosis 1+
[2017-08-12] MEDS: INSULIN REGULAR 100 UNIT/ML SUBCUT SCH ×4 (08:18→21:59)
[2017-08-12] MEDS: SOTALOL 80 MG TABLET PO SCH ×2 (08:20→21:59)
[2017-08-12] MEDS: ASPIRIN EC 325 MG TABLET PO SCH (08:20)
[2017-08-12] MEDS: POTASSIUM GLUCONATE 500 MG TABLET PO SCH (08:20)
[2017-08-12] MEDS: PANTOPRAZOLE 40 MG TABLET PO SCH (08:21)
[2017-08-12] MEDS: FUROSEMIDE 40 MG TABLET PO SCH (08:21)
[2017-08-12] MEDS: LACTATED RINGERS 1,000 ML IV SCH (08:21)
[2017-08-12] MEDS: DOCUSATE SODIUM 100 MG CAPSULE PO SCH ×2 (08:21→21:58)
[2017-08-12] MEDS: methylPREDNISolone SOD SUC 40 MG/1 ML VIAL IV SCH ×2 (08:31→22:00)
[2017-08-12] MEDS: SODIUM CHLORIDE 0.9% 1,000 ML IV SCH (16:31)
[2017-08-12] MEDS: cefTRIAXone 1,000 MG in SYRINGE 1 EACH IV SCH (20:52)
[2017-08-12] MEDS: diphenhydrAMINE CAP 25 MG CAPSULE PO PRN (21:59)
[2017-08-12] MEDS: ENOXAPARIN 40 MG/0.4 ML SYRINGE SUBCUT SCH (21:59)
[2017-08-12] MEDS: DILTIAZEM CD 180 MG CAPSULE PO SCH (21:59)
[2017-08-12] MEDS: TAMSULOSIN 0.4 MG CAPSULE PO SCH (21:59)
[2017-08-13] MEDS: ALBUTEROL/IPRATROPIUM 3 ML NEB RESP TX SCH ×3 (02:48→14:55)
[2017-08-13 05:37] LABS: Basophils % 0.1 % (0.0-0.8); Hemoglobin 9.1 GM/DL (14.0-18.0); Immature Granulocytes % 7.8 %; Immature Granulocytes Absolute 1.27 #; Lymphocytes # 0.7 10*3/uL (1.4-4.0); Mean Corpuscular HGB Conc 29.4 GM/DL (32-36); Mean Corpuscular Hemoglobin 21 PG (27-34); Mean Corpuscular Volume 71.8 FL (87-102); Mean Platelet Volume 10.3 FL (9.6-12.0); Monocytes # 1.6 10*3/uL (0.11-0.8); NRBC # 0.05 10*3/uL; Neutrophils # 12.7 10*3/uL (1.4-7.4); Neutrophils % 78.1 % (38.7-73.9); Platelet Count 99 T/CUMM (130-400); Red Blood Count 4.32 MC/CUMM (3.8-5.5); Red Cell Distribution Width 16.8 % (9.3-17.3); White Blood Count 16.3 T/CUMM (4-12)
[2017-08-13 05:46] LABS: Band Neutrophils 1 % (0-10); Hypochromasia 1+; Lymphocytes 4 % (20-55); Segmented Neutrophils 91 % (50-85); Total Cells Counted 100
[2017-08-13 05:47] LABS: Microcytosis 1+; Ovalocytes Few; Polychromasia Slight
[2017-08-13 05:48] LABS: Platelet Estimate Decreased
[2017-08-13 05:50] LABS: Albumin 2.3 G/DL (3.4-5.0); Bilirubin,Total 0.5 MG/DL (0.2-1.0); Calcium 8.2 MG/DL (8.5-10.1); Osmolality,Calculated 293.8 MOS/KG (273-304); Potassium 5.1 MMOL/L (3.5-5.1); Total Protein 5.1 G/DL (6.4-8.3)
[2017-08-13] MEDS ORDERED: INSULIN GLARGINE 100 UNIT/ML SUBCUT SCH (09:00)
[2017-08-13] MEDS: ASPIRIN EC 325 MG TABLET PO SCH (09:31)
[2017-08-13] MEDS: FUROSEMIDE 40 MG TABLET PO SCH (09:31)
[2017-08-13] MEDS: SOTALOL 80 MG TABLET PO SCH (09:32)
[2017-08-13] MEDS: PANTOPRAZOLE 40 MG TABLET PO SCH (09:32)
[2017-08-13] MEDS: INSULIN REGULAR 100 UNIT/ML SUBCUT SCH ×3 (09:33→17:48)
[2017-08-13] MEDS: DOCUSATE SODIUM 100 MG CAPSULE PO SCH (09:33)
[2017-08-13] MEDS: methylPREDNISolone SOD SUC 40 MG/1 ML VIAL IV SCH (09:38)
[2017-08-13] MEDS: SODIUM CHLORIDE 0.9% 1,000 ML IV SCH (09:39)
[2017-08-13 12:44] VITALS: BP 165/71
[2017-08-13] MEDS ORDERED: metFORMIN 500 MG TABLET PO SCH (17:00)
== END 2017-08-13 14:48 | disposition swing bed (61) | DRG 988 ==
LOC: EDUNIT# → EDBD → N.ED 12:42 → N.EDINP 14:35 → N.TELES 17:25
PROVIDERS: ADMIT Family Medicine; ATTEND Family Medicine

== ENCOUNTER 2018-12-08 01:17 | Inpatient (IN) ==
[2018-12-08] MEDS ORDERED: METOPROLOL TARTRATE 5 MG/5 ML VIAL IV ONE (01:29)
[2018-12-08] MEDS ORDERED: ALBUTEROL/IPRATROPIUM 3 ML NEB RESP TX STA (01:49)
[2018-12-08] MEDS ORDERED: methylPREDNISolone SOD SUC 125 MG/2 ML VIAL IV STA (01:49)
[2018-12-08] MEDS ORDERED: METOPROLOL TARTRATE 5 MG/5 ML VIAL IV STA (01:50)
[2018-12-08] MEDS ORDERED: SODIUM CHLORIDE 0.9% 500 ML IV STA (01:56)
[2018-12-08] MEDS ORDERED: AMIODARONE INJ 150 MG in DEXTROSE 5% 100 ML IV ONE (01:56)
[2018-12-08 02:00] LABS: Basophils # 0.1 10*3/uL (0.0-0.2); Basophils % 0.6 % (0.0-0.8); Eosinophils # 0.5 10*3/uL (0.0-0.87); Eosinophils % 5.9 % (0.00-10.9); Hematocrit 37.4 VOL% (42.0-52.0); Hemoglobin 10.5 GM/DL (14.0-18.0); Immature Granulocytes % 0.3 %; Immature Granulocytes Absolute 0.02 #; Lymphocytes # 2.2 10*3/uL (1.4-4.0); Lymphocytes % 28.1 % (21.2-54.2); Mean Corpuscular HGB Conc 28.1 GM/DL (32-36); Mean Corpuscular Volume 76.6 FL (87-102); Mean Platelet Volume 11.6 FL (9.6-12.0); Monocytes % 12.9 % (1.7-12.7); Neutrophils % 52.2 % (38.7-73.9); Platelet Count 240 T/CUMM (130-400); Red Blood Count 4.88 MC/CUMM (3.8-5.5); Red Cell Distribution Width 18.5 % (9.3-17.3); White Blood Count 7.8 T/CUMM (4-12)
[2018-12-08] MEDS ORDERED: AMIODARONE INJ 450 MG in DEXTROSE 5% 241 ML IV SCH ×2 (02:00→03:00)
[2018-12-08 02:22] LABS: ABG Base Excess 1.1 MMOL/L (-2.5-2.5); ABG HCO3 25.4 MMOL/L (20-26); ABG PCO2 43.1 MM HG (35-48); ABG PH 7.392 (7.35-7.45); ABG TCO2 23.8 MMOL/L (23-27); Allen Test Positive
[2018-12-08 02:28] LABS: Albumin 3.4 G/DL (3.4-5.0); Bilirubin,Total 0.4 MG/DL (0.2-1.0); Calcium 8.7 MG/DL (8.5-10.1); Osmolality,Calculated 289.1 MOS/KG (273-304); Total Protein 7.9 G/DL (6.4-8.3)
[2018-12-08] MEDS ORDERED: cefTRIAXone 1,000 MG in SODIUM CHLORIDE 0.9% 100 ML IV STA (02:50)
[2018-12-08 02:56] LABS: Hypochromasia Slight; Ovalocytes 1+; Platelet Estimate Normal
[2018-12-08 02:57] LABS: Polychromasia Few
[2018-12-08] MEDS ORDERED: ONDANSETRON 4 MG/2 ML VIAL IV PRN (02:57)
[2018-12-08] MEDS ORDERED: ACETAMINOPHEN 325 MG TABLET PO PRN (02:57)
[2018-12-08] MEDS: ALBUTEROL/IPRATROPIUM 3 ML NEB RESP TX SCH ×6 (04:02→22:34)
[2018-12-08 04:41] LABS: INR 0.9; PT Patient Result 10.3 SECS (9.6-12.2)
[2018-12-08 04:45] LABS: Alanine Aminotransferase 17 U/L (16-61); Alkaline Phosphatase 79 U/L (45-117); Aspartate Amino Transferase 13 U/L (0-37); Bilirubin,Total < 0.39 MG/DL (0.2-1.0); Blood Urea Nitrogen 21 MG/DL (7-18); Calcium 8.4 MG/DL (8.5-10.1); Glucose 144 MG/DL (74-106); Osmolality,Calculated 291.8 MOS/KG (273-304); Total Protein 7.5 G/DL (6.4-8.3)
[2018-12-08 04:49] LABS: Basophils % 0.4 % (0.0-0.8); Eosinophils # 0.3 10*3/uL (0.0-0.87); Eosinophils % 3.3 % (0.00-10.9); Hematocrit 34.4 VOL% (42.0-52.0); Immature Granulocytes % 0.4 %; Immature Granulocytes Absolute 0.03 #; Lymphocytes # 1.7 10*3/uL (1.4-4.0); Lymphocytes % 21.9 % (21.2-54.2); Mean Corpuscular HGB Conc 29.1 GM/DL (32-36); Mean Corpuscular Volume 75.9 FL (87-102); Mean Platelet Volume 11.4 FL (9.6-12.0); Monocytes % 3.5 % (1.7-12.7); Neutrophils % 70.5 % (38.7-73.9); Platelet Count 222 T/CUMM (130-400); Red Blood Count 4.53 MC/CUMM (3.8-5.5); Red Cell Distribution Width 18.1 % (9.3-17.3); White Blood Count 7.7 T/CUMM (4-12)
[2018-12-08] MEDS: PANTOPRAZOLE 40 MG TABLET PO SCH (08:49)
[2018-12-08] MEDS: methylPREDNISolone SOD SUC 40 MG/1 ML VIAL IV SCH ×2 (10:15→17:41)
[2018-12-08] MEDS ORDERED: ALBUTEROL 2.5 MG/3 ML NEB RESP TX PRN (13:28)
[2018-12-08] MEDS: ALPRAZolam 0.5 MG TABLET PO PRN (14:00)
[2018-12-08] MEDS: AZITHROMYCIN 250 MG TABLET PO SCH (14:30)
[2018-12-08] MEDS: BUDESONIDE/FORMOTEROL 160-4.5 INHALER 6 GM INH SCH ×2 (16:50→20:53)
[2018-12-08] MEDS: FUROSEMIDE 20 MG/2 ML VIAL IV SCH (17:39)
[2018-12-08] MEDS: DILTIAZEM CD 180 MG CAPSULE PO SCH (20:46)
[2018-12-08] MEDS: TAMSULOSIN 0.4 MG CAPSULE PO SCH (20:47)
[2018-12-08] MEDS: SOTALOL 80 MG TABLET PO SCH (20:47)
[2018-12-08] MEDS: ASPIRIN EC 325 MG TABLET PO SCH (20:47)
[2018-12-08] MEDS: cefTRIAXone 1,000 MG in SYRINGE 1 EACH IV SCH (20:54)
[2018-12-09] MEDS: methylPREDNISolone SOD SUC 40 MG/1 ML VIAL IV SCH ×3 (03:12→17:13)
[2018-12-09] MEDS: ALBUTEROL/IPRATROPIUM 3 ML NEB RESP TX SCH ×5 (03:22→19:07)
[2018-12-09 04:58] LABS: Calcium 8.3 MG/DL (8.5-10.1); Osmolality,Calculated 283.5 MOS/KG (273-304)
[2018-12-09 06:27] LABS: Basophils % 0.1 % (0.0-0.8); Hematocrit 32.9 VOL% (42.0-52.0); Hemoglobin 9.5 GM/DL (14.0-18.0); Immature Granulocytes % 0.6 %; Immature Granulocytes Absolute 0.08 #; Lymphocytes # 1.1 10*3/uL (1.4-4.0); Lymphocytes % 8.3 % (21.2-54.2); Mean Corpuscular HGB Conc 28.9 GM/DL (32-36); Mean Corpuscular Volume 74.4 FL (87-102); Mean Platelet Volume 11.6 FL (9.6-12.0); Monocytes % 2.2 % (1.7-12.7); Neutrophils % 88.8 % (38.7-73.9); Platelet Count 213 T/CUMM (130-400); Red Blood Count 4.42 MC/CUMM (3.8-5.5); Red Cell Distribution Width 18.1 % (9.3-17.3); White Blood Count 13.7 T/CUMM (4-12)
[2018-12-09 06:44] LABS: Hypochromasia 1+; Platelet Estimate Adequate
[2018-12-09] MEDS: PANTOPRAZOLE 40 MG TABLET PO SCH (08:17)
[2018-12-09] MEDS: POTASSIUM GLUCONATE 500 MG TABLET PO SCH (08:17)
[2018-12-09] MEDS: ALPRAZolam 0.5 MG TABLET PO PRN ×2 (08:17→18:31)
[2018-12-09] MEDS: AZITHROMYCIN 250 MG TABLET PO SCH (08:17)
[2018-12-09] MEDS: SOTALOL 80 MG TABLET PO SCH ×2 (08:17→22:47)
[2018-12-09] MEDS: FUROSEMIDE 20 MG/2 ML VIAL IV SCH ×2 (08:18→17:13)
[2018-12-09] MEDS: BUDESONIDE/FORMOTEROL 160-4.5 INHALER 6 GM INH SCH ×2 (08:19→22:47)
[2018-12-09 11:08] LABS: Amorphous Crystals,Urine Few /HPF (Few); Apearance,Urine CLEAR (Clear); Bacteria,Urine Few /HPF (Few); Bilirubin,Urine Negative (Negative); Blood, Urine Negative (Negative); Glucose,Urine (UA) Negative (Negative); Hyaline Casts,Urine 3 /LPF (0-3); Ketones,Urine Negative (Negative); Mucus,Urine Occasional /LPF (Occasional); Nitrite,Urine Negative (Negative); Protein,Urine Negative; RBC,Urine 3 /HPF (0-4); Urine Color Straw (Yellow); Urine Specific Gravity 1.009 (1.001-1.035); Urine Urobilinogen < 2.0 EU/DL (0.2-1.0)
[2018-12-09] MEDS: ASPIRIN EC 325 MG TABLET PO SCH (22:47)
[2018-12-09] MEDS: TAMSULOSIN 0.4 MG CAPSULE PO SCH (22:47)
[2018-12-09] MEDS: DILTIAZEM CD 180 MG CAPSULE PO SCH (22:47)
[2018-12-09] MEDS: cefTRIAXone 1,000 MG in SYRINGE 1 EACH IV SCH (22:47)
[2018-12-10] MEDS: ALBUTEROL/IPRATROPIUM 3 ML NEB RESP TX SCH ×7 (00:31→23:35)
[2018-12-10] MEDS: methylPREDNISolone SOD SUC 40 MG/1 ML VIAL IV SCH ×3 (00:59→16:39)
[2018-12-10 04:49] LABS: Alanine Aminotransferase 14 U/L (16-61); Albumin 2.9 G/DL (3.4-5.0); Alkaline Phosphatase 69 U/L (45-117); Aspartate Amino Transferase 11 U/L (0-37); Bilirubin,Total < 0.39 MG/DL (0.2-1.0); Blood Urea Nitrogen 45 MG/DL (7-18); Calcium 8.8 MG/DL (8.5-10.1); Glucose 155 MG/DL (74-106); Osmolality,Calculated 297.1 MOS/KG (273-304); Thyroid Stimulating Hormone 0.321 uIU/ml (0.358-3.74); Total Protein 7.2 G/DL (6.4-8.3)
[2018-12-10 05:20] LABS: Basophils % 0.2 % (0.0-0.8); Hematocrit 33.2 VOL% (42.0-52.0); Immature Granulocytes % 0.6 %; Immature Granulocytes Absolute 0.08 #; Lymphocytes # 0.9 10*3/uL (1.4-4.0); Lymphocytes % 6.7 % (21.2-54.2); Mean Corpuscular HGB Conc 28.3 GM/DL (32-36); Mean Corpuscular Volume 75.8 FL (87-102); Mean Platelet Volume 11.6 FL (9.6-12.0); Neutrophils % 90.5 % (38.7-73.9); Platelet Count 226 T/CUMM (130-400); Red Blood Count 4.38 MC/CUMM (3.8-5.5); White Blood Count 13.7 T/CUMM (4-12)
[2018-12-10 05:24] LABS: Hemoglobin 9.4 GM/DL (14.0-18.0)
[2018-12-10 05:28] LABS: Platelet Estimate Normal
[2018-12-10 05:29] LABS: Hypochromasia Slight; Polychromasia Few
[2018-12-10] MEDS ORDERED: SODIUM CHLORIDE 0.9% 1,000 ML IV SCH (07:30)
[2018-12-10] MEDS: BUDESONIDE/FORMOTEROL 160-4.5 INHALER 6 GM INH SCH ×2 (09:06→22:12)
[2018-12-10] MEDS: FUROSEMIDE 20 MG/2 ML VIAL IV SCH ×2 (09:07→16:39)
[2018-12-10] MEDS: PANTOPRAZOLE 40 MG TABLET PO SCH (09:08)
[2018-12-10] MEDS: AZITHROMYCIN 250 MG TABLET PO SCH (09:08)
[2018-12-10] MEDS: POTASSIUM GLUCONATE 500 MG TABLET PO SCH (09:08)
[2018-12-10] MEDS: ALPRAZolam 0.5 MG TABLET PO PRN ×2 (09:08→16:36)
[2018-12-10] MEDS: SOTALOL 80 MG TABLET PO SCH ×2 (09:08→21:54)
[2018-12-10] MEDS: DILTIAZEM CD 180 MG CAPSULE PO SCH (21:53)
[2018-12-10] MEDS: ASPIRIN EC 325 MG TABLET PO SCH (21:54)
[2018-12-10] MEDS: cefTRIAXone 1,000 MG in SYRINGE 1 EACH IV SCH (21:54)
[2018-12-10] MEDS: TAMSULOSIN 0.4 MG CAPSULE PO SCH (21:55)
[2018-12-11] MEDS: methylPREDNISolone SOD SUC 40 MG/1 ML VIAL IV SCH ×3 (01:04→16:29)
[2018-12-11] MEDS: ALBUTEROL/IPRATROPIUM 3 ML NEB RESP TX SCH ×5 (02:42→19:49)
[2018-12-11 05:55] LABS: Osmolality,Calculated 298.3 MOS/KG (273-304)
[2018-12-11 05:58] LABS: Basophils % 0.1 % (0.0-0.8); Hematocrit 31.9 VOL% (42.0-52.0); Hemoglobin 9.3 GM/DL (14.0-18.0); Immature Granulocytes % 1.6 %; Immature Granulocytes Absolute 0.18 #; Lymphocytes # 0.8 10*3/uL (1.4-4.0); Lymphocytes % 6.8 % (21.2-54.2); Mean Corpuscular HGB Conc 29.2 GM/DL (32-36); Mean Corpuscular Volume 75.1 FL (87-102); Neutrophils % 89.5 % (38.7-73.9); Platelet Count 199 T/CUMM (130-400); Red Blood Count 4.25 MC/CUMM (3.8-5.5); Red Cell Distribution Width 17.9 % (9.3-17.3); White Blood Count 11.3 T/CUMM (4-12)
[2018-12-11] MEDS: AZITHROMYCIN 250 MG TABLET PO SCH (09:14)
[2018-12-11] MEDS: POTASSIUM GLUCONATE 500 MG TABLET PO SCH (09:14)
[2018-12-11] MEDS: PANTOPRAZOLE 40 MG TABLET PO SCH (09:14)
[2018-12-11] MEDS: BUDESONIDE/FORMOTEROL 160-4.5 INHALER 6 GM INH SCH ×2 (09:15→21:45)
[2018-12-11] MEDS: SOTALOL 80 MG TABLET PO SCH ×2 (09:15→21:29)
[2018-12-11] MEDS: FUROSEMIDE 20 MG/2 ML VIAL IV SCH ×2 (09:16→16:29)
[2018-12-11] MEDS: DILTIAZEM CD 180 MG CAPSULE PO SCH (21:28)
[2018-12-11] MEDS: ASPIRIN EC 325 MG TABLET PO SCH (21:28)
[2018-12-11] MEDS: TAMSULOSIN 0.4 MG CAPSULE PO SCH (21:28)
[2018-12-11] MEDS: cefTRIAXone 1,000 MG in SYRINGE 1 EACH IV SCH (21:29)
[2018-12-12] MEDS: ALBUTEROL/IPRATROPIUM 3 ML NEB RESP TX SCH ×6 (00:19→20:18)
[2018-12-12] MEDS: methylPREDNISolone SOD SUC 40 MG/1 ML VIAL IV SCH ×3 (01:49→17:35)
[2018-12-12 06:41] LABS: Basophils % 0.1 % (0.0-0.8); Hematocrit 34.4 VOL% (42.0-52.0); Immature Granulocytes % 2.9 %; Immature Granulocytes Absolute 0.29 #; Lymphocytes # 0.6 10*3/uL (1.4-4.0); Lymphocytes % 6.5 % (21.2-54.2); Mean Corpuscular HGB Conc 29.4 GM/DL (32-36); Mean Corpuscular Volume 74.6 FL (87-102); Mean Platelet Volume 11.4 FL (9.6-12.0); Monocytes % 3.2 % (1.7-12.7); NRBC # 0.03 10*3/uL; Neutrophils % 87.3 % (38.7-73.9); Platelet Count 218 T/CUMM (130-400); Red Blood Count 4.61 MC/CUMM (3.8-5.5); Red Cell Distribution Width 17.4 % (9.3-17.3); White Blood Count 9.9 T/CUMM (4-12)
[2018-12-12 06:42] LABS: Hemoglobin 10.1 GM/DL (14.0-18.0)
[2018-12-12 06:45] LABS: Hypochromasia 1+; Microcytosis 1+; Platelet Estimate Normal; Polychromasia Few; Smudge Cells Few
[2018-12-12 06:54] LABS: Alanine Aminotransferase 27 U/L (16-61); Albumin 2.9 G/DL (3.4-5.0); Alkaline Phosphatase 63 U/L (45-117); Aspartate Amino Transferase 18 U/L (0-37); Bilirubin,Total < 0.39 MG/DL (0.2-1.0); Blood Urea Nitrogen 55 MG/DL (7-18); Calcium 8.3 MG/DL (8.5-10.1); Glucose 168 MG/DL (74-106); Osmolality,Calculated 299.3 MOS/KG (273-304)
[2018-12-12] MEDS: POTASSIUM GLUCONATE 500 MG TABLET PO SCH (09:20)
[2018-12-12] MEDS: FUROSEMIDE 20 MG/2 ML VIAL IV SCH ×2 (09:20→17:36)
[2018-12-12] MEDS: AZITHROMYCIN 250 MG TABLET PO SCH (09:20)
[2018-12-12] MEDS: PANTOPRAZOLE 40 MG TABLET PO SCH (09:20)
[2018-12-12] MEDS: SOTALOL 80 MG TABLET PO SCH ×2 (09:26→21:58)
[2018-12-12] MEDS: BUDESONIDE/FORMOTEROL 160-4.5 INHALER 6 GM INH SCH ×2 (09:28→21:58)
[2018-12-12] MEDS ORDERED: DIPHENOXYLATE/ATROPINE 2.5-0.025 MG TABLET PO PRN (17:07)
[2018-12-12] MEDS: cefTRIAXone 1,000 MG in SYRINGE 1 EACH IV SCH (21:57)
[2018-12-12] MEDS: DILTIAZEM CD 180 MG CAPSULE PO SCH (21:58)
[2018-12-12] MEDS: ASPIRIN EC 325 MG TABLET PO SCH (21:58)
[2018-12-12] MEDS: TAMSULOSIN 0.4 MG CAPSULE PO SCH (21:58)
[2018-12-13] MEDS: ALBUTEROL/IPRATROPIUM 3 ML NEB RESP TX SCH ×3 (00:11→07:25)
[2018-12-13] MEDS: methylPREDNISolone SOD SUC 40 MG/1 ML VIAL IV SCH (00:43)
[2018-12-13 05:14] LABS: Osmolality,Calculated 295.5 MOS/KG (273-304)
[2018-12-13 05:16] LABS: Basophils % 0.2 % (0.0-0.8); Hematocrit 34.6 VOL% (42.0-52.0); Hemoglobin 10.3 GM/DL (14.0-18.0); Immature Granulocytes % 4.8 %; Immature Granulocytes Absolute 0.45 #; Lymphocytes # 0.8 10*3/uL (1.4-4.0); Mean Corpuscular HGB Conc 29.8 GM/DL (32-36); Mean Corpuscular Volume 73.8 FL (87-102); Mean Platelet Volume 11.4 FL (9.6-12.0); Monocytes % 3.2 % (1.7-12.7); NRBC # 0.04 10*3/uL; Neutrophils % 83.8 % (38.7-73.9); Platelet Count 218 T/CUMM (130-400); Red Blood Count 4.69 MC/CUMM (3.8-5.5); Red Cell Distribution Width 17.3 % (9.3-17.3); White Blood Count 9.3 T/CUMM (4-12)
[2018-12-13 05:34] LABS: Hypochromasia 1+; Microcytosis 1+; Ovalocytes Slight; Platelet Estimate Adequate
[2018-12-13 07:40] VITALS: BP 158/69
[2018-12-13] MEDS ORDERED: predniSONE 10 MG TABLET PO SCH (09:00)
[2018-12-13] MEDS ORDERED: CEFUROXIME 500 MG TABLET PO SCH (09:00)
[2018-12-13] MEDS: PANTOPRAZOLE 40 MG TABLET PO SCH (09:55)
[2018-12-13] MEDS: POTASSIUM GLUCONATE 500 MG TABLET PO SCH (09:55)
[2018-12-13] MEDS: SOTALOL 80 MG TABLET PO SCH (09:55)
[2018-12-13] MEDS: FUROSEMIDE 20 MG/2 ML VIAL IV SCH (09:59)
[2018-12-13] MEDS: BUDESONIDE/FORMOTEROL 160-4.5 INHALER 6 GM INH SCH (10:01)
== END 2018-12-13 11:36 | disposition home health service (06) | DRG 190 ==
LOC: EDBD → EDUNIT# → N.ED 01:17 → N.EDINP 02:56 → N.TELES 03:12 → N.ICU 14:57 → N.2E 12-10 15:56
PROVIDERS: ADMIT Family Medicine; ATTEND Family Medicine